=== PATIENT | female | born 1985 | race Caucasian/White ===

== ENCOUNTER 2016-05-14 14:38 | Inpatient (IN) | payer MEDICARE, MEDICAID ==
[2016-05-14] MEDS ORDERED: NORMAL SALINE 1000 ML 1,000 ML IV ONE ×2 (14:44→16:13)
--- NOTE | 2016-05-14 15:15 | ER Document Report ---
ED Blood Sugar Problem - General Stated Complaint: NAUSEA Mode of Arrival: Medic Information source: Patient, Emergency Med Personnel TRAVEL OUTSIDE OF THE [place] IN LAST 30 DAYS: No - HPI Onset: Yesterday Onset/Duration: Gradual Quality of pain: No pain Insulin taken: Yes - ON PUMP Associated symptoms: Nausea, Vomiting Similar symptoms previously: Yes Recently seen / treated by doctor: No - HAS ENDOCRINOLOGY APPT. 05/18 - Related Data Allergies/Adverse Reactions: mushroom Allergy (Severe, Verified 03/10/16 07:28) Anaphylaxis alcohol [Alcohol] Allergy (Unknown, Verified 03/09/16 07:52) Hives gabapentin Allergy (Unknown, Verified 03/09/16 23:32) Hives morphine [Morphine] Allergy (Unknown, Verified 03/09/16 07:52) Penicillins Allergy (Unknown, Verified 03/09/16 07:52) Sulfa (Sulfonamide Antibiotics) Allergy (Unknown, Verified 03/09/16 07:52) adhesive [Adhesive] Allergy (Verified 03/09/16 07:52) hydrocodone Adverse Reaction (Severe, Verified 03/09/16 23:32) Swelling of Throat tomato [Tomato] Adverse Reaction (Severe, Verified 03/09/16 07:52) Anaphylaxis Past Medical History - General Information source: Patient - Social History Smoking Status: Current Every Day Smoker Cigarette use (# per day): Yes Chew tobacco use (# tins/day): No Smoking Education Provided: No Frequency of alcohol use: Occasional Drug Abuse: Marijuana Family History: None Patient has suicidal ideation: No Patient has homicidal ideation: No - Past Medical History Cardiac Medical History: Reports: Hx Hypercholesterolemia Denies: Hx Heart Attack Pulmonary Medical History: Reports: Hx Asthma Denies: Hx Tuberculosis Neurological Medical History: 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 Denies: Hx Cerebrovascular Accident Endocrine Medical History: Reports: Hx Diabetes Mellitus Type 1, Hx Diabetes Mellitus Type 2, Hx Hypothyroidism GI Medical History: Reports: Hx Gastroesophageal Reflux Disease. Denies: Hx Hepatitis, Hx Hiatal Hernia, Hx Ulcer Psychiatric Medical History: Reports: Hx Anxiety, Hx Bipolar Disorder, Hx Depression, Hx Post Traumatic Stress Disorder Infectious Medical History: Denies: Hx Hepatitis Past Surgical History: Reports: Hx Oral Surgery, Hx Orthopedic Surgery - Ankle surgery. Denies: Hx Mastectomy, Hx Open Heart Surgery, Hx Pacemaker - Immunizations Hx Diphtheria, Pertussis, Tetanus Vaccination: Yes Hx Pneumococcal Vaccination: 03/10/13 Review of Systems - Review of Systems Constitutional: Weakness EENT: No symptoms reported Cardiovascular: No symptoms reported Respiratory: No symptoms reported Gastrointestinal: See HPI Genitourinary: No symptoms reported Female Genitourinary: No symptoms reported Musculoskeletal: No symptoms reported Skin: No symptoms reported Neurological/Psychological: No symptoms reported Physical Exam - Vital signs Vitals: Temp Pulse Resp BP Pulse Ox 98.2 F 102 H 16 116/57 L 97 05/14/16 14:50 05/14/16 14:50 05/14/16 14:50 05/14/16 14:50 05/14/16 14:50 Interpretation: Hypotensive, Tachycardic. No: Tachypneic - BRADYPNEIC, Febrile - General General appearance: Appears well, Alert In distress: None - HEENT Head: Normocephalic Eyes: Normal Conjunctiva: Normal Ears: Normal Nasal: Normal Mouth/Lips: Normal Mucous membranes: Dry Pharynx: Normal Neck: Normal - Respiratory Respiratory status: No respiratory distress Breath sounds: Normal - Cardiovascular Rhythm: Regular, Tachycardia Heart sounds: Normal auscultation Murmur: No - Abdominal Inspection: Normal Distension: No distension Bowel sounds: Hypoactive - Back Back: Normal - Extremities General upper extremity: Normal inspection General lower extremity: Normal inspection - Neurological Neuro grossly intact: Yes Cognition: Normal Orientation: AAOx4 - Psychological Associated symptoms: Normal affect, Normal mood - Skin Skin Temperature: Warm Skin Moisture: Dry Skin Color: Normal Skin Turgor: Elastic Course - Vital Signs Vital signs: Temp Pulse Resp BP Pulse Ox 98.2 F 102 H 16 116/57 L 97 05/14/16 14:50 05/14/16 14:50 05/14/16 14:50 05/14/16 14:50 05/14/16 14:50 - Laboratory Result Diagrams: 05/14/16 15:19 05/14/16 15:19 Laboratory results interpreted by me: 05/14/16 05/14/16 05/14/16 15:19 15:19 15:24 WBC 14.9 H RBC 3.70 L Hgb 11.4 L MCV 100 H MCHC 30.7 L RDW 15.4 H Seg Neutrophils % 88.0 H Lymphocytes % 7.9 L Absolute Neutrophils 13.1 H Sodium 130.5 L Potassium 5.6 H Chloride 90 L Carbon Dioxide 7 L* Anion Gap 34 H BUN 37 H Creatinine 1.41 H Est GFR ( Amer) 53 L Est GFR (Non-Af Amer) 44 L Glucose 1159 H* Alkaline Phosphatase 155 H Urine Protein 30 H Urine Glucose (UA) >=500 H Urine Ketones 80 H Urine Blood SMALL H - EKG Interpretation by Sc EKG shows normal: Sinus rhythm, [place], QRS Complexes, ST-T Waves. abnormal: Intervals - BORDERLIINE LONG QT. Rate: Normal Rhythm: NSR Discharge - Discharge Clinical Impression: Diabetic ketoacidosis, Dehydration Condition: Good Disposition: ADMITTED INPATIENT Admitting Provider: Hospitalist Unit Admitted: [facility]
[2016-05-14 15:35] LABS: ABSOLUTE BASOPHILS # (AUTO) 0.1 10^3/uL (0.0-0.2); ABSOLUTE LYMPHOCYTES (AUTO) 1.2 10^3/uL (0.5-4.7); ABSOLUTE MONOCYTES (AUTO) 0.5 10^3/uL (0.1-1.4); ABSOLUTE NEUT (AUTO) 13.1 10^3/uL (1.7-8.2); BASOPHILS % (AUTO) 0.4 % (0-2); EOSINOPHILS % (AUTO) 0.1 % (0-6); HEMATOCRIT 37.1 % (36.0-47.0); HEMOGLOBIN 11.4 g/dL (12.0-15.5); HGB HCT DIFFERENCE -2.9; LYMPHOCYTES % (AUTO) 7.9 % (13-45); MEAN CORPUSCULAR HEMOGLOBIN 30.9 pg (27.0-33.4); MEAN CORPUSCULAR HGB CONC 30.7 g/dL (32.0-36.0); MEAN CORPUSCULAR VOLUME 100 fl (80-97); MONOCYTES % (AUTO) 3.6 % (3-13); RED CELL DISTRIBUTION WIDTH 15.4 % (11.5-14.0); WHITE BLOOD COUNT 14.9 10^3/uL (4.0-10.5)
[2016-05-14 15:44] LABS: APPEARANCE,URINE CLEAR; BILIRUBIN,URINE NEGATIVE (NEGATIVE); GLUCOSE, URINE >=500 mg/dL (NEGATIVE); KETONES,URINE 80 mg/dL (NEGATIVE); LEUKOCYTE ESTERASE,URINE NEGATIVE (NEGATIVE); NITRITE,URINE NEGATIVE (NEGATIVE); PROTEIN,URINE 30 mg/dL (NEGATIVE); URINE SPECIFIC GRAVITY 1.017; UROBILINOGEN,URINE NEGATIVE mg/dL (<2.0)
[2016-05-14 15:52] LABS: ALANINE AMINOTRANSFERASE 51 U/L (9-52); ALBUMIN 4.3 g/dL (3.5-5.0); ALKALINE PHOSPHATASE 155 U/L (38-126); ASPARTATE AMINO TRANSFERASE 24 U/L (14-36); BILIRUBIN,TOTAL 1.3 mg/dL (0.2-1.3); BLOOD UREA NITROGEN 37 mg/dL (7-20); CALCIUM 10.2 mg/dL (8.4-10.2); CHLORIDE 90 mmol/L (98-107); CREATININE RESULT 1.41 mg/dL (0.52-1.25); POTASSIUM 5.6 mmol/L (3.6-5.0); SODIUM 130.5 mmol/L (137-145); TOTAL PROTEIN 7.2 g/dL (6.3-8.2)
[2016-05-14] MEDS ORDERED: ONDANSETRON HCL INJ/PF 4 MG/2 ML SDV IV ONE (15:59)
[2016-05-14] MEDS ORDERED: NORMAL SALINE 100 ML with INSULIN REGULAR, HUMAN 100 UNIT IV PRN ×4 (16:00→16:39)
[2016-05-14 16:06] LABS: ANION GAP 34 (5-19)
[2016-05-14 16:07] LABS: CARBON DIOXIDE 7 mmol/L (22-30)
[2016-05-14] MEDS ORDERED: INSULIN REG, HUMAN 100 UNIT/ML 3 ML VIAL (PYX) IV ONE (16:07)
[2016-05-14 16:08] LABS: GLUCOSE 1159 mg/dL (75-110)
[2016-05-14] MEDS ORDERED: INSULIN REG, HUMAN 100 UNIT/ML 3 ML VIAL (PYX) ONE (16:21)
[2016-05-14] MEDS ORDERED: ONDANSETRON HCL INJ/PF 4 MG/2 ML SDV IV PRN (16:35)
[2016-05-14] MEDS ORDERED: ACETAMINOPHEN 650 MG SUPP.RECT PR PRN (16:35)
[2016-05-14] MEDS ORDERED: DEXTROSE 50%-WATER 25 GM/50 ML DISP.SYRIN IV PRN ×2 (16:39)
[2016-05-14] MEDS ORDERED: GLUCAGON,HUMAN RECOMB 1 MG INJ IM PRN (16:39)
[2016-05-14] MEDS ORDERED: DEXTROSE 40% GEL 15 GM TUBE PO PRN ×2 (16:39)
[2016-05-14 17:29] LABS: CREATINE KINASE MB 1.05 ng/mL (<4.55); TROPONIN I < 0.012 ng/mL
[2016-05-14] MEDS ORDERED: NORMAL SALINE 1000 ML 3,000 ML IV ONE (17:44)
--- NOTE | 2016-05-14 17:55 | PDOC H&P ---
History of Present Illness Admission Date/PCP: 05/14/16 16:35 History of Present Illness: JEANINE OSORIO is a 31 year old female with a past medical history significant for diabetes mellitus type I, bipolar disorder, hypertension, and hypothyroidism who presents to the emergency department with reports that her insulin pump is working. She reports that she's been having an upper respiratory infection for the last several days and that she's post been ear drops which is yet to have filled. She reports that she did vomit her medications. She states starting last night she felt she was having problems with her insulin pump site subsequent moved it to her inner thigh. Today patient is found to be in DKA with a blood sugar of over thousand. She is referred to hospital service for admission. 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 1 Endocrine Medical History: Reports: Diabetes Mellitus Type 1, Hypothyroidism GI Medical History: Reports: Gastroesophageal Reflux Disease Denies: Hepatitis, Hiatal Hernia Psychiatric Medical History: Reports: Bipolar Disorder, Depression, Post Traumatic Stress Disorder Past Surgical History Past Surgical History: Reports: Orthopedic Surgery - Ankle surgery Denies: Amputation, Mastectomy, Pacemaker Social History Smoking Status: Current Every Day Smoker Cigarettes Packs Per Day: 0.5 Frequency of Alcohol Use: Rare Hx Recreational Drug Use: Yes Drugs: Marijuana Hx Prescription Drug Abuse: No - Advance Directive Resuscitation Status: Full Code Surrogate healthcare decision maker:: Mother Florinda Family History Family History: DM Parental Family History Reviewed: Yes Children Family History Reviewed: NA Sibling(s) Family History Reviewed.: Yes Medication/Allergy Home Medications: Hydroxyzine Pamoate [Vistaril 25 mg Capsule] 25 mg PO QID 01/23/14 Lisinopril 10 mg PO DAILY 01/23/14 Omeprazole 40 mg PO DAILY 01/23/14 Prazosin HCl 1 mg PO QHS 01/23/14 Propranolol HCl 20 mg PO BID 01/23/14 Simvastatin [Zocor 40 mg Tablet] 40 mg PO DAILY 01/23/14 Cholecalciferol (Vitamin D3) [Vitamin D3 5000 unit Capsule] 5,000 unit PO DAILY 05/31/14 [place] Carbonate 300 mg PO BID 05/31/14 Zolpidem Tartrate [Ambien] 10 mg PO QHS 05/31/14 Metoclopramide HCl [Reglan] 5 mg PO ACHS 08/21/14 Clindamycin HCl 600 mg PO Q8 09/12/14 Insulin Aspart [Novolog Insulin (Aspart) 100 unit/mL] 0 unit SUBCUT .SLD SCALE 03/09/16 Levothyroxine Sodium [Synthroid] 200 mcg PO DAILY 03/09/16 Paliperidone [Invega 6 mg Tab.er] 6 mg PO DAILY 03/09/16 Allergies/Adverse Reactions: mushroom Allergy (Severe, Verified 03/10/16 07:28) Anaphylaxis alcohol [Alcohol] Allergy (Unknown, Verified 03/09/16 07:52) Hives gabapentin Allergy (Unknown, Verified 03/09/16 23:32) Hives morphine [Morphine] Allergy (Unknown, Verified 03/09/16 07:52) Penicillins Allergy (Unknown, Verified 03/09/16 07:52) Sulfa (Sulfonamide Antibiotics) Allergy (Unknown, Verified 03/09/16 07:52) adhesive [Adhesive] Allergy (Verified 03/09/16 07:52) hydrocodone Adverse Reaction (Severe, Verified 03/09/16 23:32) Swelling of Throat tomato [Tomato] Adverse Reaction (Severe, Verified 03/09/16 07:52) Anaphylaxis Review of Systems Constitutional: PRESENT: fatigue, weakness. ABSENT: chills, fever(s), headache( s), night sweats, weight gain, weight loss Eyes: ABSENT: visual disturbances Ears: ABSENT: hearing changes Cardiovascular: ABSENT: chest pain, dyspnea on exertion, edema, orthropnea, palpitations Respiratory: PRESENT: as per HPI. ABSENT: cough, hemoptysis Gastrointestinal: ABSENT: abdominal pain, constipation, diarrhea, hematemesis, hematochezia, nausea, vomiting Genitourinary: ABSENT: dysuria, hematuria Musculoskeletal: ABSENT: joint swelling Integumentary: ABSENT: rash, wounds Neurological: ABSENT: abnormal gait, abnormal speech, confusion, dizziness, focal weakness, syncope Psychiatric: ABSENT: anxiety, depression, homidical ideation, suicidal ideation Endocrine: ABSENT: cold intolerance, heat intolerance, polydipsia, polyuria Hematologic/Lymphatic: ABSENT: easy bleeding, easy bruising Physical Exam Vital Signs: Temp Pulse Resp BP Pulse Ox 98.2 F 102 H 16 116/57 L 97 05/14/16 14:50 05/14/16 14:50 05/14/16 14:50 05/14/16 14:50 05/14/16 14:50 General appearance: PRESENT: well-developed, well-nourished, other - Acutely ill -appearing Head exam: PRESENT: atraumatic, normocephalic Eye exam: PRESENT: conjunctiva pink, EOMI, PERRLA. ABSENT: conjunctival injection, scleral icterus Ear exam: PRESENT: normal external ear exam Mouth exam: PRESENT: dry mucosa, tongue midline Neck exam: PRESENT: thyromegaly. ABSENT: full ROM, JVD, lymphadenopathy, tracheal deviation Respiratory exam: PRESENT: clear to auscultation dave, symmetrical, tachypnea, unlabored. ABSENT: accessory muscle use, crackles, prolonged expiratory phas, rales, rhonchi, stridor, wheezes Cardiovascular exam: PRESENT: RRR, +S1, +S2, tachycardia. ABSENT: diastolic murmur, gallop, rubs, systolic murmur Pulses: PRESENT: normal dorsalis pedis pul Vascular exam: PRESENT: normal capillary refill GI/Abdominal exam: PRESENT: normal bowel sounds, soft. ABSENT: distended, firm , guarding, hernia, mass, Saldaña's sign, organolmegaly, rebound, rigid, tenderness Rectal exam: PRESENT: deferred Extremities exam: PRESENT: full ROM. ABSENT: calf tenderness, clubbing, pedal edema Neurological exam: PRESENT: alert, awake, oriented to person, oriented to place , oriented to time, oriented to situation, CN II-XII grossly intact. ABSENT: motor sensory deficit Psychiatric exam: PRESENT: appropriate affect, normal mood. ABSENT: homicidal ideation, suicidal ideation Skin exam: PRESENT: dry, intact, warm. ABSENT: cyanosis, rash Results Laboratory Results: 05/14/16 05/14/16 05/14/16 15:19 15:19 15:19 WBC 14.9 H Hgb 11.4 L Hct 37.1 MCV 100 H Plt Count 376 Sodium 130.5 L Potassium 5.6 H Chloride 90 L Carbon Dioxide 7 L* Anion Gap 34 H BUN 37 H Creatinine 1.41 H Glucose 1159 H* Calcium 10.2 Magnesium 2.3 Total Bilirubin 1.3 Creatine Kinase Troponin I 05/14/16 05/14/16 15:19 15:19 WBC Hgb Hct MCV Plt Count Sodium Potassium Chloride Carbon Dioxide Anion Gap BUN Creatinine Glucose Calcium Magnesium Total Bilirubin Creatine Kinase 79 Troponin I < 0.012 Assessment & Plan - Diagnosis (1) DKA (diabetic ketoacidoses) Qualifiers: Diabetes mellitus type: type 1 Diabetes mellitus complication detail: without coma Qualified Code(s): E10.10 - Type 1 diabetes mellitus with ketoacidosis without coma Is this a current diagnosis for this admission?: YesPlan: Likely secondary to URI. Patient also coincidentally has a follow-up appointment with her cycle repairer within the next several days. Patient reports that she was having problems with her pump site. She can address pump difficulties with her cycle repairer at this time. We'll give patient a total of 5 L normal saline bolus. Will initiate insulin drip at 7 units per hour. Will obtain BMPs every 4 hours. Patient will be nothing by mouth. (2) Upper respiratory infection Qualifiers: URI type: unspecified viral URI Qualified Code(s): J06.9 - Acute upper respiratory infection, unspecified; B97.89 - Other viral agents as the cause of diseases classified elsewhere Is this a current diagnosis for this admission?: YesPlan: Will check an influenza. Supportive care. (3) Dehydration Is this a current diagnosis for this admission?: Yes (4) Acute renal failure Qualifiers: Acute renal failure type: unspecified Qualified Code(s): N17.9 - Acute kidney failure, unspecified Is this a current diagnosis for this admission?: YesPlan: Secondary to DKA. Continue with IV fluids. (5) Bipolar 1 disorder Is this a current diagnosis for this admission?: YesPlan: Continue patient home medication. Did check a lithium level which is subtherapeutic. Patient may use her home medication. (6) Hyperlipidemia Qualifiers: Hyperlipidemia type: pure hypercholesterolemia Qualified Code(s): E78.00 - Pure hypercholesterolemia, unspecified; E78.0 - Pure hypercholesterolemia Is this a current diagnosis for this admission?: Yes (7) Hypothyroidism Qualifiers: Hypothyroidism type: unspecified Qualified Code(s): E03.9 - Hypothyroidism, unspecified Is this a current diagnosis for this admission?: YesPlan: We'll continue Synthroid. - Time Time Spent: 50 to 70 Minutes Medications reviewed and adjusted accordingly: Yes Anticipated discharge: Home Within: within 72 hours - Inpatient Certification Based on my medical assessment, after consideration of the patient's comorbidities, presenting symptoms, or acuity I expect that the services needed warrant INPATIENT care.: Yes I certify that my determination is in accordance with my understanding of Medicare's requirements for reasonable and necessary INPATIENT services [42 CFR 412.3e].: Yes Medical Necessity: Need For IV Fluids, Need For Continuous Telemetry Monitoring , Risk of Complication if Not Cared For in Hospital Post Hospital Care: D/C Hospital Manager Documentation
[2016-05-14 18:25] LABS: URINE BARBITURATES SCREEN NEGATIVE; URINE METHADONE SCREEN NEGATIVE; URINE OPIATES LOW NEGATIVE; URINE PHENCYCLIDINE SCREEN NEGATIVE
[2016-05-14] MEDS ORDERED: PANTOPRAZOLE SODIUM 40 MG VIAL IV ONE (18:45)
[2016-05-14] MEDS: NORMAL SALINE 1000 ML 1,000 ML IV PRN ×2 (19:00→22:54)
[2016-05-14] MEDS: METOCLOPRAMIDE HCL INJ/PF 10 MG/2 ML SDV IV SCH (21:14)
[2016-05-14 21:17] LABS: CREATINE KINASE MB 0.88 ng/mL (<4.55)
[2016-05-14 21:18] LABS: TROPONIN I < 0.012 ng/mL
--- NOTE | 2016-05-14 22:11 | EKG REPORT ---
SEVERITY:- BORDERLINE ECG - SINUS TACHYCARDIA BORDERLINE PROLONGED QT INTERVAL : Confirmed by: Jorge Pruett 14-May-2016 22:11:23
[2016-05-14 23:01] LABS: VENOUS BLOOD BASE EXCESS -7.9 mmol/L; VENOUS BLOOD HCO3 18.3 mmol/L (20-32); VENOUS BLOOD PCO2 39.6 mmHg (35-63); VENOUS BLOOD PH 7.28 (7.30-7.42)
[2016-05-14 23:32] LABS: BLOOD UREA NITROGEN 31 mg/dL (7-20); CALCIUM 8.6 mg/dL (8.4-10.2); CHLORIDE 112 mmol/L (98-107); CREATINE KINASE 57 U/L (30-135); CREATININE RESULT 1.09 mg/dL (0.52-1.25); GLUCOSE 308 mg/dL (75-110); SODIUM 142.2 mmol/L (137-145)
[2016-05-14 23:49] LABS: ANION GAP 13 (5-19)
[2016-05-14 23:52] LABS: CARBON DIOXIDE 17 mmol/L (22-30); POTASSIUM 4.2 mmol/L (3.6-5.0)
[2016-05-15] MEDS: POTASSI CL 20 MEQ/D5-1/2NS 1L 1,000 ML IV PRN ×2 (01:32→06:35)
[2016-05-15 03:43] LABS: CREATINE KINASE MB 0.56 ng/mL (<4.55)
[2016-05-15 03:46] LABS: TROPONIN I < 0.012 ng/mL
[2016-05-15 04:07] LABS: ANION GAP 10 (5-19); BLOOD UREA NITROGEN 28 mg/dL (7-20); CALCIUM 7.7 mg/dL (8.4-10.2); CARBON DIOXIDE 21 mmol/L (22-30); CHLORIDE 113 mmol/L (98-107); CREATINE KINASE 45 U/L (30-135); CREATININE RESULT 0.96 mg/dL (0.52-1.25); GLUCOSE 171 mg/dL (75-110); MAGNESIUM 1.8 mg/dL (1.6-2.3); POTASSIUM 3.7 mmol/L (3.6-5.0); SODIUM 143.8 mmol/L (137-145)
[2016-05-15] MEDS ORDERED: PANTOPRAZOLE SODIUM 40 MG VIAL IV SCH (06:00)
[2016-05-15 07:13] LABS: ABSOLUTE BASOPHILS # (AUTO) 0.1 10^3/uL (0.0-0.2); ABSOLUTE EOSINOPHILS # (AUTO) 0.1 10^3/uL (0.0-0.6); ABSOLUTE LYMPHOCYTES (AUTO) 3.8 10^3/uL (0.5-4.7); ABSOLUTE MONOCYTES (AUTO) 0.9 10^3/uL (0.1-1.4); ABSOLUTE NEUT (AUTO) 8.2 10^3/uL (1.7-8.2); BASOPHILS % (AUTO) 0.4 % (0-2); HEMOGLOBIN 9.5 g/dL (12.0-15.5); HGB HCT DIFFERENCE 0.5; LYMPHOCYTES % (AUTO) 28.9 % (13-45); MEAN CORPUSCULAR HEMOGLOBIN 30.8 pg (27.0-33.4); MEAN CORPUSCULAR HGB CONC 33.7 g/dL (32.0-36.0); MONOCYTES % (AUTO) 7.1 % (3-13); RED BLOOD COUNT 3.07 10^6/uL (3.72-5.28); RED CELL DISTRIBUTION WIDTH 14.7 % (11.5-14.0); SEGMENTED NEUTROPHILS % (AUTO) 62.6 % (42-78); WHITE BLOOD COUNT 13.1 10^3/uL (4.0-10.5)
[2016-05-15 07:31] LABS: ANION GAP 8 (5-19); BLOOD UREA NITROGEN 25 mg/dL (7-20); CALCIUM 8.2 mg/dL (8.4-10.2); CARBON DIOXIDE 21 mmol/L (22-30); CHLORIDE 114 mmol/L (98-107); CREATININE RESULT 0.91 mg/dL (0.52-1.25); GLUCOSE 167 mg/dL (75-110); POTASSIUM 4.1 mmol/L (3.6-5.0); SODIUM 142.8 mmol/L (137-145)
[2016-05-15 07:34] LABS: MEAN CORPUSCULAR VOLUME 91 fl (80-97)
[2016-05-15] MEDS ORDERED: ENOXAPARIN SODIUM INJ 40 MG/0.4 ML DISP.SYRIN SUBCUT SCH (08:00)
[2016-05-15] MEDS ORDERED: NORMAL SALINE 1000 ML 1,000 ML IV PRN (09:54)
[2016-05-15] MEDS ORDERED: INSULIN LISPRO 100 UNIT/ML 3 ML VIAL SUBCUT PRN (09:55)
[2016-05-15] MEDS ORDERED: (PENDING PHARMACY ID) (Lithium Carbonate [Lithium Carbonate] 600 MG) PO SCH (10:00)
[2016-05-15] MEDS ORDERED: PROPRANOLOL HCL 10 MG TABLET PO SCH (10:00)
[2016-05-15] MEDS: METOCLOPRAMIDE HCL INJ/PF 10 MG/2 ML SDV IV SCH (10:09)
[2016-05-15] MEDS ORDERED: LEVOTHYROXINE SODIUM 0.1 MG TABLET PO ONE (11:00)
[2016-05-15] MEDS ORDERED: PROPRANOLOL HCL 20 MG TABLET PO ONE (11:00)
[2016-05-15] MEDS ORDERED: LITHIUM CARBONATE 300 MG CAPSULE PO ONE (11:00)
[2016-05-15] MEDS: HYDROXYZINE PAMOATE 25 MG CAPSULE PO SCH ×2 (11:03→14:42)
[2016-05-15 11:30] LABS: ANION GAP 8 (5-19); BLOOD UREA NITROGEN 23 mg/dL (7-20); CALCIUM 7.9 mg/dL (8.4-10.2); CARBON DIOXIDE 21 mmol/L (22-30); CHLORIDE 112 mmol/L (98-107); GLUCOSE 142 mg/dL (75-110); POTASSIUM 4.1 mmol/L (3.6-5.0); SODIUM 140.9 mmol/L (137-145)
--- NOTE | 2016-05-15 15:00 | PDOC DISCHARGE SUMMARY ---
General - Admit/Disc Date/PCP Admission Date/Primary Care Provider: 05/14/16 16:35 Discharge Date: 05/15/16 - Discharge Diagnosis (1) DKA (diabetic ketoacidoses) Is this a current diagnosis for this admission?: Yes (2) Upper respiratory infection Is this a current diagnosis for this admission?: Yes (3) Dehydration Is this a current diagnosis for this admission?: Yes (4) Acute renal failure Is this a current diagnosis for this admission?: Yes (5) Bipolar 1 disorder Is this a current diagnosis for this admission?: Yes (6) Hyperlipidemia Is this a current diagnosis for this admission?: Yes (7) Hypothyroidism Is this a current diagnosis for this admission?: Yes - Additional Information Resuscitation Status: Full Code Discharge Diet: Diabetic Discharge Activity: Activity As Tolerated Home Medications: Hydroxyzine Pamoate [Vistaril 25 mg Capsule] 25 mg PO QID 01/23/14 Lisinopril 10 mg PO DAILY 01/23/14 Omeprazole 40 mg PO DAILY 01/23/14 Prazosin HCl 1 mg PO QHS 01/23/14 Propranolol HCl 20 mg PO BID 01/23/14 [place] Carbonate 600 mg PO BID 05/31/14 Zolpidem Tartrate [Ambien] 10 mg PO QHS 05/31/14 Metoclopramide HCl [Reglan] 10 mg PO BID 08/21/14 Clindamycin HCl 600 mg PO Q8 09/12/14 Insulin Aspart [Novolog Insulin (Aspart) 100 unit/mL] 0 unit SUBCUT .SLD SCALE 03/09/16 Levothyroxine Sodium [Synthroid] 200 mcg PO DAILY 03/09/16 Paliperidone [Invega 6 mg Tab.er] 6 mg PO QHS 03/09/16 History of Present Illness History of Present Illness: JEANINE OSORIO is a 31 year old female with a past medical history significant for diabetes mellitus type I, bipolar disorder, hypertension, and hypothyroidism who presents to the emergency department with reports that her insulin pump is working. She reports that she's been having an upper respiratory infection for the last several days and that she's post been ear drops which is yet to have filled. She reports that she did vomit her medications. She states starting last night she felt she was having problems with her insulin pump site subsequent moved it to her inner thigh. Today patient is found to be in DKA with a blood sugar of over thousand. She is referred to hospital service for admission. Hospital Course Hospital Course: Patient was placed on insulin drip and IV fluids and her gap as well as acidosis rapidly resolved. Patient was transitioned according to standard DKA therapy and continued to do well. Patient reports that she felt her insulin pump site was not working and new site was placed in pump was reinitiated prior to discharge. Patient has a follow-up appointment she reports this week with her geographic information system surveyor. She is strongly advised to follow up with her. Physical Exam Vital Signs: Temp Pulse Resp BP Pulse Ox 97.5 F 86 20 125/74 98 05/15/16 11:06 05/15/16 11:06 05/15/16 11:06 05/15/16 11:06 05/15/16 11:06 Intake & Output 05/14/16 05/15/16 05/16/16 06:59 06:59 06:59 Intake Total 6 582 Balance 2035 582 Weight 67.2 kg Exam: General: Awake alert and oriented x3, no acute respiratory distress HEENT: AT/NC, PERRL, EOMI, oropharynx is moist, pink, no scleral icterus, no conjunctival injection Neck: No JVD, trachea midline Chest: Clear to auscultation bilaterally, no wheezes rhonchi or rales CV: Regular rate and rhythm, normal S1 and S2, no murmur, rub, or gallop Abdomen: Soft, nontender to palpation, nondistended, active bowel sounds; no rebound, rigidity, or guarding Extremities: No cyanosis, clubbing; trace edema Neuro: Cranial nerves II through XII are grossly intact without focal deficits; awake alert and oriented x3 Psych: Normal mood and affect Results Laboratory Results: 05/15/16 06:40 05/15/16 10:57 05/14/16 05/14/16 05/14/16 20:45 20:45 22:47 WBC RBC Hgb Hct MCV MCH MCHC RDW Plt Count Seg Neutrophils % Lymphocytes % Monocytes % Eosinophils % Basophils % Absolute Neutrophils Absolute Lymphocytes Absolute Monocytes Absolute Eosinophils Absolute Basophils VBG pH Cancelled 7.28 L VBG pCO2 Cancelled 39.6 VBG HCO3 Cancelled 18.3 L VBG Base Excess Cancelled -7.9 Sodium Cancelled Potassium Cancelled Chloride Cancelled Carbon Dioxide Cancelled Anion Gap Cancelled BUN Cancelled Creatinine Cancelled Est GFR ( Amer) Cancelled Est GFR (Non-Af Amer) Cancelled Glucose Cancelled Calcium Cancelled Magnesium 05/14/16 05/15/16 05/15/16 22:47 03:07 06:40 WBC RBC Hgb Hct MCV MCH MCHC RDW Plt Count Seg Neutrophils % Lymphocytes % Monocytes % Eosinophils % Basophils % Absolute Neutrophils Absolute Lymphocytes Absolute Monocytes Absolute Eosinophils Absolute Basophils VBG pH VBG pCO2 VBG HCO3 VBG Base Excess Sodium 142.2 143.8 142.8 Potassium 4.2 D 3.7 4.1 Chloride 112 H 113 H 114 H Carbon Dioxide 17 L D 21 L 21 L Anion Gap 13 10 8 BUN 31 H 28 H 25 H Creatinine 1.09 0.96 0.91 Est GFR ( Amer) > 60 > 60 > 60 Est GFR (Non-Af Amer) 59 L > 60 > 60 Glucose 308 H 171 H 167 H Calcium 8.6 7.7 L 8.2 L Magnesium 1.8 05/15/16 05/15/16 06:40 10:57 WBC 13.1 H RBC 3.07 L Hgb 9.5 L Hct 28.0 L MCV 91 D MCH 30.8 MCHC 33.7 RDW 14.7 H Plt Count 339 Seg Neutrophils % 62.6 Lymphocytes % 28.9 Monocytes % 7.1 Eosinophils % 1.0 Basophils % 0.4 Absolute Neutrophils 8.2 Absolute Lymphocytes 3.8 Absolute Monocytes 0.9 Absolute Eosinophils 0.1 Absolute Basophils 0.1 VBG pH VBG pCO2 VBG HCO3 VBG Base Excess Sodium 140.9 Potassium 4.1 Chloride 112 H Carbon Dioxide 21 L Anion Gap 8 BUN 23 H Creatinine 0.90 Est GFR ( Amer) > 60 Est GFR (Non-Af Amer) > 60 Glucose 142 H Calcium 7.9 L Magnesium 05/14/16 05/14/16 05/14/16 20:45 20:45 22:47 Creatine Kinase Cancelled 57 CK-MB (CK-2) 0.88 Troponin I < 0.012 05/15/16 05/15/16 03:07 03:07 Creatine Kinase 45 CK-MB (CK-2) 0.56 Troponin I < 0.012 Qualifiers P[place]INT BEING DISCHARGED WITH ANY OF THE FOLLOWING DIAGNOSIS?: No Plan Time Spent: Less than 30 Minutes
[2016-05-15 15:41] LABS: ANION GAP 7 (5-19); BLOOD UREA NITROGEN 20 mg/dL (7-20); CALCIUM 7.8 mg/dL (8.4-10.2); CARBON DIOXIDE 18 mmol/L (22-30); CHLORIDE 114 mmol/L (98-107); CREATININE RESULT 0.89 mg/dL (0.52-1.25); GLUCOSE 162 mg/dL (75-110); POTASSIUM 4.2 mmol/L (3.6-5.0)
[2016-05-15 15:42] VITALS: BP 115/65
[2016-05-15] MEDS ORDERED: LITHIUM CARBONATE 300 MG CAPSULE PO SCH (22:00)
[2016-05-15] MEDS ORDERED: (PENDING PHARMACY ID) (Prazosin Hcl [Prazosin Hcl] 1 MG) PO SCH (22:00)
[2016-05-15] MEDS ORDERED: PROPRANOLOL HCL 20 MG TABLET PO SCH (22:00)
[2016-05-15] MEDS ORDERED: PALIPERIDONE 6 MG TAB.ER.24 PO SCH (22:00)
[2016-05-15] MEDS ORDERED: PRAZOSIN 1 MG CAPSULE PO SCH (22:00)
[2016-05-16] MEDS ORDERED: LEVOTHYROXINE SODIUM 0.1 MG TABLET PO SCH (10:00)
== END 2016-05-15 16:33 | disposition home or self-care (01) | DRG 638 ==
LOC: ER 14:38 → EH 16:35 → UNDOADMIN 17:20 → 3N 20:22
PROVIDERS: ADMIT Family Medicine; ATTEND Family Medicine
DX: E10.10 Type 1 diabetes mellitus with ketoacidosis without coma (principal); N17.9 Acute kidney failure, unspecified; F31.9 Bipolar disorder, unspecified; F43.10 Post-traumatic stress disorder, unspecified; K21.9 Gastro-esophageal reflux disease without esophagitis; F17.210 Nicotine dependence, cigarettes, uncomplicated; E86.0 Dehydration; E78.5 Hyperlipidemia, unspecified; E03.9 Hypothyroidism, unspecified; F32.9 Major depressive disorder, single episode, unspecified; J06.9 Acute upper respiratory infection, unspecified; Z88.0 Allergy status to penicillin; Z88.2 Allergy status to sulfonamides; Z88.8 Allergy status to other drugs, medicaments and biological substances; Z90.10 Acquired absence of unspecified breast and nipple; Z79.4 Long term (current) use of insulin; Z91.018 Allergy to other foods; Z79.899 Other long term (current) drug therapy
CPT/HCPCS: 36415; 80048; 80053; 80178; 80307; 81001; 81025; 82550; 82553; 82803; 82962; 83735; 84484; 85025; 87804; 93005; 93010; 96361; 96374; 99285; J1815; J2405; J2765; J3480; J3490; J7030; S0164

== ENCOUNTER 2016-06-29 14:40 | Inpatient (IN) | payer MEDICARE, MEDICAID ==
--- NOTE | 2016-06-29 14:48 | ER Document Report ---
ED Medical Screen (RME) - General Stated Complaint: HIGH BLOOD SUGAR Notes: 31 yo IDDM on insulin pump, c/o high blood sugar since 0700 today. + n/v, + abdominal pain. blood sugars >600 admitted in May for DKA TRAVEL OUTSIDE OF THE [place] IN LAST 30 DAYS: No - Related Data Allergies/Adverse Reactions: mushroom Allergy (Severe, Verified 03/10/16 07:28) Anaphylaxis alcohol [Alcohol] Allergy (Unknown, Verified 03/09/16 07:52) Hives gabapentin Allergy (Unknown, Verified 03/09/16 23:32) Hives morphine [Morphine] Allergy (Unknown, Verified 03/09/16 07:52) Penicillins Allergy (Unknown, Verified 03/09/16 07:52) Sulfa (Sulfonamide Antibiotics) Allergy (Unknown, Verified 03/09/16 07:52) adhesive [Adhesive] Allergy (Verified 03/09/16 07:52) hydrocodone Adverse Reaction (Severe, Verified 03/09/16 23:32) Swelling of Throat tomato [Tomato] Adverse Reaction (Severe, Verified 03/09/16 07:52) Anaphylaxis Past Medical History - Past Medical History Cardiac Medical History: Reports: Hx Hypercholesterolemia Denies: Hx Heart Attack Pulmonary Medical History: Reports: Hx Asthma Denies: Hx Tuberculosis Neurological Medical History: 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 Denies: Hx Cerebrovascular Accident Endocrine Medical History: Reports: Hx Diabetes Mellitus Type 1, Hx Diabetes Mellitus Type 2, Hx Hypothyroidism GI Medical History: Reports: Hx Gastroesophageal Reflux Disease. Denies: Hx Hepatitis, Hx Hiatal Hernia, Hx Ulcer Psychiatric Medical History: Reports: Hx Anxiety, Hx Bipolar Disorder, Hx Depression, Hx Post Traumatic Stress Disorder Infectious Medical History: Denies: Hx Hepatitis Past Surgical History: Reports: Hx Oral Surgery, Hx Orthopedic Surgery - Ankle surgery. Denies: Hx Mastectomy, Hx Open Heart Surgery, Hx Pacemaker - Immunizations Hx Diphtheria, Pertussis, Tetanus Vaccination: Yes
--- NOTE | 2016-06-29 15:17 | ER Document Report ---
ED Blood Sugar Problem - General Mode of Arrival: Ambulatory Information source: Patient TRAVEL OUTSIDE OF THE [place] IN LAST 30 DAYS: No - HPI Patient complains to provider of: high blood sugar Onset: This morning Associated symptoms: Other - See above <FELIPE KNIGHT - Last Filed: 06/29/16 15:12> <RONITROBBIEGREGOR - Last Filed: 06/29/16 17:29> - General Chief Complaint: High Blood Sugar Stated Complaint: HIGH BLOOD SUGAR Notes: Patient is a 31 year old female, with a past medical history including IDDM, who presents to the emergency department complaining of high blood sugar levels onset this morning. Patient reports she felt fine last night but this morning when she woke up she had abdominal pain, nausea, and vomited at 0700. Patient reports her blood sugar has been running high all day and believes there is a problem with her insulin pump site which she last changed yesterday. Patient denies fever and cough. PCP: Dr. Mchugh, [facility] (FELIPE KNIGHT) - Related Data Allergies/Adverse Reactions: mushroom Allergy (Severe, Verified 06/29/16 14:47) Anaphylaxis alcohol [Alcohol] Allergy (Unknown, Verified 06/29/16 14:47) Hives gabapentin Allergy (Unknown, Verified 06/29/16 14:47) Hives morphine [Morphine] Allergy (Unknown, Verified 06/29/16 14:47) Penicillins Allergy (Unknown, Verified 06/29/16 14:47) Sulfa (Sulfonamide Antibiotics) Allergy (Unknown, Verified 06/29/16 14:47) adhesive [Adhesive] Allergy (Verified 06/29/16 14:47) hydrocodone Adverse Reaction (Severe, Verified 06/29/16 14:47) Swelling of Throat tomato [Tomato] Adverse Reaction (Severe, Verified 06/29/16 14:47) Anaphylaxis Past Medical History - General Information source: Patient - Social History Smoking Status: Current Every Day Smoker Chew tobacco use (# tins/day): No Frequency of alcohol use: None Drug Abuse: None Family History: Reviewed & Not Pertinent, DM Patient has suicidal ideation: No Patient has homicidal ideation: No - Past Medical History Cardiac Medical History: Reports: Hx Hypercholesterolemia Pulmonary Medical History: Reports: Hx Asthma Neurological Medical History: Reports: 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 Endocrine Medical History: Reports: Hx Diabetes Mellitus Type 1, Hx Diabetes Mellitus Type 2, Hx Hypothyroidism GI Medical History: Reports: Hx Gastroesophageal Reflux Disease Psychiatric Medical History: Reports: Hx Anxiety, Hx Bipolar Disorder, Hx Depression, Hx Post Traumatic Stress Disorder Past Surgical History: Reports: Hx Oral Surgery, Hx Orthopedic Surgery - Ankle surgery - Immunizations Hx Diphtheria, Pertussis, Tetanus Vaccination: Yes Hx Pneumococcal Vaccination: 03/10/13 <FELIPE KNIGHT - Last Filed: 06/29/16 15:12> Review of Systems - Review of Systems Constitutional: See HPI, Other - high blood sugar. denies: Fever EENT: No symptoms reported Cardiovascular: No symptoms reported Respiratory: denies: Cough Gastrointestinal: See HPI, Abdominal pain, Nausea, Vomiting Genitourinary: No symptoms reported Female Genitourinary: No symptoms reported Musculoskeletal: No symptoms reported Skin: No symptoms reported Hematologic/Lymphatic: No symptoms reported Neurological/Psychological: No symptoms reported -: Yes All other systems reviewed and negative <FELIPE KNIGHT - Last Filed: 06/29/16 15:12> Physical Exam - Vital signs Interpretation: Normal - General General appearance: Appears well, Alert - HEENT Head: Normocephalic, Atraumatic Mouth/Lips: Other - Strong ketone odor on breath Mucous membranes: Dry - Respiratory Respiratory status: No respiratory distress Chest status: Nontender Breath sounds: Normal Chest palpation: Normal - Cardiovascular Rhythm: Regular Heart sounds: Normal auscultation Murmur: No - Abdominal Inspection: Other - Insulin pump attached at right lateral mid abdomen Distension: No distension Bowel sounds: Normal Tenderness: Tender - Winces when abdomen is palpated Organomegaly: No organomegaly - Extremities General upper extremity: Normal inspection General lower extremity: Normal inspection - Neurological Neuro grossly intact: Yes Cognition: Normal Orientation: AAOx4 [place] Coma Scale Eye Opening: Spontaneous [place] Coma Scale Verbal: Oriented [place] Coma Scale Motor: Obeys Commands [place] Coma Scale Total: 15 Speech: Normal - Psychological Associated symptoms: Normal affect, Normal mood - Skin Skin Temperature: Warm Skin Moisture: Dry Skin Color: Normal <FELIPE KNIGHT - Last Filed: 06/29/16 15:12> Course - Laboratory Result Diagrams: 06/29/16 15:48 06/29/16 15:48 - Consults Dr. Zhang Time consulted: 17:25 Consulted provider: will come to ER <GREGOR COTTRELL - Last Filed: 06/29/16 17:29> - Laboratory Laboratory results interpreted by me: 06/29/16 06/29/16 06/29/16 15:48 15:48 15:48 MCV 98 H Sodium 133.7 L Potassium 5.1 H Chloride 93 L Carbon Dioxide 13 L Anion Gap 28 H BUN 28 H Est GFR (Non-Af Amer) 52 L Glucose 714 H* Direct Bilirubin 0.5 H AST 88 H ALT 97 H Urine Protein 100 H Urine Glucose (UA) >=500 H Urine Ketones 80 H Urine Blood SMALL H [employer] < 0.2 L Critical Care Note - Critical Care Note Total time excluding time spent on procedures (mins): 30 <GREGOR COTTRELL - Last Filed: 06/29/16 17:29> Discharge <FELIPE KNIGHT - Last Filed: 06/29/16 15:12> - Discharge Admitting Provider: Hospitalist Unit Admitted: IMCU <GREGOR COTTRELL - Last Filed: 06/29/16 17:29> - Discharge Clinical Impression: Bipolar 1 disorder, Dehydration, Type 1 diabetes mellitus with hyperglycemia Diabetic ketoacidosis Qualifiers: Diabetes mellitus type: type 1 Diabetes mellitus complication detail: without coma Qualified Code(s): E10.10 - Type 1 diabetes mellitus with ketoacidosis without coma Condition: Stable Disposition: ADMITTED INPATIENT Referrals: LAWSON MCHUGH DO [Primary Care Provider] - Follow up as needed Scribe Attestation: 06/29/16 17:28 I personally performed the services described in the documentation, reviewed and edited the documentation which was dictated to the scribe in my presence, and it accurately records my words and actions. (GREGOR COTTRELL) Scribe Documentation - Scribe Written by Adeibe:: hira Collins, 06/29/16, 1519 acting as scribe for :: Ronit <FELIPE KNIGHT - Last Filed: 06/29/16 15:12>
[2016-06-29 16:00] LABS: ABSOLUTE BASOPHILS # (AUTO) 0.1 10^3/uL (0.0-0.2); ABSOLUTE EOSINOPHILS # (AUTO) 0.1 10^3/uL (0.0-0.6); ABSOLUTE LYMPHOCYTES (AUTO) 1.6 10^3/uL (0.5-4.7); ABSOLUTE MONOCYTES (AUTO) 0.3 10^3/uL (0.1-1.4); ABSOLUTE NEUT (AUTO) 6.8 10^3/uL (1.7-8.2); EOSINOPHILS % (AUTO) 0.8 % (0-6); HEMATOCRIT 40.8 % (36.0-47.0); HEMOGLOBIN 13.1 g/dL (12.0-15.5); HGB HCT DIFFERENCE -1.5; LYMPHOCYTES % (AUTO) 18.3 % (13-45); MEAN CORPUSCULAR HEMOGLOBIN 31.3 pg (27.0-33.4); MEAN CORPUSCULAR VOLUME 98 fl (80-97); MONOCYTES % (AUTO) 3.4 % (3-13); RED BLOOD COUNT 4.18 10^6/uL (3.72-5.28); SEGMENTED NEUTROPHILS % (AUTO) 76.5 % (42-78); WHITE BLOOD COUNT 8.8 10^3/uL (4.0-10.5)
[2016-06-29] MEDS: NORMAL SALINE 1000 ML 1,000 ML IV PRN ×3 (16:01→23:04)
[2016-06-29 16:23] LABS: ALANINE AMINOTRANSFERASE 97 U/L (9-52); ALBUMIN 4.4 g/dL (3.5-5.0); ALKALINE PHOSPHATASE 97 U/L (38-126); ASPARTATE AMINO TRANSFERASE 88 U/L (14-36); BILIRUBIN,DIRECT 0.5 mg/dL (0.0-0.4); BILIRUBIN,TOTAL 1.2 mg/dL (0.2-1.3); BLOOD UREA NITROGEN 28 mg/dL (7-20); CALCIUM 9.8 mg/dL (8.4-10.2); CARBON DIOXIDE 13 mmol/L (22-30); CHLORIDE 93 mmol/L (98-107); CREATININE RESULT 1.21 mg/dL (0.52-1.25); TOTAL PROTEIN 7.2 g/dL (6.3-8.2)
[2016-06-29 16:24] LABS: LITHIUM < 0.2 mEq/L (0.6-1.2)
[2016-06-29 16:29] LABS: APPEARANCE,URINE SLIGHTLY-CLOUDY; BILIRUBIN,URINE NEGATIVE (NEGATIVE); GLUCOSE, URINE >=500 mg/dL (NEGATIVE); KETONES,URINE 80 mg/dL (NEGATIVE); LEUKOCYTE ESTERASE,URINE NEGATIVE (NEGATIVE); NITRITE,URINE NEGATIVE (NEGATIVE); PROTEIN,URINE 100 mg/dL (NEGATIVE); UROBILINOGEN,URINE NEGATIVE mg/dL (<2.0)
[2016-06-29 16:34] LABS: POTASSIUM 5.1 mmol/L (3.6-5.0); SODIUM 133.7 mmol/L (137-145)
[2016-06-29] MEDS ORDERED: ONDANSETRON HCL INJ/PF 4 MG/2 ML SDV IV ONE (16:34)
[2016-06-29 16:46] LABS: ANION GAP 28 (5-19)
[2016-06-29 16:50] LABS: GLUCOSE 714 mg/dL (75-110)
[2016-06-29] MEDS ORDERED: INSULIN REG, HUMAN 100 UNIT/ML 3 ML VIAL (PYX) IV ONE (16:52)
[2016-06-29] MEDS ORDERED: DEXTROSE 40% GEL 15 GM TUBE PO PRN ×2 (17:31)
[2016-06-29] MEDS ORDERED: GLUCAGON,HUMAN RECOMB 1 MG INJ IM PRN (17:31)
[2016-06-29] MEDS ORDERED: DEXTROSE 50%-WATER 25 GM/50 ML DISP.SYRIN IV PRN ×2 (17:31)
[2016-06-29] MEDS ORDERED: NORMAL SALINE 100 ML with INSULIN REGULAR, HUMAN 100 UNIT IV PRN ×2 (17:31)
[2016-06-29] MEDS ORDERED: NORMAL SALINE 1000 ML 1,000 ML IV PRN ×2 (17:31→22:54)
[2016-06-29] MEDS ORDERED: ONDANSETRON HCL INJ/PF 4 MG/2 ML SDV IV PRN (17:32)
[2016-06-29] MEDS ORDERED: ACETAMINOPHEN 325 MG TABLET PO PRN (17:32)
[2016-06-29] MEDS ORDERED: (PENDING PHARMACY ID) (Lithium Carbonate [Lithium Carbonate] 600 MG) PO SCH (18:00)
--- NOTE | 2016-06-29 18:51 | PDOC H&P ---
History of Present Illness Admission Date/PCP: 06/29/16 18:06 LAWSON HUDSON DO Patient complains of: DKA History of Present Illness: JEANINE OSORIO is a 31 year old female with type I diabetes on insulin pump that presents with DKA symptoms. She states that she believes her insulin pump catheter was not in appropriate position and she didn't realize this until she became symptomatic. In the emergency department her blood glucose was in the 700s. 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 1 Endocrine Medical History: Reports: Diabetes Mellitus Type 1, Hypothyroidism GI Medical History: Reports: Gastroesophageal Reflux Disease Denies: Hepatitis, Hiatal Hernia Psychiatric Medical History: Reports: Bipolar Disorder, Depression, Post Traumatic Stress Disorder Past Surgical History Past Surgical History: Reports: Orthopedic Surgery - Ankle surgery Denies: Amputation, Mastectomy, Pacemaker Social History Information Source: Patient Smoking Status: Current Every Day Smoker Frequency of Alcohol Use: None Hx Recreational Drug Use: No Drugs: None Hx Prescription Drug Abuse: No - Advance Directive Resuscitation Status: Full Code Family History Family History: DM Parental Family History Reviewed: Yes Children Family History Reviewed: Yes Sibling(s) Family History Reviewed.: Yes Medication/Allergy Home Medications: Zolpidem Tartrate [Ambien] 10 mg PO QHS 05/31/14 Clindamycin HCl 600 mg PO Q8 09/12/14 Allergies/Adverse Reactions: mushroom Allergy (Severe, Verified 06/29/16 14:47) Anaphylaxis alcohol [Alcohol] Allergy (Unknown, Verified 06/29/16 14:47) Hives gabapentin Allergy (Unknown, Verified 06/29/16 14:47) Hives morphine [Morphine] Allergy (Unknown, Verified 06/29/16 14:47) Penicillins Allergy (Unknown, Verified 06/29/16 14:47) Sulfa (Sulfonamide Antibiotics) Allergy (Unknown, Verified 06/29/16 14:47) adhesive [Adhesive] Allergy (Verified 06/29/16 14:47) hydrocodone Adverse Reaction (Severe, Verified 06/29/16 14:47) Swelling of Throat tomato [Tomato] Adverse Reaction (Severe, Verified 06/29/16 14:47) Anaphylaxis Review of Systems Constitutional: ABSENT: chills, fever(s), headache(s), weight gain, weight loss Eyes: ABSENT: visual disturbances Ears: ABSENT: hearing changes Cardiovascular: ABSENT: chest pain, dyspnea on exertion, edema, orthropnea, palpitations Respiratory: ABSENT: cough, hemoptysis Gastrointestinal: PRESENT: nausea. ABSENT: abdominal pain, constipation, diarrhea, hematemesis, hematochezia, vomiting Genitourinary: ABSENT: dysuria, hematuria Musculoskeletal: PRESENT: other - Right flank pain. ABSENT: joint swelling Integumentary: ABSENT: rash, wounds Neurological: ABSENT: abnormal gait, abnormal speech, confusion, dizziness, focal weakness, syncope Psychiatric: ABSENT: anxiety, depression, homidical ideation, suicidal ideation Endocrine: ABSENT: cold intolerance, heat intolerance, polydipsia, polyuria Hematologic/Lymphatic: ABSENT: easy bleeding, easy bruising Physical Exam Vital Signs: Temp Pulse Resp BP Pulse Ox 19 116/59 L 100 06/29/16 17:27 06/29/16 17:27 06/29/16 17:27 PHYSICAL EXAM: GENERAL: Appears well, no acute distress HEENT: Normocephalic, no scleral icterus, conjunctiva clear, EOEM intact, PERRLA , moist mucous membranes NECK: trachea midline, no thyromegally RESPIRATORY: Clear to auscultation, no wheezes/rhonchi CARDIAC: Regular rate and rhythm, no murmur/sergey/rub ABDOMEN: Soft, no distension, no tenderness, no guarding, normal bowel sounds, negative Saldaña sign RECTAL: deferred : deferred EXTREMITIES: No edema, cyanosis, clubbing MUSCULOSKELETAL: Unusually tender in the right flank to extremely minimal outpatient outpatient VASCULAR: normal peripheral pulses NEUROLOGIC: Alert, oriented to person/place/time, normal speech, cranial nerves grossly intact, 5/5 strength in all extremities, tactile sensation intact in all extremities SKIN: No rash, no wounds, no worrisome skin lesions PSYCHIATRIC: Normal mood, normal affect Results Laboratory Results: Labs- All tests 24 hr 06/29/16 06/29/16 06/29/16 15:48 15:48 15:48 WBC 8.8 RBC 4.18 Hgb 13.1 Hct 40.8 MCV 98 H MCH 31.3 MCHC 32.0 RDW 14.0 Plt Count 313 Seg Neutrophils % 76.5 Lymphocytes % 18.3 Monocytes % 3.4 Eosinophils % 0.8 Basophils % 1.0 Absolute Neutrophils 6.8 Absolute Lymphocytes 1.6 Absolute Monocytes 0.3 Absolute Eosinophils 0.1 Absolute Basophils 0.1 Sodium 133.7 L Potassium 5.1 H Chloride 93 L Carbon Dioxide 13 L Anion Gap 28 H BUN 28 H Creatinine 1.21 Est GFR ( Amer) > 60 Est GFR (Non-Af Amer) 52 L Glucose 714 H* Calcium 9.8 Total Bilirubin 1.2 Direct Bilirubin 0.5 H Indirect Bilirubin Not Reportable Neonat Total Bilirubin Not Reportable AST 88 H ALT 97 H Alkaline Phosphatase 97 Total Protein 7.2 Albumin 4.4 Urine Color YELLOW Urine Appearance SLIGHTLY-CLOUDY Urine pH 5.0 Ur Specific [place] 1.020 Urine Protein 100 H Urine Glucose (UA) >=500 H Urine Ketones 80 H Urine Blood SMALL H Urine Nitrite NEGATIVE Urine Bilirubin NEGATIVE Urine Urobilinogen NEGATIVE Ur Leukocyte Esterase NEGATIVE Urine WBC (Auto) 4 Urine RBC (Auto) 2 Urine Bacteria (Auto) 1+ Squamous Epi Cells Auto 8 Urine Mucus (Auto) RARE Urine Ascorbic Acid NEGATIVE [place] < 0.2 L Assessment & Plan - Diagnosis (1) DKA (diabetic ketoacidoses) Qualifiers: Diabetes mellitus type: type 1 Diabetes mellitus complication detail: without coma Qualified Code(s): E10.10 - Type 1 diabetes mellitus with ketoacidosis without coma Is this a current diagnosis for this admission?: YesPlan: Admit patient to hospital. Insulin drip protocol. (2) Bipolar 1 disorder Is this a current diagnosis for this admission?: YesPlan: Verify home medications. (3) Hypothyroidism Qualifiers: Hypothyroidism type: unspecified Qualified Code(s): E03.9 - Hypothyroidism, unspecified Is this a current diagnosis for this admission?: Yes (4) Tobacco abuse Is this a current diagnosis for this admission?: Yes - Time Time Spent: Greater than 70 Minutes - Inpatient Certification Based on my medical assessment, after consideration of the patient's comorbidities, presenting symptoms, or acuity I expect that the services needed warrant INPATIENT care.: Yes I certify that my determination is in accordance with my understanding of Medicare's requirements for reasonable and necessary INPATIENT services [42 CFR 412.3e].: Yes Medical Necessity: Need Close Monitoring Due to Risk of Patient Decompensation, Need For IV Fluids, Need For Continuous Telemetry Monitoring
[2016-06-29] MEDS ORDERED: HYDROMORPHONE HCL INJ/PF 2 MG/ML AMPULE IV PRN (18:55)
[2016-06-29 21:50] LABS: BLOOD UREA NITROGEN 26 mg/dL (7-20); CALCIUM 8.9 mg/dL (8.4-10.2); MAGNESIUM 1.8 mg/dL (1.6-2.3)
[2016-06-29] MEDS ORDERED: (PENDING PHARMACY ID) (Prazosin Hcl [Prazosin Hcl] 1 MG) PO SCH (22:00)
[2016-06-29] MEDS ORDERED: PALIPERIDONE 6 MG TAB.ER.24 PO SCH (22:00)
[2016-06-29] MEDS ORDERED: DOXAZOSIN MESYLATE 2 MG TABLET PO SCH (22:00)
[2016-06-29 22:03] LABS: CHLORIDE 109 mmol/L (98-107); POTASSIUM 4.7 mmol/L (3.6-5.0); SODIUM 143.4 mmol/L (137-145)
[2016-06-29 22:07] LABS: ANION GAP 27 (5-19)
[2016-06-29 22:09] LABS: CARBON DIOXIDE 7 mmol/L (22-30); GLUCOSE 515 mg/dL (75-110)
[2016-06-29] MEDS ORDERED: RINGERS SOLUTION,LACTATED 2,000 ML IV ONE (22:54)
[2016-06-29] MEDS ORDERED: PALIPERIDONE 6 MG TAB.ER.24 PO ONE (22:55)
[2016-06-29] MEDS: LITHIUM CARBONATE 300 MG CAPSULE PO SCH (22:55)
[2016-06-29] MEDS: PROPRANOLOL HCL 10 MG TABLET PO SCH (22:55)
[2016-06-29 23:18] LABS: ARTERIAL BLOOD BASE EXCESS -14.2 mmol/L; ARTERIAL BLOOD O2 SATURATION 97.1 % (94-98)
[2016-06-29 23:29] LABS: CREATINE KINASE MB 0.37 ng/mL (<4.55)
[2016-06-29 23:34] LABS: TROPONIN I < 0.012 ng/mL
[2016-06-30] MEDS ORDERED: DEXTROSE 5%-1/2 NORMAL SALINE 1,000 ML IV PRN (01:28)
[2016-06-30 02:22] LABS: BLOOD UREA NITROGEN 24 mg/dL (7-20); CALCIUM 8.5 mg/dL (8.4-10.2); CHLORIDE 111 mmol/L (98-107); CREATININE RESULT 1.03 mg/dL (0.52-1.25); GLUCOSE 273 mg/dL (75-110); POTASSIUM 3.9 mmol/L (3.6-5.0)
[2016-06-30 02:34] LABS: ANION GAP 17 (5-19)
[2016-06-30 02:37] LABS: CARBON DIOXIDE 16 mmol/L (22-30)
[2016-06-30] MEDS ORDERED: POTASSI CL 20 MEQ/50 ML RIDER 50 ML IV ONE (03:33)
[2016-06-30 06:07] LABS: ABSOLUTE BASOPHILS # (AUTO) 0.1 10^3/uL (0.0-0.2); ABSOLUTE EOSINOPHILS # (AUTO) 0.1 10^3/uL (0.0-0.6); ABSOLUTE MONOCYTES (AUTO) 0.3 10^3/uL (0.1-1.4); ABSOLUTE NEUT (AUTO) 5.6 10^3/uL (1.7-8.2); BASOPHILS % (AUTO) 1.3 % (0-2); HEMATOCRIT 33.6 % (36.0-47.0); HEMOGLOBIN 11.5 g/dL (12.0-15.5); HGB HCT DIFFERENCE 0.9; LYMPHOCYTES % (AUTO) 44.3 % (13-45); MEAN CORPUSCULAR HEMOGLOBIN 31.3 pg (27.0-33.4); MEAN CORPUSCULAR HGB CONC 34.1 g/dL (32.0-36.0); RED BLOOD COUNT 3.65 10^6/uL (3.72-5.28); RED CELL DISTRIBUTION WIDTH 13.8 % (11.5-14.0); SEGMENTED NEUTROPHILS % (AUTO) 50.4 % (42-78); WHITE BLOOD COUNT 11.2 10^3/uL (4.0-10.5)
[2016-06-30 06:16] LABS: ANION GAP 11 (5-19); BLOOD UREA NITROGEN 20 mg/dL (7-20); CALCIUM 8.3 mg/dL (8.4-10.2); CARBON DIOXIDE 19 mmol/L (22-30); CHLORIDE 115 mmol/L (98-107); CREATININE RESULT 0.83 mg/dL (0.52-1.25); GLUCOSE 111 mg/dL (75-110); POTASSIUM 3.6 mmol/L (3.6-5.0); SODIUM 144.5 mmol/L (137-145)
[2016-06-30 06:25] LABS: MEAN CORPUSCULAR VOLUME 92 fl (80-97)
[2016-06-30] MEDS ORDERED: PHARMACY COMMUNICATION ORDER MC NR (07:30)
[2016-06-30] MEDS ORDERED: ENOXAPARIN SODIUM INJ 40 MG/0.4 ML DISP.SYRIN SUBCUT SCH (08:00)
--- NOTE | 2016-06-30 08:10 | EKG REPORT ---
SEVERITY:- BORDERLINE ECG - SINUS RHYTHM BORDERLINE T ABNORMALITIES, ANTERIOR LEADS : Confirmed by: Sma Bird MD 30-Jun-2016 08:08:28
[2016-06-30] MEDS ORDERED: LANSOPRAZOLE 30 MG TAB.RAP.DR PO SCH (10:00)
[2016-06-30] MEDS ORDERED: LEVOTHYROXINE SODIUM 0.1 MG TABLET PO SCH (10:00)
[2016-06-30] MEDS ORDERED: LISINOPRIL 10 MG TABLET PO SCH (10:00)
[2016-06-30] MEDS: LITHIUM CARBONATE 300 MG CAPSULE PO SCH (10:09)
[2016-06-30] MEDS: PROPRANOLOL HCL 10 MG TABLET PO SCH (10:09)
[2016-06-30 10:14] LABS: ANION GAP 8 (5-19); BLOOD UREA NITROGEN 19 mg/dL (7-20); CALCIUM 8.7 mg/dL (8.4-10.2); CARBON DIOXIDE 18 mmol/L (22-30); CHLORIDE 115 mmol/L (98-107); CREATININE RESULT 0.82 mg/dL (0.52-1.25); GLUCOSE 73 mg/dL (75-110); POTASSIUM 4.3 mmol/L (3.6-5.0)
[2016-06-30 14:37] VITALS: BP 129/66
--- NOTE | 2016-06-30 16:28 | PDOC DISCHARGE SUMMARY ---
General - Admit/Disc Date/PCP Admission Date/Primary Care Provider: 06/29/16 17:32 LAWSON HUDSON, Discharge Date: 06/30/16 - Discharge Diagnosis (1) DKA (diabetic ketoacidoses) Is this a current diagnosis for this admission?: Yes (2) Bipolar 1 disorder Is this a current diagnosis for this admission?: Yes (3) Hypothyroidism Is this a current diagnosis for this admission?: Yes (4) Tobacco abuse Is this a current diagnosis for this admission?: Yes - Additional Information Resuscitation Status: Full Code Discharge Diet: Diabetic Discharge Activity: Activity As Tolerated Home Medications: Zolpidem Tartrate [Ambien] 10 mg PO QHS 05/31/14 Clindamycin HCl 600 mg PO Q8 09/12/14 Cholecalciferol (Vitamin D3) [Vitamin D3 5000 unit Capsule] 5,000 unit PO DAILY 06/29/16 Hydroxyzine Pamoate [Vistaril 25 mg Capsule] 25 mg PO QID 06/29/16 Insulin Aspart [Novolog Insulin (Aspart) 100 unit/mL] 0 unit SUBCUT .SLD SCALE 06/29/16 Levothyroxine Sodium [Synthroid 0.1 mg Tablet] 0.2 mg PO DAILY 06/29/16 Lisinopril [Prinivil 10 mg Tablet] 10 mg PO DAILY 06/29/16 Ripley Carbonate [Ripley Carbonate ER] 300 mg PO Q12 06/29/16 Metoclopramide HCl [Reglan] 10 mg PO QID 06/29/16 Omeprazole 40 mg PO DAILY 06/29/16 Paliperidone [Invega 6 mg Tab.er] 6 mg PO DAILY 06/29/16 Prazosin HCl [Minipress] 1 mg PO QPM 06/29/16 Propranolol HCl [Inderal 20 mg Tablet] 20 mg PO Q12 06/29/16 Simvastatin [Zocor 40 mg Tablet] 40 mg PO QHS 06/29/16 Levothyroxine Sodium [Synthroid 0.1 mg Tablet] 0.2 mg PO DAILY tablet 06/30/16 Lisinopril [Prinivil 10 mg Tablet] 10 mg PO DAILY tablet 06/30/16 Paliperidone [Invega 6 mg Tab.er] 6 mg PO QHS tab.er.24 06/30/16 Propranolol HCl [Inderal 10 mg Tablet] 20 mg PO Q12 tablet 06/30/16 History of Present Illness Patient complains of: Hyperglycemic History of Present Illness: JEANINE OSORIO is a 31 year old female with type I diabetes on insulin pump that presents with DKA symptoms. She states that she believes her insulin pump catheter was not in appropriate position and she didn't realize this until she became symptomatic. In the emergency department her blood glucose was in the 700s. Hospital Course Hospital Course: Patient was admitted for DKA. Insulin drip protocol. DKA resolved. Patient was transitioned back to her home insulin pump and discharged home in stable condition. Physical Exam Vital Signs: Temp Pulse Resp BP Pulse Ox 97.9 F 72 16 129/66 H 100 06/30/16 14:33 06/30/16 14:33 06/30/16 14:33 06/30/16 14:33 06/30/16 14:33 Intake & Output 06/29/16 06/30/16 07/01/16 06:59 06:59 06:59 Intake Total 1349 222 Output Total 700 0 Balance 649 222 Weight 65.4 kg GENERAL: No acute distress HEENT: Conjunctiva clear, nonicteric, moist mucous membranes, no JVD, midline trachea RESPIRATORY: Clear to auscultation bilaterally, no wheezes, no rhonchi CARDIAC: Regular rate and rhythm, no murmurs/gallops/rubs ABDOMEN: Soft, nondistended, nontender, positive bowel sounds, no rebound, no guarding EXTREMETIES: No edema, cyanosis, clubbing NEUROLOGIC: Alert, oriented to person/place/time, CN's grossly intact, no focal deficits SKIN: No rash, wounds PSYCH: Normal mood, normal affect Results Laboratory Results: 06/30/16 05:45 06/30/16 09:20 06/29/16 06/29/16 06/29/16 21:20 21:20 21:20 WBC RBC Hgb Hct MCV MCH MCHC RDW Plt Count Seg Neutrophils % Lymphocytes % Monocytes % Eosinophils % Basophils % Absolute Neutrophils Absolute Lymphocytes Absolute Monocytes Absolute Eosinophils Absolute Basophils Carbonic Acid HCO3/H2CO3 Ratio ABG pH ABG pCO2 ABG pO2 ABG HCO3 ABG O2 Saturation ABG Base Excess FiO2 Sodium Cancelled 143.4 Potassium Cancelled 4.7 Chloride Cancelled 109 H Carbon Dioxide Cancelled 7 L* Anion Gap Cancelled 27 H BUN Cancelled 26 H Creatinine Cancelled 1.10 Est GFR ( Amer) Cancelled > 60 Est GFR (Non-Af Amer) Cancelled 58 L Glucose Cancelled 515 H* Calcium Cancelled 8.9 Magnesium 1.8 TSH 68.80 H 06/29/16 06/30/16 06/30/16 23:05 02:01 05:45 WBC RBC Hgb Hct MCV MCH MCHC RDW Plt Count Seg Neutrophils % Lymphocytes % Monocytes % Eosinophils % Basophils % Absolute Neutrophils Absolute Lymphocytes Absolute Monocytes Absolute Eosinophils Absolute Basophils Carbonic Acid 0.77 L HCO3/H2CO3 Ratio 14:1 ABG pH 7.26 L ABG pCO2 25.7 L ABG pO2 103.9 H ABG HCO3 11.2 L ABG O2 Saturation 97.1 ABG Base Excess -14.2 FiO2 ROOM AIR Sodium 144.0 144.5 Potassium 3.9 3.6 Chloride 111 H 115 H Carbon Dioxide 16 L 19 L Anion Gap 17 11 BUN 24 H 20 Creatinine 1.03 0.83 Est GFR ( Amer) > 60 > 60 Est GFR (Non-Af Amer) > 60 > 60 Glucose 273 H 111 H Calcium 8.5 8.3 L Magnesium TSH 06/30/16 06/30/16 05:45 09:20 WBC 11.2 H RBC 3.65 L Hgb 11.5 L Hct 33.6 L MCV 92 D MCH 31.3 MCHC 34.1 RDW 13.8 Plt Count 262 Seg Neutrophils % 50.4 Lymphocytes % 44.3 Monocytes % 3.0 Eosinophils % 1.0 Basophils % 1.3 Absolute Neutrophils 5.6 Absolute Lymphocytes 5.0 H Absolute Monocytes 0.3 Absolute Eosinophils 0.1 Absolute Basophils 0.1 Carbonic Acid HCO3/H2CO3 Ratio ABG pH ABG pCO2 ABG pO2 ABG HCO3 ABG O2 Saturation ABG Base Excess FiO2 Sodium 141.0 Potassium 4.3 Chloride 115 H Carbon Dioxide 18 L Anion Gap 8 BUN 19 Creatinine 0.82 Est GFR ( Amer) > 60 Est GFR (Non-Af Amer) > 60 Glucose 73 L Calcium 8.7 Magnesium TSH Impressions: Chest X-Ray 06/29/16 00:00 IMPRESSION: NO ACUTE RADIOGRAPHIC FINDING IN THE CHEST. Qualifiers PATEINT BEING DISCHARGED WITH ANY OF THE FOLLOWING DIAGNOSIS?: No Plan Time Spent: Less than 30 Minutes
== END 2016-06-30 14:58 | disposition home or self-care (01) | DRG 639 ==
LOC: ER 14:40 → EH 17:32 → UNDOADMIN 18:06 → 3N 21:05
DX: E10.10 Type 1 diabetes mellitus with ketoacidosis without coma (principal); F31.9 Bipolar disorder, unspecified; E03.9 Hypothyroidism, unspecified; E78.5 Hyperlipidemia, unspecified; J45.909 Unspecified asthma, uncomplicated; K21.9 Gastro-esophageal reflux disease without esophagitis; F43.10 Post-traumatic stress disorder, unspecified; F17.210 Nicotine dependence, cigarettes, uncomplicated; E86.0 Dehydration; F41.9 Anxiety disorder, unspecified; Z79.899 Other long term (current) drug therapy; Z79.4 Long term (current) use of insulin; Z96.41 Presence of insulin pump (external) (internal); Z88.2 Allergy status to sulfonamides; Z88.0 Allergy status to penicillin; Z88.6 Allergy status to analgesic agent; Z91.018 Allergy to other foods; Z83.3 Family history of diabetes mellitus
CPT/HCPCS: 36415; 36600; 71010; 80048; 80053; 80178; 81001; 82550; 82553; 82803; 82962; 83690; 83735; 84443; 84484; 84703; 85025; 93005; 93010; 96361; 96374; 99291; J1170; J1815; J2405; J3480; J3490; J7030; J7120

== ENCOUNTER → 2016-07-27 | Outpatient (CLI) | payer MEDICARE, MEDICAID | LOC: OD 09:38 | PROVIDERS: ATTEND Student in an Organized Health Care Education/Training Program | DX: M54.5 Low back pain (principal) | CPT/HCPCS: 72070; 72110 ==

== ENCOUNTER 2016-11-19 18:37 | Emergency (ER) | payer MEDICARE, MEDICAID ==
[2016-11-19] MEDS ORDERED: NORMAL SALINE 1000 ML 1,000 ML IV PRN (18:42)
[2016-11-19 19:04] LABS: ABSOLUTE EOSINOPHILS # (AUTO) 0.1 10^3/uL (0.0-0.6); ABSOLUTE LYMPHOCYTES (AUTO) 2.9 10^3/uL (0.5-4.7); ABSOLUTE MONOCYTES (AUTO) 0.3 10^3/uL (0.1-1.4); ABSOLUTE NEUT (AUTO) 2.3 10^3/uL (1.7-8.2); BASOPHILS % (AUTO) 0.6 % (0-2); EOSINOPHILS % (AUTO) 2.3 % (0-6); HEMATOCRIT 33.3 % (36.0-47.0); HEMOGLOBIN 11.5 g/dL (12.0-15.5); HGB HCT DIFFERENCE 1.2; LYMPHOCYTES % (AUTO) 51.1 % (13-45); MEAN CORPUSCULAR HEMOGLOBIN 31.6 pg (27.0-33.4); MEAN CORPUSCULAR HGB CONC 34.5 g/dL (32.0-36.0); MEAN CORPUSCULAR VOLUME 92 fl (80-97); MONOCYTES % (AUTO) 5.2 % (3-13); RED BLOOD COUNT 3.64 10^6/uL (3.72-5.28); RED CELL DISTRIBUTION WIDTH 14.1 % (11.5-14.0); SEGMENTED NEUTROPHILS % (AUTO) 40.8 % (42-78); WHITE BLOOD COUNT 5.6 10^3/uL (4.0-10.5)
[2016-11-19 19:17] LABS: APPEARANCE,URINE CLEAR; BILIRUBIN,URINE NEGATIVE (NEGATIVE); GLUCOSE, URINE >=500 mg/dL (NEGATIVE); KETONES,URINE NEGATIVE (NEGATIVE); LEUKOCYTE ESTERASE,URINE NEGATIVE (NEGATIVE); NITRITE,URINE NEGATIVE (NEGATIVE); PROTEIN,URINE 30 mg/dL (NEGATIVE); URINE SPECIFIC GRAVITY 1.005; UROBILINOGEN,URINE NEGATIVE mg/dL (<2.0)
[2016-11-19 19:19] LABS: ALANINE AMINOTRANSFERASE 47 U/L (9-52); ALBUMIN 3.5 g/dL (3.5-5.0); ALCOHOL 154 mg/dL (NONE DETECTED); ALKALINE PHOSPHATASE 54 U/L (38-126); ANION GAP 9 (5-19); ASPARTATE AMINO TRANSFERASE 33 U/L (14-36); BILIRUBIN,DIRECT 0.4 mg/dL (0.0-0.4); BILIRUBIN,TOTAL 0.5 mg/dL (0.2-1.3); BLOOD UREA NITROGEN 10 mg/dL (7-20); CALCIUM 9.3 mg/dL (8.4-10.2); CARBON DIOXIDE 26 mmol/L (22-30); CHLORIDE 102 mmol/L (98-107); CREATINE KINASE 85 U/L (30-135); CREATININE RESULT 1.03 mg/dL (0.52-1.25); GLUCOSE 266 mg/dL (75-110); LIPASE 42.9 U/L (23-300); POTASSIUM 4.1 mmol/L (3.6-5.0); SODIUM 136.7 mmol/L (137-145); TOTAL PROTEIN 6.5 g/dL (6.3-8.2)
--- NOTE | 2016-11-19 19:49 | ER Document Report ---
ED Substance Abuse / Acc. OD - General Chief Complaint: ETOH Abuse Stated Complaint: POSSIBLE ETOH Time Seen by Provider: 11/19/16 19:14 Notes: The patient is a 31-year-old female, past medical history type 1 diabetes, presents after she was driving home from [place] after drinking all day when she vomited. Her family pulled over and called 911. She received 500 mL lactated Ringer's and 4 mg IV Zofran by EMS. On arrival to the ER, she is not nauseous. She denies abdominal pain, hematemesis, diarrhea, constipation, fevers, dysuria, flank pain, chest pain or shortness of breath. TRAVEL OUTSIDE OF THE [place] IN LAST 30 DAYS: No - Related Data Allergies/Adverse Reactions: mushroom Allergy (Severe, Verified 06/29/16 14:47) Anaphylaxis alcohol [Alcohol] Allergy (Unknown, Verified 06/29/16 14:47) Hives gabapentin Allergy (Unknown, Verified 06/29/16 14:47) Hives morphine [Morphine] Allergy (Unknown, Verified 06/29/16 14:47) Penicillins Allergy (Unknown, Verified 06/29/16 14:47) Sulfa (Sulfonamide Antibiotics) Allergy (Unknown, Verified 06/29/16 14:47) adhesive [Adhesive] Allergy (Verified 06/29/16 14:47) hydrocodone Adverse Reaction (Severe, Verified 06/29/16 14:47) Swelling of Throat tomato [Tomato] Adverse Reaction (Severe, Verified 06/30/16 00:19) Anaphylaxis Past Medical History - General Information source: Patient - Social History Smoking Status: Current Some Day Smoker Chew tobacco use (# tins/day): No Frequency of alcohol use: Social Drug Abuse: Marijuana Family History: DM - Past Medical History Cardiac Medical History: Reports: Hx Hypercholesterolemia Denies: Hx Heart Attack Pulmonary Medical History: Reports: Hx Asthma Denies: Hx Tuberculosis Neurological Medical History: 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 Denies: Hx Cerebrovascular Accident Endocrine Medical History: Reports: Hx Diabetes Mellitus Type 1, Hx Diabetes Mellitus Type 2, Hx Hypothyroidism Renal/ Medical History: Denies: Hx Peritoneal Dialysis GI Medical History: Reports: Hx Gastroesophageal Reflux Disease. Denies: Hx Hepatitis, Hx Hiatal Hernia, Hx Ulcer Psychiatric Medical History: Reports: Hx Anxiety, Hx Bipolar Disorder, Hx Depression, Hx Post Traumatic Stress Disorder Infectious Medical History: Denies: Hx Hepatitis Past Surgical History: Reports: Hx Oral Surgery - wisdom teeth, Hx Orthopedic Surgery - Ankle surgery. Denies: Hx Mastectomy, Hx Open Heart Surgery, Hx Pacemaker - Immunizations Hx Diphtheria, Pertussis, Tetanus Vaccination: Yes Hx Pneumococcal Vaccination: 03/10/13 Review of Systems - Review of Systems Notes: REVIEW OF SYSTEMS: CONSTITUTIONAL: -fevers, -chills EENT: -eye pain, -difficulty swallowing, -nasal congestion CARDIOVASCULAR:-chest pain, -syncope. RESPIRATORY: -cough, -SOB GASTROINTESTINAL: -abdominal pain, - nausea, +vomiting, -diarrhea GENITOURINARY: -dysuria, -hematuria MUSCULOSKELETAL: -back pain, -neck pain SKIN: -rash or skin lesions. HEMATOLOGIC: -easy bruising or bleeding. LYMPHATIC: -swollen, enlarged glands. NEUROLOGICAL: -altered mental status or loss of consciousness, -headache, - neurologic symptoms PSYCHIATRIC: -anxiety, -depression. ALL OTHER SYSTEMS REVIEWED AND NEGATIVE. Physical Exam - Vital signs Vitals: Pulse Ox 96 11/19/16 18:54 - Notes Notes: PHYSICAL EXAMINATION: GENERAL: Well-appearing, well-nourished and in no acute distress. HEAD: Atraumatic, normocephalic. EYES: Pupils equal round and reactive to light, extraocular movements intact, sclera anicteric, conjunctiva are normal. ENT: nares patent, oropharynx clear without exudates. Moist mucous membranes. NECK: Normal range of motion, supple without lymphadenopathy LUNGS: Breath sounds clear to auscultation bilaterally and equal. No wheezes rales or rhonchi. HEART: Regular rate and rhythm without murmurs ABDOMEN: Soft, nontender, normoactive bowel sounds. No guarding, no rebound. No masses appreciated. EXTREMITIES: Normal range of motion, no pitting or edema. No cyanosis. NEUROLOGICAL: Cranial nerves grossly intact. Normal speech, normal gait. Normal sensory and motor exams. PSYCH: Normal mood, normal affect. SKIN: Warm, Dry, normal turgor, no rashes or lesions noted. Course - Re-evaluation Re-evalutation: Patient with mild alcohol intoxication. She has absolutely no abdominal tenderness and is tolerating fluids in the emergency room. She is no longer nauseous after the Zofran and she is not in DKA. Instructed patient about not abusing alcohol and to continue to take her insulin. Patient discharged in the care of her family, who are sober. - Vital Signs Vital signs: Temp Pulse Resp BP Pulse Ox 98.8 F 27 H 121/78 92 11/19/16 18:57 11/19/16 18:57 11/19/16 18:57 11/19/16 18:57 - Laboratory Result Diagrams: 11/19/16 18:46 11/19/16 18:46 Laboratory results interpreted by me: 11/19/16 11/19/16 11/19/16 18:46 18:46 18:56 RBC 3.64 L Hgb 11.5 L Hct 33.3 L RDW 14.1 H Seg Neutrophils % 40.8 L Lymphocytes % 51.1 H Sodium 136.7 L Glucose 266 H Urine Protein 30 H Urine Glucose (UA) >=500 H Discharge - Discharge Clinical Impression: Alcohol intoxication Qualifiers: Complication of substance-induced condition: uncomplicated Qualified Code(s): F10.920 - Alcohol use, unspecified with intoxication, uncomplicated Condition: Stable Disposition: HOME, SELF-CARE Additional Instructions: ACUTE ALCOHOL INTOXICATION and ALCOHOL ABUSE: Your evaluation revealed very high levels of alcohol. You can from drinking a large amount of alcohol rapidly! Further, there's the risk of falls , traffic accidents, and fights. A high portion (about 50 percent) of the serious injuries seen in hospital emergency rooms are caused by alcohol. Alcohol overdosage is usually due to an underlying emotional or psychiatric problem. You may benefit from counselling. If "binge" drinking is an ongoing problem for you, or if you drink ANY AMOUNT of alcohol EVERY day, you most likely have a tendency to alcoholism. You should avoid alcohol totally. We can refer you for treatment. Persons with alcohol problems are often also prone to other addictions -- you should discuss any use of medications or drugs with the doctor. You should be watched at home for the next several hours by someone who has not been drinking. Get extra fluids for the next 24 hours. Call the doctor if there is repeated vomiting, increasing headache, decreasing level of alertness, or any other worsening. INSTRUCTIONS FOR HOME CARE FOLLOWING DRUG OVERDOSAGE: The doctor feels it's safe for you to go home. You will need to be observed. If charcoal and a laxative was given to you, expect some loose black stools soon. Take no medications unless approved by a physician, including alcohol. If drowsy, lie on your stomach or side for sleeping to avoid aspiration if vomiting occurs. Take only liquids by mouth until there is no more nausea. FOR THE OBSERVER: Observe the patient for the next 24 hours and call or go to the hospital if any of the following are noted: prolonged or repeated vomiting, difficulty in arousing, convulsions (seizures or fits), fever, persistent cough, breathing that is too slow or too rapid, or confused or bizarre behavior. If a counselling visit has been arranged, make sure the patient attends. Call the physician or poison control if you have questions. FOLLOW-UP CARE: If you have been referred to a physician for follow-up care, call the physician s office for an appointment as you were instructed or within the next two days. If you experience worsening or a significant change in your symptoms, notify the physician immediately or return to the Emergency Department at any time for re-evaluation. VOMITING: Vomiting (or nausea without vomiting) can be caused by many other different problems. It can mean that something's wrong with the stomach, such as ulcers or inflammation or the intestinal tract, such as appendicitis. But it can also be a symptom of a problem that has nothing to do with the stomach or intestines. Vomiting is common with severe headaches, earaches, tonsillitis, and kidney infections, etc. We see it with pneumonia or heart attacks. Drugs can cause nausea and vomiting. Many abdominal problems cause vomiting; for example, gallstones, kidney stones, pancreatitis, and intestinal obstruction ( blocked bowels). In most cases, curing the vomiting depends on fixing the problem that caused it. For temporary relief, we may use an anti-nausea medicine. For home use, we can prescribe suppositories, chewable pills, pills that dissolve in the mouth, or liquid anti-nausea drugs. If the vomiting seems to be caused by a problem in the stomach, acid-suppressing drugs may be prescribed as well. It's important to avoid dehydration. Sip small amounts of clear liquids ( soft drinks, tea, broth, etc) . Try to take fluids frequently even if you are vomiting to prevent dehydration. Take increasing amounts of fluid and when liquids are being consumed successfully, advance to small amounts of bland food (toast, soups, mashed potatoes, etc.) until you are able to resume a regular diet. Avoid aspirin, tobacco, and alcohol. If the vomiting worsens, if the problem that's making you vomit worsens, or if there's evidence of bleeding in the stomach (such as black, tarry stool, or bloody or black vomit), you should return immediately. Also, return if abdominal pain worsens or becomes localized to one area or you develop high fever. Call your doctor if you aren't improved in 24 hours. INTRAVENOUS (I V) FLUIDS: As part of your care today, you received intravenous (IV) fluids. IV fluids are administered to patients who are dehydrated or to those who have certain chemical (electrolyte) abnormalities that need correcting. ANTINAUSEA MEDICATION: You have been given a medication to suppress nausea and vomiting. This type of medication can be given as a shot, pill, or suppository. It will usually last for many hours. Pills and shots usually last six to eight hours. For the typical illness, only one or two doses of the medication may be necessary. Mild lightheadedness may occur. This type of medicine can cause drowsiness. Do not drive or operate dangerous machinery while under its influence. Do not mix with alcohol. See your doctor at once if you have muscle spasms or tightness, or uncontrollable motions (particularly of the neck, mouth, or jaw). Persistent vomiting or severe lightheadedness should also be evaluated by the physician. FOLLOW-UP CARE: If you have been referred to a physician for follow-up care, call the physician s office for an appointment as you were instructed or within the next two days. If you experience worsening or a significant change in your symptoms, notify the physician immediately or return to the Emergency Department at any time for re-evaluation. Referrals: [facility] [Outside] - Follow up as needed
[2016-11-19 20:16] VITALS: BP 120/65
== END 2016-11-19 20:29 | disposition home or self-care (01) ==
LOC: ER 18:37
DX: F10.920 Alcohol use, unspecified with intoxication, uncomplicated (principal); R11.10 Vomiting, unspecified; F17.200 Nicotine dependence, unspecified, uncomplicated; E78.00 Pure hypercholesterolemia, unspecified; E03.9 Hypothyroidism, unspecified; E10.9 Type 1 diabetes mellitus without complications; Z79.4 Long term (current) use of insulin; Z88.6 Allergy status to analgesic agent; Z88.0 Allergy status to penicillin; Z91.018 Allergy to other foods
CPT/HCPCS: 36415; 80053; 80307; 81001; 81025; 82550; 82962; 83690; 84484; 85025; 99284

== ENCOUNTER 2016-12-12 11:32 | Emergency (ER) | payer MEDICARE, MEDICAID ==
[2016-12-12] MEDS ORDERED: NAPROXEN 250 MG TABLET PO ONE (12:36)
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
[2016-12-12 12:53] VITALS: BP 121/74
== END 2016-12-12 12:50 | disposition home or self-care (01) ==
LOC: ER 11:32
DX: L55.9 Sunburn, unspecified (principal); R21 Rash and other nonspecific skin eruption; J45.909 Unspecified asthma, uncomplicated; E11.9 Type 2 diabetes mellitus without complications; F17.210 Nicotine dependence, cigarettes, uncomplicated; Z71.6 Tobacco abuse counseling; Z87.892 Personal history of anaphylaxis; Z88.6 Allergy status to analgesic agent; Z88.5 Allergy status to narcotic agent; Z88.0 Allergy status to penicillin; Z88.2 Allergy status to sulfonamides; Z91.048 Other nonmedicinal substance allergy status; Z88.8 Allergy status to other drugs, medicaments and biological substances; Z91.018 Allergy to other foods
CPT/HCPCS: 99282; A9270

== ENCOUNTER 2016-12-30 18:42 | Emergency (ER) | payer MEDICARE, MEDICAID ==
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
[2016-12-30] MEDS ORDERED: OXYCODONE-ACETAMINOPHEN 5-325 MG TABLET PO ONE (19:17)
--- NOTE | 2016-12-30 19:24 | ER Document Report ---
ED Hand/Wrist Injury - General Chief Complaint: Hand Injury Stated Complaint: HAND INJURY Time Seen by Provider: 12/30/16 18:58 Notes: Patient is a 31-year-old female presents emergency department complaining of right hand pain. She states she punched a trash can about 4 days ago and has pain over her left index finger with difficulty moving her left index finger. She denies any numbness or tingling in the finger. Denies any f/c, redness, swelling, drainage, bleeding. Primary care is Dr. Lawson Hudson TRAVEL OUTSIDE OF THE [place] IN LAST 30 DAYS: No - Related Data Allergies/Adverse Reactions: mushroom Allergy (Severe, Verified 12/30/16 18:49) Anaphylaxis alcohol [Alcohol] Allergy (Unknown, Verified 12/30/16 18:49) Hives gabapentin Allergy (Unknown, Verified 12/30/16 18:49) Hives morphine [Morphine] Allergy (Unknown, Verified 12/30/16 18:49) Penicillins Allergy (Unknown, Verified 12/30/16 18:49) Sulfa (Sulfonamide Antibiotics) Allergy (Unknown, Verified 12/30/16 18:49) adhesive [Adhesive] Allergy (Verified 12/30/16 18:49) chlorpromazine [From Thorazine] Allergy (Verified 12/30/16 18:49) hydrocodone Adverse Reaction (Severe, Verified 12/30/16 18:49) Swelling of Throat tomato [Tomato] Adverse Reaction (Severe, Verified 12/30/16 18:49) Anaphylaxis Past Medical History - Social History Smoking Status: Current Every Day Smoker Chew tobacco use (# tins/day): No Frequency of alcohol use: None Drug Abuse: Marijuana Family History: Arthritis, DM, Malignancy, Thyroid Disfunction - Past Medical History Cardiac Medical History: Reports: Hx Hypercholesterolemia Denies: Hx Heart Attack Pulmonary Medical History: Reports: Hx Asthma Denies: Hx Tuberculosis Neurological Medical History: 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 Denies: Hx Cerebrovascular Accident Endocrine Medical History: Reports: Hx Diabetes Mellitus Type 1, Hx Diabetes Mellitus Type 2, Hx Hypothyroidism Renal/ Medical History: Denies: Hx Peritoneal Dialysis GI Medical History: Reports: Hx Gastroesophageal Reflux Disease. Denies: Hx Hepatitis, Hx Hiatal Hernia, Hx Ulcer Musculoskeltal Medical History: Reports Hx Musculoskeletal Deformity, Reports Hx Musculoskeletal Trauma Psychiatric Medical History: Reports: Hx Anxiety, Hx Bipolar Disorder, Hx Depression, Hx Post Traumatic Stress Disorder Traumatic Medical History: Reports: Hx Fractures - Wrist hand and toe Infectious Medical History: Denies: Hx Hepatitis Past Surgical History: Reports: Hx Oral Surgery - wisdom teeth, Hx Orthopedic Surgery - Ankle surgery. Denies: Hx Mastectomy, Hx Open Heart Surgery, Hx Pacemaker - Immunizations Hx Diphtheria, Pertussis, Tetanus Vaccination: Yes Hx Pneumococcal Vaccination: 03/10/13 Review of Systems - Review of Systems Constitutional: No symptoms reported Musculoskeletal: See HPI Skin: See HPI -: Yes All other systems reviewed and negative Physical Exam - Vital signs Vitals: Temp Pulse Resp BP Pulse Ox 98.4 F 85 16 127/82 H 98 12/30/16 18:47 12/30/16 18:47 12/30/16 18:47 12/30/16 18:47 12/30/16 18:47 - General General appearance: Appears well, Alert In distress: None - Cardiovascular Pulses: Normal: Radial Normal capillary refill: Yes - Extremities Elbow: Normal, Nontender Forearm: Normal, Nontender Wrist: Normal, Nontender Hand: Tender - over 2nd metacarpal phalanx, Abrasion, Tendon deficit - pain with 2nd metacarpal phalanx flexion otherwise normal ROM. No: Deformity, Dislocation, Ecchymosis, Instability, Laceration, Nail injury, No evidence of human bite, No evidence of FB, Swelling - Skin Skin irregularity: other - Abrasions noted over the knuckles on the right hand without any evidence of surroundings induration, drainage, redness or bleeding. Course - Re-evaluation Re-evalutation: 12/31/16 01:33 Patient is a 31-year-old female is hemodynamic stable, no acute distress afebrile. No evidence of a septic joint, gout flare, dislocation, or fracture on exam and imaging. Vitals wnl. At this time, I do not see an indication for labs or further imaging. Will discharge with conservative measures, return precautions, and follow-up recommendations. - Vital Signs Vital signs: Temp Pulse Resp BP Pulse Ox 98.4 F 88 17 123/77 99 12/30/16 19:44 12/30/16 19:44 12/30/16 19:44 12/30/16 19:44 12/30/16 19:44 - Diagnostic Test Radiology reviewed: Image reviewed, Reports reviewed Discharge - Discharge Clinical Impression: Hand injury Qualifiers: Encounter type: initial encounter Laterality: right Qualified Code(s): S69.91XA - Unspecified injury of right wrist, hand and finger(s), initial encounter Condition: Good Disposition: HOME, SELF-CARE Instructions: Acetaminophen, Use of Cgsg-Gbs-Lsucfto Ibuprofen ([facility]), Splint Precautions ([facility]), Tendon Strain ([facility]) Referrals: LAWSON HUDSON DO [NO LOCAL MD] - Follow up as needed REMI BENITES DO [ACTIVE STAFF] - Follow up as needed
[2016-12-30 19:45] VITALS: BP 123/77
== END 2016-12-30 19:44 | disposition home or self-care (01) ==
LOC: ER 18:42
DX: S60.511A Abrasion of right hand, initial encounter (principal); W22.09XA Striking against other stationary object, initial encounter; M79.645 Pain in left finger(s); F17.200 Nicotine dependence, unspecified, uncomplicated; J45.909 Unspecified asthma, uncomplicated; E11.9 Type 2 diabetes mellitus without complications; Z88.0 Allergy status to penicillin; Z88.5 Allergy status to narcotic agent; Z88.2 Allergy status to sulfonamides; Z91.048 Other nonmedicinal substance allergy status; Z88.8 Allergy status to other drugs, medicaments and biological substances; Z88.6 Allergy status to analgesic agent; Z87.892 Personal history of anaphylaxis; Z91.018 Allergy to other foods; Z87.81 Personal history of (healed) traumatic fracture
CPT/HCPCS: 99283; 73130; A9270

== ENCOUNTER 2017-01-18 12:46 | Emergency (ER) | payer MEDICARE, MEDICAID ==
[2017-01-18 12:52] VITALS: BP 121/75
[2017-01-18] MEDS ORDERED: LIDOCAINE 1% INJ-PF (10 MG/ML) 30 ML SDV INJ ONE (14:34)
--- NOTE | 2017-01-18 14:38 | ER Document Report ---
ED Wound - General Chief Complaint: Finger Injury Stated Complaint: LACERATION/LEFT MIDDLE FINGER Time Seen by Provider: 01/18/17 14:14 Notes: Patient states that she was reaching into a utility drawer and there was a knife and it sliced her middle finger on the left hand. Tetanus shot up-to- date. No other injuries. Isolated to the distal tip of the middle finger on the left hand. TRAVEL OUTSIDE OF THE [place] IN LAST 30 DAYS: No - Related Data Allergies/Adverse Reactions: mushroom Allergy (Severe, Verified 01/18/17 12:53) Anaphylaxis alcohol [Alcohol] Allergy (Unknown, Verified 01/18/17 12:53) Hives gabapentin Allergy (Unknown, Verified 01/18/17 12:53) Hives morphine [Morphine] Allergy (Unknown, Verified 01/18/17 12:53) Penicillins Allergy (Unknown, Verified 01/18/17 12:53) Sulfa (Sulfonamide Antibiotics) Allergy (Unknown, Verified 01/18/17 12:53) adhesive [Adhesive] Allergy (Verified 01/18/17 12:53) chlorpromazine [From Thorazine] Allergy (Verified 01/18/17 12:53) hydrocodone Adverse Reaction (Severe, Verified 01/18/17 12:53) Swelling of Throat tomato [Tomato] Adverse Reaction (Severe, Verified 01/18/17 12:53) Anaphylaxis Past Medical History - Social History Smoking Status: Current Every Day Smoker Family History: Arthritis, DM, Malignancy, Thyroid Disfunction - Past Medical History Cardiac Medical History: Reports: Hx Hypercholesterolemia Denies: Hx Heart Attack Pulmonary Medical History: Reports: Hx Asthma Denies: Hx Tuberculosis Neurological Medical History: 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 Denies: Hx Cerebrovascular Accident Endocrine Medical History: Reports: Hx Diabetes Mellitus Type 1, Hx Diabetes Mellitus Type 2, Hx Hypothyroidism Renal/ Medical History: Denies: Hx Peritoneal Dialysis GI Medical History: Reports: Hx Gastroesophageal Reflux Disease. Denies: Hx Hepatitis, Hx Hiatal Hernia, Hx Ulcer Musculoskeltal Medical History: Reports Hx Musculoskeletal Deformity, Reports Hx Musculoskeletal Trauma Psychiatric Medical History: Reports: Hx Anxiety, Hx Bipolar Disorder, Hx Depression, Hx Post Traumatic Stress Disorder Traumatic Medical History: Reports: Hx Fractures - Wrist hand and toe Infectious Medical History: Denies: Hx Hepatitis Past Surgical History: Reports: Hx Oral Surgery - wisdom teeth, Hx Orthopedic Surgery - Ankle surgery. Denies: Hx Mastectomy, Hx Open Heart Surgery, Hx Pacemaker - Immunizations Hx Diphtheria, Pertussis, Tetanus Vaccination: Yes Hx Pneumococcal Vaccination: 03/10/13 Review of Systems - Review of Systems Constitutional: No symptoms reported Cardiovascular: No symptoms reported. denies: Syncope, Edema Respiratory: No symptoms reported Musculoskeletal: No symptoms reported Skin: Other - Laceration as described above Neurological/Psychological: denies: Paralysis, Tingling Physical Exam - Vital signs Vitals: Temp Pulse Resp BP Pulse Ox 98.7 F 82 18 121/75 100 01/18/17 12:50 01/18/17 12:50 01/18/17 12:50 01/18/17 12:50 01/18/17 12:50 - General General appearance: Alert In distress: None - Extremities General upper extremity: Normal ROM, Normal strength Hand: Tender, Laceration, Other - Is 1/2 cm superficial linear laceration to the distal tip of the third digit on the left hand. Two-point discrimination is intact. Sensation intact. Tendon function intact. No foreign bodies - Neurological Cognition: Normal Speech: Normal - Skin Skin Color: Normal - Laceration as described above Course - Vital Signs Vital signs: Temp Pulse Resp BP Pulse Ox 98.7 F 82 18 121/75 100 01/18/17 12:50 01/18/17 12:50 01/18/17 12:50 01/18/17 12:50 01/18/17 12:50 Procedures - Laceration/Wound Repair Left Upper Hand 3rd digit Wound length (cm): 0.5 Wound's Depth, Shape: Superficial, Linear Anesthetic type: 1% Lidocaine Volume Anesthetic (mLs): 2 Wound explored: Clean, No foreign body removed Irrigated w/ Saline (mLs): 1 - Irrigated with tap water for 5 minutes Wound Repaired With: Dermabond Layer Closure?: No Post-procedure NV exam normal: Yes Complications: No Discharge - Discharge Clinical Impression: Finger laceration Condition: Good Disposition: HOME, SELF-CARE Instructions: Laceration Care ([facility]) Additional Instructions: Laceration Care Your laceration has been sutured to keep the skin edges aligned during healing. The time of suture removal depends on the nature and location of your cut. Please follow the care instructions the doctor has outlined for you and return for further care, according to the schedule you've been given. Keep the wound and dressing clean. Unless you were told otherwise, you may shower daily, blotting the wound dry with a clean, unused towel. At other times, If the dressing gets wet or blood soaked, remove it and blot the wound dry, then reapply a new dressing. Unless you were instructed otherwise, dressings should be changed at least daily. If any signs of infection occur (swelling, redness, increasing tenderness, red streaks, tender lumps in the armpit or groin above the laceration, or fever) , see the doctor immediately. Dermabond (Skin Adhesive Closure) Skin adhesive (such as Dermabond) is a quick-drying glue that remains slightly flexible while it holds wound edges together. It can substitute for stitches on some cuts. The film will usually fall off the skin after 5 to 10 days. Keep the wound area clean and dry. Do not soak or scrub the wound. Don't swim. You can shower briefly after 24 hours. Gently blot the area dry with a soft towel. Don't apply ointments. If there is a dressing, change it immediately if it gets wet. Do not place tape directly over the adhesive film, because the tape may pull the film off your skin as you remove it. Don't bump the wound area. If there's risk of injury, keep the area well- padded. Avoid stretching of the skin. Do not scratch or pick at the adhesive film. Avoid prolonged exposure to sunlight or tanning lamps. Return if there is increasing pain, swelling, redness, or drainage, or if the wound edges seem to open or separate. Prescriptions: Ibuprofen 800 mg PO Q8H PRN #20 tablet PRN Reason: Pain Scale Of 3
[2017-01-18] MEDS ORDERED: IBUPROFEN 600 MG TABLET PO ONE (15:01)
== END 2017-01-18 15:15 | disposition home or self-care (01) ==
LOC: ER 12:46
PROC: 0HQGXZZ Repair Left Hand Skin, External Approach (ICD-10-PCS; principal; 2017-01-18)
DX: S61.213A Laceration without foreign body of left middle finger without damage to nail, initial encounter (principal); W45.8XXA Other foreign body or object entering through skin, initial encounter; F17.200 Nicotine dependence, unspecified, uncomplicated
CPT/HCPCS: 99282; 12001; A9270; J3490

== ENCOUNTER 2017-03-23 11:51 | Emergency (ER) | payer MEDICARE, MEDICAID ==
[2017-03-23 12:21] VITALS: BP 115/66
--- NOTE | 2017-03-23 13:03 | EKG REPORT ---
SEVERITY:- NORMAL ECG - SINUS RHYTHM : Confirmed by: Jorge Pruett 23-Mar-2017 13:03:04
[2017-03-23 13:06] LABS: ABSOLUTE EOSINOPHILS # (AUTO) 0.2 10^3/uL (0.0-0.6); ABSOLUTE LYMPHOCYTES (AUTO) 2.1 10^3/uL (0.5-4.7); ABSOLUTE MONOCYTES (AUTO) 0.5 10^3/uL (0.1-1.4); ABSOLUTE NEUT (AUTO) 4.7 10^3/uL (1.7-8.2); BASOPHILS % (AUTO) 0.4 % (0-2); EOSINOPHILS % (AUTO) 2.5 % (0-6); HEMOGLOBIN 12.4 g/dL (12.0-15.5); HGB HCT DIFFERENCE 1.2; LYMPHOCYTES % (AUTO) 28.3 % (13-45); MEAN CORPUSCULAR HEMOGLOBIN 31.6 pg (27.0-33.4); MEAN CORPUSCULAR HGB CONC 34.4 g/dL (32.0-36.0); MEAN CORPUSCULAR VOLUME 92 fl (80-97); MONOCYTES % (AUTO) 6.9 % (3-13); RED BLOOD COUNT 3.91 10^6/uL (3.72-5.28); SEGMENTED NEUTROPHILS % (AUTO) 61.9 % (42-78); WHITE BLOOD COUNT 7.5 10^3/uL (4.0-10.5)
--- NOTE | 2017-03-23 13:10 | ER Document Report ---
ED Psych Disorder / Suicide <KAYE ANN - Last Filed: 03/23/17 15:35> - General TRAVEL OUTSIDE OF THE [place] IN LAST 30 DAYS: No <DARIELA MARROQUIN - Last Filed: 03/23/17 16:03> - General Chief Complaint: Psych Problem Stated Complaint: ALTERED MENTAL STATUS Time Seen by Provider: 03/23/17 13:06 Notes: Patient says that she is thinking about killing herself for the past week. Says that she has been feeling depressed. Had an appointment to see her therapist this morning, but her alarm did not go off and she overslept. She has not had any appetite and not wanted to eat. She is given thought to starving herself, slitting her wrist, or running out in traffic. She has had depression in the past and is diagnosed with bipolar disorder. She has never felt this depressed in the past. No nausea or vomiting. No chest pains. LMP February. PMH: Depression, bipolar disorder, PTSD, and anxiety. IDDM. Hypothyroid. ( DARIELA MARROQUIN) - Related Data Allergies/Adverse Reactions: mushroom Allergy (Severe, Verified 03/23/17 13:13) Anaphylaxis alcohol [Alcohol] Allergy (Unknown, Verified 03/23/17 13:13) Hives gabapentin Allergy (Unknown, Verified 03/23/17 13:13) Hives morphine [Morphine] Allergy (Unknown, Verified 03/23/17 13:13) Penicillins Allergy (Unknown, Verified 03/23/17 13:13) Sulfa (Sulfonamide Antibiotics) Allergy (Unknown, Verified 03/23/17 13:13) adhesive [Adhesive] Allergy (Verified 03/23/17 13:13) chlorpromazine [From Thorazine] Allergy (Verified 03/23/17 13:13) hydrocodone Adverse Reaction (Severe, Verified 03/23/17 13:13) Swelling of Throat tomato [Tomato] Adverse Reaction (Severe, Verified 03/23/17 13:13) Anaphylaxis Home Medications: Current Home Medications Brexpiprazole [Rexulti] 0.5 mg PO QPM 03/23/17 [History] Ergocalciferol (Vitamin D2) [Vitamin D2] 50,000 unit PO Q7D 03/23/17 [History] Levothyroxine Sodium [Synthroid 0.1 mg Tablet] 0.3 mg PO DAILY 03/23/17 [History ] Lisinopril [Prinivil 10 mg Tablet] 10 mg PO QPM 03/23/17 [History] Meloxicam 15 mg PO DAILY 03/23/17 [History] Prazosin HCl 2 mg PO QPM 03/23/17 [History] Simvastatin 20 mg PO QPM 03/23/17 [History] Past Medical History - Social History Smoking Status: Unknown if Ever Smoked <KAYE ANN - Last Filed: 03/23/17 15:35> - Social History Family History: Arthritis, DM, Malignancy, Thyroid Disfunction - Past Medical History Cardiac Medical History: Reports: Hx Hypercholesterolemia Pulmonary Medical History: Reports: Hx Asthma Neurological Medical History: Reports: 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 Endocrine Medical History: Reports: Hx Diabetes Mellitus Type 1, Hx Diabetes Mellitus Type 2, Hx Hypothyroidism GI Medical History: Reports: Hx Gastroesophageal Reflux Disease Musculoskeltal Medical History: Reports Hx Musculoskeletal Deformity, Reports Hx Musculoskeletal Trauma Psychiatric Medical History: Reports: Hx Anxiety, Hx Bipolar Disorder, Hx Depression, Hx Post Traumatic Stress Disorder Traumatic Medical History: Reports: Hx Fractures - Wrist hand and toe Past Surgical History: Reports: Hx Oral Surgery - wisdom teeth, Hx Orthopedic Surgery - Ankle surgery - Immunizations Hx Diphtheria, Pertussis, Tetanus Vaccination: Yes Hx Pneumococcal Vaccination: 03/10/13 <DARIELA MARROQUIN - Last Filed: 03/23/17 16:03> Review of Systems <KAYE ANN - Last Filed: 03/23/17 15:35> <DARIELA MARROQUIN - Last Filed: 03/23/17 16:03> - Review of Systems Notes: REVIEW OF SYSTEMS: CONSTITUTIONAL : Denies fever. EENT: Denies eye, ear, nose or mouth or throat pain or other symptoms. CARDIOVASCULAR: Denies chest pain. RESPIRATORY: Denies cough, chest congestion, or shortness of breath. GASTROINTESTINAL: Denies abdominal pain or nausea, vomiting, or diarrhea. GENITOURINARY: Denies difficulty or painful urinating, urinary frequency, blood in urine. MUSCULOSKELETAL: Denies back or neck pain. Denies joint pain or swelling. SKIN: Denies rash or skin lesions. NEUROLOGICAL: Denies LOC or altered mental status. Denies headache. Denies sensory loss or motor deficits. ALL OTHER SYSTEMS REVIEWED AND NEGATIVE. (DARIELA MARROQUIN) Physical Exam <KAYE ANN - Last Filed: 03/23/17 15:35> - Vital signs Interpretation: Normal <DARIELA MARROQUIN - Last Filed: 03/23/17 16:03> - Vital signs Vitals: Temp Pulse Resp BP Pulse Ox 97.6 F 88 16 115/66 99 03/23/17 12:19 03/23/17 12:19 03/23/17 12:19 03/23/17 12:19 03/23/17 12:19 - Notes Notes: PHYSICAL EXAMINATION: GENERAL: Well-appearing, in no acute distress. Vital signs are all normal. HEAD: Atraumatic, normocephalic. EYES: Pupils equal round and reactive to light, extraocular movements intact. ENT: oropharynx clear without exudates. Moist mucous membranes. NECK: Normal range of motion, supple. LUNGS: Breath sounds clear and equal bilaterally. HEART: Regular rate and rhythm without murmurs. ABDOMEN: Soft, nontender. No guarding or rebound. BACK: No tenderness throughout entire back. EXTREMITIES: Normal range of motion without pain. NEUROLOGICAL: Normal speech, normal gait. Normal sensory, motor, and reflex exams. Awake, alert, and oriented x3. Cranial nerves normal. PSYCH: Normal mood, normal affect. SKIN: Warm, dry, no rashes. (DARIELA MARROQUIN) Course - Laboratory Result Diagrams: 03/23/17 12:40 03/23/17 12:40 <KAYE ANN - Last Filed: 03/23/17 15:35> - Laboratory Result Diagrams: 03/23/17 12:40 03/23/17 12:40 <DARIELA MARROQUIN - Last Filed: 03/23/17 16:03> - Vital Signs Vital signs: Temp Pulse Resp BP Pulse Ox 97.6 F 88 16 115/66 99 03/23/17 12:19 03/23/17 12:19 03/23/17 12:19 03/23/17 12:19 03/23/17 12:19 - Laboratory Laboratory results interpreted by me: 03/23/17 03/23/17 12:40 12:40 Glucose 130 H Urine Protein >=500 H Urine Ketones TRACE H Urine Blood SMALL H Urine Urobilinogen 2.0 H Salicylates < 1.0 L Acetaminophen < 10 L Discharge <KAYE ANN - Last Filed: 03/23/17 15:35> <DARIELA MARROQUIN - Last Filed: 03/23/17 16:03> - Discharge Clinical Impression: Bipolar 1 disorder Condition: Stable Disposition: HOME, SELF-CARE Additional Instructions: DEPRESSION: Your evaluation reveals that you have mental depression. While symptoms may be vague, they often include disturbance of sleep, fatigue, loss of appetite , and general loss of interest in life. While depression may be a side effect of drugs, or a reaction to a major change in your life, many cases have no known cause. If depression is acute, and related to a major loss in your life, you can expect it to clear completely with time. If you have been depressed a long time , are prone to repeated bouts of depression or low mood, or have been thinking of suicide, get help. Depression can be treated with anti-depressant medication and counselling. Long-term depression will often take a few weeks to clear, even with appropriate medication. Follow-up care is important. SUICIDAL IDEATION: Suicidal ideation is a common medical term for thoughts about suicide, which may be as detailed as a formulated plan, without the suicidal act itself. Although most people who undergo suicidal ideation do not commit suicide, some go on to make suicide attempts. The range of suicidal ideation varies greatly from fleeting to detailed planning, role playing, and unsuccessful attempts. While thoughts about suicide are common, most people do not carry out serious actions to commit suicide. Based upon your evaluation and discussion with you, we do not believe you are currently at risk to act upon your thoughts of suicide. You have agreed to return to the Emergency Department, at any time , if you feel inclined to act upon your suicidal thoughts. FOLLOW-UP CARE: Please follow up with your outpatient mental health provider, [facility], in 3-5 days for your continued mental health treatment. Please take your medications as prescribed. If you experience worsening or a significant change in your symptoms, notify the physician immediately or return to the Emergency Department at any time for re-evaluation. Referrals: LAWSON HUDSON, DO [Primary Care Provider] - Follow up as needed Norma Bass [Outside] - Follow up in 3-5 days
[2017-03-23 13:18] LABS: ALANINE AMINOTRANSFERASE 32 U/L (9-52); ALBUMIN 3.7 g/dL (3.5-5.0); ALKALINE PHOSPHATASE 78 U/L (38-126); ANION GAP 15 (5-19); APPEARANCE,URINE CLOUDY; ASPARTATE AMINO TRANSFERASE 16 U/L (14-36); BILIRUBIN,DIRECT 0.3 mg/dL (0.0-0.4); BILIRUBIN,TOTAL 0.5 mg/dL (0.2-1.3); BILIRUBIN,URINE NEGATIVE (NEGATIVE); BLOOD UREA NITROGEN 17 mg/dL (7-20); CALCIUM 9.6 mg/dL (8.4-10.2); CARBON DIOXIDE 24 mmol/L (22-30); CHLORIDE 104 mmol/L (98-107); GLUCOSE 130 mg/dL (75-110); GLUCOSE, URINE NEGATIVE (NEGATIVE); KETONES,URINE TRACE mg/dL (NEGATIVE); LEUKOCYTE ESTERASE,URINE NEGATIVE (NEGATIVE); NITRITE,URINE NEGATIVE (NEGATIVE); PROTEIN,URINE >=500 mg/dL (NEGATIVE); SODIUM 142.6 mmol/L (137-145); TOTAL PROTEIN 6.8 g/dL (6.3-8.2); URINE SPECIFIC GRAVITY 1.019
[2017-03-23 13:21] LABS: ALCOHOL < 10 mg/dL (NONE DETECTED); POTASSIUM 3.8 mmol/L (3.6-5.0)
[2017-03-23 13:27] LABS: URINE BARBITURATES SCREEN NEGATIVE; URINE METHADONE SCREEN NEGATIVE; URINE OPIATES LOW NEGATIVE; URINE PHENCYCLIDINE SCREEN NEGATIVE
--- NOTE | 2017-03-23 16:35 | PSYCHOLOGICAL NOTE ---
Psych Note - Psych Note Psych Note: pt states has broken up w/girlfriend for months but thought they would reconcile. pt admits to not eating for 4 days, but is drinking. states has thought about running out in traffic. Patient reports she arrived to [facility] ED via EMS because her mother called for her. She disclosed that she was at [facility] with her mom, ex girl friend, and her ex-girl friend's new boyfriend. She stated she was there for food and got "P-ed off at my ex-girlfriend" so left and started walking down [address]. She stated that "I was going to dart into traffic or something..." and reports she has been feeling like this for one week. When asked if the patient was walking that she ever attempt to go into traffic she stated "oh yeah but people just swerved." She disclosed that she has not been taking her medications for one month and denies reporting this to [facility]; "I told her they don't work." She continued to disclosed that her ex-girlfriend "told me she doesn't want to be in my life anymore." Patient and ex-girlfriend broke up in November and patient stated "she said she would not be with anyone in a really long time but 3 weeks later she started seeing this wil." Patient was unable to fully explain why 3 months later she is feelings of suicidal ideation for just the last week. Patient continued to disclose that she needs to go inpatient to get stabilized and her medication. Patient reports she is unable to do this at home. When asked why going inpatient helps patient disclosed that she was released from [facility] on February 07 and took her medication. Patient was reminded she stated that she had been off medication for 1 month which means she only took medication for 2 weeks after discharge. Patient states she only stopped because her medication did not work. Patient then stated that if she goes home she will kill herself by either "slitting my wrists or driving my mom's car into a ditch at a high rate of speed." Patient states that she missed her therapeutic appointment this morning but she slept through her alarm. Patient is asked what her diagnosis is she disclosed that she has been diagnosed with bipolar, PTSD and personality disorder; when asked which personality disorder she has been diagnosed with she stated "his name is Rip." Patient is alert and orientated to person, place, time and circumstance. Mood is irritable with congruent affect. Patient endorses passive suicidal ideation disclosing multiple plans. Patient denies homicidal ideation. Delusions are absent and behaviors congruent with intact reality based presentation i.e. or denies, linear, rational thinking. Eye contact was well-maintained. Intellectual abilities appear to be within the average range. Conversational speech was short and irritable at times. Attention and concentration were good. Insight, judgment, impulse control are good. 296.80 (F31.9) unspecified bipolar and related disorder per history provided by patient Patient is demonstrating cluster B personality traits Impression\\plan: Patient is considered psychiatrically clear. She does not meet IVC criteria per [place] GS 122C. Patient endorses passive suicidal ideation disclosing multiple plans. Patient states she needs to go inpatient to get therapeutic on her medications. She then stated that she been off her medications for 1 month; however, then disclosed that she was inpatient at [facility] and discharged on February 07, 2017. This calculates to patient being on medication approximately 2 weeks after discharge. Patient provided multiple conflicting reports to include stating she was thinking about jumping into traffic and then stated that she did. Patient has a long history of being noncompliant on her medication. Patient is recommended to continue with her outpatient mental health treatment to include both medication management and therapeutic services through [facility]. Patient is recommended to take medications as prescribed. Dr. Ordoñez was consulted and the care and management of this patient; attending physician is in agreement with recommendations and disposition.
== END 2017-03-23 15:41 | disposition home or self-care (01) ==
LOC: ER 11:51
DX: F31.9 Bipolar disorder, unspecified (principal); R45.851 Suicidal ideations; R63.0 Anorexia; E11.9 Type 2 diabetes mellitus without complications; J45.909 Unspecified asthma, uncomplicated; Z88.8 Allergy status to other drugs, medicaments and biological substances; Z88.6 Allergy status to analgesic agent; Z88.5 Allergy status to narcotic agent; Z88.0 Allergy status to penicillin; Z88.2 Allergy status to sulfonamides; Z91.048 Other nonmedicinal substance allergy status; Z87.892 Personal history of anaphylaxis; Z91.018 Allergy to other foods
CPT/HCPCS: 36415; 80053; 80307; 81001; 85025; 93005; 93010; 99285

== ENCOUNTER → 2017-04-06 | Outpatient (CLI) | payer MEDICARE, MEDICAID ==
--- NOTE | 2017-04-06 11:30 | RADIOLOGY REPORT (SQ) ---
EXAM DESCRIPTION: HIPS BILATERAL COMPLETED DATE/TIME: 04/06/2017 11:17 am REASON FOR STUDY: PAIN IN RIGHT HIP,PAIN IN LEFT HIP M25.561 PAIN IN RIGHT KNEE M25.562 PAIN IN LE FT KNEE M25.551 PAIN IN RIGHT HIP COMPARISON: 10/06/2014. NUMBER OF VIEWS: Two views TECHNIQUE: AP pelvis and additional frog-leg view of both hips. LIMITATIONS: None. FINDINGS: MINERALIZATION: Normal. HIPS: No acute fracture or dislocation. No worrisome bone lesions. PELVIS AND SACRUM: No acute fracture or dislocation. No worrisome bone lesions. PUBIS AND ISCHIUM: No acute fracture. LOWER LUMBAR SPINE: No significant findings as visualized. SOFT TISSUES: No findings. OTHER: No other significant finding. IMPRESSION: NEGATIVE STUDY OF THE PELVIS AND HIPS. TECHNICAL DOCUMENTATION: JOB ID: [id number] [employer]- All Rights Reserved
--- NOTE | 2017-04-06 11:31 | RADIOLOGY REPORT (SQ) ---
EXAM DESCRIPTION: KNEE RIGHT 4 VIEWS COMPLETED DATE/TIME: 04/06/2017 11:17 am REASON FOR STUDY: PAIN IN RIGHT KNEE M25.561 PAIN IN RIGHT KNEE M25.562 PAIN IN LEFT KNEE M25.551 PAIN IN RIGHT HIP COMPARISON: 07/07/2008. NUMBER OF VIEWS: Four views. TECHNIQUE: AP, lateral, and both oblique radiographic images acquired of the right knee. LIMITATIONS: None. FINDINGS: MINERALIZATION: Normal. BONES: No acute fracture or dislocation. No worrisome bone lesions. No significant osteophytes. JOINT: No effusion. No chondrocalcinosis. OTHER: No other significant finding. IMPRESSION: NEGATIVE STUDY OF THE RIGHT KNEE. NO EXPLANATION FOR PAIN. TECHNICAL DOCUMENTATION: JOB ID: [id number] [employer]- All Rights Reserved
--- NOTE | 2017-04-06 11:32 | RADIOLOGY REPORT (SQ) ---
EXAM DESCRIPTION: KNEE LEFT 4 VIEWS COMPLETED DATE/TIME: 04/06/2017 11:17 am REASON FOR STUDY: PAIN IN LEFT KNEE M25.561 PAIN IN RIGHT KNEE M25.562 PAIN IN LEFT KNEE M25.551 PAIN IN RIGHT HIP COMPARISON: 12/13/2008. NUMBER OF VIEWS: Four views. TECHNIQUE: AP, lateral, and both oblique radiographic images acquired of the left knee. LIMITATIONS: None. FINDINGS: MINERALIZATION: Normal. BONES: No acute fracture or dislocation. No worrisome bone lesions. No significant osteophytes. JOINT: No effusion. No chondrocalcinosis. OTHER: No other significant finding. IMPRESSION: NEGATIVE STUDY OF THE LEFT KNEE. NO EXPLANATION FOR PAIN. TECHNICAL DOCUMENTATION: JOB ID: [id number] [employer]- All Rights Reserved
== END ==
LOC: OD 10:45
PROVIDERS: ATTEND Student in an Organized Health Care Education/Training Program
DX: M25.551 Pain in right hip (principal); M25.552 Pain in left hip; M25.561 Pain in right knee; M25.562 Pain in left knee
CPT/HCPCS: 73522

== ENCOUNTER 2017-08-20 07:05 | Emergency (ER) | payer MEDICARE, MEDICAID ==
[2017-08-20] MEDS ORDERED: PREDNISONE 20 MG TABLET PO ONE (07:08)
[2017-08-20] MEDS ORDERED: FAMOTIDINE 20 MG TABLET PO ONE (07:08)
--- NOTE | 2017-08-20 07:11 | ER Document Report ---
ED General - General Chief Complaint: Allergic Reaction Stated Complaint: POSSIBLE ALLERGIC REACTION Time Seen by Provider: 08/20/17 07:08 Mode of Arrival: Ambulatory Information source: Patient Notes: 32 yr old female presents with complaints of generalized rash and hives itching. Patient is 1 hour ago she put on the lotion. Patient states that she has allergies to rubbing alcohol. She initially stated that there was some difficulty swallowing however denies any such complaints at this time. Patient denies any shortness of breath difficulty swallowing TRAVEL OUTSIDE OF THE [place] IN LAST 30 DAYS: No - HPI Onset: Just prior to arrival Onset/Duration: Sudden Quality of pain: No pain Severity: Mild Pain Level: Denies Associated symptoms: Other Exacerbated by: Other - Lotion Relieved by: Denies Similar symptoms previously: No Recently seen / treated by doctor: No - Related Data Allergies/Adverse Reactions: mushroom Allergy (Severe, Verified 03/23/17 13:13) Anaphylaxis alcohol [Alcohol] Allergy (Unknown, Verified 03/23/17 13:13) Hives gabapentin Allergy (Unknown, Verified 03/23/17 13:13) Hives morphine [Morphine] Allergy (Unknown, Verified 03/23/17 13:13) Penicillins Allergy (Unknown, Verified 03/23/17 13:13) Sulfa (Sulfonamide Antibiotics) Allergy (Unknown, Verified 03/23/17 13:13) adhesive [Adhesive] Allergy (Verified 03/23/17 13:13) chlorpromazine [From Thorazine] Allergy (Verified 03/23/17 13:13) hydrocodone Adverse Reaction (Severe, Verified 03/23/17 13:13) Swelling of Throat tomato [Tomato] Adverse Reaction (Severe, Verified 03/23/17 13:13) Anaphylaxis Past Medical History - Social History Smoking Status: Current Every Day Smoker Cigarette use (# per day): Yes Chew tobacco use (# tins/day): No Smoking Education Provided: No Drug Abuse: Marijuana Family History: Arthritis, DM, Malignancy, Thyroid Disfunction - Past Medical History Cardiac Medical History: Reports: Hx Hypercholesterolemia Denies: Hx Heart Attack Pulmonary Medical History: Reports: Hx Asthma Denies: Hx Tuberculosis Neurological Medical History: 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 Denies: Hx Hiatal Hernia, Hx Ulcer Musculoskeltal Medical History: Reports Hx Musculoskeletal Deformity, Reports Hx Musculoskeletal Trauma Psychiatric Medical History: Reports: Hx Anxiety, Hx Bipolar Disorder, Hx Depression, Hx Post Traumatic Stress Disorder Traumatic Medical History: Reports: Hx Fractures - Wrist hand and toe Past Surgical History: Reports: Hx Oral Surgery - wisdom teeth, Hx Orthopedic Surgery - Ankle surgery. Denies: Hx Mastectomy, Hx Open Heart Surgery - Immunizations Hx Diphtheria, Pertussis, Tetanus Vaccination: Yes Hx Pneumococcal Vaccination: 03/10/13 Review of Systems - Review of Systems Notes: REVIEW OF SYSTEMS: CONSTITUTIONAL : Denies fever, chills, or sweats. Denies recent illness. EENT: Denies eye, ear, throat, or mouth pain or symptoms. Denies nasal or sinus congestion or discharge. Denies throat, tongue, or mouth swelling or difficulty swallowing. CARDIOVASCULAR: Denies chest pain. Denies palpitations or racing or irregular heart beat. Denies ankle edema. RESPIRATORY: Denies cough, cold, or chest congestion. Denies shortness of breath, difficulty breathing, or wheezing. GASTROINTESTINAL: Denies abdominal pain or distention. Denies nausea, vomiting , or diarrhea. Denies blood in vomitus, stools, or per rectum. Denies black, tarry stools. Denies constipation. GENITOURINARY: Denies difficulty urinating, painful urination, burning, frequency, blood in urine, or discharge. FEMALE GENITOURINARY: Denies vaginal bleeding, heavy or abnormal periods, irregular periods. Denies vaginal discharge or odor. MUSCULOSKELETAL: Denies back or neck pain or stiffness. Denies joint pain or swelling. SKIN: Allergic reaction itching HEMATOLOGIC : Denies easy bruising or bleeding. LYMPHATIC: Denies swollen, enlarged glands. NEUROLOGICAL: Denies confusion or altered mental status. Denies passing out or loss of consciousness. Denies dizziness or lightheadedness. Denies headache. Denies weakness or paralysis or loss of use of either side. Denies problems with gait or speech. Denies sensory loss, numbness, or tingling. Denies seizures. PSYCHIATRIC: Denies anxiety or stress. Denies depression, suicidal ideation, or homicidal ideation. ALL OTHER SYSTEMS REVIEWED AND NEGATIVE. PHYSICAL EXAMINATION: GENERAL: Well-appearing, well-nourished and in no acute distress. HEAD: Atraumatic, normocephalic. EYES: Pupils equal round and reactive to light, extraocular movements intact, conjunctiva are normal. ENT: Nares patent, oropharynx clear without exudates. Moist mucous membranes. NECK: Normal range of motion, supple without lymphadenopathy LUNGS: Breath sounds clear to auscultation bilaterally and equal. No wheezes rales or rhonchi. HEART: Regular rate and rhythm without murmurs ABDOMEN: Soft, nontender, nondistended abdomen. No guarding, no rebound. No masses appreciated. Female : deferred Musculoskeletal: Normal range of motion, no pitting or edema. No cyanosis. NEUROLOGICAL: Cranial nerves grossly intact. Normal speech, normal gait. Normal sensory, motor exams PSYCH: Normal mood, normal affect. SKIN: Generalized urticarial rash. Dictation was performed using [employer] recognition software Physical Exam - Vital signs Vitals: Temp Pulse Resp BP Pulse Ox 98.2 F 72 16 158/71 H 98 08/20/17 07:08 08/20/17 07:08 08/20/17 07:08 08/20/17 07:08 08/20/17 07:08 Course - Re-evaluation Re-evalutation: 08/20/17 07:34 Patient's airway is patent she is in no respiratory distress she has no stridor no difficulty breathing, patient was given dose of Benadryl by EMS and notes improvement of symptoms, she was given Pepcid and prednisone here and discharged home with the same. After performing a Medical Screening Examination, I estimate there is LOW risk for AIRWAY COMPROMISE, ANAPHYLAXIS, CELLULITIS, EPIGLOTTIS, or NECROTIZING FASCIITIS, thus I consider the discharge disposition reasonable. Also, there is no evidence or peritonitis, sepsis, or toxicity. I have reevaluated this patient multiple times and no significant life threatening changes are noted. The patient and I have discussed the diagnosis and risks, and we agree with discharging home with close follow-up with the understanding that symptoms and presentations can change. We also discussed returning to the Emergency Department immediately if new or worsening symptoms occur. We have discussed the symptoms which are most concerning (e.g., difficulty breathing or swallowing , fever, changing or worsening pain) that necessitate immediate return. - Vital Signs Vital signs: Temp Pulse Resp BP Pulse Ox 98.2 F 72 16 158/71 H 98 08/20/17 07:08 08/20/17 07:08 08/20/17 07:08 08/20/17 07:08 08/20/17 07:08 Discharge - Discharge Clinical Impression: Allergic reaction Qualifiers: Encounter type: initial encounter Qualified Code(s): T78.40XA - Allergy, unspecified, initial encounter Condition: Stable Disposition: HOME, SELF-CARE Instructions: Acute Allergic Reaction ([facility]) Additional Instructions: Follow up with your physician tomorrow for further care or return to the ED IMMEDIATELY if symptoms worsen or new concerns occur. If you cannot afford to follow up with your primary care physician a list of low cost clinics have been provided at the end of your discharge papers as well. Prescriptions: Diphenhydramine HCl [Benadryl 50 mg Capsule] 1 cap PO Q6 PRN #20 capsule PRN Reason: Famotidine [Pepcid 20 mg Tablet] 20 mg PO DAILY #5 tablet Prednisone 60 mg PO DAILY #5 tablet
[2017-08-20 07:16] VITALS: BP 158/71
== END 2017-08-20 07:33 | disposition home or self-care (01) ==
LOC: ER 07:05
DX: T78.40XA Allergy, unspecified, initial encounter (principal); X58.XXXA Exposure to other specified factors, initial encounter; F17.210 Nicotine dependence, cigarettes, uncomplicated; E78.00 Pure hypercholesterolemia, unspecified; E11.9 Type 2 diabetes mellitus without complications; E03.9 Hypothyroidism, unspecified; Z88.6 Allergy status to analgesic agent; Z88.0 Allergy status to penicillin; Z88.2 Allergy status to sulfonamides
CPT/HCPCS: 99283; A9270 ×2; J7512

== ENCOUNTER 2017-08-28 11:48 | Inpatient (IN) | payer MEDICARE, MEDICAID ==
[2017-08-28] MEDS ORDERED: NORMAL SALINE 1000 ML 1,000 ML IV ONE ×2 (12:20→13:43)
--- NOTE | 2017-08-28 12:35 | ER Document Report ---
ED General - General Stated Complaint: NAUSEA,VOMITING Time Seen by Provider: 08/28/17 12:05 TRAVEL OUTSIDE OF THE [place] IN LAST 30 DAYS: No - HPI Notes: 32-year-old female diabetic with an insulin pump who presents not feeling well. Patient indicates that sometime over the last day, her pump infusion site had become disconnected. Overnight she began to feel nauseated, vomit, has loose stools and in general not feel well. Denies any abdominal pain, no headache, no fever, difficulty breathing. She reconnected her pump this morning. States her sugars read "high". No other modifying factors, no other associated symptoms, no other provocative or palliative factors. - Related Data Allergies/Adverse Reactions: mushroom Allergy (Severe, Verified 03/23/17 13:13) Anaphylaxis alcohol [Alcohol] Allergy (Unknown, Verified 03/23/17 13:13) Hives gabapentin Allergy (Unknown, Verified 03/23/17 13:13) Hives morphine [Morphine] Allergy (Unknown, Verified 03/23/17 13:13) Penicillins Allergy (Unknown, Verified 03/23/17 13:13) Sulfa (Sulfonamide Antibiotics) Allergy (Unknown, Verified 03/23/17 13:13) adhesive [Adhesive] Allergy (Verified 03/23/17 13:13) chlorpromazine [From Thorazine] Allergy (Verified 03/23/17 13:13) hydrocodone Adverse Reaction (Severe, Verified 03/23/17 13:13) Swelling of Throat tomato [Tomato] Adverse Reaction (Severe, Verified 03/23/17 13:13) Anaphylaxis Past Medical History - Social History Smoking Status: Unknown if Ever Smoked Family History: Arthritis, DM, Malignancy, Thyroid Disfunction - Past Medical History Cardiac Medical History: Reports: Hx Hypercholesterolemia Denies: Hx Heart Attack Pulmonary Medical History: Reports: Hx Asthma Denies: Hx Tuberculosis Neurological Medical History: 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 Denies: Hx Hiatal Hernia, Hx Ulcer Musculoskeltal Medical History: Reports Hx Musculoskeletal Deformity, Reports Hx Musculoskeletal Trauma Psychiatric Medical History: Reports: Hx Anxiety, Hx Bipolar Disorder, Hx Depression, Hx Post Traumatic Stress Disorder Traumatic Medical History: Reports: Hx Fractures - Wrist hand and toe Past Surgical History: Reports: Hx Oral Surgery - wisdom teeth, Hx Orthopedic Surgery - Ankle surgery. Denies: Hx Mastectomy, Hx Open Heart Surgery - Immunizations Hx Diphtheria, Pertussis, Tetanus Vaccination: Yes Hx Pneumococcal Vaccination: 03/10/13 Review of Systems - Review of Systems Notes: Review of systems as in the history of present illness, otherwise negative. Physical Exam - Vital signs Vitals: Resp BP Pulse Ox 23 H 107/59 L 100 08/28/17 13:00 08/28/17 13:00 08/28/17 13:00 - Notes Notes: General: Well developed . Alert distress. HEENT: Normocephalic, atraumatic. Pupils equal round reactive to light. No JVD. Mucosa Chest: No trauma. Respiratory: Good air exchange, normal excursion. Cardiac: Regular rhythm. No murmurs or gallops. Abdomen: Soft, benign. Nondistended. Nontender. Back: No asymmetry or gross abnormality. Motor: Grossly normal power and tone. Neurologic: Alert, nonfocal. Cranial nerves II-12 are intact. Sensation intact. Vascular: Well perfused. Normal peripheral pulses. Skin: No petechiae or purpura. Course - Re-evaluation Re-evalutation: 08/28/17 12:35 Ill-appearing 32-year-old female with diabetes, clinical evidence of dehydration and high suspicion for underlying DKA. Plan to proceed with aggressive volume resuscitation, labs, will wait on potassium and bicarb to determine whether to initiate insulin drip versus subcutaneous control. Reevaluate. 08/28/17 14:53 Labs reviewed, CBC unremarkable. Chemistries showed marked elevated blood sugar 847, bicarb depressed at 12. Patient has an anion gap as well as ketonuria. Presentation is consistent with diabetic ketoacidosis. Patient received volume resuscitation, insulin drip is initiated. Potassium is 5.1. Pump is discontinued at this time. Plain films are unremarkable. She is admitted to the hospitalist service. 12 Lead ECG Analysis A 12 lead ECG is obtained and shows a sinus rhythm, normal QRS, normal QTC. There are nonspecific ST-T changes, no evidence of acute ischemic changes. Critical Care Note Greater than 35 minutes of critical care time was spent with this patient. This includes serial evaluation of the patient as well as labs, radiographs and EKGs; discussion of the case with consultants and admitting physician. This does not include time spent performing procedures. 08/28/17 14:53 - Vital Signs Vital signs: Temp Pulse Resp BP Pulse Ox 23 H 107/59 L 100 08/28/17 13:00 08/28/17 13:00 08/28/17 13:00 - Laboratory Result Diagrams: 08/28/17 12:48 08/28/17 12:48 Laboratory results interpreted by me: 08/28/17 08/28/17 08/28/17 12:30 12:48 12:48 WBC 11.1 H MCV 98 H Seg Neutrophils % 81.3 H Lymphocytes % 12.9 L Absolute Neutrophils 9.0 H Sodium 132.9 L Potassium 5.1 H Chloride 95 L Carbon Dioxide 12 L Anion Gap 26 H BUN 30 H Creatinine 1.64 H Est GFR ( Amer) 44 L Est GFR (Non-Af Amer) 37 L Glucose 847 H* Direct Bilirubin 0.7 H ALT 103 H Urine Protein 30 H Urine Glucose (UA) >=500 H Urine Ketones 80 H Urine Blood SMALL H Discharge - Discharge Clinical Impression: DKA (diabetic ketoacidoses) Qualifiers: Diabetes mellitus type: type 1 Diabetes mellitus complication detail: without coma Qualified Code(s): E10.10 - Type 1 diabetes mellitus with ketoacidosis without coma Condition: Serious Disposition: ADMITTED INPATIENT Admitting Provider: Hospitalist Unit Admitted: [facility]
--- NOTE | 2017-08-28 12:54 | EKG REPORT ---
SEVERITY:- ABNORMAL ECG - SINUS RHYTHM NONSPECIFIC T ABNORMALITIES, INFERIOR LEADS : Confirmed by: Sam Bird MD 28-Aug-2017 12:53:04
[2017-08-28 12:58] LABS: APPEARANCE,URINE CLEAR; BILIRUBIN,URINE NEGATIVE (NEGATIVE); COLOR,URINE STRAW; GLUCOSE, URINE >=500 mg/dL (NEGATIVE); KETONES,URINE 80 mg/dL (NEGATIVE); LEUKOCYTE ESTERASE,URINE NEGATIVE (NEGATIVE); NITRITE,URINE NEGATIVE (NEGATIVE); PROTEIN,URINE 30 mg/dL (NEGATIVE); UROBILINOGEN,URINE NEGATIVE mg/dL (<2.0)
[2017-08-28 13:07] LABS: ABSOLUTE LYMPHOCYTES (AUTO) 1.4 10^3/uL (0.5-4.7); ABSOLUTE MONOCYTES (AUTO) 0.6 10^3/uL (0.1-1.4); BASOPHILS % (AUTO) 0.2 % (0-2); EOSINOPHILS % (AUTO) 0.1 % (0-6); HEMATOCRIT 38.8 % (36.0-47.0); HEMOGLOBIN 12.4 g/dL (12.0-15.5); LYMPHOCYTES % (AUTO) 12.9 % (13-45); MEAN CORPUSCULAR HEMOGLOBIN 31.4 pg (27.0-33.4); MEAN CORPUSCULAR VOLUME 98 fl (80-97); MONOCYTES % (AUTO) 5.5 % (3-13); PLATELET COUNT 264 10^3/uL (150-450); RED BLOOD COUNT 3.96 10^6/uL (3.72-5.28); RED CELL DISTRIBUTION WIDTH 13.7 % (11.5-14.0); SEGMENTED NEUTROPHILS % (AUTO) 81.3 % (42-78); TOTAL CELLS COUNTED % (AUTO) 100 %; WHITE BLOOD COUNT 11.1 10^3/uL (4.0-10.5)
[2017-08-28 13:25] LABS: ALANINE AMINOTRANSFERASE 103 U/L (9-52); ALBUMIN 3.6 g/dL (3.5-5.0); ALKALINE PHOSPHATASE 88 U/L (38-126); ASPARTATE AMINO TRANSFERASE 32 U/L (14-36); BILIRUBIN,DIRECT 0.7 mg/dL (0.0-0.4); BILIRUBIN,TOTAL 0.8 mg/dL (0.2-1.3); BLOOD UREA NITROGEN 30 mg/dL (7-20); CALCIUM 9.1 mg/dL (8.4-10.2); POTASSIUM 5.1 mmol/L (3.6-5.0); TOTAL PROTEIN 6.6 g/dL (6.3-8.2)
[2017-08-28 13:31] LABS: CARBON DIOXIDE 12 mmol/L (22-30); CHLORIDE 95 mmol/L (98-107); SODIUM 132.9 mmol/L (137-145)
[2017-08-28 13:35] LABS: ANION GAP 26 (5-19)
[2017-08-28 13:37] LABS: GLUCOSE 847 mg/dL (75-110)
[2017-08-28] MEDS ORDERED: INSULIN REG, HUMAN 100 UNIT/ML 3 ML VIAL (PYX) IV ONE (13:45)
[2017-08-28] MEDS ORDERED: ZOLPIDEM TARTRATE 5 MG TABLET PO PRN (14:15)
[2017-08-28] MEDS ORDERED: ONDANSETRON HCL INJ/PF 4 MG/2 ML SDV IV PRN (14:15)
[2017-08-28] MEDS ORDERED: ALBUTEROL SULFATE 0.083% NEB 2.5 MG/3 ML AMPUL NEB PRN (14:15)
[2017-08-28] MEDS ORDERED: ACETAMINOPHEN 325 MG TABLET PO PRN (14:15)
[2017-08-28] MEDS ORDERED: NORMAL SALINE 1000 ML 1,000 ML IV PRN (14:24)
[2017-08-28] MEDS ORDERED: DEXTROSE 50%-WATER 25 GM/50 ML DISP.SYRIN IV PRN ×2 (14:24)
[2017-08-28] MEDS ORDERED: GLUCAGON,HUMAN RECOMB 1 MG INJ IM PRN (14:24)
[2017-08-28] MEDS ORDERED: NORMAL SALINE 100 ML with INSULIN REGULAR, HUMAN 100 UNIT IV PRN ×2 (14:24)
[2017-08-28] MEDS ORDERED: DEXTROSE 40% GEL 15 GM TUBE PO PRN ×2 (14:24)
[2017-08-28] MEDS ORDERED: PROPRANOLOL HCL 20 MG TABLET PO SCH (18:00)
--- NOTE | 2017-08-28 19:12 | PDOC H&P ---
History of Present Illness Admission Date/PCP: 08/28/17 14:27 LAWSON BECCADO Patient complains of: Nausea, vomiting and generalized malaise x1day History of Present Illness: This patient presents emergency room with complaints of generalized malaise. She states that sometime during the night she found her insulin pump infusion sites to be disconnected to try to connected back. She complains of feeling nauseated as well as vomiting and diarrhea. She checked the blood sugar and found to be very high and with persistence of her symptoms she came to the emergency room to be evaluated with was found to have a blood sugar of 847. She denies any fever chest pain dysuria frequency. Is complaining of back pain 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 1 Endocrine Medical History: Reports: Diabetes Mellitus Type 1, Diabetes Mellitus Type 2, Hypothyroidism GI Medical History: Reports: Gastroesophageal Reflux Disease Denies: Hiatal Hernia Psychiatric Medical History: Reports: Bipolar Disorder, Depression, Post Traumatic Stress Disorder Past Surgical History Past Surgical History: Reports: Orthopedic Surgery - Ankle surgery Denies: Amputation, Mastectomy Social History Smoking Status: Unknown if Ever Smoked Frequency of Alcohol Use: Rare Hx Recreational Drug Use: Yes Drugs: Marijuana Hx Prescription Drug Abuse: No - Advance Directive Resuscitation Status: Full Code Family History Family History: Arthritis, DM, Malignancy, Thyroid Disfunction Parental Family History Reviewed: Yes Children Family History Reviewed: NA Sibling(s) Family History Reviewed.: Yes Medication/Allergy Home Medications: Alprazolam [Xanax 0.5 mg Tablet] 0.5 mg PO BID 08/28/17 Brexpiprazole [Rexulti] 1 mg PO DAILY 08/28/17 Hydroxyzine Pamoate [Vistaril 50 mg Capsule] 50 mg PO Q12 08/28/17 Insulin Aspart [Novolog Insulin (Aspart) 100 unit/mL] 0 units PUMP DAILY Levothyroxine Sodium [Synthroid] 300 mcg PO Q6AM 08/28/17 Lisinopril [Zestril] 10 mg PO DAILY 08/28/17 Meloxicam [Mobic] 15 mg PO DAILY 08/28/17 Metoclopramide HCl [Reglan 10 mg Tablet] 10 mg PO BID 08/28/17 Omeprazole 40 mg PO DAILY 08/28/17 Prazosin HCl [Minipress] 2 mg PO QHS 08/28/17 Propranolol HCl [Inderal 20 mg Tablet] 20 mg PO BID 08/28/17 Simvastatin [Zocor 20 mg Tablet] 20 mg PO QHS 08/28/17 Allergies/Adverse Reactions: mushroom Allergy (Severe, Verified 03/23/17 13:13) Anaphylaxis alcohol [Alcohol] Allergy (Unknown, Verified 03/23/17 13:13) Hives gabapentin Allergy (Unknown, Verified 03/23/17 13:13) Hives morphine [Morphine] Allergy (Unknown, Verified 03/23/17 13:13) Penicillins Allergy (Unknown, Verified 03/23/17 13:13) Sulfa (Sulfonamide Antibiotics) Allergy (Unknown, Verified 03/23/17 13:13) adhesive [Adhesive] Allergy (Verified 03/23/17 13:13) chlorpromazine [From Thorazine] Allergy (Verified 03/23/17 13:13) hydrocodone Adverse Reaction (Severe, Verified 03/23/17 13:13) Swelling of Throat tomato [Tomato] Adverse Reaction (Severe, Verified 03/23/17 13:13) Anaphylaxis Review of Systems All systems: reviewed and no additional remarkable complaints except as stated - back pain Physical Exam Vital Signs: Temp Pulse Resp BP Pulse Ox 80 17 123/70 96 08/28/17 15:59 08/28/17 19:00 08/28/17 19:00 08/28/17 19:00 General appearance: PRESENT: no acute distress, well-nourished Head exam: PRESENT: atraumatic, normocephalic Eye exam: PRESENT: conjunctiva pink, PERRLA. ABSENT: scleral icterus Ear exam: PRESENT: normal external ear exam Mouth exam: PRESENT: tongue midline Neck exam: ABSENT: carotid bruit, JVD, lymphadenopathy, thyromegaly Respiratory exam: PRESENT: clear to auscultation dave. ABSENT: rales, rhonchi, wheezes Cardiovascular exam: PRESENT: RRR. ABSENT: diastolic murmur, rubs, systolic murmur Pulses: PRESENT: normal dorsalis pedis pul Vascular exam: PRESENT: normal capillary refill GI/Abdominal exam: PRESENT: normal bowel sounds, soft. ABSENT: distended, guarding, mass, organolmegaly, rebound, tenderness Rectal exam: PRESENT: deferred Extremities exam: PRESENT: full ROM. ABSENT: calf tenderness, clubbing, pedal edema Neurological exam: PRESENT: alert, awake, oriented to person, oriented to place , oriented to time, oriented to situation, CN II-XII grossly intact. ABSENT: motor sensory deficit Psychiatric exam: PRESENT: appropriate affect, normal mood. ABSENT: homicidal ideation, suicidal ideation Skin exam: PRESENT: dry, intact, warm. ABSENT: cyanosis, rash Results Laboratory Results: 08/28/17 16:50 08/28/17 16:50 Glucose 646 H* Assessment & Plan - Diagnosis (1) DKA (diabetic ketoacidoses) Qualifiers: Diabetes mellitus type: type 1 Diabetes mellitus complication detail: without coma Qualified Code(s): E10.10 - Type 1 diabetes mellitus with ketoacidosis without coma Is this a current diagnosis for this admission?: Yes Plan: Patient will be placed on insulin drip and treated with aggressive IV fluid hydration. I expect her acidosis to resolve hopefully with these measures in the next 24 hours also. We will check her BMP every 6 hours or more frequently if needed. (2) Dehydration Is this a current diagnosis for this admission?: Yes Plan: This is related to acidosis and hypoglycemia and should resolve (3) Tobacco abuse Is this a current diagnosis for this admission?: Yes Plan: Encourage tobacco cessation - Time Time Spent: 30 to 50 Minutes Anticipated discharge: Home Within: within 48 hours - Inpatient Certification Based on my medical assessment, after consideration of the patient's comorbidities, presenting symptoms, or acuity I expect that the services needed warrant INPATIENT care.: Yes Medical Necessity: Need Close Monitoring Due to Risk of Patient Decompensation, Need For IV Fluids, Other - IV insulin
[2017-08-28] MEDS: HYDROXYZINE PAMOATE 50 MG CAPSULE PO SCH (21:03)
[2017-08-28] MEDS: SIMVASTATIN 10 MG TABLET PO SCH (21:04)
[2017-08-28] MEDS: METOCLOPRAMIDE HCL 10 MG TABLET PO SCH (21:04)
[2017-08-28] MEDS: FAMOTIDINE 20 MG TABLET PO SCH (21:05)
[2017-08-28] MEDS: PROPRANOLOL HCL 20 MG TABLET PO SCH (21:05)
[2017-08-28] MEDS: ALPRAZOLAM 0.5 MG TABLET PO SCH (21:06)
[2017-08-28 21:12] LABS: ANION GAP 14 (5-19); BLOOD UREA NITROGEN 27 mg/dL (7-20); CALCIUM 8.2 mg/dL (8.4-10.2); CARBON DIOXIDE 18 mmol/L (22-30); CHLORIDE 106 mmol/L (98-107); SODIUM 137.6 mmol/L (137-145)
[2017-08-28 21:20] LABS: POTASSIUM 3.7 mmol/L (3.6-5.0)
[2017-08-28 21:23] LABS: GLUCOSE 594 mg/dL (75-110)
[2017-08-28] MEDS: HYDROMORPHONE HCL INJ/PF 2 MG/ML AMPULE IV PRN (21:53)
[2017-08-28] MEDS ORDERED: (PENDING PHARMACY ID) (Prazosin Hcl [Minipress] 2 MG) PO SCH (22:00)
[2017-08-28] MEDS ORDERED: POTASSI CL 20 MEQ/NS 1L 1000 ML IV PRN (22:06)
[2017-08-29] MEDS ORDERED: INSULIN REG, HUMAN 100 UNIT/ML 3 ML VIAL (PYX) ONE (00:08)
[2017-08-29] MEDS ORDERED: POTASSI CL 20 MEQ/D5-1/2NS 1L 1000 ML IV PRN (01:05)
[2017-08-29 01:15] LABS: ANION GAP 12 (5-19); BLOOD UREA NITROGEN 27 mg/dL (7-20); CALCIUM 8.6 mg/dL (8.4-10.2); CARBON DIOXIDE 22 mmol/L (22-30); CHLORIDE 112 mmol/L (98-107); GLUCOSE 259 mg/dL (75-110); POTASSIUM 3.7 mmol/L (3.6-5.0); SODIUM 145.7 mmol/L (137-145)
[2017-08-29] MEDS ORDERED: DEXTROSE 40% GEL 15 GM TUBE X 2 PO PRN (05:10)
[2017-08-29] MEDS ORDERED: DEXTROSE 50%-WATER SYRINGE 12.5 GM/25 ML DOSE IV PRN (05:10)
[2017-08-29] MEDS ORDERED: DEXTROSE 50%-WATER SYRINGE 25 GM/50 ML DOSE IV PRN (05:10)
[2017-08-29] MEDS ORDERED: DEXTROSE 40% GEL 15 GM TUBE PO PRN (05:10)
[2017-08-29] MEDS ORDERED: GLUCAGON,HUMAN RECOMB 1 MG INJ IM PRN (05:10)
[2017-08-29] MEDS: LEVOTHYROXINE SODIUM 0.15 MG TABLET PO SCH (05:20)
[2017-08-29] MEDS ORDERED: (PENDING PHARMACY ID) (Levothyroxine Sodium [Synthroid] 300 MCG) PO SCH (06:00)
[2017-08-29 07:06] LABS: HEMATOCRIT 32.3 % (36.0-47.0); HEMOGLOBIN 11.4 g/dL (12.0-15.5); MEAN CORPUSCULAR HEMOGLOBIN 32.3 pg (27.0-33.4); MEAN CORPUSCULAR HGB CONC 35.1 g/dL (32.0-36.0); PLATELET COUNT 232 10^3/uL (150-450); RED BLOOD COUNT 3.52 10^6/uL (3.72-5.28); RED CELL DISTRIBUTION WIDTH 13.6 % (11.5-14.0); WHITE BLOOD COUNT 10.7 10^3/uL (4.0-10.5)
[2017-08-29 07:13] LABS: MEAN CORPUSCULAR VOLUME 92 fl (80-97)
[2017-08-29 07:22] LABS: ANION GAP 9 (5-19); BLOOD UREA NITROGEN 25 mg/dL (7-20); CALCIUM 8.4 mg/dL (8.4-10.2); CARBON DIOXIDE 21 mmol/L (22-30); CHLORIDE 108 mmol/L (98-107); GLUCOSE 204 mg/dL (75-110); SODIUM 138.4 mmol/L (137-145)
[2017-08-29 07:39] LABS: POTASSIUM 4.8 mmol/L (3.6-5.0)
[2017-08-29] MEDS: INSULIN LISPRO 100 UNIT/ML 3 ML VIAL SUBCUT PRN ×2 (07:59→13:35)
[2017-08-29] MEDS ORDERED: LISINOPRIL 10 MG TABLET PO SCH (10:00)
[2017-08-29] MEDS ORDERED: INSULIN GLARGINE,HUM.REC.ANLOG 1,000 UNIT/10 ML UNIT SUBCUT ONE (10:00)
[2017-08-29] MEDS ORDERED: INSULIN REG, HUMAN 100 UNIT/ML 3 ML VIAL (PYX) SUBCUT ONE ×2 (10:00→11:00)
[2017-08-29] MEDS ORDERED: (PENDING PHARMACY ID) (Brexpiprazole [Rexulti] 1 MG) PO SCH (10:00)
[2017-08-29] MEDS: HYDROMORPHONE HCL INJ/PF 2 MG/ML AMPULE IV PRN (10:29)
[2017-08-29] MEDS: FAMOTIDINE 20 MG TABLET PO SCH ×2 (10:30→22:40)
[2017-08-29] MEDS: MELOXICAM 15 MG TABLET PO SCH (10:30)
[2017-08-29] MEDS: ALPRAZOLAM 0.5 MG TABLET PO SCH ×2 (10:30→17:58)
[2017-08-29] MEDS: METOCLOPRAMIDE HCL 10 MG TABLET PO SCH ×2 (10:30→17:58)
[2017-08-29] MEDS: HYDROXYZINE PAMOATE 50 MG CAPSULE PO SCH ×2 (10:31→22:40)
[2017-08-29] MEDS: PROPRANOLOL HCL 20 MG TABLET PO SCH ×2 (10:32→17:58)
--- NOTE | 2017-08-29 14:01 | PDOC PROGRESS REPORT ---
Subjective Reason For Visit: DKA Physical Exam Vital Signs: Temp Pulse Resp BP Pulse Ox 97.5 F 71 16 93/54 L 99 08/29/17 07:51 08/29/17 11:22 08/29/17 11:22 08/29/17 07:51 08/29/17 07:51 Intake & Output 08/28/17 08/29/17 08/30/17 06:59 06:59 06:59 Intake Total 1225 Balance 1225 Weight 65.6 kg Results Laboratory Results: 08/29/17 06:30 08/28/17 08/28/17 08/29/17 16:50 20:53 00:39 WBC RBC Hgb Hct MCV MCH MCHC RDW Plt Count Sodium 137.6 145.7 H Potassium 3.7 D 3.7 Chloride 106 112 H Carbon Dioxide 18 L 22 Anion Gap 14 12 BUN 27 H 27 H Creatinine 1.36 H 1.25 Est GFR ( Amer) 55 L > 60 Est GFR (Non-Af Amer) 45 L 50 L Glucose 646 H* 594 H* 259 H Calcium 8.2 L 8.6 08/29/17 08/29/17 06:30 06:30 WBC 10.7 H RBC 3.52 L Hgb 11.4 L Hct 32.3 L MCV 92 D MCH 32.3 MCHC 35.1 RDW 13.6 Plt Count 232 Sodium 138.4 Potassium 4.8 D Chloride 108 H Carbon Dioxide 21 L Anion Gap 9 BUN 25 H Creatinine 1.08 Est GFR ( Amer) > 60 Est GFR (Non-Af Amer) 59 L Glucose 204 H Calcium 8.4 Assessment & Plan - Diagnosis (1) DKA (diabetic ketoacidoses) Qualifiers: Diabetes mellitus type: type 1 Diabetes mellitus complication detail: without coma Qualified Code(s): E10.10 - Type 1 diabetes mellitus with ketoacidosis without coma Is this a current diagnosis for this admission?: Yes Plan: Anion gap has closed (2) Dehydration Is this a current diagnosis for this admission?: Yes Plan: Secondary to hyperglycemia, improved (3) Tobacco abuse Is this a current diagnosis for this admission?: Yes - Time Time Spent with patient: 15-24 minutes Medications reviewed and adjusted accordingly: Yes Anticipated discharge: Home Within: within 24 hours - Inpatient Certification Based on my medical assessment, after consideration of the patient's comorbidities, presenting symptoms, or acuity I expect that the services needed warrant INPATIENT care.: Yes Medical Necessity: Need For IV Fluids, Risk of Diagnosis Which Will Require Inpatient Eval/Care/Monitoring
[2017-08-29 14:43] LABS: ANION GAP 11 (5-19); BLOOD UREA NITROGEN 25 mg/dL (7-20); CALCIUM 8.8 mg/dL (8.4-10.2); CARBON DIOXIDE 23 mmol/L (22-30); CHLORIDE 105 mmol/L (98-107); GLUCOSE 202 mg/dL (75-110); POTASSIUM 4.3 mmol/L (3.6-5.0); SODIUM 138.7 mmol/L (137-145)
[2017-08-29] MEDS: INSULIN LISPRO 100 UNIT/ML 3 ML VIAL SUBCUT SCH (16:30)
[2017-08-29] MEDS ORDERED: ENOXAPARIN SODIUM INJ 40 MG/0.4 ML DISP.SYRIN SUBCUT ONE (17:00)
[2017-08-29] MEDS: SIMVASTATIN 10 MG TABLET PO SCH (22:40)
[2017-08-29] MEDS: INSULIN GLARGINE,HUM.REC.ANLOG 300 UNIT/3 ML INSULN.PEN SUBCUT SCH (22:40)
[2017-08-30 05:22] LABS: ANION GAP 6 (5-19); BLOOD UREA NITROGEN 23 mg/dL (7-20); CALCIUM 8.5 mg/dL (8.4-10.2); CARBON DIOXIDE 24 mmol/L (22-30); CHLORIDE 110 mmol/L (98-107); GLUCOSE 181 mg/dL (75-110); POTASSIUM 3.9 mmol/L (3.6-5.0); SODIUM 139.9 mmol/L (137-145)
[2017-08-30] MEDS: LEVOTHYROXINE SODIUM 0.15 MG TABLET PO SCH (06:21)
[2017-08-30] MEDS: HYDROMORPHONE HCL INJ/PF 2 MG/ML AMPULE IV PRN ×2 (07:29→15:47)
[2017-08-30] MEDS: INSULIN LISPRO 100 UNIT/ML 3 ML VIAL SUBCUT PRN ×2 (07:46→16:23)
[2017-08-30] MEDS: INSULIN LISPRO 100 UNIT/ML 3 ML VIAL SUBCUT SCH ×3 (07:46→16:22)
[2017-08-30] MEDS: ALPRAZOLAM 0.5 MG TABLET PO SCH ×2 (09:30→17:03)
[2017-08-30] MEDS: FAMOTIDINE 20 MG TABLET PO SCH (09:30)
[2017-08-30] MEDS: PROPRANOLOL HCL 20 MG TABLET PO SCH ×2 (09:31→17:03)
[2017-08-30] MEDS: HYDROXYZINE PAMOATE 50 MG CAPSULE PO SCH (09:31)
[2017-08-30] MEDS: INSULIN GLARGINE,HUM.REC.ANLOG 300 UNIT/3 ML INSULN.PEN SUBCUT SCH (09:31)
[2017-08-30] MEDS: METOCLOPRAMIDE HCL 10 MG TABLET PO SCH ×2 (09:31→17:03)
[2017-08-30] MEDS: MELOXICAM 15 MG TABLET PO SCH (09:32)
[2017-08-30] MEDS ORDERED: ENOXAPARIN SODIUM INJ 40 MG/0.4 ML DISP.SYRIN SUBCUT SCH (10:00)
--- NOTE | 2017-08-30 12:23 | PDOC DISCHARGE SUMMARY ---
General - Admit/Disc Date/PCP Admission Date/Primary Care Provider: 08/28/17 14:27 LAWSON HUDSON, Discharge Date: 08/30/17 - Discharge Diagnosis (1) DKA (diabetic ketoacidoses) Is this a current diagnosis for this admission?: Yes (2) Dehydration Is this a current diagnosis for this admission?: Yes (3) Tobacco abuse Is this a current diagnosis for this admission?: Yes - Additional Information Resuscitation Status: Full Code Discharge Diet: Cardiac, Other (Comments) - with adequate fluid intake Discharge Activity: Activity As Tolerated Home Medications: Alprazolam [Xanax 0.5 mg Tablet] 0.5 mg PO BID 08/28/17 Brexpiprazole [Rexulti] 1 mg PO DAILY 08/28/17 Hydroxyzine Pamoate [Vistaril 50 mg Capsule] 50 mg PO Q12 08/28/17 Insulin Aspart [Novolog Insulin (Aspart) 100 unit/mL] 0 units PUMP DAILY Levothyroxine Sodium [Synthroid] 300 mcg PO Q6AM 08/28/17 Lisinopril [Zestril] 10 mg PO DAILY 08/28/17 Meloxicam [Mobic] 15 mg PO DAILY 08/28/17 Metoclopramide HCl [Reglan 10 mg Tablet] 10 mg PO BID 08/28/17 Omeprazole 40 mg PO DAILY 08/28/17 Prazosin HCl [Minipress] 2 mg PO QHS 08/28/17 Propranolol HCl [Inderal 20 mg Tablet] 20 mg PO BID 08/28/17 Simvastatin [Zocor 20 mg Tablet] 20 mg PO QHS 08/28/17 History of Present Illness Patient complains of: Nausea and vomiting as well as generalized malaise. Her blood sugar was found to be elevated History of Present Illness: This patient presents emergency room with complaints of generalized malaise. She states that sometime during the night she found her insulin pump infusion sites to be disconnected to try to connected back. She complains of feeling nauseated as well as vomiting and diarrhea. She checked the blood sugar and found to be very high and with persistence of her symptoms she came to the emergency room to be evaluated with was found to have a blood sugar of 847. She denies any fever chest pain dysuria frequency. Is complaining of back pain Hospital Course Hospital Course: Patient was treated with aggressive intravenous fluids as well as intravenous insulin. Her anion gap acidosis slowly resolved along with hypoglycemia. Patient continues to improve clinically. She was moved out of the intensive care unit and she was started on subcutaneous insulin temporarily as she uses insulin pump at home. Her blood sugars have not been relatively stable and patient has been advised to restart her pump once discharged. Correction of acidosis and no further interventions been planned she is been discharged home for outpatient follow-up. She is on a bunch of beta-blockers as well as alpha- suzy and lisinopril some of which were held in hospital because her blood pressure was borderline low likely from the dehydration. I have advised her to monitor her blood pressure before restarting these medications at full dose. Physical Exam Vital Signs: Temp Pulse Resp BP Pulse Ox 97.5 F 66 16 121/90 H 97 08/30/17 11:58 08/30/17 11:58 08/30/17 11:58 08/30/17 11:58 08/30/17 11:58 Intake & Output 08/29/17 08/30/17 08/31/17 06:59 06:59 06:59 Intake Total 1225 474 Output Total 400 Balance 1225 74 Weight 65.6 kg 64.1 kg General appearance: PRESENT: no acute distress, well-developed, well-nourished Head exam: PRESENT: atraumatic, normocephalic Eye exam: PRESENT: conjunctiva pink, EOMI, PERRLA. ABSENT: scleral icterus Ear exam: PRESENT: normal external ear exam Mouth exam: PRESENT: tongue midline Neck exam: ABSENT: carotid bruit, JVD, lymphadenopathy, thyromegaly Respiratory exam: PRESENT: clear to auscultation dave. ABSENT: rales, rhonchi, wheezes Cardiovascular exam: PRESENT: RRR. ABSENT: diastolic murmur, rubs, systolic murmur Pulses: PRESENT: normal dorsalis pedis pul Vascular exam: PRESENT: normal capillary refill GI/Abdominal exam: PRESENT: normal bowel sounds, soft. ABSENT: distended, guarding, mass, organolmegaly, rebound, tenderness Rectal exam: PRESENT: deferred Extremities exam: PRESENT: full ROM. ABSENT: calf tenderness, clubbing, pedal edema Neurological exam: PRESENT: alert, awake, oriented to person, oriented to place , oriented to time, oriented to situation, CN II-XII grossly intact. ABSENT: motor sensory deficit Psychiatric exam: PRESENT: appropriate affect. ABSENT: homicidal ideation, suicidal ideation Skin exam: PRESENT: dry, intact, warm. ABSENT: cyanosis, rash Results Laboratory Results: 08/29/17 06:30 08/30/17 04:31 08/29/17 08/30/17 12:14 04:31 Sodium 138.7 139.9 Potassium 4.3 3.9 Chloride 105 110 H Carbon Dioxide 23 24 Anion Gap 11 6 BUN 25 H 23 H Creatinine 1.12 1.38 H Est GFR ( Amer) > 60 54 L Est GFR (Non-Af Amer) 57 L 45 L Glucose 202 H 181 H Calcium 8.8 8.5 Qualifiers - * PATIENT BEING DISCHARGED WITH ANY OF THE FOLLOWING DIAGNOSIS: No Plan Time Spent: Greater than 30 Minutes
[2017-08-30 16:27] VITALS: BP 120/76
== END 2017-08-30 17:46 | disposition home or self-care (01) | DRG 639 ==
LOC: ER 11:48 → EH 14:27 → 3N 20:29
PROVIDERS: ADMIT Internal Medicine; ATTEND Internal Medicine
PROC: 3E0F73Z Introduction of Anti-inflammatory into Respiratory Tract, Via Natural or Artificial Opening (ICD-10-PCS; principal; 2017-08-28)
DX: E10.10 Type 1 diabetes mellitus with ketoacidosis without coma (principal); E86.0 Dehydration; F17.210 Nicotine dependence, cigarettes, uncomplicated; E78.00 Pure hypercholesterolemia, unspecified; K21.9 Gastro-esophageal reflux disease without esophagitis; J45.909 Unspecified asthma, uncomplicated; F31.9 Bipolar disorder, unspecified; F43.10 Post-traumatic stress disorder, unspecified; F41.9 Anxiety disorder, unspecified; Z79.4 Long term (current) use of insulin; Z79.899 Other long term (current) drug therapy; Z88.6 Allergy status to analgesic agent; Z88.0 Allergy status to penicillin; Z88.2 Allergy status to sulfonamides; Z91.018 Allergy to other foods; Z91.09 Other allergy status, other than to drugs and biological substances; Z82.61 Family history of arthritis; Z83.3 Family history of diabetes mellitus; Z80.9 Family history of malignant neoplasm, unspecified; Z83.49 Family history of other endocrine, nutritional and metabolic diseases
CPT/HCPCS: 36415; 80048; 80053; 81001; 81025; 82947; 82962; 85025; 85027; 93005; 93010; 96360; 99291; J1170; J1815; J2405; J3480; J3490; J7030

== ENCOUNTER → 2017-09-27 | Outpatient (CLI) | payer MEDICARE, MEDICAID ==
--- NOTE | 2017-09-27 15:56 | RADIOLOGY REPORT (SQ) ---
EXAM DESCRIPTION: A-C JOINTS COMPLETED DATE/TIME: 09/27/2017 3:43 pm REASON FOR STUDY: SHOULDER INJURY COMPARISON: None. TECHNIQUE: An AP image was obtained without weight-bearing of both acromioclavicular joints. LIMITATIONS: None. FINDINGS: An AP image shows normal acromioclavicular joints. IMPRESSION: Normal study without weights. TECHNICAL DOCUMENTATION: JOB ID: [id number] [email or web address]- All Rights Reserved Reading location - IP/workstation name: [email or web address]
--- NOTE | 2017-09-27 15:57 | RADIOLOGY REPORT (SQ) ---
EXAM DESCRIPTION: SHOULDER RIGHT 2 OR MORE VIEWS COMPLETED DATE/TIME: 09/27/2017 3:43 pm REASON FOR STUDY: SHOULDER INJURY M25.511 PAIN IN RIGHT SHOULDER COMPARISON: None. NUMBER OF VIEWS: Three views. TECHNIQUE: Internal rotation, external rotation, and Y view images acquired of the right shoulder. LIMITATIONS: None. FINDINGS: MINERALIZATION: Normal. BONES: No acute fracture or dislocation. No worrisome bone lesions. JOINTS: No dislocation. VISUALIZED LUNGS AND RIBS: No pneumothorax. No rib fracture. SOFT TISSUES: No radiopaque foreign body. OTHER: No other significant finding. IMPRESSION: NEGATIVE STUDY OF THE RIGHT SHOULDER. NO RADIOGRAPHIC EVIDENCE OF ACUTE INJURY. TECHNICAL DOCUMENTATION: JOB ID: [id number] [email or web address]- All Rights Reserved Reading location - IP/workstation name: [email or web address]
--- NOTE | 2017-09-27 16:12 | RADIOLOGY REPORT (SQ) ---
EXAM DESCRIPTION: CLAVICLE RIGHT COMPLETED DATE/TIME: 09/27/2017 3:43 pm REASON FOR STUDY: SHOULDER INJURY M25.511 PAIN IN RIGHT SHOULDER COMPARISON: None. NUMBER OF VIEWS: Two views. TECHNIQUE: Frontal and angled images were acquired of the right clavicle. LIMITATIONS: None. FINDINGS: MINERALIZATION: Normal. BONES: No acute fracture or dislocation. No worrisome bone lesions. SOFT TISSUES: No obvious swelling or foreign body. OTHER: No other significant finding. IMPRESSION: NEGATIVE STUDY OF THE RIGHT CLAVICLE. NO RADIOGRAPHIC EVIDENCE OF ACUTE INJURY. TECHNICAL DOCUMENTATION: JOB ID: [id number] [employer]- All Rights Reserved Reading location - IP/workstation name: [email or web address]
== END ==
LOC: RAD 15:04
PROVIDERS: ATTEND Student in an Organized Health Care Education/Training Program
DX: S49.91XA Unspecified injury of right shoulder and upper arm, initial encounter (principal); X58.XXXA Exposure to other specified factors, initial encounter; Y93.9 Activity, unspecified; Y92.9 Unspecified place or not applicable
CPT/HCPCS: 73050

== ENCOUNTER 2017-10-01 21:57 | Emergency (ER) | payer MEDICARE, MEDICAID ==
[2017-10-01] MEDS ORDERED: KETOROLAC TROMETHAMINE 60 MG/2 ML SDV IM ONE (22:34)
[2017-10-01] MEDS ORDERED: ACETAMINOPHEN 325 MG TABLET PO ONE (22:34)
[2017-10-01] MEDS ORDERED: LIDOCAINE 5% (700 MG) TRANSDERMAL ADH..PATCH TP ONE (22:34)
--- NOTE | 2017-10-01 23:50 | RADIOLOGY REPORT (SQ) ---
EXAM DESCRIPTION: XR SHOULDER 2 OR MORE VIEWS COMPLETED DATE/TME: 10/01/2017 22:34 CLINICAL HISTORY: 32 years Female, fall, pain COMPARISON: 1..17 Findings: Bones, joints, and soft tissues of the XR RIGHT SHOULDER 3 VIEWS appear intact. IMPRESSION: No acute findings.
[2017-10-02] MEDS ORDERED: TRAMADOL HCL 50 MG TABLET PO ONE (01:09)
--- NOTE | 2017-10-02 01:13 | ER Document Report ---
ED General - General Chief Complaint: Shoulder Pain Stated Complaint: SHOULDER PAIN Time Seen by Provider: 10/01/17 22:34 Notes: The patient is a 32 year old female with a past medical history of insulin- dependent type 1 diabetes who presents with 3 weeks of right shoulder pain. She describes the pain as being a throbbing, severe, constant pain that radiates into her right forearm and hand. She has tried [id number] pain medications with minimal to no relief. Moving the shoulder worsens the pain. No history of similar injuries in the past. Although she notes paresthesias to her right hand she denies any loss of sensation or weakness. She saw her general doctor regarding this concern, had an x-ray was not informed of the results. TRAVEL OUTSIDE OF THE [place] IN LAST 30 DAYS: No - Related Data Allergies/Adverse Reactions: mushroom Allergy (Severe, Verified 10/01/17 22:01) Anaphylaxis alcohol [Alcohol] Allergy (Unknown, Verified 10/01/17 22:01) Hives gabapentin Allergy (Unknown, Verified 10/01/17 22:01) Hives morphine [Morphine] Allergy (Unknown, Verified 10/01/17 22:01) Penicillins Allergy (Unknown, Verified 10/01/17 22:01) Sulfa (Sulfonamide Antibiotics) Allergy (Unknown, Verified 10/01/17 22:01) adhesive [Adhesive] Allergy (Verified 10/01/17 22:01) chlorpromazine [From Thorazine] Allergy (Verified 10/01/17 22:01) tomato [Tomato] Adverse Reaction (Severe, Verified 10/01/17 22:01) Anaphylaxis Past Medical History - General Information source: Patient - Social History Smoking Status: Never Smoker Frequency of alcohol use: None Drug Abuse: None Family History: Arthritis, DM, Malignancy, Thyroid Disfunction Patient has suicidal ideation: No Patient has homicidal ideation: No - Past Medical History Cardiac Medical History: Reports: Hx Hypercholesterolemia Denies: Hx Heart Attack Pulmonary Medical History: Reports: Hx Asthma Denies: Hx Tuberculosis Neurological Medical History: 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 Denies: Hx Hiatal Hernia, Hx Ulcer Musculoskeltal Medical History: Reports Hx Musculoskeletal Deformity, Reports Hx Musculoskeletal Trauma Psychiatric Medical History: Reports: Hx Anxiety, Hx Bipolar Disorder, Hx Depression, Hx Post Traumatic Stress Disorder Traumatic Medical History: Reports: Hx Fractures - Wrist hand and toe Past Surgical History: Reports: Hx Oral Surgery - wisdom teeth, Hx Orthopedic Surgery - Ankle surgery. Denies: Hx Mastectomy, Hx Open Heart Surgery - Immunizations Hx Diphtheria, Pertussis, Tetanus Vaccination: Yes Hx Pneumococcal Vaccination: 03/10/13 Review of Systems - Review of Systems Notes: Constitutional: Negative for fever. HENT: Negative for sore throat. Eyes: Negative for visual changes. Cardiovascular: Negative for chest pain. Respiratory: Negative for shortness of breath. Gastrointestinal: Negative for abdominal pain, vomiting or diarrhea. Genitourinary: Negative for dysuria. Musculoskeletal: Positive for right shoulder pain Skin: Negative for rash. Neurological: Negative for headaches, weakness or numbness. 10 point ROS negative except as marked above and in HPI. Physical Exam - Vital signs Vitals: Temp Pulse Resp BP Pulse Ox 97.8 F 72 16 111/71 97 10/01/17 22:12 10/01/17 22:12 10/01/17 22:12 10/01/17 22:12 10/01/17 22:12 Interpretation: Normal Notes: PHYSICAL EXAMINATION: GENERAL: Appears uncomfortable but in no acute distress HEAD: Atraumatic, normocephalic. EYES: sclera anicteric, conjunctiva are normal. ENT: Moist mucous membranes. NECK: Normal range of motion LUNGS: Normal work of breathing HEART: 2+ radial pulses bilaterally EXTREMITIES: Unable to range the right shoulder past 90 secondary to pain. No obvious deformity to the right shoulder or clavicle region. NEUROLOGICAL: RMU motor distribution is intact bilaterally against resistance. RMU sensory distribution is intact bilaterally. PSYCH: Normal mood, normal affect. SKIN: Warm, Dry, normal turgor, no rashes or lesions noted. Course - Re-evaluation Re-evalutation: 10/02/17 01:08 No evidence of a septic joint, gout flare, dislocation, or fracture on exam and imaging. Vitals wnl. Symptoms appear to be most consistent with a musculoskeletal injury with associated neurapraxia. Patient is otherwise very well in appearance, RMU motor and sensory distribution is intact bilaterally against resistance. At this time, I do not see an indication for labs or further imaging. At this time will discharge with return precautions and follow -up recommendations. Verbal discharge instructions given a the bedside and opportunity for questions given. Medication warnings reviewed. Patient is in agreement with this plan and has verbalized understanding of return precautions and the need for primary care follow-up in the next 24-72 hours. - Vital Signs Vital signs: Temp Pulse Resp BP Pulse Ox 98.1 F 75 18 113/67 98 10/02/17 01:25 10/02/17 01:25 10/02/17 01:25 10/02/17 01:25 10/02/17 01:25 - Diagnostic Test Radiology reviewed: Image reviewed, Reports reviewed Radiology results interpreted by me: 10/02/17 01:09 Right shoulder x-ray: No acute fracture or dislocation Discharge - Discharge Clinical Impression: Neuropathic pain right upper extremity Right shoulder pain Qualifiers: Chronicity: acute Qualified Code(s): M25.511 - Pain in right shoulder Condition: Good Disposition: HOME, SELF-CARE Additional Instructions: Your x-ray does not show any acute fracture today. You likely have a ligamentous strain with associated inflammation of your shoulder joint and irritation of the nerves associated with her shoulder joint. For your pain: Take ibuprofen 600 mg and acetaminophen 1000 mg every 6 hours together as needed for pain. Take the tramadol that has been prescribed for pain not controlled by the above regimen. Continue to stretch the area actively. Use a sling as needed for comfort. Continue to apply ice to the area is much your able. Please follow-up with your primary care physician if you do not have improving your symptoms in the next 1-2 weeks. Please return immediately if you develop weakness, numbness, spreading redness from the area, or any other symptoms that are concerning to you. Prescriptions: Tramadol HCl 50 mg PO Q6H PRN #10 tablet PRN Reason: Severe Pain Forms: Return to Work Referrals: LAWSON HUDSON, [Primary Care Provider] - Follow up as needed
[2017-10-02 01:31] VITALS: BP 113/67
== END 2017-10-02 01:25 | disposition home or self-care (01) ==
LOC: ER 21:57
DX: E10.40 Type 1 diabetes mellitus with diabetic neuropathy, unspecified (principal); M25.511 Pain in right shoulder; M79.631 Pain in right forearm; M79.641 Pain in right hand; R20.0 Anesthesia of skin; Z79.4 Long term (current) use of insulin; J45.909 Unspecified asthma, uncomplicated
CPT/HCPCS: 99283; 96372; 73030; A9270 ×2; J1885

== ENCOUNTER 2017-10-17 21:47 | Emergency (ER) | payer MEDICARE, MEDICAID ==
[2017-10-17] MEDS ORDERED: NORMAL SALINE 1000 ML 1,000 ML IV ONE ×2 (22:06→23:49)
[2017-10-17 23:04] LABS: ABSOLUTE BASOPHILS # (AUTO) 0.1 10^3/uL (0.0-0.2); ABSOLUTE EOSINOPHILS # (AUTO) 0.1 10^3/uL (0.0-0.6); ABSOLUTE LYMPHOCYTES (AUTO) 2.6 10^3/uL (0.5-4.7); ABSOLUTE MONOCYTES (AUTO) 0.3 10^3/uL (0.1-1.4); ABSOLUTE NEUT (AUTO) 3.8 10^3/uL (1.7-8.2); BASOPHILS % (AUTO) 1.3 % (0-2); EOSINOPHILS % (AUTO) 1.2 % (0-6); HEMOGLOBIN 12.9 g/dL (12.0-15.5); LYMPHOCYTES % (AUTO) 38.3 % (13-45); MEAN CORPUSCULAR HEMOGLOBIN 32.6 pg (27.0-33.4); MEAN CORPUSCULAR HGB CONC 33.2 g/dL (32.0-36.0); MEAN CORPUSCULAR VOLUME 98 fl (80-97); MONOCYTES % (AUTO) 4.4 % (3-13); PLATELET COUNT 338 10^3/uL (150-450); RED BLOOD COUNT 3.96 10^6/uL (3.72-5.28); RED CELL DISTRIBUTION WIDTH 14.6 % (11.5-14.0); SEGMENTED NEUTROPHILS % (AUTO) 54.8 % (42-78); TOTAL CELLS COUNTED % (AUTO) 100 %; WHITE BLOOD COUNT 6.9 10^3/uL (4.0-10.5)
[2017-10-17] MEDS ORDERED: DEXTROSE 40% GEL 15 GM TUBE PO PRN ×2 (23:19)
[2017-10-17] MEDS ORDERED: GLUCAGON,HUMAN RECOMB 1 MG INJ IM PRN (23:19)
[2017-10-17] MEDS ORDERED: DEXTROSE 50%-WATER 25 GM/50 ML DISP.SYRIN IV PRN ×2 (23:19)
[2017-10-17] MEDS ORDERED: ONDANSETRON 4 MG TAB.RAPDIS PO ONE (23:22)
--- NOTE | 2017-10-17 23:22 | ER Document Report ---
ED Medical Screen (RME) - General Chief Complaint: High Blood Sugar Stated Complaint: VOMITING,HEADACHE Time Seen by Provider: 10/17/17 23:17 Notes: 32 years old female with a history of type 1 diabetes presents today with hypoglycemia nausea and vomiting of one day duration. TRAVEL OUTSIDE OF THE [place] IN LAST 30 DAYS: No - Related Data Allergies/Adverse Reactions: mushroom Allergy (Severe, Verified 10/01/17 22:01) Anaphylaxis alcohol [Alcohol] Allergy (Unknown, Verified 10/01/17 22:01) Hives gabapentin Allergy (Unknown, Verified 10/01/17 22:01) Hives morphine [Morphine] Allergy (Unknown, Verified 10/01/17 22:01) Penicillins Allergy (Unknown, Verified 10/01/17 22:01) Sulfa (Sulfonamide Antibiotics) Allergy (Unknown, Verified 10/01/17 22:01) adhesive [Adhesive] Allergy (Verified 10/01/17 22:01) chlorpromazine [From Thorazine] Allergy (Verified 10/01/17 22:01) tomato [Tomato] Adverse Reaction (Severe, Verified 10/01/17 22:01) Anaphylaxis Past Medical History - Social History Chew tobacco use (# tins/day): No Frequency of alcohol use: None Drug Abuse: Marijuana - Past Medical History Cardiac Medical History: Reports: Hx Hypercholesterolemia Denies: Hx Heart Attack Pulmonary Medical History: Reports: Hx Asthma Denies: Hx Tuberculosis Neurological Medical History: 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 Denies: Hx Hiatal Hernia, Hx Ulcer Musculoskeltal Medical History: Reports Hx Musculoskeletal Deformity, Reports Hx Musculoskeletal Trauma Psychiatric Medical History: Reports: Hx Anxiety, Hx Bipolar Disorder, Hx Depression, Hx Post Traumatic Stress Disorder Traumatic Medical History: Reports: Hx Fractures - Wrist hand and toe Past Surgical History: Reports: Hx Oral Surgery - wisdom teeth, Hx Orthopedic Surgery - Ankle surgery. Denies: Hx Mastectomy, Hx Open Heart Surgery - Immunizations Hx Diphtheria, Pertussis, Tetanus Vaccination: Yes History of Influenza Vaccine for 01/2017 - 06/2017 Season: Yes Influenza Administration Date for 01/2017 - 06/2017 Season: 12/01/17 Physical Exam - Vital signs Vitals: Temp Pulse Resp BP Pulse Ox 98.0 F 88 16 120/72 100 10/17/17 21:54 10/17/17 21:54 10/17/17 21:54 10/17/17 21:54 10/17/17 21:54 Course - Vital Signs Vital signs: Temp Pulse Resp BP Pulse Ox 98.0 F 88 16 120/72 100 10/17/17 21:54 10/17/17 21:54 10/17/17 21:54 10/17/17 21:54 10/17/17 21:54 - Laboratory Result Diagrams: 10/17/17 22:58 10/17/17 22:58 Laboratory results interpreted by me: 10/17/17 22:58 MCV 98 H RDW 14.6 H Doctor's Discharge - Discharge Referrals: LAWSON HUDSON DO [Primary Care Provider] - Follow up as needed
[2017-10-18 00:52] LABS: VENOUS BLOOD BASE EXCESS -0.9 mmol/L; VENOUS BLOOD HCO3 25.7 mmol/L (20-32); VENOUS BLOOD PCO2 50.8 mmHg (35-63); VENOUS BLOOD PH 7.32 (7.30-7.42)
[2017-10-18 00:54] LABS: APPEARANCE,URINE CLOUDY; BILIRUBIN,URINE NEGATIVE (NEGATIVE); COLOR,URINE YELLOW; GLUCOSE, URINE >=500 mg/dL (NEGATIVE); KETONES,URINE TRACE mg/dL (NEGATIVE); LEUKOCYTE ESTERASE,URINE SMALL (NEGATIVE); NITRITE,URINE NEGATIVE (NEGATIVE); PROTEIN,URINE 100 mg/dL (NEGATIVE); URINE SPECIFIC GRAVITY 1.024; UROBILINOGEN,URINE NEGATIVE mg/dL (<2.0)
[2017-10-18] MEDS ORDERED: CIPROFLOXACIN 400 MG/D5W RTU 400 MG/200 ML RTUPB IV ONE (00:58)
--- NOTE | 2017-10-18 00:59 | ER Document Report ---
ED General - General Chief Complaint: High Blood Sugar Stated Complaint: VOMITING,HEADACHE Time Seen by Provider: 10/17/17 23:17 Mode of Arrival: Ambulatory Information source: Patient Notes: 32-year-old female with type 1 diabetes, hypothyroidism, hyperlipidemia, PTSD, bipolar disorder presents with complaint of nausea, vomiting and elevated glucose readings. Patient states that her nausea and vomiting started 3 days prior to arrival. She has had intermittent episodes of nonbilious nonbloody vomiting. She states that 3 days ago she noticed that her insulin pump was not working. She was able to go home and replace it and that has been working since that time. She denies any recent illness, fever, chills, cough, dysuria. She does complain of left lower back pain that also started 3 days ago. TRAVEL OUTSIDE OF THE [place] IN LAST 30 DAYS: No - HPI Onset: Other Onset/Duration: Gradual Quality of pain: Achy Severity: Mild Associated symptoms: Body/muscle aches, Nausea, Vomiting Exacerbated by: Denies Relieved by: Denies Similar symptoms previously: Yes Recently seen / treated by doctor: No - Related Data Allergies/Adverse Reactions: mushroom Allergy (Severe, Verified 10/01/17 22:01) Anaphylaxis alcohol [Alcohol] Allergy (Unknown, Verified 10/01/17 22:01) Hives gabapentin Allergy (Unknown, Verified 10/01/17 22:01) Hives morphine [Morphine] Allergy (Unknown, Verified 10/01/17 22:01) Penicillins Allergy (Unknown, Verified 10/01/17 22:01) Sulfa (Sulfonamide Antibiotics) Allergy (Unknown, Verified 10/01/17 22:01) adhesive [Adhesive] Allergy (Verified 10/01/17 22:01) chlorpromazine [From Thorazine] Allergy (Verified 10/01/17 22:01) tomato [Tomato] Adverse Reaction (Severe, Verified 10/01/17 22:01) Anaphylaxis Past Medical History - General Information source: Patient - Social History Smoking Status: Current Every Day Smoker Chew tobacco use (# tins/day): No Frequency of alcohol use: None Drug Abuse: Marijuana Family History: Arthritis, DM, Malignancy, Thyroid Disfunction Patient has suicidal ideation: No Patient has homicidal ideation: No - Past Medical History Cardiac Medical History: Reports: Hx Hypercholesterolemia Denies: Hx Heart Attack Pulmonary Medical History: Reports: Hx Asthma Denies: Hx Tuberculosis Neurological Medical History: 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 Denies: Hx Hiatal Hernia, Hx Ulcer Musculoskeltal Medical History: Reports Hx Musculoskeletal Deformity, Reports Hx Musculoskeletal Trauma Psychiatric Medical History: Reports: Hx Anxiety, Hx Bipolar Disorder, Hx Depression, Hx Post Traumatic Stress Disorder Traumatic Medical History: Reports: Hx Fractures - Wrist hand and toe Past Surgical History: Reports: Hx Oral Surgery - wisdom teeth, Hx Orthopedic Surgery - Ankle surgery. Denies: Hx Mastectomy, Hx Open Heart Surgery - Immunizations Hx Diphtheria, Pertussis, Tetanus Vaccination: Yes Hx Pneumococcal Vaccination: 03/10/13 Review of Systems - Review of Systems Notes: REVIEW OF SYSTEMS: CONSTITUTIONAL : Denies fever, chills, or sweats. Denies recent illness. Denies weight loss, recent hospitalizations. EENT: Denies visual changes, eye pain. Denies nasal or sinus congestion or discharge. Denies sore throat, oral lesions, difficulty swallowing. CARDIOVASCULAR: Denies chest pain. Denies palpitations. Denies lower extremity edema. RESPIRATORY: Denies cough, cold, or chest congestion. Denies shortness of breath, wheezing. GASTROINTESTINAL: Denies abdominal pain or distention. Denies diarrhea. Denies blood in vomitus, stools, or per rectum. Denies black, tarry stools. Denies constipation. GENITOURINARY: Denies difficulty urinating, painful urination, frequency, blood in urine, or vaginal discharge. MUSCULOSKELETAL: Denies neck pain or stiffness. Denies joint pain or swelling. SKIN: Denies rash, lesions or sores. HEMATOLOGIC : Denies easy bruising or bleeding. LYMPHATIC: Denies swollen glands. NEUROLOGICAL: Denies confusion or altered mental status. Denies passing out or loss of consciousness. Denies dizziness or lightheadedness. Denies headache. Denies weakness or paralysis. Denies problems difficulty with ambulation, slurred speech. Denies sensory loss, numbness, or tingling. Denies seizures. PSYCHIATRIC: Denies anxiety or stress. Denies depression, suicidal ideation, or homicidal ideation. Denies visual or auditory hallucinations. Physical Exam - Vital signs Vitals: Temp Pulse Resp BP Pulse Ox 98.0 F 88 16 120/72 100 10/17/17 21:54 10/17/17 21:54 10/17/17 21:54 10/17/17 21:54 10/17/17 21:54 - Notes Notes: PHYSICAL EXAMINATION: GENERAL: Well-appearing, well-nourished and in no acute distress. HEAD: Atraumatic, normocephalic. EYES: Pupils equal round and reactive to light, extraocular movements intact, conjunctiva are normal. ENT: Nares patent, oropharynx clear without exudates. Moist mucous membranes. NECK: Normal range of motion, supple without lymphadenopathy LUNGS: Breath sounds clear to auscultation bilaterally and equal. No wheezes rales or rhonchi. HEART: Regular rate and rhythm without murmurs ABDOMEN: Soft, nontender, nondistended abdomen. No guarding, no rebound. No masses appreciated. Female : deferred Musculoskeletal: Normal range of motion, no pitting or edema. No cyanosis. Left CVA tenderness NEUROLOGICAL: Cranial nerves grossly intact. Normal speech, normal gait. Normal sensory, motor exams PSYCH: Normal mood, normal affect. SKIN: Warm, Dry, normal turgor, no rashes or lesions noted. Course - Re-evaluation Re-evalutation: 10/18/17 04:15 Laboratory 10/17/17 10/17/17 10/18/17 22:58 22:58 00:22 WBC 6.9 RBC 3.96 Hgb 12.9 Hct 39.0 MCV 98 H MCH 32.6 MCHC 33.2 RDW 14.6 H Plt Count 338 Seg Neutrophils % 54.8 Lymphocytes % 38.3 Monocytes % 4.4 Eosinophils % 1.2 Basophils % 1.3 Absolute Neutrophils 3.8 Absolute Lymphocytes 2.6 Absolute Monocytes 0.3 Absolute Eosinophils 0.1 Absolute Basophils 0.1 VBG pH VBG pCO2 VBG HCO3 VBG Base Excess Sodium Cancelled Potassium Cancelled Chloride Cancelled Carbon Dioxide Cancelled Anion Gap Cancelled BUN Cancelled Creatinine Cancelled Est GFR ( Amer) Cancelled Est GFR (Non-Af Amer) Cancelled Glucose Cancelled POC Glucose Calcium Cancelled Total Bilirubin Cancelled Direct Bilirubin Cancelled Neonat Total Bilirubin Cancelled Neonat Direct Bilirubin Cancelled Neonat Indirect Bili Cancelled AST Cancelled ALT Cancelled Alkaline Phosphatase Cancelled Total Protein Cancelled Albumin Cancelled Urine Color YELLOW Urine Appearance CLOUDY Urine pH 6.0 Ur Specific [place] 1.024 Urine Protein 100 H Urine Glucose (UA) >=500 H Urine Ketones TRACE H Urine Blood NEGATIVE Urine Nitrite NEGATIVE Urine Bilirubin NEGATIVE Urine Urobilinogen NEGATIVE Ur Leukocyte Esterase SMALL H Urine WBC (Auto) 28 Urine RBC (Auto) 7 U Hyaline Cast (Auto) 5 Urine Bacteria (Auto) TRACE Squamous Epi Cells Auto 57 Urine Mucus (Auto) RARE Urine Ascorbic Acid NEGATIVE 10/18/17 10/18/17 10/18/17 00:35 00:35 01:52 WBC RBC Hgb Hct MCV MCH MCHC RDW Plt Count Seg Neutrophils % Lymphocytes % Monocytes % Eosinophils % Basophils % Absolute Neutrophils Absolute Lymphocytes Absolute Monocytes Absolute Eosinophils Absolute Basophils VBG pH 7.32 VBG pCO2 50.8 VBG HCO3 25.7 VBG Base Excess -0.9 Sodium 134.4 L Potassium 4.7 Chloride 95 L Carbon Dioxide 28 Anion Gap 11 BUN 21 H Creatinine 1.16 Est GFR ( Amer) > 60 Est GFR (Non-Af Amer) 54 L Glucose 693 H* POC Glucose > 550 H* Calcium 9.4 Total Bilirubin 0.7 Direct Bilirubin 0.4 Neonat Total Bilirubin Not Reportable Neonat Direct Bilirubin Not Reportable Neonat Indirect Bili Not Reportable AST 46 H ALT 57 H Alkaline Phosphatase 67 Total Protein 7.1 Albumin 4.0 Urine Color Urine Appearance Urine pH Ur Specific [place] Urine Protein Urine Glucose (UA) Urine Ketones Urine Blood Urine Nitrite Urine Bilirubin Urine Urobilinogen Ur Leukocyte Esterase Urine WBC (Auto) Urine RBC (Auto) U Hyaline Cast (Auto) Urine Bacteria (Auto) Squamous Epi Cells Auto Urine Mucus (Auto) Urine Ascorbic Acid 10/18/17 04:16 32-year-old female with type 1 diabetes, hypothyroidism, hyperlipidemia, PTSD, bipolar disorder presents with complaint of nausea, vomiting and elevated glucose readings. Patient states that her nausea and vomiting started 3 days prior to arrival. She has had intermittent episodes of nonbilious nonbloody vomiting. She states that 3 days ago she noticed that her insulin pump was not working. She was able to go home and replace it and that has been working since that time. She denies any recent illness, fever, chills, cough, dysuria. She does complain of left lower back pain that also started 3 days ago. Patient was seen by myself upon arrival. Vital signs were reviewed. Patient is afebrile, normotensive and not hypoxic. Patient does not appear toxic or dehydrated. They are in no acute distress. Previous medical records and nursing notes reviewed. Significant findings include a glucose of 693 without evidence of DKA. She did initially receive received 12 units of insulin subcu. When repeat glucose was found to be 490 IV insulin was administered. On reevaluation patient is resting comfortably. 10/18/17 04:16 10/18/17 04:26 Patient will be signed out to Dr. Barajas with repeat glucose pending. 10/18/17 04:27 - Vital Signs Vital signs: Temp Pulse Resp BP Pulse Ox 97.4 F 88 12 119/84 96 10/18/17 05:00 10/17/17 21:54 10/18/17 05:00 10/18/17 05:00 10/18/17 05:01 - Laboratory Result Diagrams: 10/17/17 22:58 10/18/17 00:35 Laboratory results interpreted by me: 10/17/17 10/18/17 10/18/17 22:58 00:22 00:35 MCV 98 H RDW 14.6 H Sodium 134.4 L Chloride 95 L BUN 21 H Est GFR (Non-Af Amer) 54 L Glucose 693 H* POC Glucose AST 46 H ALT 57 H Urine Protein 100 H Urine Glucose (UA) >=500 H Urine Ketones TRACE H Ur Leukocyte Esterase SMALL H 10/18/17 10/18/17 01:52 05:04 MCV RDW Sodium Chloride BUN Est GFR (Non-Af Amer) Glucose POC Glucose > 550 H* 280 H AST ALT Urine Protein Urine Glucose (UA) Urine Ketones Ur Leukocyte Esterase Discharge - Discharge Clinical Impression: Hyperglycemia due to type 1 diabetes mellitus, Flank pain, acute Urinary tract infection Qualifiers: Urinary tract infection type: site unspecified Hematuria presence: without hematuria Qualified Code(s): N39.0 - Urinary tract infection, site not specified Condition: Good Disposition: HOME, SELF-CARE Instructions: Diabetes ([facility]), Control of Diabetes During Illness ([facility]), Hyperglycemia ([facility]), Nausea or Vomiting, Nonspecific ([facility]), Urinary Tract Infection ([facility]) Additional Instructions: Please follow-up with your associate sales as soon as possible. Your labs today did show a markedly elevated glucose without evidence of DKA. Urinalysis is suspicious for urinary tract infection but will be sent for culture. Prescriptions: Ciprofloxacin HCl [Cipro 500 mg Tablet] 500 mg PO BID #6 tablet Ondansetron [Zofran Odt 4 mg Tablet] 1 - 2 tab PO Q4H PRN #15 tab.rapdis PRN Reason: For Nausea/Vomiting Forms: Return to Work Referrals: LAWSON HUDSON DO [Primary Care Provider] - Follow up tomorrow
[2017-10-18 01:09] LABS: ALANINE AMINOTRANSFERASE 57 U/L (9-52); ALKALINE PHOSPHATASE 67 U/L (38-126); ANION GAP 11 (5-19); ASPARTATE AMINO TRANSFERASE 46 U/L (14-36); BILIRUBIN,DIRECT 0.4 mg/dL (0.0-0.4); BILIRUBIN,TOTAL 0.7 mg/dL (0.2-1.3); BLOOD UREA NITROGEN 21 mg/dL (7-20); CALCIUM 9.4 mg/dL (8.4-10.2); CARBON DIOXIDE 28 mmol/L (22-30); CHLORIDE 95 mmol/L (98-107); POTASSIUM 4.7 mmol/L (3.6-5.0); SODIUM 134.4 mmol/L (137-145); TOTAL PROTEIN 7.1 g/dL (6.3-8.2)
[2017-10-18] MEDS: NORMAL SALINE 1000 ML 1,000 ML IV PRN ×2 (01:16→02:03)
[2017-10-18 01:22] LABS: GLUCOSE 693 mg/dL (75-110)
[2017-10-18] MEDS ORDERED: HUM INSULIN NPH/REG INSULIN HM 100 UNIT/1 ML 3 ML SUBCUT ONE (01:25)
[2017-10-18] MEDS ORDERED: INSULIN REG, HUMAN 100 UNIT/ML 3 ML VIAL (PYX) IV ONE (03:56)
[2017-10-18] MEDS ORDERED: INSULIN REG, HUMAN 100 UNIT/ML 3 ML VIAL (PYX) ONE (04:26)
[2017-10-18] MEDS ORDERED: NORMAL SALINE 1000 ML 1,000 ML IV ONE (04:29)
--- NOTE | 2017-10-18 05:09 | ER Document Report ---
ED General - General Chief Complaint: High Blood Sugar Stated Complaint: VOMITING,HEADACHE Time Seen by Provider: 10/17/17 23:17 Mode of Arrival: Ambulatory TRAVEL OUTSIDE OF THE [place] IN LAST 30 DAYS: No - Related Data Allergies/Adverse Reactions: mushroom Allergy (Severe, Verified 10/01/17 22:01) Anaphylaxis alcohol [Alcohol] Allergy (Unknown, Verified 10/01/17 22:01) Hives gabapentin Allergy (Unknown, Verified 10/01/17 22:01) Hives morphine [Morphine] Allergy (Unknown, Verified 10/01/17 22:01) Penicillins Allergy (Unknown, Verified 10/01/17 22:01) Sulfa (Sulfonamide Antibiotics) Allergy (Unknown, Verified 10/01/17 22:01) adhesive [Adhesive] Allergy (Verified 10/01/17 22:01) chlorpromazine [From Thorazine] Allergy (Verified 10/01/17 22:01) tomato [Tomato] Adverse Reaction (Severe, Verified 10/01/17 22:01) Anaphylaxis Past Medical History - General Information source: Patient - Social History Smoking Status: Current Every Day Smoker Chew tobacco use (# tins/day): No Frequency of alcohol use: None Drug Abuse: Marijuana Family History: Arthritis, DM, Malignancy, Thyroid Disfunction Patient has suicidal ideation: No Patient has homicidal ideation: No - Past Medical History Cardiac Medical History: Reports: Hx Hypercholesterolemia Denies: Hx Heart Attack Pulmonary Medical History: Reports: Hx Asthma Denies: Hx Tuberculosis Neurological Medical History: 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 Denies: Hx Hiatal Hernia, Hx Ulcer Musculoskeltal Medical History: Reports Hx Musculoskeletal Deformity, Reports Hx Musculoskeletal Trauma Psychiatric Medical History: Reports: Hx Anxiety, Hx Bipolar Disorder, Hx Depression, Hx Post Traumatic Stress Disorder Traumatic Medical History: Reports: Hx Fractures - Wrist hand and toe Past Surgical History: Reports: Hx Oral Surgery - wisdom teeth, Hx Orthopedic Surgery - Ankle surgery. Denies: Hx Mastectomy, Hx Open Heart Surgery - Immunizations Hx Diphtheria, Pertussis, Tetanus Vaccination: Yes Hx Pneumococcal Vaccination: 03/10/13 Physical Exam - Vital signs Vitals: Temp Pulse Resp BP Pulse Ox 98.0 F 88 16 120/72 100 10/17/17 21:54 10/17/17 21:54 10/17/17 21:54 10/17/17 21:54 10/17/17 21:54 Course - Re-evaluation Re-evalutation: 10/18/17 05:08 Patient turned over to me by Dr. Gutiérrez. Patient here for hyperglycemia. Receiving fluids and insulin. On re-evaluation, patient's blood glucose is now 280. Will hold next bag of fluids. Patient's vitals are stable. Will discharge home. Patient instructed to follow-up with her primary care physician this week , to continue taking medication prescribed as directed, and to return to emergency department for worsening symptoms. Patient is agreeable to plan of care. - Vital Signs Vital signs: Temp Pulse Resp BP Pulse Ox 98.0 F 88 16 120/72 100 10/17/17 21:54 10/17/17 21:54 10/17/17 21:54 10/17/17 21:54 10/17/17 21:54 - Laboratory Result Diagrams: 10/17/17 22:58 10/18/17 00:35 Laboratory results interpreted by me: 10/17/17 10/18/17 10/18/17 22:58 00:22 00:35 MCV 98 H RDW 14.6 H Sodium 134.4 L Chloride 95 L BUN 21 H Est GFR (Non-Af Amer) 54 L Glucose 693 H* POC Glucose AST 46 H ALT 57 H Urine Protein 100 H Urine Glucose (UA) >=500 H Urine Ketones TRACE H Ur Leukocyte Esterase SMALL H 10/18/17 01:52 MCV RDW Sodium Chloride BUN Est GFR (Non-Af Amer) Glucose POC Glucose > 550 H* AST ALT Urine Protein Urine Glucose (UA) Urine Ketones Ur Leukocyte Esterase Discharge - Discharge Clinical Impression: Hyperglycemia due to type 1 diabetes mellitus, Flank pain, acute Urinary tract infection Qualifiers: Urinary tract infection type: site unspecified Hematuria presence: without hematuria Qualified Code(s): N39.0 - Urinary tract infection, site not specified Condition: Good Disposition: HOME, SELF-CARE Instructions: Diabetes ([facility]), Control of Diabetes During Illness ([facility]), Hyperglycemia ([facility]), Nausea or Vomiting, Nonspecific ([facility]), Urinary Tract Infection ([facility]) Additional Instructions: Please follow-up with your inspector publications as soon as possible. Your labs today did show a markedly elevated glucose without evidence of DKA. Urinalysis is suspicious for urinary tract infection but will be sent for culture. Prescriptions: Ciprofloxacin HCl [Cipro 500 mg Tablet] 500 mg PO BID #6 tablet Ondansetron [Zofran Odt 4 mg Tablet] 1 - 2 tab PO Q4H PRN #15 tab.rapdis PRN Reason: For Nausea/Vomiting Referrals: LAWSON HUDSON DO [Primary Care Provider] - Follow up tomorrow
[2017-10-18 05:25] VITALS: BP 119/84
== END 2017-10-18 05:25 | disposition home or self-care (01) ==
LOC: ER 21:47
DX: E10.65 Type 1 diabetes mellitus with hyperglycemia (principal); N39.0 Urinary tract infection, site not specified; F17.200 Nicotine dependence, unspecified, uncomplicated; F12.10 Cannabis abuse, uncomplicated; J45.909 Unspecified asthma, uncomplicated; R10.9 Unspecified abdominal pain; Z88.8 Allergy status to other drugs, medicaments and biological substances; Z88.5 Allergy status to narcotic agent; Z88.6 Allergy status to analgesic agent; Z88.2 Allergy status to sulfonamides; Z91.048 Other nonmedicinal substance allergy status; Z87.892 Personal history of anaphylaxis; Z91.018 Allergy to other foods
CPT/HCPCS: 99285; 96361; 96365; 36415; 87086; 82962; 85025; 80053; 81001; 82803; A9270 ×3; J7030; J0744; J1815; S0119

== ENCOUNTER 2017-11-16 23:08 | Emergency (ER) | payer MEDICARE, MEDICAID ==
[2017-11-16] MEDS ORDERED: ONDANSETRON 4 MG TAB.RAPDIS PO ONE (23:30)
[2017-11-17] MEDS ORDERED: RINGERS SOLUTION,LACTATED 1,000 ML IV ONE (02:20)
[2017-11-17 02:51] LABS: ABSOLUTE EOSINOPHILS # (AUTO) 0.1 10^3/uL (0.0-0.6); ABSOLUTE MONOCYTES (AUTO) 0.5 10^3/uL (0.1-1.4); ABSOLUTE NEUT (AUTO) 4.5 10^3/uL (1.7-8.2); BASOPHILS % (AUTO) 0.6 % (0-2); EOSINOPHILS % (AUTO) 1.4 % (0-6); HEMATOCRIT 41.5 % (36.0-47.0); HEMOGLOBIN 13.9 g/dL (12.0-15.5); LYMPHOCYTES % (AUTO) 36.2 % (13-45); MEAN CORPUSCULAR HGB CONC 33.6 g/dL (32.0-36.0); MEAN CORPUSCULAR VOLUME 95 fl (80-97); PLATELET COUNT 318 10^3/uL (150-450); RED BLOOD COUNT 4.36 10^6/uL (3.72-5.28); RED CELL DISTRIBUTION WIDTH 14.4 % (11.5-14.0); SEGMENTED NEUTROPHILS % (AUTO) 55.8 % (42-78); TOTAL CELLS COUNTED % (AUTO) 100 %; WHITE BLOOD COUNT 8.1 10^3/uL (4.0-10.5)
[2017-11-17 03:02] LABS: VENOUS BLOOD BASE EXCESS 2.2 mmol/L; VENOUS BLOOD PCO2 59.9 mmHg (35-63); VENOUS BLOOD PH 7.32 (7.30-7.42)
[2017-11-17 03:09] LABS: ALANINE AMINOTRANSFERASE 119 U/L (9-52); ALBUMIN 3.9 g/dL (3.5-5.0); ALKALINE PHOSPHATASE 61 U/L (38-126); ANION GAP 7 (5-19); ASPARTATE AMINO TRANSFERASE 140 U/L (14-36); BILIRUBIN,DIRECT 0.3 mg/dL (0.0-0.4); BILIRUBIN,TOTAL 0.5 mg/dL (0.2-1.3); BLOOD UREA NITROGEN 20 mg/dL (7-20); CALCIUM 9.2 mg/dL (8.4-10.2); CARBON DIOXIDE 34 mmol/L (22-30); CHLORIDE 102 mmol/L (98-107); GLUCOSE 149 mg/dL (75-110); LIPASE 46.7 U/L (23-300); POTASSIUM 4.1 mmol/L (3.6-5.0); SODIUM 142.8 mmol/L (137-145); TOTAL PROTEIN 7.7 g/dL (6.3-8.2)
[2017-11-17 03:09] LABS: APPEARANCE,URINE CLOUDY; BILIRUBIN,URINE NEGATIVE (NEGATIVE); COLOR,URINE AMBER; GLUCOSE, URINE NEGATIVE (NEGATIVE); KETONES,URINE NEGATIVE (NEGATIVE); LEUKOCYTE ESTERASE,URINE TRACE (NEGATIVE); NITRITE,URINE NEGATIVE (NEGATIVE); PROTEIN,URINE >=500 mg/dL (NEGATIVE); URINE SPECIFIC GRAVITY 1.022
--- NOTE | 2017-11-17 04:47 | ER Document Report ---
ED General - General Chief Complaint: Nausea/Vomiting/Diarrhea Stated Complaint: VOMITING/DIARRHEA/BLOOD SUGAR ISSUE Time Seen by Provider: 11/16/17 23:30 TRAVEL OUTSIDE OF THE [place] IN LAST 30 DAYS: No - HPI Patient complains to provider of: Nausea vomiting diarrhea hypoglycemia Notes: Patient coming in for evaluation of nausea vomiting diarrhea patient was found to be hyperglycemic. Patient is diabetic. Patient was given juice here and able to tolerate it after nausea medication. Accu-Chek showed increase in her blood sugar. Patient upon my evaluation resting comfortably stating improvement of the nausea requesting something to eat. Patient denies any recent travel or antibiotics. - Related Data Allergies/Adverse Reactions: mushroom Allergy (Severe, Verified 10/01/17 22:01) Anaphylaxis alcohol [Alcohol] Allergy (Unknown, Verified 10/01/17 22:01) Hives gabapentin Allergy (Unknown, Verified 10/01/17 22:01) Hives morphine [Morphine] Allergy (Unknown, Verified 10/01/17 22:01) Penicillins Allergy (Unknown, Verified 10/01/17 22:01) Sulfa (Sulfonamide Antibiotics) Allergy (Unknown, Verified 10/01/17 22:01) adhesive [Adhesive] Allergy (Verified 10/01/17 22:01) chlorpromazine [From Thorazine] Allergy (Verified 10/01/17 22:01) tomato [Tomato] Adverse Reaction (Severe, Verified 10/01/17 22:01) Anaphylaxis Past Medical History - Social History Smoking Status: Never Smoker Chew tobacco use (# tins/day): No Frequency of alcohol use: None Drug Abuse: None Family History: Arthritis, DM, Malignancy, Thyroid Disfunction Patient has suicidal ideation: No Patient has homicidal ideation: No - Past Medical History Cardiac Medical History: Reports: Hx Hypercholesterolemia Denies: Hx Heart Attack Pulmonary Medical History: Reports: Hx Asthma Denies: Hx Tuberculosis Neurological Medical History: 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 Denies: Hx Hiatal Hernia, Hx Ulcer Musculoskeletal Medical History: Reports Hx Musculoskeletal Deformity, Reports Hx Musculoskeletal Trauma Psychiatric Medical History: Reports: Hx Anxiety, Hx Bipolar Disorder, Hx Depression, Hx Post Traumatic Stress Disorder Traumatic Medical History: Reports: Hx Fractures - Wrist hand and toe Past Surgical History: Reports: Hx Oral Surgery - wisdom teeth, Hx Orthopedic Surgery - Ankle surgery. Denies: Hx Mastectomy, Hx Open Heart Surgery - Immunizations Hx Diphtheria, Pertussis, Tetanus Vaccination: Yes Hx Pneumococcal Vaccination: 03/10/13 Review of Systems - Review of Systems Constitutional: No symptoms reported EENT: No symptoms reported Cardiovascular: No symptoms reported Respiratory: No symptoms reported Gastrointestinal: Nausea, Vomiting Genitourinary: No symptoms reported Female Genitourinary: No symptoms reported Musculoskeletal: No symptoms reported Skin: No symptoms reported Hematologic/Lymphatic: No symptoms reported Neurological/Psychological: No symptoms reported -: Yes All other systems reviewed and negative Physical Exam - Vital signs Vitals: Pulse Resp BP Pulse Ox 79 17 115/88 H 99 11/16/17 23:36 11/16/17 23:36 11/16/17 23:36 11/16/17 23:36 Interpretation: Normal - General General appearance: Appears well, Alert - HEENT Head: Normocephalic, Atraumatic Eyes: Normal Pupils: PERRL - Respiratory Respiratory status: No respiratory distress Chest status: Nontender Breath sounds: Normal Chest palpation: Normal - Cardiovascular Rhythm: Regular Heart sounds: Normal auscultation Murmur: No - Abdominal Inspection: Normal Distension: No distension Bowel sounds: Normal Tenderness: Nontender Organomegaly: No organomegaly - Back Back: Normal, Nontender - Extremities General upper extremity: Normal inspection, Nontender, Normal color, Normal ROM , Normal temperature General lower extremity: Normal inspection, Nontender, Normal color, Normal ROM , Normal temperature, Normal weight bearing. No: Lior's sign - Neurological Neuro grossly intact: Yes Cognition: Normal Orientation: AAOx4 [place] Coma Scale Eye Opening: Spontaneous [place] Coma Scale Verbal: Oriented Bessie Coma Scale Motor: Obeys Commands [place] Coma Scale Total: 15 Speech: Normal Motor strength normal: LUE, RUE, LLE, RLE Sensory: Normal - Psychological Associated symptoms: Normal affect, Normal mood - Skin Skin Temperature: Warm Skin Moisture: Dry Skin Color: Normal Course - Re-evaluation Re-evalutation: 11/17/17 05:20 The patient presents with abdominal pain without signs of peritonitis or other life-threatening or serious etiology. The patient appears stable for discharge and has been instructed to return immediately if the symptoms worsen in any way , or in 8-12hr if not improved for re-evaluation. The patient has been instructed to return if the symptoms worsen or change in any way. Patient with more acute gastroenteritis will be discharged home with antiemetics encouraged to use clear liquids for the next 24 hours. - Vital Signs Vital signs: Temp Pulse Resp BP Pulse Ox 98 F 80 15 128/68 H 99 11/17/17 03:59 11/17/17 03:59 11/17/17 03:59 11/17/17 03:59 11/17/17 03:59 - Laboratory Result Diagrams: 11/17/17 02:10 11/17/17 02:10 Laboratory results interpreted by me: 11/17/17 11/17/17 11/17/17 00:06 02:10 02:10 RDW 14.4 H Carbon Dioxide 34 H Est GFR (Non-Af Amer) 56 L Glucose 149 H POC Glucose 40 L AST 140 H ALT 119 H Urine Protein Urine Urobilinogen Ur Leukocyte Esterase 11/17/17 11/17/17 02:14 02:32 RDW Carbon Dioxide Est GFR (Non-Af Amer) Glucose POC Glucose 169 H AST ALT Urine Protein >=500 H Urine Urobilinogen 2.0 H Ur Leukocyte Esterase TRACE H Discharge - Discharge Clinical Impression: Nausea vomiting and diarrhea, Hypoglycemia, Elevated LFTs Condition: Good Disposition: HOME, SELF-CARE Instructions: Gastroenteritis (adult) ([facility]), Liver Function Abnormality ([facility]), Hypoglycemia ([facility]), Clear Liquid Diet ([facility]) Additional Instructions: Follow-up with your primary care physician. At this time no laboratory studies did not show any critical pathology. He did have a slight elevation in her liver function test was also been present in the past. Would recommend following up with your primary care physician in 1-2 weeks for repeat testing. I will prescribe the Zofran and reglan to take for nausea. You do not have to fill both but both are available for you to use. Return to the ER symptoms worsen. We recommend a clear liquid diet for the next 1224 hrs. and advance as tolerated. Prescriptions: Metoclopramide HCl [Reglan] 5 mg PO Q6 #30 tablet Ondansetron [Zofran Odt] 4 mg PO Q6 PRN #30 tab.rapdis PRN Reason: For Nausea/Vomiting Forms: Return to Work Referrals: LAWSON HUDSON, [Primary Care Provider] - Follow up as needed
[2017-11-17 05:08] VITALS: BP 133/81
== END 2017-11-17 05:08 | disposition home or self-care (01) ==
LOC: ER 23:08
DX: R11.2 Nausea with vomiting, unspecified (principal); R19.7 Diarrhea, unspecified; R79.89 Other specified abnormal findings of blood chemistry; E16.2 Hypoglycemia, unspecified; E78.00 Pure hypercholesterolemia, unspecified; E11.9 Type 2 diabetes mellitus without complications; Z88.0 Allergy status to penicillin; Z88.2 Allergy status to sulfonamides
CPT/HCPCS: 99284; 96365; 36415; 82962; 80307; 83690; 85025; 80053; 81001; 82803; A9270; J7120; S0119

== ENCOUNTER 2017-12-14 17:42 | Emergency (ER) | payer MEDICARE, MEDICAID ==
[2017-12-14 17:58] VITALS: BP 101/68
== END 2017-12-14 18:45 | disposition left against medical advice (07) ==
LOC: ER 17:42
DX: Z53.21 Procedure and treatment not carried out due to patient leaving prior to being seen by health care provider (principal)

== ENCOUNTER 2018-01-14 13:20 | Emergency (ER) | payer MEDICARE, MEDICAID ==
[2018-01-14 14:01] LABS: ABSOLUTE LYMPHOCYTES (AUTO) 2.3 10^3/uL (0.5-4.7); ABSOLUTE MONOCYTES (AUTO) 0.2 10^3/uL (0.1-1.4); ABSOLUTE NEUT (AUTO) 3.5 10^3/uL (1.7-8.2); BASOPHILS % (AUTO) 0.4 % (0-2); EOSINOPHILS % (AUTO) 0.7 % (0-6); HEMATOCRIT 38.2 % (36.0-47.0); HEMOGLOBIN 13.5 g/dL (12.0-15.5); LYMPHOCYTES % (AUTO) 38.2 % (13-45); MEAN CORPUSCULAR HEMOGLOBIN 33.6 pg (27.0-33.4); MEAN CORPUSCULAR HGB CONC 35.5 g/dL (32.0-36.0); MEAN CORPUSCULAR VOLUME 95 fl (80-97); MONOCYTES % (AUTO) 3.8 % (3-13); PLATELET COUNT 297 10^3/uL (150-450); RED BLOOD COUNT 4.03 10^6/uL (3.72-5.28); RED CELL DISTRIBUTION WIDTH 14.4 % (11.5-14.0); SEGMENTED NEUTROPHILS % (AUTO) 56.9 % (42-78); TOTAL CELLS COUNTED % (AUTO) 100 %; WHITE BLOOD COUNT 6.1 10^3/uL (4.0-10.5)
[2018-01-14 14:26] LABS: BLOOD UREA NITROGEN 22 mg/dL (7-20); CALCIUM 9.1 mg/dL (8.4-10.2); CHLORIDE 103 mmol/L (98-107); GLUCOSE 115 mg/dL (75-110); POTASSIUM 4.1 mmol/L (3.6-5.0)
[2018-01-14 14:31] LABS: CARBON DIOXIDE 33 mmol/L (22-30); SODIUM 138.5 mmol/L (137-145)
[2018-01-14 14:35] LABS: ANION GAP 3 (5-19)
[2018-01-14 15:11] LABS: APPEARANCE,URINE CLOUDY; BILIRUBIN,URINE NEGATIVE (NEGATIVE); CALCIUM OXALATE CRYSTALS,URINE FEW /HPF; COLOR,URINE YELLOW; GLUCOSE, URINE 150 mg/dL (NEGATIVE); KETONES,URINE NEGATIVE (NEGATIVE); LEUKOCYTE ESTERASE,URINE SMALL (NEGATIVE); NITRITE,URINE NEGATIVE (NEGATIVE); PROTEIN,URINE 100 mg/dL (NEGATIVE)
--- NOTE | 2018-01-14 15:22 | ER Document Report ---
ED General - General Chief Complaint: Low Blood Sugar Stated Complaint: BLOOD SUGAR ISSUE Time Seen by Provider: 01/14/18 13:40 TRAVEL OUTSIDE OF THE [place] IN LAST 30 DAYS: No - HPI Patient complains to provider of: Low blood sugar Notes: Patient coming in for low blood sugar. Patient states that she did not have anything ER yesterday because she was sleeping. Patient was given 15 g of oral sugar transported to the ER for further evaluation after EMS found the patient' s BGL at 29. Patient denies any recent fevers chills nausea vomiting diarrhea changes in medications. Patient otherwise is resting comfortably upon my evaluation eating crackers and peanut butter - Related Data Allergies/Adverse Reactions: mushroom Allergy (Severe, Verified 12/14/17 17:54) Anaphylaxis alcohol [Alcohol] Allergy (Unknown, Verified 12/14/17 17:54) Hives gabapentin Allergy (Unknown, Verified 12/14/17 17:54) Hives morphine [Morphine] Allergy (Unknown, Verified 12/14/17 17:54) Penicillins Allergy (Unknown, Verified 12/14/17 17:54) Sulfa (Sulfonamide Antibiotics) Allergy (Unknown, Verified 12/14/17 17:54) adhesive [Adhesive] Allergy (Verified 12/14/17 17:54) chlorpromazine [From Thorazine] Allergy (Verified 12/14/17 17:54) tomato [Tomato] Adverse Reaction (Severe, Verified 12/14/17 17:54) Anaphylaxis Past Medical History - Social History Smoking Status: Current Every Day Smoker Chew tobacco use (# tins/day): No Frequency of alcohol use: None Drug Abuse: Marijuana Family History: Arthritis, DM, Malignancy, Thyroid Disfunction Patient has suicidal ideation: No Patient has homicidal ideation: No - Past Medical History Cardiac Medical History: Reports: Hx Hypercholesterolemia Denies: Hx Heart Attack Pulmonary Medical History: Reports: Hx Asthma Denies: Hx Tuberculosis Neurological Medical History: 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 Denies: Hx Hiatal Hernia, Hx Ulcer Musculoskeletal Medical History: Reports Hx Musculoskeletal Deformity, Reports Hx Musculoskeletal Trauma Psychiatric Medical History: Reports: Hx Anxiety, Hx Bipolar Disorder, Hx Depression, Hx Post Traumatic Stress Disorder Traumatic Medical History: Reports: Hx Fractures - Wrist hand and toe Past Surgical History: Reports: Hx Oral Surgery - wisdom teeth, Hx Orthopedic Surgery - Ankle surgery. Denies: Hx Mastectomy, Hx Open Heart Surgery - Immunizations Hx Diphtheria, Pertussis, Tetanus Vaccination: Yes Hx Pneumococcal Vaccination: 03/10/13 Review of Systems - Review of Systems Constitutional: Other - Hypoglycemia EENT: No symptoms reported Cardiovascular: No symptoms reported Respiratory: No symptoms reported Gastrointestinal: No symptoms reported Genitourinary: No symptoms reported Female Genitourinary: No symptoms reported Musculoskeletal: No symptoms reported Skin: No symptoms reported Hematologic/Lymphatic: No symptoms reported Neurological/Psychological: No symptoms reported -: Yes All other systems reviewed and negative Physical Exam - Vital signs Vitals: Temp Pulse Resp BP Pulse Ox 97.4 F 60 10 L 132/87 H 100 01/14/18 13:25 01/14/18 13:25 01/14/18 13:25 01/14/18 13:25 01/14/18 13:25 Interpretation: Normal - General General appearance: Appears well, Alert - HEENT Head: Normocephalic, Atraumatic Eyes: Normal Pupils: PERRL - Respiratory Respiratory status: No respiratory distress Chest status: Nontender Breath sounds: Normal Chest palpation: Normal - Cardiovascular Rhythm: Regular Heart sounds: Normal auscultation Murmur: No - Abdominal Inspection: Normal Distension: No distension Bowel sounds: Normal Tenderness: Nontender Organomegaly: No organomegaly - Back Back: Normal, Nontender - Extremities General upper extremity: Normal inspection, Nontender, Normal color, Normal ROM , Normal temperature General lower extremity: Normal inspection, Nontender, Normal color, Normal ROM , Normal temperature, Normal weight bearing. No: Lior's sign - Neurological Neuro grossly intact: Yes Cognition: Normal Orientation: AAOx4 [place] Coma Scale Eye Opening: Spontaneous [place] Coma Scale Verbal: Oriented [place] Coma Scale Motor: Obeys Commands [place] Coma Scale Total: 15 Speech: Normal Motor strength normal: LUE, RUE, LLE, RLE Sensory: Normal - Psychological Associated symptoms: Normal affect, Normal mood - Skin Skin Temperature: Warm Skin Moisture: Dry Skin Color: Normal Course - Re-evaluation Re-evalutation: 01/14/18 15:21 No recurrent episodes of hypoglycemia here in ER patient was able tolerate p.o. Patient will be discharged on follow-up PCP - Vital Signs Vital signs: Temp Pulse Resp BP Pulse Ox 97.4 F 60 15 132/87 H 97 01/14/18 13:25 01/14/18 13:25 01/14/18 13:48 01/14/18 13:25 01/14/18 13:48 - Laboratory Result Diagrams: 01/14/18 13:50 01/14/18 13:50 Laboratory results interpreted by me: 01/14/18 01/14/18 01/14/18 13:30 13:40 13:50 MCH 33.6 H RDW 14.4 H Carbon Dioxide Anion Gap BUN Glucose POC Glucose 113 H Urine Protein 100 H Urine Glucose (UA) 150 H Urine Urobilinogen 2.0 H Ur Leukocyte Esterase SMALL H 01/14/18 13:50 MCH RDW Carbon Dioxide 33 H Anion Gap 3 L BUN 22 H Glucose 115 H POC Glucose Urine Protein Urine Glucose (UA) Urine Urobilinogen Ur Leukocyte Esterase Discharge - Discharge Clinical Impression: Hypoglycemia Condition: Good Disposition: HOME, SELF-CARE Instructions: Hypoglycemia Diet ([facility]), Hypoglycemia ([facility]) Additional Instructions: Follow-up with your primary care physician for further evaluation. Referrals: LAWSON HUDSON, [Primary Care Provider] - Follow up as needed
[2018-01-14 15:24] VITALS: BP 138/81
== END 2018-01-14 15:28 | disposition home or self-care (01) ==
LOC: ER 13:20
DX: E11.649 Type 2 diabetes mellitus with hypoglycemia without coma (principal); E78.00 Pure hypercholesterolemia, unspecified; F17.200 Nicotine dependence, unspecified, uncomplicated; Z88.0 Allergy status to penicillin; Z88.6 Allergy status to analgesic agent; Z88.2 Allergy status to sulfonamides
CPT/HCPCS: 36415; 80048; 81001; 82962; 84703; 85025; 99285

== ENCOUNTER 2018-01-26 16:55 | Emergency (ER) | payer MEDICARE, MEDICAID ==
--- NOTE | 2018-01-26 17:11 | ER Document Report ---
ED General - General Stated Complaint: BLOOD SUGAR ISSUE Time Seen by Provider: 01/26/18 17:10 Mode of Arrival: Medic Information source: Patient, Emergency Med Personnel Notes: This is a 33-year-old female with type 1 diabetes who presents to the emergency room with an altered mental status in the setting of low blood sugar (25). Patient was given oral glucose followed by IV dextrose by EMS. Her Accu-Chek was 25 at the time. Her pump was put on suspend mode. Patient denies any fever , chills, nausea or vomiting. Patient does states she normally gets episodes like this every once in a while. She is followed by Dr. Wood. TRAVEL OUTSIDE OF THE [place] IN LAST 30 DAYS: No - HPI Onset: Just prior to arrival Onset/Duration: Sudden Quality of pain: No pain Severity: None Pain Level: Denies Associated symptoms: denies: Chest pain, Fever, Shortness of breath Exacerbated by: Denies Relieved by: Denies Similar symptoms previously: Yes Recently seen / treated by doctor: Yes - Related Data Allergies/Adverse Reactions: mushroom Allergy (Severe, Verified 12/14/17 17:54) Anaphylaxis alcohol [Alcohol] Allergy (Unknown, Verified 12/14/17 17:54) Hives gabapentin Allergy (Unknown, Verified 12/14/17 17:54) Hives morphine [Morphine] Allergy (Unknown, Verified 12/14/17 17:54) Penicillins Allergy (Unknown, Verified 12/14/17 17:54) Sulfa (Sulfonamide Antibiotics) Allergy (Unknown, Verified 12/14/17 17:54) adhesive [Adhesive] Allergy (Verified 12/14/17 17:54) chlorpromazine [From Thorazine] Allergy (Verified 12/14/17 17:54) tomato [Tomato] Adverse Reaction (Severe, Verified 12/14/17 17:54) Anaphylaxis Past Medical History - General Information source: Patient - Social History Smoking Status: Never Smoker Cigarette use (# per day): No Chew tobacco use (# tins/day): No Frequency of alcohol use: None Drug Abuse: None Lives with: Spouse/Significant other Family History: Arthritis, DM, Malignancy, Thyroid Disfunction Patient has suicidal ideation: No Patient has homicidal ideation: No - Past Medical History Cardiac Medical History: Reports: Hx Hypercholesterolemia Denies: Hx Heart Attack Pulmonary Medical History: Reports: Hx Asthma Denies: Hx Tuberculosis Neurological Medical History: 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 Denies: Hx Hiatal Hernia, Hx Ulcer Musculoskeletal Medical History: Reports Hx Musculoskeletal Deformity, Reports Hx Musculoskeletal Trauma Psychiatric Medical History: Reports: Hx Anxiety, Hx Bipolar Disorder, Hx Depression, Hx Post Traumatic Stress Disorder Traumatic Medical History: Reports: Hx Fractures - Wrist hand and toe Past Surgical History: Reports: Hx Oral Surgery - wisdom teeth, Hx Orthopedic Surgery - Ankle surgery. Denies: Hx Mastectomy, Hx Open Heart Surgery - Immunizations Hx Diphtheria, Pertussis, Tetanus Vaccination: Yes Hx Pneumococcal Vaccination: 03/10/13 Review of Systems - Review of Systems Constitutional: denies: Chills, Fever EENT: No symptoms reported Cardiovascular: No symptoms reported Respiratory: No symptoms reported Gastrointestinal: No symptoms reported Genitourinary: No symptoms reported Female Genitourinary: No symptoms reported Musculoskeletal: No symptoms reported Skin: No symptoms reported Hematologic/Lymphatic: No symptoms reported Neurological/Psychological: See HPI Physical Exam - Vital signs Vitals: Resp Pulse Ox 22 H 90 L 01/26/18 17:23 01/26/18 17:23 Notes: Physical exam: GENERAL: Patient is alert and oriented x3, no acute distress HEAD: Atraumatic, normocephalic. EYES: Pupils equal round and reactive to light, extraocular movements intact, sclera anicteric, conjunctiva are normal. ENT: TMs normal, nares patent, oropharynx clear without exudates. Moist mucous membranes. NECK: Normal range of motion, supple without obvious mass or JVD. LUNGS: Breath sounds clear to auscultation bilaterally and equal. No wheezes rales or rhonchi. HEART: Regular rate and rhythm without murmurs, rubs or gallops. ABDOMEN: Soft, normoactive bowel sounds. No tenderness to palpation. No guarding, no rebound. No masses appreciated. EXTREMITIES: Normal range of motion, no pitting or edema. No clubbing or cyanosis. NEUROLOGICAL: Cranial nerves II through XII grossly intact. Normal speech, moving all extremities. PSYCH: Normal mood, normal affect. SKIN: Warm, Dry, normal turgor, no rashes or lesions noted. Course - Re-evaluation Re-evalutation: 01/26/18 20:00 Patient is doing much better. She ate food. Will discharge with follow-up with Dr. Wood. The urine test does show an early urine infection and will give her some Keflex. She is allergic to penicillin but does not know what her reaction is. She is not sure she is ever had a cephalosporin. She is allergic to sulfa as well. - Vital Signs Vital signs: Temp Pulse Resp BP Pulse Ox 97.3 F 82 18 142/68 H 98 01/26/18 20:40 01/26/18 20:40 01/26/18 20:40 01/26/18 20:40 01/26/18 20:40 - Laboratory Result Diagrams: 01/26/18 17:30 01/26/18 17:30 Laboratory results interpreted by me: 01/26/18 01/26/18 01/26/18 17:20 17:30 17:30 RDW 14.8 H Carbon Dioxide 34 H Est GFR (Non-Af Amer) 57 L Glucose 213 H POC Glucose Urine Protein 100 H Ur Leukocyte Esterase MODERATE H 01/26/18 17:33 RDW Carbon Dioxide Est GFR (Non-Af Amer) Glucose POC Glucose 308 H Urine Protein Ur Leukocyte Esterase Discharge - Discharge Clinical Impression: Hypoglycemia, UTI Condition: Stable Disposition: HOME, SELF-CARE Instructions: Urinary Tract Infection ([facility]) Additional Instructions: I want you to continue with your insulin pump as prescribed by Dr. Wood. I would like you to give the office a call on Monday. When you see Dr. Wood: Get bring a copy of today's lab tests with you. Return to the emergency room for any concerns of worsening sugar control, pain, mental status changes or any concerns or getting worse. Prescriptions: Cephalexin Monohydrate [Keflex 500 mg Capsule] 500 mg PO Q6H 5 Days capsule Referrals: LAWSON HUDSON DO [Primary Care Provider] - Follow up in 3-5 days
[2018-01-26 18:00] LABS: ABSOLUTE BASOPHILS # (AUTO) 0.1 10^3/uL (0.0-0.2); ABSOLUTE EOSINOPHILS # (AUTO) 0.1 10^3/uL (0.0-0.6); ABSOLUTE LYMPHOCYTES (AUTO) 2.9 10^3/uL (0.5-4.7); ABSOLUTE MONOCYTES (AUTO) 0.4 10^3/uL (0.1-1.4); ABSOLUTE NEUT (AUTO) 3.1 10^3/uL (1.7-8.2); BASOPHILS % (AUTO) 0.9 % (0-2); EOSINOPHILS % (AUTO) 1.4 % (0-6); HEMATOCRIT 40.9 % (36.0-47.0); HEMOGLOBIN 14.1 g/dL (12.0-15.5); LYMPHOCYTES % (AUTO) 44.7 % (13-45); MEAN CORPUSCULAR HEMOGLOBIN 32.9 pg (27.0-33.4); MEAN CORPUSCULAR HGB CONC 34.5 g/dL (32.0-36.0); MEAN CORPUSCULAR VOLUME 95 fl (80-97); MONOCYTES % (AUTO) 5.5 % (3-13); PLATELET COUNT 261 10^3/uL (150-450); RED BLOOD COUNT 4.29 10^6/uL (3.72-5.28); RED CELL DISTRIBUTION WIDTH 14.8 % (11.5-14.0); SEGMENTED NEUTROPHILS % (AUTO) 47.5 % (42-78); TOTAL CELLS COUNTED % (AUTO) 100 %; WHITE BLOOD COUNT 6.5 10^3/uL (4.0-10.5)
[2018-01-26 18:12] LABS: APPEARANCE,URINE CLOUDY; BILIRUBIN,URINE NEGATIVE (NEGATIVE); COLOR,URINE YELLOW; GLUCOSE, URINE NEGATIVE (NEGATIVE); KETONES,URINE NEGATIVE (NEGATIVE); LEUKOCYTE ESTERASE,URINE MODERATE (NEGATIVE); NITRITE,URINE NEGATIVE (NEGATIVE); PROTEIN,URINE 100 mg/dL (NEGATIVE); URINE SPECIFIC GRAVITY 1.016; UROBILINOGEN,URINE NEGATIVE mg/dL (<2.0)
[2018-01-26 18:20] LABS: ANION GAP 7 (5-19); BLOOD UREA NITROGEN 17 mg/dL (7-20); CALCIUM 9.4 mg/dL (8.4-10.2); CARBON DIOXIDE 34 mmol/L (22-30); CHLORIDE 98 mmol/L (98-107); GLUCOSE 213 mg/dL (75-110); POTASSIUM 4.4 mmol/L (3.6-5.0); SODIUM 138.8 mmol/L (137-145)
[2018-01-26 20:41] VITALS: BP 142/68
== END 2018-01-26 20:39 | disposition home or self-care (01) ==
LOC: ER 16:55
DX: E10.649 Type 1 diabetes mellitus with hypoglycemia without coma (principal); Z96.41 Presence of insulin pump (external) (internal); N39.0 Urinary tract infection, site not specified; J45.909 Unspecified asthma, uncomplicated; Z88.5 Allergy status to narcotic agent; Z88.0 Allergy status to penicillin; Z88.6 Allergy status to analgesic agent; Z88.2 Allergy status to sulfonamides; Z91.048 Other nonmedicinal substance allergy status; Z87.892 Personal history of anaphylaxis; Z91.018 Allergy to other foods
CPT/HCPCS: 36415; 80048; 81001; 81025; 82962; 85025; 87086; 99285

== ENCOUNTER 2018-02-09 11:23 | Emergency (ER) | payer MEDICARE, MEDICAID ==
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
--- NOTE | 2018-02-09 12:30 | RADIOLOGY REPORT (SQ) ---
EXAM DESCRIPTION: CT HEAD WITHOUT COMPLETED DATE/TIME: 02/09/2018 12:15 pm REASON FOR STUDY: trauma COMPARISON: May 2015 TECHNIQUE: Axial images acquired through the brain without intravenous contrast. Images reviewed wi th bone, brain and subdural windows. Additional sagittal and coronal reconstructions were generated. Images stored on PACS. All CT scanners at this facility use dose modulation, iterative reconstruction, and/or weight based d osing when appropriate to reduce radiation dose to as low as reasonably achievable (ALARA). [facility]: Dose Right [facility]: CareDose [facility]: Dose Right [facility]: Teradose 4D [facility]: [employer] RADIATION DOSE: CT Rad equipment meets quality standard of care and radiation dose reduction techniq ues were employed. CTDIvol: 53.2 mGy. DLP: 964 mGy-cm. mGy. LIMITATIONS: None. FINDINGS: VENTRICLES: Normal size and contour. CEREBRUM: No masses. No hemorrhage. No midline shift. No evidence for acute infarction. Normal gra y/white matter differentiation. No areas of low density in the white matter. CEREBELLUM: No masses. No hemorrhage. No alteration of density. No evidence for acute infarction. Prominent cisterna magna is again identified. EXTRAAXIAL SPACES: No fluid collections. No masses. ORBITS AND GLOBE: No intra- or extraconal masses. Normal contour of globe without masses. CALVARIUM: No fracture. PARANASAL SINUSES: No fluid or mucosal thickening. SOFT TISSUES: No mass or hematoma. OTHER: No other significant finding. IMPRESSION: NORMAL BRAIN CT WITHOUT CONTRAST. EVIDENCE OF ACUTE STROKE: NO. COMMENT: Quality ID # [id number]: Final reports with documentation of one or more dose reduction techniques (e.g., Automated exposure control, adjustment of the mA and/or kV according to patient size, use of iterative reconstruction technique) TECHNICAL DOCUMENTATION: JOB ID: [id number] [employer]- All Rights Reserved Reading location - IP/workstation name: ELISA
[2018-02-09 13:01] VITALS: BP 130/75
== END 2018-02-09 12:54 | disposition home or self-care (01) ==
LOC: ER 11:23
DX: S06.0X9A Concussion with loss of consciousness of unspecified duration, initial encounter (principal); R51 Headache; H53.8 Other visual disturbances; R11.0 Nausea; Y04.0XXA Assault by unarmed brawl or fight, initial encounter
CPT/HCPCS: 70450; 99284

== ENCOUNTER → 2018-03-07 | Outpatient (CLI) | payer MEDICARE, MEDICAID ==
[2018-03-07 14:50] LABS: ALANINE AMINOTRANSFERASE 172 U/L (9-52); ASPARTATE AMINO TRANSFERASE 170 U/L (14-36)
== END ==
LOC: OD 13:14
PROVIDERS: ATTEND Podiatrist Foot Surgery
DX: B35.1 Tinea unguium (principal)
CPT/HCPCS: 36415; 84450; 84460

== ENCOUNTER 2018-03-09 07:37 | Inpatient (IN) | payer MEDICARE, MEDICAID ==
--- NOTE | 2018-03-09 07:59 | ER Document Report ---
ED General - General Chief Complaint: Vomiting Stated Complaint: VOMITING, BLOOD SUGAR ISSUE Time Seen by Provider: 03/09/18 07:59 Notes: Patient is a 33-year-old type I diabetic that presents to the emergency department for chief complaint of nausea, lightheadedness. Patient states that she has been out of her insulin for about 2-3 days, she states she just moved here, and cannot find her insulin supplies. She is usually on an insulin pump, and she also does not have her meters at home. She has had increased urination , and vomiting at home, and has not been able to find her insulin supplies, so she decided come to the emergency department, as she is worried that her glucose has gotten way too high. She has some abdominal cramping, but denies having any specific pain at this time, denies having any chest pain, shortness of breath, difficulty breathing, fevers, chills or night sweats. Past Medical History: Type 1 diabetes mellitus, depression, PTSD, bipolar disorder, hypothyroidism Past Surgical History: [place] tooth extraction Social History: Admits to smoking cigarettes daily, denies alcohol or drug use. Family History: Reviewed and noncontributory for presenting illness Allergies: Reviewed, see documented allergy list. REVIEW OF SYSTEMS: Other than noted above, the 12 point review of systems was reviewed with the patient and were negative, all pertinent findings are included in the HPI. PHYSICAL EXAMINATION: Vital signs reviewed, nursing noted reviewed. GENERAL: Well-appearing, well-nourished and in no acute distress. HEAD: Atraumatic, normocephalic. EYES: Eyes normal, extraocular movements intact, sclera anicteric, conjunctiva are normal. PERRLA ENT: nares patent, oropharynx clear without exudates. Moist mucous membranes. NECK: Normal range of motion, supple without lymphadenopathy LUNGS: No acute respiratory distress, no wheezing, rhonchi or rales, patient is taking slow deep breaths, consistent with kusmaul's respirations. HEART: Heart rate tachycardic, regular rhythm ABDOMEN: Soft, nontender, normoactive bowel sounds. No rebound, guarding, or rigidity. No masses appreciated. EXTREMITIES: Nontender, good range of motion, no pitting or edema. NEUROLOGICAL: No focal neurological deficits. Moves all extremities spontaneously Motor and sensory grossly intact on exam. PSYCH: Normal mood, normal affect. SKIN: Warm, Dry, normal turgor, no rashes or lesions noted on exposed skin TRAVEL OUTSIDE OF THE [place] IN LAST 30 DAYS: No - Related Data Allergies/Adverse Reactions: mushroom Allergy (Severe, Verified 03/09/18 07:38) Anaphylaxis alcohol [Alcohol] Allergy (Unknown, Verified 03/09/18 07:38) Hives gabapentin Allergy (Unknown, Verified 03/09/18 07:38) Hives morphine [Morphine] Allergy (Unknown, Verified 03/09/18 07:38) Penicillins Allergy (Unknown, Verified 03/09/18 07:38) Sulfa (Sulfonamide Antibiotics) Allergy (Unknown, Verified 03/09/18 07:38) adhesive [Adhesive] Allergy (Verified 03/09/18 07:38) chlorpromazine [From Thorazine] Allergy (Verified 03/09/18 07:38) tomato [Tomato] Adverse Reaction (Severe, Verified 03/09/18 07:38) Anaphylaxis Past Medical History - Social History Smoking Status: Current Every Day Smoker Family History: Arthritis, DM, Malignancy, Thyroid Disfunction - Past Medical History Cardiac Medical History: Reports: Hx Hypercholesterolemia Denies: Hx Heart Attack Pulmonary Medical History: Reports: Hx Asthma Denies: Hx Tuberculosis Neurological Medical History: 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 Denies: Hx Hiatal Hernia, Hx Ulcer Musculoskeletal Medical History: Reports Hx Musculoskeletal Deformity, Reports Hx Musculoskeletal Trauma Psychiatric Medical History: Reports: Hx Anxiety, Hx Bipolar Disorder, Hx Depression, Hx Post Traumatic Stress Disorder Traumatic Medical History: Reports: Hx Fractures - Wrist hand and toe Past Surgical History: Reports: Hx Oral Surgery - wisdom teeth, Hx Orthopedic Surgery - Ankle surgery. Denies: Hx Mastectomy, Hx Open Heart Surgery - Immunizations Hx Diphtheria, Pertussis, Tetanus Vaccination: Yes Hx Pneumococcal Vaccination: 03/10/13 Physical Exam - Vital signs Vitals: Temp Pulse Resp BP Pulse Ox 97.7 F 78 18 121/64 100 03/09/18 07:43 03/09/18 07:43 03/09/18 07:43 03/09/18 07:43 03/09/18 07:43 Course - Re-evaluation Re-evalutation: Patient seen and examined vital signs reviewed. Laboratory data and imaging were ordered as appropriate for the patient's presenting symptoms and complaint, with consideration of any critical or life threatening conditions that may be associated with their obtained history and exam as noted above. Patient was treated with 3 L of IV normal saline total, started on an insulin bolus of 6 units, and insulin infusion at 0.1 units/kilogram/hour Results were reviewed when available and demonstrated blood work consistent with diabetic ketoacidosis, anion gap was 30, blood glucose was greater than 1000, pseudohyponatremia present, VBG consistent with metabolic acidosis, from the patient's DKA. UA negative for infection, positive for glucose and ketones , patient's blood work also reviewed and acute kidney injury, based on review of prior labs. The patient was re-evaluated and was improving, after fluids, Zofran, she was complaining of some pain, therefore some IV Dilaudid was ordered Evaluation was most consistent with diabetic ketoacidosis, secondary to lack of insulin and a type I diabetic, patient will need admitted to the ICU, case discussed with the hospitalist. Results were discussed with the patient at this point after careful consideration I feel that that patient should be admitted to the hospital. This was discussed with the patient that it is in the best interest for their care to be admitted for further evaluation and management. Patient agreed with this plan of care. A call was placed to the admitted physician, Dr. Martínez who graciously accepted the patient onto their service. *Note is created using voice recognition software and may contain spelling, syntax or grammatical errors. Laboratory 03/09/18 03/09/18 03/09/18 08:15 08:20 08:20 WBC 8.6 RBC 3.77 Hgb 12.8 Hct 39.8 MCV 106 H MCH 34.0 H MCHC 32.2 RDW 14.8 H Plt Count 318 Seg Neutrophils % 77.1 Lymphocytes % 17.8 Monocytes % 4.3 Eosinophils % 0.3 Basophils % 0.5 Absolute Neutrophils 6.6 Absolute Lymphocytes 1.5 Absolute Monocytes 0.4 Absolute Eosinophils 0.0 Absolute Basophils 0.0 Carbonic Acid HCO3/H2CO3 Ratio ABG pH ABG pCO2 ABG pO2 ABG HCO3 ABG Total CO2 ABG O2 Saturation ABG Base Excess VBG pH VBG pCO2 VBG HCO3 VBG Base Excess FiO2 Sodium 135.5 L Potassium 5.0 Chloride 95 L Carbon Dioxide 11 L Anion Gap 30 H BUN 32 H Creatinine 1.73 H Est GFR ( Amer) 41 L Est GFR (Non-Af Amer) 34 L Glucose 1006 H* POC Glucose > 550 H* Calcium 9.9 Total Bilirubin 1.3 Direct Bilirubin 0.7 H Neonat Total Bilirubin Not Reportable Neonat Direct Bilirubin Not Reportable Neonat Indirect Bili Not Reportable AST 66 H ALT 126 H Alkaline Phosphatase 121 Total Protein 7.6 Albumin 4.3 Amylase Lipase 86.8 Urine Color Urine Appearance Urine pH Ur Specific [place] Urine Protein Urine Glucose (UA) Urine Ketones Urine Blood Urine Nitrite Urine Bilirubin Urine Urobilinogen Ur Leukocyte Esterase Urine WBC (Auto) Urine RBC (Auto) U Hyaline Cast (Auto) Squamous Epi Cells Auto Urine Mucus (Auto) Urine Ascorbic Acid 03/09/18 03/09/18 03/09/18 08:20 08:55 10:39 WBC RBC Hgb Hct MCV MCH MCHC RDW Plt Count Seg Neutrophils % Lymphocytes % Monocytes % Eosinophils % Basophils % Absolute Neutrophils Absolute Lymphocytes Absolute Monocytes Absolute Eosinophils Absolute Basophils Carbonic Acid HCO3/H2CO3 Ratio ABG pH ABG pCO2 ABG pO2 ABG HCO3 ABG Total CO2 ABG O2 Saturation ABG Base Excess VBG pH 7.20 L VBG pCO2 28.9 L VBG HCO3 11.1 L VBG Base Excess -15.5 FiO2 Sodium Potassium Chloride Carbon Dioxide Anion Gap BUN Creatinine Est GFR ( Amer) Est GFR (Non-Af Amer) Glucose POC Glucose > 550 H* Calcium Total Bilirubin Direct Bilirubin Neonat Total Bilirubin Neonat Direct Bilirubin Neonat Indirect Bili AST ALT Alkaline Phosphatase Total Protein Albumin Amylase Lipase Urine Color STRAW Urine Appearance SLIGHTLY-CLOUDY Urine pH 6.0 Ur Specific [place] 1.020 Urine Protein 30 H Urine Glucose (UA) >=500 H Urine Ketones 20 H Urine Blood SMALL H Urine Nitrite NEGATIVE Urine Bilirubin NEGATIVE Urine Urobilinogen NEGATIVE Ur Leukocyte Esterase NEGATIVE Urine WBC (Auto) 2 Urine RBC (Auto) 1 U Hyaline Cast (Auto) 1 Squamous Epi Cells Auto 5 Urine Mucus (Auto) RARE Urine Ascorbic Acid NEGATIVE 03/09/18 03/09/18 03/09/18 11:44 11:50 12:19 WBC RBC Hgb Hct MCV MCH MCHC RDW Plt Count Seg Neutrophils % Lymphocytes % Monocytes % Eosinophils % Basophils % Absolute Neutrophils Absolute Lymphocytes Absolute Monocytes Absolute Eosinophils Absolute Basophils Carbonic Acid 0.57 L HCO3/H2CO3 Ratio 14:1 ABG pH 7.26 L ABG pCO2 19.1 L* ABG pO2 139.7 H ABG HCO3 8.4 L ABG Total CO2 9.0 L ABG O2 Saturation 98.5 H ABG Base Excess -16.4 VBG pH VBG pCO2 VBG HCO3 VBG Base Excess FiO2 ROOM AIR Sodium 140.3 Potassium 4.0 D Chloride 104 Carbon Dioxide 11 L Anion Gap 25 H BUN 30 H Creatinine 1.62 H Est GFR ( Amer) 45 L Est GFR (Non-Af Amer) 37 L Glucose 665 H* POC Glucose > 550 H* Calcium 8.6 Total Bilirubin Direct Bilirubin Neonat Total Bilirubin Neonat Direct Bilirubin Neonat Indirect Bili AST ALT Alkaline Phosphatase Total Protein Albumin Amylase Lipase Urine Color Urine Appearance Urine pH Ur Specific [place] Urine Protein Urine Glucose (UA) Urine Ketones Urine Blood Urine Nitrite Urine Bilirubin Urine Urobilinogen Ur Leukocyte Esterase Urine WBC (Auto) Urine RBC (Auto) U Hyaline Cast (Auto) Squamous Epi Cells Auto Urine Mucus (Auto) Urine Ascorbic Acid 03/09/18 03/09/18 12:19 14:40 WBC RBC Hgb Hct MCV MCH MCHC RDW Plt Count Seg Neutrophils % Lymphocytes % Monocytes % Eosinophils % Basophils % Absolute Neutrophils Absolute Lymphocytes Absolute Monocytes Absolute Eosinophils Absolute Basophils Carbonic Acid HCO3/H2CO3 Ratio ABG pH ABG pCO2 ABG pO2 ABG HCO3 ABG Total CO2 ABG O2 Saturation ABG Base Excess VBG pH VBG pCO2 VBG HCO3 VBG Base Excess FiO2 Sodium 138.8 Potassium 3.6 Chloride 104 Carbon Dioxide 17 L Anion Gap 18 BUN 30 H Creatinine 1.42 H Est GFR ( Amer) 52 L Est GFR (Non-Af Amer) 43 L Glucose 598 H* POC Glucose Calcium 7.9 L Total Bilirubin Direct Bilirubin Neonat Total Bilirubin Neonat Direct Bilirubin Neonat Indirect Bili AST ALT Alkaline Phosphatase Total Protein Albumin Amylase 53 Lipase 65.8 Urine Color Urine Appearance Urine pH Ur Specific [place] Urine Protein Urine Glucose (UA) Urine Ketones Urine Blood Urine Nitrite Urine Bilirubin Urine Urobilinogen Ur Leukocyte Esterase Urine WBC (Auto) Urine RBC (Auto) U Hyaline Cast (Auto) Squamous Epi Cells Auto Urine Mucus (Auto) Urine Ascorbic Acid - Vital Signs Vital signs: Temp Pulse Resp BP Pulse Ox 97.8 F 77 13 125/70 100 03/09/18 11:57 03/09/18 14:00 03/09/18 14:07 03/09/18 14:07 03/09/18 14:07 - Laboratory Result Diagrams: 03/09/18 08:20 03/09/18 14:40 Laboratory results interpreted by me: 03/09/18 03/09/18 03/09/18 08:15 08:20 08:20 MCV 106 H MCH 34.0 H RDW 14.8 H VBG pH VBG pCO2 VBG HCO3 Sodium 135.5 L Chloride 95 L Carbon Dioxide 11 L Anion Gap 30 H BUN 32 H Creatinine 1.73 H Est GFR ( Amer) 41 L Est GFR (Non-Af Amer) 34 L Glucose 1006 H* POC Glucose > 550 H* Direct Bilirubin 0.7 H AST 66 H ALT 126 H Urine Protein Urine Glucose (UA) Urine Ketones Urine Blood 03/09/18 03/09/18 08:20 08:55 MCV MCH RDW VBG pH 7.20 L VBG pCO2 28.9 L VBG HCO3 11.1 L Sodium Chloride Carbon Dioxide Anion Gap BUN Creatinine Est GFR ( Amer) Est GFR (Non-Af Amer) Glucose POC Glucose Direct Bilirubin AST ALT Urine Protein 30 H Urine Glucose (UA) >=500 H Urine Ketones 20 H Urine Blood SMALL H - EKG Interpretation by Me Additional EKG results interpreted by me: 03/09/18 15:56 EKG demonstrates sinus rhythm with a ventricular rate of 80 bpm, normal axis, normal intervals, no evidence of acute ischemia on this EKG. Critical Care Note - Critical Care Note Total time excluding time spent on procedures (mins): 55 Comments: Critical care time 55 minutes exclusive from separate billable procedures for a patient requiring complex medical decision making, and high potential for clinical deterioration. In a patient with severe diabetic ketoacidosis, glucose greater than 1000, requiring fluid resuscitation, and frequent monitoring. Time spent obtaining history from patient or surrogate, discussions with consultants, development of treatment plan with patient or surrogate, evaluation of patient's response to treatment, examination of patient, ordering and performing treatments and interventions, ordering and review of laboratory studies, re-evaluation of patient's condition, ordering and review of radiographic studies and review of old charts Discharge - Discharge Clinical Impression: AMANDA (acute kidney injury), Hyponatremia Diabetic ketoacidosis Qualifiers: Diabetes mellitus type: type 1 Diabetes mellitus complication detail: without coma Qualified Code(s): E10.10 - Type 1 diabetes mellitus with ketoacidosis without coma Condition: Stable Disposition: ADMITTED INPATIENT Admitting Provider: Hospitalist - Dr. Martínez Unit Admitted: ICU
[2018-03-09] MEDS ORDERED: NORMAL SALINE 1000 ML 1,000 ML IV ONE ×3 (08:34→09:27)
[2018-03-09] MEDS ORDERED: ONDANSETRON HCL INJ/PF 4 MG/2 ML SDV IV ONE (08:35)
[2018-03-09 08:47] LABS: ABSOLUTE LYMPHOCYTES (AUTO) 1.5 10^3/uL (0.5-4.7); ABSOLUTE MONOCYTES (AUTO) 0.4 10^3/uL (0.1-1.4); ABSOLUTE NEUT (AUTO) 6.6 10^3/uL (1.7-8.2); BASOPHILS % (AUTO) 0.5 % (0-2); EOSINOPHILS % (AUTO) 0.3 % (0-6); HEMATOCRIT 39.8 % (36.0-47.0); HEMOGLOBIN 12.8 g/dL (12.0-15.5); LYMPHOCYTES % (AUTO) 17.8 % (13-45); MEAN CORPUSCULAR HGB CONC 32.2 g/dL (32.0-36.0); MEAN CORPUSCULAR VOLUME 106 fl (80-97); MONOCYTES % (AUTO) 4.3 % (3-13); PLATELET COUNT 318 10^3/uL (150-450); RED BLOOD COUNT 3.77 10^6/uL (3.72-5.28); RED CELL DISTRIBUTION WIDTH 14.8 % (11.5-14.0); SEGMENTED NEUTROPHILS % (AUTO) 77.1 % (42-78); TOTAL CELLS COUNTED % (AUTO) 100 %; WHITE BLOOD COUNT 8.6 10^3/uL (4.0-10.5)
[2018-03-09 09:01] LABS: APPEARANCE,URINE SLIGHTLY-CLOUDY; BILIRUBIN,URINE NEGATIVE (NEGATIVE); COLOR,URINE STRAW; GLUCOSE, URINE >=500 mg/dL (NEGATIVE); KETONES,URINE 20 mg/dL (NEGATIVE); LEUKOCYTE ESTERASE,URINE NEGATIVE (NEGATIVE); NITRITE,URINE NEGATIVE (NEGATIVE); PROTEIN,URINE 30 mg/dL (NEGATIVE); UROBILINOGEN,URINE NEGATIVE mg/dL (<2.0)
[2018-03-09 09:08] LABS: ALANINE AMINOTRANSFERASE 126 U/L (9-52); ALBUMIN 4.3 g/dL (3.5-5.0); ALKALINE PHOSPHATASE 121 U/L (38-126); ASPARTATE AMINO TRANSFERASE 66 U/L (14-36); BILIRUBIN,DIRECT 0.7 mg/dL (0.0-0.4); BILIRUBIN,TOTAL 1.3 mg/dL (0.2-1.3); BLOOD UREA NITROGEN 32 mg/dL (7-20); CALCIUM 9.9 mg/dL (8.4-10.2); LIPASE 86.8 U/L (23-300); TOTAL PROTEIN 7.6 g/dL (6.3-8.2)
[2018-03-09 09:13] LABS: CARBON DIOXIDE 11 mmol/L (22-30); CHLORIDE 95 mmol/L (98-107); SODIUM 135.5 mmol/L (137-145)
[2018-03-09 09:20] LABS: ANION GAP 30 (5-19)
[2018-03-09 09:22] LABS: GLUCOSE 1006 mg/dL (75-110)
[2018-03-09] MEDS ORDERED: DEXTROSE 40% GEL 15 GM TUBE PO PRN ×2 (09:25)
[2018-03-09] MEDS ORDERED: GLUCAGON,HUMAN RECOMB 1 MG INJ IM PRN (09:25)
[2018-03-09] MEDS ORDERED: NORMAL SALINE 100 ML with INSULIN REGULAR, HUMAN 100 UNIT IV PRN ×4 (09:25→10:12)
[2018-03-09] MEDS ORDERED: DEXTROSE 50%-WATER 25 GM/50 ML DISP.SYRIN IV PRN ×2 (09:25)
[2018-03-09] MEDS ORDERED: INSULIN REG, HUMAN 100 UNIT/ML 3 ML VIAL (PYX) IV ONE (09:27)
[2018-03-09 09:32] LABS: VENOUS BLOOD BASE EXCESS -15.5 mmol/L; VENOUS BLOOD HCO3 11.1 mmol/L (20-32); VENOUS BLOOD PCO2 28.9 mmHg (35-63); VENOUS BLOOD PH 7.2 (7.30-7.42)
[2018-03-09] MEDS ORDERED: ONDANSETRON HCL INJ/PF 4 MG/2 ML SDV IV PRN (09:55)
[2018-03-09] MEDS ORDERED: DEXTROSE 5%-WATER 1000 ML 1,000 ML with SODIUM BICARBONATE 150 MEQ IV PRN ×2 (10:09)
[2018-03-09] MEDS: POTASSI CL 20 MEQ/1/2NS 1L 20 MEQ/1,000 ML RTUINJ IV PRN ×2 (11:37→20:08)
[2018-03-09 12:27] LABS: ARTERIAL BLOOD BASE EXCESS -16.4 mmol/L; ARTERIAL BLOOD H2CO3 0.57 mmol/L (1.05-1.35); ARTERIAL BLOOD HCO3 8.4 mmol/L (20-24); ARTERIAL BLOOD O2 SATURATION 98.5 % (94-98); ARTERIAL BLOOD PH 7.26 (7.35-7.45); ARTERIAL BLOOD PO2 139.7 mmHg (80-100)
[2018-03-09 12:29] LABS: ARTERIAL BLOOD FIO2 ROOM AIR
[2018-03-09 12:31] LABS: ARTERIAL BLOOD PCO2 19.1 mmHg (35-45)
[2018-03-09 13:05] LABS: BLOOD UREA NITROGEN 30 mg/dL (7-20); CALCIUM 8.6 mg/dL (8.4-10.2)
[2018-03-09 13:11] LABS: CARBON DIOXIDE 11 mmol/L (22-30); CHLORIDE 104 mmol/L (98-107); SODIUM 140.3 mmol/L (137-145)
--- NOTE | 2018-03-09 13:21 | EKG REPORT ---
SEVERITY:- BORDERLINE ECG - SINUS RHYTHM BORDERLINE T ABNORMALITIES, DIFFUSE LEADS : Confirmed by: Sam Bird MD 09-Mar-2018 13:20:08
[2018-03-09 13:30] LABS: GLUCOSE 665 mg/dL (75-110)
[2018-03-09] MEDS: HEPARIN SOD (PORCINE) 5,000 UNIT/ML 1 ML SYRINGE SUBCUT SCH ×2 (13:59→21:01)
[2018-03-09] MEDS: SUCRALFATE SUSP 1 GM/10 ML UDCUP PO SCH ×3 (14:06→21:04)
[2018-03-09] MEDS: METOCLOPRAMIDE HCL INJ/PF 10 MG/2 ML SDV IV SCH ×3 (14:07→21:04)
[2018-03-09] MEDS: PANTOPRAZOLE SODIUM 40 MG VIAL IV SCH ×2 (14:14→21:04)
[2018-03-09 14:28] LABS: LIPASE 65.8 U/L (23-300)
[2018-03-09 14:47] LABS: ANION GAP 25 (5-19)
[2018-03-09] MEDS ORDERED: KETOROLAC TROMETHAMINE INJ/PF 30 MG/1 ML SDV IV ONE (15:00)
[2018-03-09 15:14] LABS: ANION GAP 18 (5-19); BLOOD UREA NITROGEN 30 mg/dL (7-20); CALCIUM 7.9 mg/dL (8.4-10.2); CARBON DIOXIDE 17 mmol/L (22-30); CHLORIDE 104 mmol/L (98-107); POTASSIUM 3.6 mmol/L (3.6-5.0); SODIUM 138.8 mmol/L (137-145)
[2018-03-09 15:22] LABS: GLUCOSE 598 mg/dL (75-110)
--- NOTE | 2018-03-09 15:38 | PDOC H&P ---
History of Present Illness Admission Date/PCP: 03/09/18 09:56 LAWSON HUDSON DO Patient complains of: Nausea and vomiting History of Present Illness: JEANINE YAP is a 33 year old female who presented to the emergency room with an 8-12-hour history of nausea, vomiting and near syncope. She admits that she is not insulin-dependent type 1 diabetic and has been out of her insulin for her insulin pump for about 3 days. She is moving and blames her ex-roommate for "packing all my shit up in a bunch of boxes, and just dumping boxes everywhere, so I cannot find a God damn thing!". She has been able to locate her insulin pump but she cannot locate her glucometer or strips and she is unable to locate her supply of insulin. She has additional insulin available at her usual pharmacy but she has not gone there to pick it up. She began to feel very nauseous last evening and then developed vomiting and after numerous episodes of vomiting she became very lightheaded and felt as though she might pass out. She called her mother and was trying to explain that she was out of her insulin and felt like she was very sick and knew her sugar was too high. While she was talking to her mother she passed out and her mother immediately arranged for her to be transported to the emergency room. Jeanine acknowledges that she had some mild to moderate abdominal cramping with the vomiting and she also had polyuria and polydipsia with mild polyphagia for the last day or 2. In the emergency room she was found to have a blood sugar greater than 1000, a venous pH of 7.2 and positive ketones in her urine. Her serum bicarbonate was 8.4. He was subsequently admitted to the intensive care unit for intravenous insulin infusion, intravenous bicarbonate infusion, electrolyte and fluid support as well as other supportive cares. 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 Denies: Hemorrhagic CVA, Ischemic CVA, Multiple Sclerosis Endocrine Medical History: Reports: Diabetes Mellitus Type 1, Hypothyroidism Renal/ Medical History: Denies: Chronic Kidney Disease, Nephrolithiasis Malignancy Medical History: Reports: None GI Medical History: Reports: Gastroesophageal Reflux Disease, Other - Chronic pancreatitis Denies: Crohn's Disease, Hiatal Hernia, Ulcerative Colitis Musculoskeltal Medical History: Denies: Arthritis, Gout Skin Medical History: Denies: Eczema, Psoriasis Psychiatric Medical History: Reports: Bipolar Disorder, Depression, Post Traumatic Stress Disorder, Substance Abuse, Tobacco Dependency Denies: Alcohol Dependency Hematology: Denies: Anemia, Bleeding Tendencies Infectious Medical History: Reports: None Past Surgical History Past Surgical History: Reports: Orthopedic Surgery - Ankle surgery, Other - [place] teeth excisions bilaterally, bilateral ingrown toenail removals Denies: Amputation, Mastectomy Social History Information Source: Patient Lives with: Friend Smoking Status: Current Every Day Smoker Frequency of Alcohol Use: Rare Hx Recreational Drug Use: No Drugs: Marijuana Hx Prescription Drug Abuse: No - Advance Directive Resuscitation Status: Full Code Surrogate healthcare decision maker:: Jesica Yap the patient's mother Family History Family History: Arthritis, DM, Malignancy, Thyroid Disfunction Parental Family History Reviewed: Yes Children Family History Reviewed: NA Sibling(s) Family History Reviewed.: Yes Medication/Allergy Home Medications: Insulin Aspart [Novolog Insulin (Aspart) 100 unit/mL] 50 units PUMP DAILY RX: Alprazolam [Xanax 0.5 mg Tablet] 0.5 mg PO Q12HP PRN 03/09/18 Allergies/Adverse Reactions: mushroom Allergy (Severe, Verified 03/09/18 07:38) Anaphylaxis alcohol [Alcohol] Allergy (Unknown, Verified 03/09/18 07:38) Hives gabapentin Allergy (Unknown, Verified 03/09/18 07:38) Hives morphine [Morphine] Allergy (Unknown, Verified 03/09/18 07:38) Penicillins Allergy (Unknown, Verified 03/09/18 07:38) Sulfa (Sulfonamide Antibiotics) Allergy (Unknown, Verified 03/09/18 07:38) adhesive [Adhesive] Allergy (Verified 03/09/18 07:38) chlorpromazine [From Thorazine] Allergy (Verified 03/09/18 07:38) tomato [Tomato] Adverse Reaction (Severe, Verified 03/09/18 07:38) Anaphylaxis Review of Systems Constitutional: ABSENT: chills, fever(s) Eyes: ABSENT: visual disturbances, other - Ocular pain Ears: ABSENT: hearing changes, other - Ear pain Nose, Mouth, and Throat: ABSENT: mouth pain, sore throat Cardiovascular: ABSENT: chest pain, dyspnea on exertion, orthropnea, palpitations Respiratory: ABSENT: cough, dyspnea Gastrointestinal: PRESENT: abdominal pain, nausea, vomiting. ABSENT: constipation, diarrhea, hematemesis, hematochezia, melena Genitourinary: ABSENT: dysuria, hematuria Musculoskeletal: PRESENT: other - Pain in left side, lateral lower rib area indicated (acute). ABSENT: deformity Integumentary: ABSENT: pruritus, rash Neurological: ABSENT: confusion, convulsions, memory loss, tremor(s), vertigo Psychiatric: PRESENT: depression. ABSENT: anxiety, hallucinations Endocrine: PRESENT: as per HPI, polydipsia, polyphagia, polyuria. ABSENT: cold intolerance, heat intolerance Hematologic/Lymphatic: ABSENT: easy bleeding, easy bruising Allergic/Immunologic: PRESENT: seasonal rhinorrhea, other - Multiple food and drug allergies Physical Exam Vital Signs: Temp Pulse Resp BP Pulse Ox 97.8 F 86 19 127/72 H 100 03/09/18 11:57 03/09/18 11:57 03/09/18 11:57 03/09/18 11:57 03/09/18 11:57 Intake & Output 03/07/18 03/08/18 03/09/18 23:59 23:59 23:59 Intake Total 1000 Output Total 850 Balance 150 Weight 65.6 kg Results Laboratory Results: 03/09/18 12:19 03/09/18 03/09/18 11:50 12:19 Carbonic Acid 0.57 L HCO3/H2CO3 Ratio 14:1 ABG pH 7.26 L ABG pCO2 19.1 L* ABG pO2 139.7 H ABG HCO3 8.4 L ABG O2 Saturation 98.5 H ABG Base Excess -16.4 FiO2 ROOM AIR Sodium 140.3 Potassium 4.0 D Chloride 104 Carbon Dioxide 11 L BUN 30 H Creatinine 1.62 H Est GFR ( Amer) 45 L Est GFR (Non-Af Amer) 37 L Glucose 665 H* Calcium 8.6 Assessment & Plan - Diagnosis (1) Diabetic ketoacidosis Qualifiers: Diabetes mellitus type: type 1 Diabetes mellitus complication detail: without coma Qualified Code(s): E10.10 - Type 1 diabetes mellitus with ketoacidosis without coma Is this a current diagnosis for this admission?: Yes Plan: Patient will be treated in the ICU with an insulin drip, a bicarbonate drip, IV fluids with potassium and close glucose and electrolyte monitoring. (2) AMANDA (acute kidney injury) Is this a current diagnosis for this admission?: Yes Plan: Because of the patient's acute kidney injury would appear to be dehydration/ vascular volume contraction, so the mainstay of therapy will be fluid replacement to normalize vascular volume and renal blood flow. Renal functions will be closely monitored throughout the hospital course. (3) Acute left-sided thoracic back pain Is this a current diagnosis for this admission?: Yes Plan: This is an acute pain that the patient has noticed for the last day or so with certain movements. She attributes it to muscular pain due to activities involved in her moving. Patient will be given Toradol 30 mg x1 now and in light of her decreased renal function 50 mg IV every 6 hours for a total of no more than 12 doses. I will also provide patient with IV morphine 2-4 mg per sliding scale for breakthrough pain control. (4) DM I (diabetes mellitus, type I) Qualifiers: Diabetes mellitus complication status: with other specified complication Qualified Code(s): E10.69 - Type 1 diabetes mellitus with other specified complication Is this a current diagnosis for this admission?: Yes Plan: Upon resolution of the patient's diabetic ketoacidosis every effort will be made to resume her usual diabetic care. A hemoglobin A1c will be obtained to evaluate the patient's recent diabetic control. (5) Hypothyroidism Qualifiers: Hypothyroidism type: unspecified Qualified Code(s): E03.9 - Hypothyroidism , unspecified Is this a current diagnosis for this admission?: Yes Plan: Patient will be continued on her usual thyroid replacement medication during her hospital course. A thyroid profile will be obtained to evaluate the efficacy of her current therapy. (6) Hyperlipidemia Qualifiers: Hyperlipidemia type: pure hypercholesterolemia Qualified Code(s): E78.00 - Pure hypercholesterolemia, unspecified Is this a current diagnosis for this admission?: Yes (7) Tobacco abuse Is this a current diagnosis for this admission?: Yes Plan: Patient is advised to discontinue use of tobacco products. Smoking cessation counseling is provided (brief 3-5 minutes). (8) Bipolar 1 disorder Is this a current diagnosis for this admission?: Yes Plan: Patient will be continued on her usual medications for control of her bipolar 1 disorder as soon as she can tolerate taking oral medication and her home medications can be verified. This protocol will be continued throughout the remainder of her hospital course and after discharge. - Time Time Spent: 30 to 50 Minutes Smoking Cessation Education: 3 to 10 minutes Medications reviewed and adjusted accordingly: Yes Anticipated discharge: Home Within: within 72 hours
[2018-03-09] MEDS ORDERED: NALBUPHINE HCL INJ 10 MG/1 ML AMPULE IV PRN (15:40)
[2018-03-09] MEDS: WATER FOR INJECTION,STERILE 1,000 ML with SODIUM BICARBONATE 150 MEQ IV PRN ×4 (16:07→18:40)
[2018-03-09] MEDS: KETOROLAC TROMETHAMINE INJ/PF 30 MG/1 ML SDV IV SCH (18:15)
[2018-03-09 18:19] LABS: BLOOD UREA NITROGEN 28 mg/dL (7-20); CALCIUM 7.9 mg/dL (8.4-10.2); CHLORIDE 101 mmol/L (98-107); GLUCOSE 380 mg/dL (75-110); POTASSIUM 3.1 mmol/L (3.6-5.0); SODIUM 139.4 mmol/L (137-145)
[2018-03-09 18:31] LABS: ANION GAP 12 (5-19); CARBON DIOXIDE 26 mmol/L (22-30)
[2018-03-09 21:22] LABS: ANION GAP 9 (5-19); BLOOD UREA NITROGEN 27 mg/dL (7-20); CALCIUM 7.3 mg/dL (8.4-10.2); CARBON DIOXIDE 33 mmol/L (22-30); CHLORIDE 97 mmol/L (98-107); GLUCOSE 173 mg/dL (75-110); SODIUM 138.8 mmol/L (137-145)
[2018-03-09] MEDS ORDERED: INSULIN LISPRO 100 UNIT/ML 3 ML VIAL SUBCUT PRN (21:59)
[2018-03-09] MEDS ORDERED: INSULIN GLARGINE,HUM.REC.ANLOG 1,000 UNIT/10 ML UNIT SUBCUT ONE (22:00)
[2018-03-09] MEDS ORDERED: POTASSIUM CHLORIDE 10 MEQ CAPSULE.ER PO ONE (22:00)
[2018-03-10] MEDS: KETOROLAC TROMETHAMINE INJ/PF 30 MG/1 ML SDV IV SCH ×4 (00:46→18:15)
[2018-03-10 01:33] LABS: ANION GAP 8 (5-19); BLOOD UREA NITROGEN 26 mg/dL (7-20); CALCIUM 7.3 mg/dL (8.4-10.2); CARBON DIOXIDE 31 mmol/L (22-30); CHLORIDE 97 mmol/L (98-107); GLUCOSE 116 mg/dL (75-110); POTASSIUM 3.9 mmol/L (3.6-5.0); SODIUM 136.1 mmol/L (137-145)
[2018-03-10 05:21] LABS: ABSOLUTE BASOPHILS # (AUTO) 0.1 10^3/uL (0.0-0.2); ABSOLUTE EOSINOPHILS # (AUTO) 0.1 10^3/uL (0.0-0.6); ABSOLUTE LYMPHOCYTES (AUTO) 4.3 10^3/uL (0.5-4.7); ABSOLUTE MONOCYTES (AUTO) 0.7 10^3/uL (0.1-1.4); ABSOLUTE NEUT (AUTO) 5.3 10^3/uL (1.7-8.2); BASOPHILS % (AUTO) 0.5 % (0-2); EOSINOPHILS % (AUTO) 0.8 % (0-6); HEMATOCRIT 32.9 % (36.0-47.0); HEMOGLOBIN 12.1 g/dL (12.0-15.5); LYMPHOCYTES % (AUTO) 41.1 % (13-45); MEAN CORPUSCULAR HEMOGLOBIN 34.9 pg (27.0-33.4); MEAN CORPUSCULAR HGB CONC 36.7 g/dL (32.0-36.0); PLATELET COUNT 271 10^3/uL (150-450); RED BLOOD COUNT 3.47 10^6/uL (3.72-5.28); RED CELL DISTRIBUTION WIDTH 14.3 % (11.5-14.0); SEGMENTED NEUTROPHILS % (AUTO) 50.6 % (42-78); TOTAL CELLS COUNTED % (AUTO) 100 %; WHITE BLOOD COUNT 10.5 10^3/uL (4.0-10.5)
[2018-03-10] MEDS: HEPARIN SOD (PORCINE) 5,000 UNIT/ML 1 ML SYRINGE SUBCUT SCH ×3 (05:31→22:37)
[2018-03-10 05:32] LABS: MEAN CORPUSCULAR VOLUME 95 fl (80-97)
[2018-03-10 05:37] LABS: ANION GAP 9 (5-19); BLOOD UREA NITROGEN 27 mg/dL (7-20); CALCIUM 7.4 mg/dL (8.4-10.2); CARBON DIOXIDE 30 mmol/L (22-30); CHLORIDE 99 mmol/L (98-107); GLUCOSE 95 mg/dL (75-110); POTASSIUM 4.1 mmol/L (3.6-5.0); SODIUM 138.2 mmol/L (137-145)
[2018-03-10] MEDS: POTASSI CL 20 MEQ/1/2NS 1L 20 MEQ/1,000 ML RTUINJ IV PRN (05:38)
[2018-03-10 06:17] LABS: FREE T3 0.99 pg/mL (2.77-5.27); FREE T4 (FREE THYROXINE) 0.31 ng/dL (0.78-2.19)
[2018-03-10 06:28] LABS: ARTERIAL BLOOD BASE EXCESS 5.6 mmol/L; ARTERIAL BLOOD H2CO3 1.32 mmol/L (1.05-1.35); ARTERIAL BLOOD HCO3 30.2 mmol/L (20-24); ARTERIAL BLOOD O2 SATURATION 96.6 % (94-98); ARTERIAL BLOOD PCO2 43.8 mmHg (35-45); ARTERIAL BLOOD PH 7.46 (7.35-7.45); ARTERIAL BLOOD PO2 82.6 mmHg (80-100); ARTERIAL BLOOD TOTAL CO2 31.5 mmol/L (21-25)
[2018-03-10 06:31] LABS: ARTERIAL BLOOD FIO2 ROOM AIR
[2018-03-10] MEDS: PANTOPRAZOLE SODIUM 40 MG VIAL IV SCH (09:20)
[2018-03-10] MEDS: METOCLOPRAMIDE HCL INJ/PF 10 MG/2 ML SDV IV SCH ×2 (09:21→12:40)
[2018-03-10] MEDS: SUCRALFATE SUSP 1 GM/10 ML UDCUP PO SCH ×4 (09:22→22:38)
[2018-03-10 10:36] LABS: ANION GAP 9 (5-19); BLOOD UREA NITROGEN 27 mg/dL (7-20); CALCIUM 7.3 mg/dL (8.4-10.2); CARBON DIOXIDE 27 mmol/L (22-30); CHLORIDE 101 mmol/L (98-107); GLUCOSE 136 mg/dL (75-110); POTASSIUM 4.8 mmol/L (3.6-5.0); SODIUM 136.7 mmol/L (137-145)
--- NOTE | 2018-03-10 15:05 | PDOC PROGRESS REPORT ---
Subjective Progress Note for:: 03/10/18 Subjective:: JEANINE OSORIO is a 33 year old female who presented to the emergency room with an 8-12-hour history of nausea, vomiting and near syncope. She admits that she is not insulin-dependent type 1 diabetic and has been out of her insulin for her insulin pump for about 3 days. She is moving and blames her ex-roommate for "packing all my shit up in a bunch of boxes, and just dumping boxes everywhere, so I cannot find a God damn thing!". She has been able to locate her insulin pump but she cannot locate her glucometer or strips and she is unable to locate her supply of insulin. She has additional insulin available at her usual pharmacy but she has not gone there to pick it up. She began to feel very nauseous last evening and then developed vomiting and after numerous episodes of vomiting she became very lightheaded and felt as though she might pass out. She called her mother and was trying to explain that she was out of her insulin and felt like she was very sick and knew her sugar was too high. While she was talking to her mother she passed out and her mother immediately arranged for her to be transported to the emergency room. Jeanine acknowledges that she had some mild to moderate abdominal cramping with the vomiting and she also had polyuria and polydipsia with mild polyphagia for the last day or 2. In the emergency room she was found to have a blood sugar greater than 1000, a venous pH of 7.2 and positive ketones in her urine. Her serum bicarbonate was 8.4. He was subsequently admitted to the intensive care unit for intravenous insulin infusion, intravenous bicarbonate infusion, electrolyte and fluid support as well as other supportive cares. 03/10/2018: Jeanine shows dramatic improvement with complete resolution of her ketoacidosis and markedly improved control of her left chest wall pain. She is in much better spirits today and we have discussed downgrading her to medical floor patient with no monitoring in no IV fluids. She has been enjoying a diet and tolerating a 4 carb diet with fluids quite well. She is having no difficulty with elimination. She is essentially pain-free on today's exam and is looking forward to going home tomorrow if possible. Reason For Visit: DKA Physical Exam Vital Signs: Temp Pulse Resp BP Pulse Ox 98.1 F 80 23 H 107/69 95 03/10/18 12:00 03/10/18 12:00 03/10/18 12:00 03/10/18 12:47 03/10/18 12:47 Intake & Output 03/08/18 03/09/18 03/10/18 23:59 23:59 23:59 Intake Total 3079 2240 Output Total 850 1000 Balance 2229 1240 Weight 65.6 kg 72.3 kg General appearance: PRESENT: no acute distress, cooperative Head exam: PRESENT: atraumatic, normocephalic Eye exam: PRESENT: conjunctiva pink, EOMI Ear exam: PRESENT: normal external ear exam. ABSENT: bleeding Mouth exam: PRESENT: neck supple, other - Oral mucosa is moist and intact dentition is in fair repair Neck exam: ABSENT: JVD, tracheal deviation Respiratory exam: PRESENT: clear to auscultation dave, symmetrical, unlabored Cardiovascular exam: PRESENT: RRR. ABSENT: clicks, gallop, rubs Vascular exam: PRESENT: normal capillary refill. ABSENT: pallor GI/Abdominal exam: PRESENT: normal bowel sounds, soft Rectal exam: PRESENT: deferred Extremities exam: ABSENT: joint swelling, pedal edema Musculoskeletal exam: ABSENT: deformity, dislocation Neurological exam: PRESENT: alert, oriented to person, oriented to place, oriented to time, oriented to situation, CN II-XII grossly intact. ABSENT: motor sensory deficit Psychiatric exam: PRESENT: appropriate affect, normal mood Skin exam: PRESENT: dry, intact, warm. ABSENT: jaundice, rash, urticaria Results Laboratory Results: 03/10/18 05:12 03/10/18 09:42 03/09/18 03/09/18 03/09/18 14:40 17:50 20:53 WBC RBC Hgb Hct MCV MCH MCHC RDW Plt Count Seg Neutrophils % Lymphocytes % Monocytes % Eosinophils % Basophils % Absolute Neutrophils Absolute Lymphocytes Absolute Monocytes Absolute Eosinophils Absolute Basophils Carbonic Acid HCO3/H2CO3 Ratio ABG pH ABG pCO2 ABG pO2 ABG HCO3 ABG O2 Saturation ABG Base Excess FiO2 Sodium 138.8 139.4 138.8 Potassium 3.6 3.1 L 3.0 L* Chloride 104 101 97 L Carbon Dioxide 17 L 26 33 H Anion Gap 18 12 9 BUN 30 H 28 H 27 H Creatinine 1.42 H 1.33 H 1.24 Est GFR ( Amer) 52 L 56 L > 60 Est GFR (Non-Af Amer) 43 L 46 L 50 L Glucose 598 H* 380 H 173 H Calcium 7.9 L 7.9 L 7.3 L Magnesium TSH Free T4 Free T3 pg/mL 03/10/18 03/10/18 03/10/18 01:03 05:12 05:12 WBC 10.5 RBC 3.47 L Hgb 12.1 Hct 32.9 L MCV 95 D MCH 34.9 H MCHC 36.7 H RDW 14.3 H Plt Count 271 Seg Neutrophils % 50.6 Lymphocytes % 41.1 Monocytes % 7.0 Eosinophils % 0.8 Basophils % 0.5 Absolute Neutrophils 5.3 Absolute Lymphocytes 4.3 Absolute Monocytes 0.7 Absolute Eosinophils 0.1 Absolute Basophils 0.1 Carbonic Acid HCO3/H2CO3 Ratio ABG pH ABG pCO2 ABG pO2 ABG HCO3 ABG O2 Saturation ABG Base Excess FiO2 Sodium 136.1 L 138.2 Potassium 3.9 4.1 Chloride 97 L 99 Carbon Dioxide 31 H 30 Anion Gap 8 9 BUN 26 H 27 H Creatinine 1.26 H 1.33 H Est GFR ( Amer) > 60 56 L Est GFR (Non-Af Amer) 49 L 46 L Glucose 116 H 95 Calcium 7.3 L 7.4 L Magnesium 1.6 TSH Free T4 Free T3 pg/mL 03/10/18 03/10/18 03/10/18 05:12 06:00 09:42 WBC RBC Hgb Hct MCV MCH MCHC RDW Plt Count Seg Neutrophils % Lymphocytes % Monocytes % Eosinophils % Basophils % Absolute Neutrophils Absolute Lymphocytes Absolute Monocytes Absolute Eosinophils Absolute Basophils Carbonic Acid 1.32 HCO3/H2CO3 Ratio 22:1 ABG pH 7.46 H ABG pCO2 43.8 ABG pO2 82.6 ABG HCO3 30.2 H ABG O2 Saturation 96.6 ABG Base Excess 5.6 FiO2 ROOM AIR Sodium 136.7 L Potassium 4.8 Chloride 101 Carbon Dioxide 27 Anion Gap 9 BUN 27 H Creatinine 1.29 H Est GFR ( Amer) 58 L Est GFR (Non-Af Amer) 48 L Glucose 136 H Calcium 7.3 L Magnesium TSH 461.00 H Free T4 0.31 L Free T3 pg/mL 0.99 L Assessment & Plan - Diagnosis (1) Diabetic ketoacidosis Qualifiers: Diabetes mellitus type: type 1 Diabetes mellitus complication detail: without coma Qualified Code(s): E10.10 - Type 1 diabetes mellitus with ketoacidosis without coma Is this a current diagnosis for this admission?: Yes Plan: Patient will be treated in the ICU with an insulin drip, a bicarbonate drip, IV fluids with potassium and close glucose and electrolyte monitoring. 03/10/2018: Diabetic ketoacidosis has resolved with therapy. Bicarbonate drip, insulin drip and IV fluids will be discontinued. Continued glucose monitoring and routine before meals and at bedtime insulin plus basal insulin will be continued until such time as the patient's insulin pump is operable. (2) AMANDA (acute kidney injury) Is this a current diagnosis for this admission?: Yes Plan: Because of the patient's acute kidney injury would appear to be dehydration/ vascular volume contraction, so the mainstay of therapy will be fluid replacement to normalize vascular volume and renal blood flow. Renal functions will be closely monitored throughout the hospital course. 03/10/2018: Patient's acute kidney injury has resolved with rehydration her renal functions are now back to her baseline status. (3) Acute left-sided thoracic back pain Is this a current diagnosis for this admission?: Yes Plan: This is an acute pain that the patient has noticed for the last day or so with certain movements. She attributes it to muscular pain due to activities involved in her moving. Patient will be given Toradol 30 mg x1 now and in light of her decreased renal function 50 mg IV every 6 hours for a total of no more than 12 doses. I will also provide patient with IV morphine 2-4 mg per sliding scale for breakthrough pain control. 03/10/2018: Patient's left sided thoracic pain has been well controlled with Toradol and little or no sliding scale morphine has been required. Therapy will be continued as currently ordered. (4) DM I (diabetes mellitus, type I) Qualifiers: Diabetes mellitus complication status: with other specified complication Qualified Code(s): E10.69 - Type 1 diabetes mellitus with other specified complication Is this a current diagnosis for this admission?: Yes Plan: Upon resolution of the patient's diabetic ketoacidosis every effort will be made to resume her usual diabetic care. A hemoglobin A1c will be obtained to evaluate the patient's recent diabetic control. 03/10/2018: Patient's hemoglobin A1c was 11.1 reflecting relatively poor control on her current regimen as an outpatient. Continued glucose monitoring and routine before meals and at bedtime insulin plus basal insulin will be continued until such time as the patient's insulin pump is operable. (5) Hypothyroidism Qualifiers: Hypothyroidism type: unspecified Qualified Code(s): E03.9 - Hypothyroidism , unspecified Is this a current diagnosis for this admission?: Yes Plan: Patient will be continued on her usual thyroid replacement medication during her hospital course. A thyroid profile will be obtained to evaluate the efficacy of her current therapy. 03/10/2018: Patient's thyroid profile shows a TSH of 411 with a significantly decreased free T3 and free T4. Patient's thyroid supplementation will be increased accordingly although I would strongly question the patient's compliance with taking her levothyroxine. This is somewhat confirmed by the fact that the patient admits that she is hypothyroid and admits that she is supposed to be taking levothyroxine however she does not have a current prescription for this drug. (6) Hyperlipidemia Qualifiers: Hyperlipidemia type: pure hypercholesterolemia Qualified Code(s): E78.00 - Pure hypercholesterolemia, unspecified Is this a current diagnosis for this admission?: Yes Plan: Patient will be continued on a diet appropriate for controlling hyperlipidemia. Any statin therapy that she may have prescribed will be continued once her med list has been verified. (7) Tobacco abuse Is this a current diagnosis for this admission?: Yes Plan: Patient is advised to discontinue use of tobacco products. Smoking cessation counseling is provided (brief 3-5 minutes). 03/10/2018: A nicotine patch will be available patient if she requires it for reduction in cigarette craving. (8) Bipolar 1 disorder Is this a current diagnosis for this admission?: Yes Plan: Patient will be continued on her usual medications for control of her bipolar 1 disorder as soon as she can tolerate taking oral medication and her home medications can be verified. This protocol will be continued throughout the remainder of her hospital course and after discharge. - Time Time Spent with patient: Less than 15 minutes Medications reviewed and adjusted accordingly: Yes Anticipated discharge: Home Within: within 24 hours
[2018-03-10] MEDS ORDERED: LEVOTHYROXINE SODIUM 0.1 MG TABLET PO ONE ×2 (15:06→17:45)
[2018-03-10] MEDS ORDERED: DEXTROSE 40% GEL 15 GM TUBE X 2 PO PRN (17:41)
[2018-03-10] MEDS ORDERED: DEXTROSE 50%-WATER SYRINGE 25 GM/50 ML DOSE IV PRN (17:41)
[2018-03-10] MEDS ORDERED: DEXTROSE 40% GEL 15 GM TUBE PO PRN (17:41)
[2018-03-10] MEDS ORDERED: DEXTROSE 50%-WATER SYRINGE 12.5 GM/25 ML DOSE IV PRN (17:41)
[2018-03-10] MEDS ORDERED: GLUCAGON,HUMAN RECOMB 1 MG INJ IM PRN (17:41)
[2018-03-10] MEDS: METOCLOPRAMIDE HCL 10 MG TABLET PO SCH ×2 (18:14→22:40)
[2018-03-10] MEDS: FAMOTIDINE 20 MG TABLET PO SCH ×2 (18:15→22:40)
[2018-03-10] MEDS: INSULIN LISPRO 100 UNIT/ML 3 ML VIAL SUBCUT PRN (18:16)
[2018-03-10] MEDS ORDERED: INSULIN GLARGINE,HUM.REC.ANLOG 1,000 UNIT/10 ML UNIT SUBCUT SCH (22:00)
[2018-03-11] MEDS: KETOROLAC TROMETHAMINE INJ/PF 30 MG/1 ML SDV IV SCH ×3 (00:06→11:26)
[2018-03-11 04:27] LABS: ABSOLUTE BASOPHILS # (AUTO) 0.1 10^3/uL (0.0-0.2); ABSOLUTE EOSINOPHILS # (AUTO) 0.1 10^3/uL (0.0-0.6); ABSOLUTE LYMPHOCYTES (AUTO) 3.5 10^3/uL (0.5-4.7); ABSOLUTE MONOCYTES (AUTO) 0.4 10^3/uL (0.1-1.4); BASOPHILS % (AUTO) 0.8 % (0-2); EOSINOPHILS % (AUTO) 1.3 % (0-6); HEMOGLOBIN 11.4 g/dL (12.0-15.5); LYMPHOCYTES % (AUTO) 43.6 % (13-45); MEAN CORPUSCULAR HEMOGLOBIN 34.1 pg (27.0-33.4); MEAN CORPUSCULAR HGB CONC 35.4 g/dL (32.0-36.0); MEAN CORPUSCULAR VOLUME 96 fl (80-97); MONOCYTES % (AUTO) 4.4 % (3-13); PLATELET COUNT 229 10^3/uL (150-450); RED BLOOD COUNT 3.33 10^6/uL (3.72-5.28); RED CELL DISTRIBUTION WIDTH 14.1 % (11.5-14.0); SEGMENTED NEUTROPHILS % (AUTO) 49.9 % (42-78); TOTAL CELLS COUNTED % (AUTO) 100 %
[2018-03-11 04:39] LABS: ANION GAP 6 (5-19); BLOOD UREA NITROGEN 22 mg/dL (7-20); CALCIUM 7.7 mg/dL (8.4-10.2); CARBON DIOXIDE 30 mmol/L (22-30); CHLORIDE 103 mmol/L (98-107); GLUCOSE 141 mg/dL (75-110)
[2018-03-11 04:54] LABS: POTASSIUM 3.6 mmol/L (3.6-5.0)
[2018-03-11] MEDS: HEPARIN SOD (PORCINE) 5,000 UNIT/ML 1 ML SYRINGE SUBCUT SCH ×2 (05:13→14:03)
[2018-03-11] MEDS ORDERED: LEVOTHYROXINE SODIUM 0.1 MG TABLET PO SCH (06:00)
[2018-03-11] MEDS: SUCRALFATE SUSP 1 GM/10 ML UDCUP PO SCH ×2 (07:33→11:25)
[2018-03-11] MEDS: FAMOTIDINE 20 MG TABLET PO SCH ×2 (07:33→11:27)
[2018-03-11] MEDS: METOCLOPRAMIDE HCL 10 MG TABLET PO SCH ×2 (09:37→11:27)
[2018-03-11] MEDS: INSULIN LISPRO 100 UNIT/ML 3 ML VIAL SUBCUT PRN (11:34)
[2018-03-11 13:41] VITALS: BP 125/76
--- NOTE | 2018-03-11 14:56 | PDOC DISCHARGE SUMMARY ---
General - Admit/Disc Date/PCP Admission Date/Primary Care Provider: 03/09/18 09:56 LAWSON HUDSON, Discharge Date: 03/11/18 - Discharge Diagnosis (1) Diabetic ketoacidosis Is this a current diagnosis for this admission?: Yes Summary: Patient will be treated in the ICU with an insulin drip, a bicarbonate drip, IV fluids with potassium and close glucose and electrolyte monitoring. 03/10/2018: Diabetic ketoacidosis has resolved with therapy. Bicarbonate drip, insulin drip and IV fluids will be discontinued. Continued glucose monitoring and routine before meals and at bedtime insulin plus basal insulin will be continued until such time as the patient's insulin pump is operable. (2) AMANDA (acute kidney injury) Is this a current diagnosis for this admission?: Yes Summary: Because of the patient's acute kidney injury would appear to be dehydration/ vascular volume contraction, so the mainstay of therapy will be fluid replacement to normalize vascular volume and renal blood flow. Renal functions will be closely monitored throughout the hospital course. 03/10/2018: Patient's acute kidney injury has resolved with rehydration her renal functions are now back to her baseline status. (3) Acute left-sided thoracic back pain Is this a current diagnosis for this admission?: Yes Summary: This is an acute pain that the patient has noticed for the last day or so with certain movements. She attributes it to muscular pain due to activities involved in her moving. Patient will be given Toradol 30 mg x1 now and in light of her decreased renal function 50 mg IV every 6 hours for a total of no more than 12 doses. I will also provide patient with IV morphine 2-4 mg per sliding scale for breakthrough pain control. 03/10/2018: Patient's left sided thoracic pain has been well controlled with Toradol and little or no sliding scale morphine has been required. Therapy will be continued as currently ordered until her discharge. (4) DM I (diabetes mellitus, type I) Is this a current diagnosis for this admission?: Yes Summary: Upon resolution of the patient's diabetic ketoacidosis every effort will be made to resume her usual diabetic care. A hemoglobin A1c will be obtained to evaluate the patient's recent diabetic control. 03/10/2018: Patient's hemoglobin A1c was 11.1 reflecting relatively poor control on her current regimen as an outpatient. Continued glucose monitoring and routine before meals and at bedtime insulin plus basal insulin will be continued until such time as the patient's insulin pump is operable. (5) Hypothyroidism Is this a current diagnosis for this admission?: Yes Summary: Patient will be continued on her usual thyroid replacement medication during her hospital course. A thyroid profile will be obtained to evaluate the efficacy of her current therapy. 03/10/2018: Patient's thyroid profile shows a TSH of 411 with a significantly decreased free T3 and free T4. Patient's thyroid supplementation will be increased accordingly although I would strongly question the patient's compliance with taking her levothyroxine. This is somewhat confirmed by the fact that the patient admits that she is hypothyroid and admits that she is supposed to be taking levothyroxine however she does not have a current prescription for this drug. 03/11/2018: Patient was started on 100 mcg of levothyroxine yesterday and received another dose this morning. She will be discharged home today with a prescription for levothyroxine 100 mcg p.o. daily and should follow-up with her precision grinder external within a few weeks for reevaluation. (6) Hyperlipidemia Is this a current diagnosis for this admission?: Yes Summary: Patient will be continued on a diet appropriate for controlling hyperlipidemia. Any statin therapy that she may have prescribed will be continued once her med list has been verified. (7) Tobacco abuse Is this a current diagnosis for this admission?: Yes Summary: Patient is advised to discontinue use of tobacco products. Smoking cessation counseling is provided (brief 3-5 minutes). 03/10/2018: A nicotine patch will be available patient if she requires it for reduction in cigarette craving. (8) Bipolar 1 disorder Is this a current diagnosis for this admission?: Yes Summary: Patient will be continued on her usual medications for control of her bipolar 1 disorder as soon as she can tolerate taking oral medication and her home medications can be verified. This protocol will be continued throughout the remainder of her hospital course and after discharge. - Additional Information Resuscitation Status: Full Code Discharge Diet: Diabetic Discharge Activity: Activity As Tolerated, Walk Frequently Prescriptions: Insulin Aspart [Novolog Insulin (Aspart) 100 unit/mL] 50 units PUMP DAILY 20 Days #10 ml Home Medications: Alprazolam [Xanax 0.5 mg Tablet] 0.5 mg PO Q12HP PRN 03/09/18 Insulin Aspart [Novolog Insulin (Aspart) 100 unit/mL] 50 units PUMP DAILY 20 Days #10 ml 03/11/18 Levothyroxine Sodium 100 mcg PO DAILY 30 Days #30 tablet 03/11/18 History of Present Illness Patient complains of: Nausea and vomiting History of Present Illness: JEANINE OSORIO is a 33 year old female who presented to the emergency room with an 8-12-hour history of nausea, vomiting and near syncope. She admits that she is not insulin-dependent type 1 diabetic and has been out of her insulin for her insulin pump for about 3 days. She is moving and blames her ex-roommate for "packing all my shit up in a bunch of boxes, and just dumping boxes everywhere, so I cannot find a God damn thing!". She has been able to locate her insulin pump but she cannot locate her glucometer or strips and she is unable to locate her supply of insulin. She has additional insulin available at her usual pharmacy but she has not gone there to pick it up. She began to feel very nauseous last evening and then developed vomiting and after numerous episodes of vomiting she became very lightheaded and felt as though she might pass out. She called her mother and was trying to explain that she was out of her insulin and felt like she was very sick and knew her sugar was too high. While she was talking to her mother she passed out and her mother immediately arranged for her to be transported to the emergency room. Jeanine acknowledges that she had some mild to moderate abdominal cramping with the vomiting and she also had polyuria and polydipsia with mild polyphagia for the last day or 2. In the emergency room she was found to have a blood sugar greater than 1000, a venous pH of 7.2 and positive ketones in her urine. Her serum bicarbonate was 8.4. He was subsequently admitted to the intensive care unit for intravenous insulin infusion, intravenous bicarbonate infusion, electrolyte and fluid support as well as other supportive cares. Hospital Course Hospital Course: 03/10/2018: Jeanine shows dramatic improvement with complete resolution of her ketoacidosis and markedly improved control of her left chest wall pain. She is in much better spirits today and we have discussed downgrading her to medical floor patient with no monitoring in no IV fluids. She has been enjoying a diet and tolerating a 4 carb diet with fluids quite well. She is having no difficulty with elimination. She is essentially pain-free on today's exam and is looking forward to going home tomorrow if possible. 03/11/2018: Jeanine again shows excellent progress today, tolerating diet well, being up and active and feeling as though she would like to go home. Her blood sugar has stabilized reasonably well and therefore she will be allowed to be discharged home as she has located her insulin pump and cartridges such that she can resume use of her insulin pump at home as directed by her precision grinder external. Because of her excellent recovery she is discharged home in improved and stable condition. Physical Exam Vital Signs: Temp Pulse Resp BP Pulse Ox 97.7 F 61 16 125/76 100 03/11/18 14:33 03/11/18 14:33 03/11/18 14:33 03/11/18 14:33 03/11/18 14:33 Intake & Output 03/09/18 03/10/18 03/11/18 23:59 23:59 23:59 Intake Total 3079 2240 3364 Output Total 850 1000 Balance 2229 1240 3364 Weight 65.6 kg 72.3 kg General appearance: PRESENT: no acute distress, cooperative Head exam: PRESENT: atraumatic, normocephalic Eye exam: PRESENT: conjunctiva pink, EOMI Ear exam: PRESENT: normal external ear exam Mouth exam: PRESENT: neck supple Neck exam: ABSENT: tracheal deviation Respiratory exam: PRESENT: clear to auscultation dave, symmetrical, unlabored Cardiovascular exam: PRESENT: RRR. ABSENT: clicks, gallop, rubs Vascular exam: PRESENT: normal capillary refill. ABSENT: pallor Rectal exam: PRESENT: deferred Musculoskeletal exam: PRESENT: ambulatory, full ROM Neurological exam: PRESENT: alert, oriented to person, oriented to place, oriented to time, oriented to situation, CN II-XII grossly intact. ABSENT: motor sensory deficit Psychiatric exam: PRESENT: appropriate affect, normal mood Skin exam: PRESENT: dry, intact, warm Results Laboratory Results: 03/11/18 04:18 03/11/18 04:18 03/11/18 03/11/18 04:18 04:18 WBC 8.0 RBC 3.33 L Hgb 11.4 L Hct 32.0 L MCV 96 MCH 34.1 H MCHC 35.4 RDW 14.1 H Plt Count 229 Seg Neutrophils % 49.9 Lymphocytes % 43.6 Monocytes % 4.4 Eosinophils % 1.3 Basophils % 0.8 Absolute Neutrophils 4.0 Absolute Lymphocytes 3.5 Absolute Monocytes 0.4 Absolute Eosinophils 0.1 Absolute Basophils 0.1 Sodium 139.0 Potassium 3.6 D Chloride 103 Carbon Dioxide 30 Anion Gap 6 BUN 22 H Creatinine 1.34 H Est GFR ( Amer) 55 L Est GFR (Non-Af Amer) 46 L Glucose 141 H Calcium 7.7 L Magnesium 1.9 Qualifiers - * PATIENT BEING DISCHARGED WITH ANY OF THE FOLLOWING DIAGNOSIS: No Plan Discharge Plan: Discharged home in improved and stable condition Time Spent: Greater than 30 Minutes
== END 2018-03-11 14:47 | disposition home or self-care (01) | DRG 638 ==
LOC: ER 07:37 → EH 09:56 → ICU 11:08 → 2N 03-11 04:50
PROVIDERS: ADMIT Emergency Medicine; ATTEND Emergency Medicine
DX: E10.10 Type 1 diabetes mellitus with ketoacidosis without coma (principal); N17.9 Acute kidney failure, unspecified; E87.1 Hypo-osmolality and hyponatremia; E86.0 Dehydration; E03.9 Hypothyroidism, unspecified; T38.3X6A Underdosing of insulin and oral hypoglycemic [antidiabetic] drugs, initial encounter; Z91.138 Patient's unintentional underdosing of medication regimen for other reason; E78.5 Hyperlipidemia, unspecified; K21.9 Gastro-esophageal reflux disease without esophagitis; F31.9 Bipolar disorder, unspecified; F43.10 Post-traumatic stress disorder, unspecified; M54.6 Pain in thoracic spine; F17.210 Nicotine dependence, cigarettes, uncomplicated; Z79.4 Long term (current) use of insulin; Z82.5 Family history of asthma and other chronic lower respiratory diseases; Z96.41 Presence of insulin pump (external) (internal); Z83.3 Family history of diabetes mellitus; Z80.9 Family history of malignant neoplasm, unspecified; Z88.0 Allergy status to penicillin; Z88.6 Allergy status to analgesic agent; Z88.5 Allergy status to narcotic agent; Z88.2 Allergy status to sulfonamides; Z88.8 Allergy status to other drugs, medicaments and biological substances; Z91.018 Allergy to other foods
CPT/HCPCS: 36415; 80048; 80053; 81001; 82150; 82803; 82962; 83036; 83690; 83735; 84439; 84443; 84450; 84460; 84481; 85025; 93005; 93010; 96361; 96374; 99291; J1815; J1885; J2405; J2765; J3480; J3490; J7030; J7060; S0164

== ENCOUNTER 2018-03-28 09:57 | Emergency (ER) | payer MEDICARE, MEDICAID ==
[2018-03-28] MEDS ORDERED: NORMAL SALINE 1000 ML 1,000 ML IV PRN (10:18)
[2018-03-28] MEDS ORDERED: NORMAL SALINE 1000 ML 1,000 ML IV ONE (10:20)
--- NOTE | 2018-03-28 10:24 | ER Document Report ---
ED Medical Screen (RME) - General Chief Complaint: Leg Swelling Stated Complaint: HIGH SUGAR Time Seen by Provider: 03/28/18 10:18 Mode of Arrival: Ambulatory Information source: Patient Notes: 33-year-old female presented to ED for complaint of bilateral pedal and lower extremity edema for 2 weeks. She states she was in the emergency room and then ICU for DKA about 2 weeks ago and her legs have been swollen since then. She states on her Accu-Chek meter this morning it goes up to 600 and now it states high and will not read in number. She is a type I diabetic. She states she is mostly here because her legs are continuing to swell. Patient has 1+ pitting edema bilaterally. Respirations regular and unlabored, walks with a even steady gait. Patient is alert and oriented. Patient states she does not drink alcohol she does smoke half pack a day and smokes marijuana. I have greeted and performed a rapid initial assessment of this patient. A comprehensive ED assessment and evaluation of the patient, analysis of test results and completion of medical decision making process will be conducted by an additional ED providers. TRAVEL OUTSIDE OF THE [place] IN LAST 30 DAYS: No - Related Data Allergies/Adverse Reactions: mushroom Allergy (Severe, Verified 03/28/18 10:01) Anaphylaxis alcohol [Alcohol] Allergy (Unknown, Verified 03/28/18 10:01) Hives gabapentin Allergy (Unknown, Verified 03/28/18 10:01) Hives morphine [Morphine] Allergy (Unknown, Verified 03/28/18 10:01) Penicillins Allergy (Unknown, Verified 03/28/18 10:01) Sulfa (Sulfonamide Antibiotics) Allergy (Unknown, Verified 03/28/18 10:01) adhesive [Adhesive] Allergy (Verified 03/28/18 10:01) chlorpromazine [From Thorazine] Allergy (Verified 03/28/18 10:01) tomato [Tomato] Adverse Reaction (Severe, Verified 03/28/18 10:01) Anaphylaxis Past Medical History - Social History Chew tobacco use (# tins/day): No Frequency of alcohol use: None Drug Abuse: Marijuana - Past Medical History Cardiac Medical History: Reports: Hx Hypercholesterolemia Denies: Hx Coronary Artery Disease, Hx DVT, Hx Heart Attack, Hx Pulmonary Embolism Pulmonary Medical History: Reports: Hx Asthma Denies: Hx COPD, Hx Tuberculosis Neurological Medical History: 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 Denies: Hx Crohn's Disease, Hx Hiatal Hernia, Hx Ulcer, Hx Ulcerative Colitis Musculoskeltal Medical History: Denies Hx Arthritis, Denies Hx Gout, Reports Hx Musculoskeletal Deformity, Reports Hx Musculoskeletal Trauma Skin Medical History: Denies Hx Eczema, Denies Hx Psoriasis Psychiatric Medical History: Reports: Hx Anxiety, Hx Bipolar Disorder, Hx Depression, Hx Post Traumatic Stress Disorder Traumatic Medical History: Reports: Hx Fractures - Wrist hand and toe Past Surgical History: Reports: Hx Oral Surgery - wisdom teeth, Hx Orthopedic Surgery - Ankle surgery, Other - [place] teeth excisions bilaterally, bilateral ingrown toenail removals. Denies: Hx Mastectomy, Hx Open Heart Surgery - Immunizations Hx Diphtheria, Pertussis, Tetanus Vaccination: Yes History of Influenza Vaccine for 01/2017 - 06/2017 Season: Yes Influenza Administration Date for 01/2017 - 06/2017 Season: 03/10/17 Physical Exam - Vital signs Vitals: Temp Pulse Resp BP Pulse Ox 97.8 F 69 18 122/83 99 03/28/18 10:02 03/28/18 10:02 03/28/18 10:02 03/28/18 10:02 03/28/18 10:02 Course - Vital Signs Vital signs: Temp Pulse Resp BP Pulse Ox 97.8 F 69 18 122/83 99 03/28/18 10:02 03/28/18 10:02 03/28/18 10:02 03/28/18 10:02 03/28/18 10:02 Doctor's Discharge - Discharge Referrals: LAWSON HUDSON, [Primary Care Provider] - Follow up as needed
[2018-03-28 11:46] LABS: ABSOLUTE EOSINOPHILS # (AUTO) 0.1 10^3/uL (0.0-0.6); ABSOLUTE LYMPHOCYTES (AUTO) 1.9 10^3/uL (0.5-4.7); ABSOLUTE MONOCYTES (AUTO) 0.3 10^3/uL (0.1-1.4); ABSOLUTE NEUT (AUTO) 4.5 10^3/uL (1.7-8.2); BASOPHILS % (AUTO) 0.7 % (0-2); EOSINOPHILS % (AUTO) 1.5 % (0-6); HEMATOCRIT 33.8 % (36.0-47.0); HEMOGLOBIN 11.6 g/dL (12.0-15.5); LYMPHOCYTES % (AUTO) 27.5 % (13-45); MEAN CORPUSCULAR HEMOGLOBIN 34.3 pg (27.0-33.4); MEAN CORPUSCULAR HGB CONC 34.4 g/dL (32.0-36.0); MONOCYTES % (AUTO) 4.9 % (3-13); PLATELET COUNT 387 10^3/uL (150-450); RED BLOOD COUNT 3.39 10^6/uL (3.72-5.28); RED CELL DISTRIBUTION WIDTH 13.8 % (11.5-14.0); SEGMENTED NEUTROPHILS % (AUTO) 65.4 % (42-78); TOTAL CELLS COUNTED % (AUTO) 100 %; WHITE BLOOD COUNT 6.9 10^3/uL (4.0-10.5)
[2018-03-28 12:00] LABS: MEAN CORPUSCULAR VOLUME 100 fl (80-97)
[2018-03-28 12:08] LABS: ALANINE AMINOTRANSFERASE 48 U/L (9-52); ALKALINE PHOSPHATASE 109 U/L (38-126); ANION GAP 14 (5-19); ASPARTATE AMINO TRANSFERASE 33 U/L (14-36); BILIRUBIN,DIRECT 0.5 mg/dL (0.0-0.4); BILIRUBIN,TOTAL 0.8 mg/dL (0.2-1.3); BLOOD UREA NITROGEN 22 mg/dL (7-20); CALCIUM 9.3 mg/dL (8.4-10.2); CARBON DIOXIDE 26 mmol/L (22-30); CHLORIDE 96 mmol/L (98-107); POTASSIUM 4.4 mmol/L (3.6-5.0); SODIUM 136.2 mmol/L (137-145)
[2018-03-28] MEDS ORDERED: ONDANSETRON HCL INJ/PF 4 MG/2 ML SDV IV ONE (12:17)
[2018-03-28] MEDS ORDERED: HYDROMORPHONE HCL INJ/PF 2 MG/ML AMPULE IV ONE (12:18)
[2018-03-28 12:38] LABS: GLUCOSE 622 mg/dL (75-110)
[2018-03-28 12:57] LABS: VENOUS BLOOD BASE EXCESS 1.2 mmol/L; VENOUS BLOOD HCO3 27.2 mmol/L (20-32); VENOUS BLOOD PCO2 50.6 mmHg (35-63); VENOUS BLOOD PH 7.35 (7.30-7.42)
[2018-03-28] MEDS ORDERED: INSULIN REG, HUMAN 100 UNIT/ML 3 ML VIAL (PYX) IV ONE ×2 (13:02→13:17)
[2018-03-28] MEDS ORDERED: FUROSEMIDE INJ/PF 20 MG/2 ML SDV IV ONE (13:03)
--- NOTE | 2018-03-28 13:35 | ER Document Report ---
ED General - General Chief Complaint: Leg Swelling Stated Complaint: HIGH SUGAR Time Seen by Provider: 03/28/18 10:18 Mode of Arrival: Ambulatory Notes: Patient is a 33-year-old female with type 1 diabetes mellitus on insulin pump that presents to the emergency department for chief complaint of leg swelling and pain, and high blood sugar. Patient states that her blood sugars have been running "high" on her meter at home, she states she has been sick with upper respiratory tract infection, with coughing and runny nose, and her sugars typically run high with this, which is more concerned about her her right and l eft lower extremity swelling, that has been present since her previous admission 2 weeks ago, where she was treated for DKA, with significant amounts of IV fluid. She currently rates her pain as a 9 out of 10, describes as a constant aching sensation, in the lower extremities, she is noticed some blistering associated as well. Past Medical History: Diabetes mellitus type 1, hypothyroidism, GERD, arthritis, PTSD, depression, anxiety Past Surgical History: Ankle surgery, wisdom tooth extraction Social History: Admits to smoking cigarettes daily, denies alcohol or illicit drug use. Family History: Reviewed and noncontributory for presenting illness Allergies: Reviewed, see documented allergy list. REVIEW OF SYSTEMS: Other than noted above, the 12 point review of systems was reviewed with the patient and were negative, all pertinent findings are included in the HPI. PHYSICAL EXAMINATION: Vital signs reviewed, nursing noted reviewed. GENERAL: Well-appearing, well-nourished and in no acute distress. HEAD: Atraumatic, normocephalic. EYES: Eyes appear normal, extraocular movements intact, sclera anicteric, conjunctiva are normal. ENT: nares patent, oropharynx clear without exudates. Moist mucous membranes. NECK: Normal range of motion, supple without lymphadenopathy LUNGS: Breath sounds clear to auscultation bilaterally and equal. No wheezes rales or rhonchi. HEART: Regular rate and rhythm without murmurs ABDOMEN: Soft, nontender, normoactive bowel sounds. No rebound, guarding, or rigidity. No masses appreciated. EXTREMITIES: Nontender, good range of motion, bilateral 1+ pitting edema to the proximal tibias in the lower extremities, equal, no erythema or calf tenderness, there is a few small blistering areas, with serous drainage, without erythema or evidence of infection. NEUROLOGICAL: No focal neurological deficits. Moves all extremities spontaneously Motor and sensory grossly intact on exam. PSYCH: Mildly agitated, normal affect. SKIN: Warm, Dry, normal turgor, no rashes or lesions noted on exposed skin TRAVEL OUTSIDE OF THE [place] IN LAST 30 DAYS: No - Related Data Allergies/Adverse Reactions: mushroom Allergy (Severe, Verified 03/28/18 10:01) Anaphylaxis alcohol [Alcohol] Allergy (Unknown, Verified 03/28/18 10:01) Hives gabapentin Allergy (Unknown, Verified 03/28/18 10:01) Hives morphine [Morphine] Allergy (Unknown, Verified 03/28/18 10:01) Penicillins Allergy (Unknown, Verified 03/28/18 10:01) Sulfa (Sulfonamide Antibiotics) Allergy (Unknown, Verified 03/28/18 10:01) adhesive [Adhesive] Allergy (Verified 03/28/18 10:01) chlorpromazine [From Thorazine] Allergy (Verified 03/28/18 10:01) tomato [Tomato] Adverse Reaction (Severe, Verified 03/28/18 10:01) Anaphylaxis Past Medical History - General Information source: Patient - Social History Smoking Status: Current Every Day Smoker Chew tobacco use (# tins/day): No Frequency of alcohol use: None Drug Abuse: Marijuana Family History: Arthritis, DM, Malignancy, Thyroid Disfunction Patient has suicidal ideation: No Patient has homicidal ideation: No - Past Medical History Cardiac Medical History: Reports: Hx Hypercholesterolemia Denies: Hx Coronary Artery Disease, Hx DVT, Hx Heart Attack, Hx Pulmonary Embolism Pulmonary Medical History: Reports: Hx Asthma Denies: Hx COPD, Hx Tuberculosis Neurological Medical History: 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 Denies: Hx Crohn's Disease, Hx Hiatal Hernia, Hx Ulcer, Hx Ulcerative Colitis Musculoskeletal Medical History: Denies Hx Arthritis, Denies Hx Gout, Reports Hx Musculoskeletal Deformity, Reports Hx Musculoskeletal Trauma Skin Medical History: Denies Hx Eczema, Denies Hx Psoriasis Psychiatric Medical History: Reports: Hx Anxiety, Hx Bipolar Disorder, Hx Depression, Hx Post Traumatic Stress Disorder Traumatic Medical History: Reports: Hx Fractures - Wrist hand and toe Past Surgical History: Reports: Hx Oral Surgery - wisdom teeth, Hx Orthopedic Gtz rgery - Ankle surgery, Other - [place] teeth excisions bilaterally, bilateral ingrown toenail removals. Denies: Hx Mastectomy, Hx Open Heart Surgery - Immunizations Hx Diphtheria, Pertussis, Tetanus Vaccination: Yes Hx Pneumococcal Vaccination: 03/10/13 Physical Exam - Vital signs Vitals: Temp Pulse Resp BP Pulse Ox 97.8 F 69 18 122/83 99 03/28/18 10:02 03/28/18 10:02 03/28/18 10:02 03/28/18 10:02 03/28/18 10:02 Course - Re-evaluation Re-evalutation: Patient seen and examined vital signs reviewed. Laboratory data and imaging were ordered as appropriate for the patient's presenting symptoms and complaint, with consideration of any critical or life threatening conditions that may be associated with their obtained history and exam as noted above. Patient was treated with IV fluid bolus, was ordered by initial provider, and then she was actually given IV Lasix 10 mg, for her peripheral edema, her blood glucose initially on the serum was over 600, patient did administer herself 9 units of insulin prior to ED arrival, her Accu-Chek was repeated, and was just over 400, we gave 10 units of additional IV regular insulin. Patient was monitored after insulin administration, and remained stable, her blood work did not demonstrate metabolic acidosis, normal anion gap, no evidence of DKA. Evaluation was most consistent with severe hyperglycemia, peripheral edema, patient was advised to consult her director of neighborhood service center regarding her pump settings, given that she has been having high readings at home, she is advised to use compression stockings, to elevate her legs as much as possible to promote removal of the fluid. Results were discussed with the patient at this point, after careful consideration I feel that that patient can be discharged from the emergency department, the patient was educated treatments and reasons to return to the emergency department based on their presumed diagnosis as noted above, they were advised to followup with a primary care physician in 2-3 days. Patient was agreeable to plan of care. *Note is created using voice recognition software and may contain spelling, syntax or grammatical errors. Laboratory 03/28/18 03/28/18 03/28/18 11:26 11:26 12:37 WBC 6.9 RBC 3.39 L Hgb 11.6 L Hct 33.8 L MCV 100 H D MCH 34.3 H MCHC 34.4 RDW 13.8 Plt Count 387 Seg Neutrophils % 65.4 Lymphocytes % 27.5 Monocytes % 4.9 Eosinophils % 1.5 Basophils % 0.7 Absolute Neutrophils 4.5 Absolute Lymphocytes 1.9 Absolute Monocytes 0.3 Absolute Eosinophils 0.1 Absolute Basophils 0.0 VBG pH 7.35 VBG pCO2 50.6 VBG HCO3 27.2 VBG Base Excess 1.2 Sodium 136.2 L Potassium 4.4 Chloride 96 L Carbon Dioxide 26 Anion Gap 14 BUN 22 H Creatinine 1.09 Est GFR ( Amer) > 60 Est GFR (Non-Af Amer) 58 L Glucose 622 H* POC Glucose Calcium 9.3 Total Bilirubin 0.8 Direct Bilirubin 0.5 H Neonat Total Bilirubin Not Reportable Neonat Direct Bilirubin Not Reportable Neonat Indirect Bili Not Reportable AST 33 ALT 48 Alkaline Phosphatase 109 Total Protein 7.0 Albumin 4.0 Urine Color Urine Appearance Urine pH Ur Specific [place] Urine Protein Urine Glucose (UA) Urine Ketones Urine Blood Urine Nitrite Urine Bilirubin Urine Urobilinogen Ur Leukocyte Esterase Urine WBC (Auto) Urine RBC (Auto) Squamous Epi Cells Auto Urine Mucus (Auto) Urine Ascorbic Acid 03/28/18 03/28/18 12:37 13:11 WBC RBC Hgb Hct MCV MCH MCHC RDW Plt Count Seg Neutrophils % Lymphocytes % Monocytes % Eosinophils % Basophils % Absolute Neutrophils Absolute Lymphocytes Absolute Monocytes Absolute Eosinophils Absolute Basophils VBG pH VBG pCO2 VBG HCO3 VBG Base Excess Sodium Potassium Chloride Carbon Dioxide Anion Gap BUN Creatinine Est GFR ( Amer) Est GFR (Non-Af Amer) Glucose POC Glucose 438 H* Calcium Total Bilirubin Direct Bilirubin Neonat Total Bilirubin Neonat Direct Bilirubin Neonat Indirect Bili AST ALT Alkaline Phosphatase Total Protein Albumin Urine Color STRAW Urine Appearance CLEAR Urine pH 6.0 Ur Specific [place] 1.025 Urine Protein 100 H Urine Glucose (UA) >=500 H Urine Ketones 20 H Urine Blood SMALL H Urine Nitrite NEGATIVE Urine Bilirubin NEGATIVE Urine Urobilinogen NEGATIVE Ur Leukocyte Esterase NEGATIVE Urine WBC (Auto) 1 Urine RBC (Auto) 1 Squamous Epi Cells Auto 1 Urine Mucus (Auto) RARE Urine Ascorbic Acid NEGATIVE - Vital Signs Vital signs: Temp Pulse Resp BP Pulse Ox 97.5 F 63 16 131/79 H 98 03/28/18 14:32 03/28/18 14:32 12/19/18 14:32 03/28/18 14:32 03/28/18 14:32 - Laboratory Result Diagrams: 03/28/18 11:26 03/28/18 11:26 Laboratory results interpreted by me: 03/28/18 03/28/18 03/28/18 11:26 11:26 12:37 RBC 3.39 L Hgb 11.6 L Hct 33.8 L MCV 100 H D MCH 34.3 H Sodium 136.2 L Chloride 96 L BUN 22 H Est GFR (Non-Af Amer) 58 L Glucose 622 H* POC Glucose Direct Bilirubin 0.5 H Urine Protein 100 H Urine Glucose (UA) >=500 H Urine Ketones 20 H Urine Blood SMALL H 03/28/18 13:11 RBC Hgb Hct MCV MCH Sodium Chloride BUN Est GFR (Non-Af Amer) Glucose POC Glucose 438 H* Direct Bilirubin Urine Protein Urine Glucose (UA) Urine Ketones Urine Blood Discharge - Discharge Clinical Impression: Hyperglycemia, Peripheral edema, Hyponatremia Condition: Stable Disposition: HOME, SELF-CARE Instructions: Edema, Peripheral ([facility]), Hyperglycemia ([facility]) Additional Instructions: Please call your director of neighborhood service center, today to discuss your basal rate of insulin, as you are very hyperglycemic, and this needs to be adjusted, please monitor for worsening symptoms such as nausea, vomiting or chest pain, keep your legs elevated as much as possible to help with the swelling, you can also use JOSE ho se stockings that can be purchased at any pharmacy. Forms: Return to Work Referrals: LAWSON HUDSON DO [Primary Care Provider] - Follow up in 3-5 days
[2018-03-28 13:52] LABS: APPEARANCE,URINE CLEAR; BILIRUBIN,URINE NEGATIVE (NEGATIVE); COLOR,URINE STRAW; GLUCOSE, URINE >=500 mg/dL (NEGATIVE); KETONES,URINE 20 mg/dL (NEGATIVE); LEUKOCYTE ESTERASE,URINE NEGATIVE (NEGATIVE); NITRITE,URINE NEGATIVE (NEGATIVE); PROTEIN,URINE 100 mg/dL (NEGATIVE); URINE SPECIFIC GRAVITY 1.025; UROBILINOGEN,URINE NEGATIVE mg/dL (<2.0)
[2018-03-28 14:36] VITALS: BP 131/79
== END 2018-03-28 14:40 | disposition home or self-care (01) ==
LOC: ER 09:57
DX: E10.65 Type 1 diabetes mellitus with hyperglycemia (principal); Z96.41 Presence of insulin pump (external) (internal); R60.0 Localized edema; M79.604 Pain in right leg; M79.605 Pain in left leg; E87.1 Hypo-osmolality and hyponatremia; R05 Cough; R09.89 Other specified symptoms and signs involving the circulatory and respiratory systems; F12.10 Cannabis abuse, uncomplicated; J45.909 Unspecified asthma, uncomplicated; F17.210 Nicotine dependence, cigarettes, uncomplicated; Z88.6 Allergy status to analgesic agent; Z88.5 Allergy status to narcotic agent; Z88.0 Allergy status to penicillin; Z88.2 Allergy status to sulfonamides; Z91.048 Other nonmedicinal substance allergy status; Z88.8 Allergy status to other drugs, medicaments and biological substances; Z87.892 Personal history of anaphylaxis; Z91.018 Allergy to other foods
CPT/HCPCS: 99283; 96361; 96374; 96375; 36415; 82962; 85025; 80053; 81001; 82803; J1940; J1170; A9270; J2405; J7030; J1815

== ENCOUNTER 2018-04-11 18:34 | Emergency (ER) | payer MEDICARE, MEDICAID ==
[2018-04-11 19:00] VITALS: BP 130/75
== END 2018-04-11 21:06 | disposition left against medical advice (07) ==
LOC: ER 18:34
DX: Z53.21 Procedure and treatment not carried out due to patient leaving prior to being seen by health care provider (principal); J02.9 Acute pharyngitis, unspecified

== ENCOUNTER 2018-05-13 00:47 | Emergency (ER) | payer MEDICARE, MEDICAID ==
[2018-05-13] MEDS ORDERED: RINGERS SOLUTION,LACTATED 1,000 ML IV ONE ×2 (01:02→02:23)
[2018-05-13 01:39] LABS: HEMATOCRIT 37.4 % (36.0-47.0); HEMOGLOBIN 12.4 g/dL (12.0-15.5); MEAN CORPUSCULAR HGB CONC 33.1 g/dL (32.0-36.0); MEAN CORPUSCULAR VOLUME 100 fl (80-97); PLATELET COUNT 285 10^3/uL (150-450); RED BLOOD COUNT 3.76 10^6/uL (3.72-5.28); RED CELL DISTRIBUTION WIDTH 13.3 % (11.5-14.0); WHITE BLOOD COUNT 10.4 10^3/uL (4.0-10.5)
[2018-05-13 01:46] LABS: APPEARANCE,URINE CLEAR; BILIRUBIN,URINE NEGATIVE (NEGATIVE); COLOR,URINE YELLOW; GLUCOSE, URINE >=500 mg/dL (NEGATIVE); KETONES,URINE 20 mg/dL (NEGATIVE); LEUKOCYTE ESTERASE,URINE NEGATIVE (NEGATIVE); NITRITE,URINE NEGATIVE (NEGATIVE); PROTEIN,URINE 30 mg/dL (NEGATIVE); UROBILINOGEN,URINE NEGATIVE mg/dL (<2.0)
[2018-05-13 01:57] LABS: VENOUS BLOOD BASE EXCESS -7.6 mmol/L; VENOUS BLOOD HCO3 19.9 mmol/L (20-32); VENOUS BLOOD PCO2 48.3 mmHg (35-63); VENOUS BLOOD PH 7.23 (7.30-7.42)
[2018-05-13 02:06] LABS: ALANINE AMINOTRANSFERASE 71 U/L (9-52); ALBUMIN 4.5 g/dL (3.5-5.0); ALKALINE PHOSPHATASE 96 U/L (38-126); ANION GAP 19 (5-19); ASPARTATE AMINO TRANSFERASE 57 U/L (14-36); BILIRUBIN,DIRECT 0.5 mg/dL (0.0-0.4); BILIRUBIN,TOTAL 0.9 mg/dL (0.2-1.3); BLOOD UREA NITROGEN 37 mg/dL (7-20); CALCIUM 10.2 mg/dL (8.4-10.2); CARBON DIOXIDE 19 mmol/L (22-30); CHLORIDE 99 mmol/L (98-107); POTASSIUM 5.6 mmol/L (3.6-5.0); TOTAL PROTEIN 7.2 g/dL (6.3-8.2)
[2018-05-13 02:15] LABS: GLUCOSE 634 mg/dL (75-110)
[2018-05-13] MEDS ORDERED: INSULIN REG, HUMAN 100 UNIT/ML 3 ML VIAL (PYX) IV ONE (02:23)
[2018-05-13] MEDS ORDERED: ASPIRIN 81 MG TABLET, CHEWABLE PO ONE (02:32)
[2018-05-13] MEDS ORDERED: NORMAL SALINE 1000 ML 1,000 ML IV ONE (02:36)
--- NOTE | 2018-05-13 02:38 | ER Document Report ---
ED General - General Chief Complaint: High Blood Sugar Stated Complaint: CHEST PAIN Time Seen by Provider: 05/13/18 01:01 Primary Care Provider: LAWSON HUDSON DO [Primary Care Provider] - Follow up as needed Notes: Patient is a 33-year-old female with a past medical history of insulin-dependent type 1 diabetes with poor control who presents with chest pain and hyperglycemia. Patient reports that she has had 4-5 hours of a pressure-like sensation of her left chest without radiation. Notes associated nausea. Denies history of similar chest pain in the past. No known cardiac history. Nothing improves or worsens that pain. She also reports that her blood sugars have been out of control reading high on her glucometer. She has been taking her medications as directed. She has not seen her primary care doctor regarding today's concerns. Reports a history of similar symptoms in the past of diabetic ketoacidosis. TRAVEL OUTSIDE OF THE [place] IN LAST 30 DAYS: No - Related Data Allergies/Adverse Reactions: mushroom Allergy (Severe, Verified 05/13/18 01:02) Anaphylaxis alcohol [Alcohol] Allergy (Unknown, Verified 05/13/18 01:02) Hives gabapentin Allergy (Unknown, Verified 05/13/18 01:02) Hives morphine [Morphine] Allergy (Unknown, Verified 05/13/18 01:02) Penicillins Allergy (Unknown, Verified 05/13/18 01:02) Sulfa (Sulfonamide Antibiotics) Allergy (Unknown, Verified 05/13/18 01:02) adhesive [Adhesive] Allergy (Verified 05/13/18 01:02) chlorpromazine [From Thorazine] Allergy (Verified 05/13/18 01:02) tomato [Tomato] Adverse Reaction (Severe, Verified 05/13/18 01:02) Anaphylaxis Past Medical History - General Information source: Patient - Social History Smoking Status: Current Every Day Smoker Frequency of alcohol use: None Drug Abuse: Marijuana Lives with: Spouse/Significant other Family History: Arthritis, DM, Malignancy, Thyroid Disfunction Patient has suicidal ideation: No Patient has homicidal ideation: No - Past Medical History Cardiac Medical History: Reports: Hx Hypercholesterolemia Denies: Hx Coronary Artery Disease, Hx DVT, Hx Heart Attack, Hx Pulmonary Embolism Pulmonary Medical History: Reports: Hx Asthma Denies: Hx COPD, Hx Tuberculosis Neurological Medical History: 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 Denies: Hx Cr ohn's Disease, Hx Hiatal Hernia, Hx Ulcer, Hx Ulcerative Colitis Musculoskeletal Medical History: Denies Hx Arthritis, Denies Hx Gout, Reports Hx Musculoskeletal Deformity, Reports Hx Musculoskeletal Trauma Skin Medical History: Denies Hx Eczema, Denies Hx Psoriasis Psychiatric Medical History: Reports: Hx Anxiety, Hx Bipolar Disorder, Hx Depression, Hx Post Traumatic Stress Disorder Traumatic Medical History: Reports: Hx Fractures - Wrist hand and toe Past Surgical History: Reports: Hx Oral Surgery - wisdom teeth, Hx Orthopedic Surgery, Other - [place] teeth excisions bilaterally, bilateral ingrown toenail removals. Denies: Hx Mastectomy, Hx Open Heart Surgery - Immunizations Hx Diphtheria, Pertussis, Tetanus Vaccination: Yes Hx Pneumococcal Vaccination: 03/10/13 Review of Systems - Review of Systems Notes: Constitutional: Negative for fever. Positive for lightheadedness and weakness HENT: Negative for sore throat. Eyes: Negative for visual changes. Cardiovascular: Positive for chest pain. Respiratory: Negative for shortness of breath. Gastrointestinal: Negative for abdominal pain, positive for nausea Genitourinary: Negative for dysuria. Musculoskeletal: Negative for back pain. Skin: Negative for rash. Neurological: Negative for headaches, weakness or numbness. 10 point ROS negative except as marked above and in HPI. Physical Exam - Vital signs Vitals: Pulse 102 H 05/13/18 00:47 Interpretation: Tachycardic Notes: PHYSICAL EXAMINATION: GENERAL: Appears moderately unwell but in no acute distress HEAD: Atraumatic, normocephalic. EYES: Pupils equal round and reactive to light, extraocular movements intact, sclera anicteric, conjunctiva are normal. ENT: nares patent, oropharynx clear without exudates. Moderately dry mucous membranes. NECK: Normal range of motion, supple without lymphadenopathy LUNGS: Breath sounds clear to auscultation bilaterally and equal. No wheezes ra les or rhonchi. HEART: Regular tachycardia without murmurs ABDOMEN: Soft, nontender, normoactive bowel sounds. No guarding, no rebound. No masses appreciated. EXTREMITIES: Normal range of motion, no pitting or edema. No cyanosis. NEUROLOGICAL: No focal neurological deficits. Moves all extremities spontaneously and on command. PSYCH: Normal mood, normal affect. SKIN: Warm, Dry, normal turgor, no rashes or lesions noted. Course - Re-evaluation Re-evalutation: 05/13/18 02:20 Patient presents with complaints of chest pain as well as hyperglycemia. Patient is moderately ill in appearance but no overt distress. Initial EKG without ST changes. Patient's blood work does unfortunately show elevated troponin at 0.236 worrisome for an NSTEMI. Patient has been seen repeatedly in the context of DKA and has never had an elevated in that context in the past. Patient is also unfortunately diabetic ketoacidosis. PH is 7.23, elevated glucose at 634. Ketones noted in the urine. Decreased bicarb and elevated anion gap present. Patient has been started on insulin infusion at 0.14 units/kg/h. Patient is receiving 2 L of lactated Ringer's wide open. Potassium is at 5.6, no immediate potassium repletion indicated. Patient has been started on aspirin and enoxaparin for NSTEMI. Does continue to have some chest pain and a repeat troponin is pending. I contacted [facility] as patient will potentially require cardiac catheterization we do not this capacity at this facility. Patient is in guarded condition, will continue be reassessed at regular intervals. 05/13/18 03:00 Hemodynamic remain unchanged. Patient continues to appear somewhat unwell but in no acute distress. [facility], [place]. Insulin infusion, IV fluids ongoing. Patient has received Lovenox. Chest pain improved. 05/13/18 03:33 Case has been discussed with Dr. Ross. She has accepted the patient for transfer. Will continue to reassess and follow labs. 05/13/18 04:01 Repeat labs are pending. I have updated the patient on care plan and she is in agreement. I have reviewed the case with Dr. Childs who will watch the patient until transport arrives. - Vital Signs Vital signs: Temp Pulse Resp BP Pulse Ox 98.4 F 102 H 21 H 126/93 H 99 05/13/18 03:52 05/13/18 00:47 05/13/18 03:52 05/13/18 03:52 05/13/18 03:52 - Laboratory Result Diagrams: 05/13/18 01:25 05/13/18 01:25 Laboratory results interpreted by me: 05/13/18 05/13/18 05/13/18 01:25 01:25 01:25 MCV 100 H VBG pH 7.23 L VBG HCO3 19.9 L Potassium 5.6 H Carbon Dioxide 19 L BUN 37 H Creatinine 1.27 H Est GFR ( Amer) 59 L Est GFR (Non-Af Amer) 49 L Glucose 634 H* Direct Bilirubin 0.5 H AST 57 H ALT 71 H Urine Protein Urine Glucose (UA) Urine Ketones Urine Blood 05/13/18 01:25 MCV VBG pH VBG HCO3 Potassium Carbon Dioxide BUN Creatinine Est GFR ( Amer) Est GFR (Non-Af Amer) Glucose Direct Bilirubin AST ALT Urine Protein 30 H Urine Glucose (UA) >=500 H Urine Ketones 20 H Urine Blood SMALL H - Diagnostic Test Radiology reviewed: Image reviewed, Reports reviewed Radiology results interpreted by me: 05/13/18 03:26 Chest x-ray: No acute infiltrate or pneumothorax - EKG Interpretation by Me Additional EKG results interpreted by me: 05/13/18 04:01 Sinus rhythm, rate 96. No ST elevations or depressions. QTC 435. Critical Care Note - Critical Care Note Total time excluding time spent on procedures (mins): 40 Comments: Critical care time spent obtaining history from patient or surrogate, discussions with consultants, development of treatment plan with patient or surrogate, evaluation of patient's response to treatment, examination of patient, ordering and performing treatments and interventions, ordering and review of laboratory studies, re-evaluation of patient's condition, ordering and review of radiographic studies and review of old charts Discharge - Discharge Clinical Impression: Hyperglycemia due to type 1 diabetes mellitus, NSTEMI (non-ST elevated myocardial infarction) Diabetic ketoacidosis Qualifiers: Diabetes mellitus type: type 1 Diabetes mellitus complication detail: without coma Qualified Code(s): E10.10 - Type 1 diabetes mellitus with ketoacidosis without coma Condition: Fair Disposition: [facility] Referrals: LAWSON HUDSON DO [Primary Care Provider] - Follow up as needed
--- NOTE | 2018-05-13 02:41 | RADIOLOGY REPORT (SQ) ---
CLINICAL HISTORY: cp COMPARISON: None. 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 Lungs are clear without consolidation, atelectasis, mass or edema. There is no pleural effusion. There is no pneumothorax. There are no acute osseous findings. IMPRESSION: Clear lungs.
[2018-05-13] MEDS ORDERED: ENOXAPARIN SODIUM INJ 60 MG/0.6 ML DISP.SYRIN SUBCUT SCH ×2 (02:45→03:00)
[2018-05-13 03:55] LABS: ANION GAP 16 (5-19); BLOOD UREA NITROGEN 35 mg/dL (7-20); CALCIUM 10.2 mg/dL (8.4-10.2); CARBON DIOXIDE 22 mmol/L (22-30); CHLORIDE 102 mmol/L (98-107); POTASSIUM 4.7 mmol/L (3.6-5.0); SODIUM 140.2 mmol/L (137-145)
[2018-05-13 04:05] LABS: GLUCOSE 541 mg/dL (75-110)
[2018-05-13] MEDS ORDERED: NITROGLYCERIN 2% OINTMENT 1 GM PACKET TP ONE (05:19)
[2018-05-13] MEDS: NITROGLYCERIN 0.4 MG/TAB 25 TAB/BOTTLE SL PRN ×2 (05:22→05:29)
[2018-05-13 06:31] LABS: ANION GAP 8 (5-19); BLOOD UREA NITROGEN 35 mg/dL (7-20); CALCIUM 9.5 mg/dL (8.4-10.2); CARBON DIOXIDE 24 mmol/L (22-30); CHLORIDE 108 mmol/L (98-107); GLUCOSE 235 mg/dL (75-110); POTASSIUM 4.2 mmol/L (3.6-5.0); SODIUM 139.7 mmol/L (137-145)
[2018-05-13] MEDS ORDERED: ACETAMINOPHEN 325 MG TABLET PO ONE (07:02)
[2018-05-13] MEDS ORDERED: DEXTROSE 5%-WATER 1000 ML 1,000 ML IV PRN (07:20)
[2018-05-13] MEDS ORDERED: DEXTROSE 50%-WATER 25 GM/50 ML DISP.SYRIN IV ONE (08:20)
--- NOTE | 2018-05-13 08:52 | EKG REPORT ---
SEVERITY:- ABNORMAL ECG - SINUS RHYTHM LEFT ATRIAL ABNORMALITY : Confirmed by: Sam Bird MD 13-May-2018 08:52:22
--- NOTE | 2018-05-13 08:52 | EKG REPORT ---
SEVERITY:- BORDERLINE ECG - SINUS TACHYCARDIA PROBABLE LEFT ATRIAL ABNORMALITY : Confirmed by: Sam Bird MD 13-May-2018 08:52:10
--- NOTE | 2018-05-13 08:52 | EKG REPORT ---
SEVERITY:- ABNORMAL ECG - SINUS TACHYCARDIA LEFT ATRIAL ABNORMALITY : Confirmed by: Sam Bird MD 13-May-2018 08:52:00
[2018-05-13 10:16] VITALS: BP 108/61
== END 2018-05-13 10:31 | disposition short-term general hospital (02) ==
LOC: ER 00:47
DX: I21.4 Non-ST elevation (NSTEMI) myocardial infarction (principal); E10.65 Type 1 diabetes mellitus with hyperglycemia; E10.10 Type 1 diabetes mellitus with ketoacidosis without coma; R07.9 Chest pain, unspecified; F17.200 Nicotine dependence, unspecified, uncomplicated; E78.00 Pure hypercholesterolemia, unspecified; E03.9 Hypothyroidism, unspecified; Z88.6 Allergy status to analgesic agent; Z88.0 Allergy status to penicillin; Z88.2 Allergy status to sulfonamides
CPT/HCPCS: 93005; 99291; 96372; 96361; 96374; 36415; 82962; 84703; 85027; 80048; 80053; 81001; 84484; 82803; 71045; 93010; A9270 ×4; J3490; J7060; J7030; J7120; J1650; J1815

== ENCOUNTER 2018-05-21 09:04 | Observation (INO) | payer MEDICARE, MEDICAID ==
[2018-05-21] MEDS ORDERED: NITROGLYCERIN 0.4 MG/TAB 25 TAB/BOTTLE SL PRN (09:23)
[2018-05-21] MEDS ORDERED: NORMAL SALINE 1000 ML 1,000 ML IV ONE (09:23)
--- NOTE | 2018-05-21 09:29 | ER Document Report ---
ED General - General Stated Complaint: CHEST PAIN Time Seen by Provider: 05/21/18 09:15 Primary Care Provider: LAWSON HUDSON DO [Primary Care Provider] - Follow up as needed TRAVEL OUTSIDE OF THE [place] IN LAST 30 DAYS: No - HPI Notes: Patient is a 33-year-old female that presents to the emergency department for chief complaint of chest pain. Patient reports a heavy pressure sensation and pain on the left side of her chest that started at 815 this morning. 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 Patient states it is been constant since onset. She reports associated diaphoresis, lightheadedness and shortness of breath. She denies any nausea or vomiting. Patient received aspirin 324 mg by EMS with no change in symptoms. She denies palpitations and syncope. Patient was seen at [facility] for NSTEMI and DKA last week. She states that she had a treadmill stress test done which showed an area of poor perfusion on her heart with exercise that improved with rest. She also had cardiac echo but she is unsure of those results. Patient states she was not recommended to have a cardiac catheterization at that time but was told to follow with cardiology as an outpatient. She has not yet seen outpatient cardiology. Past Medical History: Diabetes, PTSD, hyperlipidemia, bipolar, anxiety Past Surgical History: Gates teeth removal Social History: Daily tobacco. Occasional marijuana. Denies alcohol use Family History: Reviewed and noncontributory for presenting illness Allergies: Reviewed, see documented allergy list. REVIEW OF SYSTEMS: CONSTITUTIONAL : No fever No chills diaphoresis No recent illness EENT: No vision changes No congestion No sore throat CARDIOVASCULAR: chest pain No palpitations RESPIRATORY: shortness of breath No cough No difficulty breathing GASTROINTESTINAL: No abdominal pain No nausea No vomiting No diarrhea GENITOURINARY: No dysuria No hematuria No difficulty urinating MUSCULOSKELETAL: No back pain No leg pain No arm pain SKIN: No rashes No lesions LYMPHATIC: No swollen, enlarged glands. NEUROLOGICAL: No lightheadedness No headache No weakness No paresthesias PSYCHIATRIC: No anxiety No depression PHYSICAL EXAMINATION: Vital signs reviewed, nursing noted reviewed. GENERAL: Well-appearing, well-nourished and in no acute distress. HEAD: Atraumatic, normocephalic. EYES: Eyes appear normal, extraocular movements intact, sclera anicteric, conjunctiva are normal. ENT: nares patent, oropharynx clear without exudates. Moist mucous membranes. NECK: Normal range of motion, supple without lymphadenopathy LUNGS: Breath sounds clear to auscultation bilaterally and equal. No wheezes rales or rhonchi. HEART: Regular rate and rhythm without murmurs ABDOMEN: Soft, nontender, normoactive bowel sounds. No rebound, guarding, or rigidity. No masses appreciated. EXTREMITIES: Nontender, good range of motion, no pitting or edema. NEUROLOGICAL: No focal neurological deficits. Moves all extremities spontaneously Motor and sensory grossly intact on exam. PSYCH: Normal mood, normal affect. SKIN: Warm, Dry, normal turgor, no rashes or lesions noted on exposed skin - Related Data Allergies/Adverse Reactions: mushroom Allergy (Severe, Verified 05/13/18 01:02) Anaphylaxis alcohol [Alcohol] Allergy (Unknown, Verified 05/13/18 01:02) Hives gabapentin Allergy (Unknown, Verified 05/13/18 01:02) Hives morphine [Morphine] Allergy (Unknown, Verified 05/13/18 01:02) Penicillins Allergy (Unknown, Verified 05/13/18 01:02) Sulfa (Sulfonamide Antibiotics) Allergy (Unknown, Verified 05/13/18 01:02) adhesive [Adhesive] Allergy (Verified 05/13/18 01:02) chlorpromazine [From Thorazine] Allergy (Verified 05/13/18 01:02) tomato [Tomato] Adverse Reaction (Severe, Verified 05/13/18 01:02) Anaphylaxis Past Medical History - Social History Smoking Status: Current Every Day Smoker Family History: Arthritis, DM, Malignancy, Thyroid Disfunction - Past Medical History Cardiac Medical History: Reports: Hx Hypercholesterolemia Denies: Hx Coronary Artery Disease, Hx DVT, Hx Heart Attack, Hx Pulmonary Embolism Pulmonary Medical History: Reports: Hx Asthma Denies: Hx COPD, Hx Tuberculosis Neurological Medical History: 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 Denies: Hx Crohn's Disease, Hx Hiatal Hernia, Hx Ulcer, Hx Ulcerative Colitis Musculoskeletal Medical History: Denies Hx Arthritis, Denies Hx Gout, Reports Hx Musculoskeletal Deformity, Reports Hx Musculoskeletal Trauma Skin Medical History: Denies Hx Eczema, Denies Hx Psoriasis Psychiatric Medical History: Reports: Hx Anxiety, Hx Bipolar Disorder, Hx Depression, Hx Post Traumatic Stress Disorder Traumatic Medical History: Reports: Hx Fractures - Wrist hand and toe Past Surgical History: Reports: Hx Oral Surgery - wisdom teeth, Hx Orthopedic Surgery, Other - [place] teeth excisions bilaterally, bilateral ingrown toenail removals. Denies: Hx Mastectomy, Hx Open Heart Surgery - Immunizations Hx Diphtheria, Pertussis, Tetanus Vaccination: Yes Hx Pneumococcal Vaccination: 03/10/13 Physical Exam - Vital signs Vitals: BP Pulse Ox 111/66 98 05/21/18 09:15 05/21/18 09:15 Course - Re-evaluation Re-evalutation: 05/21/18 09:28 Vitals reviewed. Nursing notes reviewed. Patient's EKG shows no ST elevation. She was placed on secured entrance monitor. Given her recent cardiac issues full cardiac workup will be initiated. Patient given nitro for her chest discomfort. 05/21/18 10:38 Patient's care was discussed with Dr. Anderson who reviewed patient's care from her previous admission at [facility]. He states she did have a normal echo and a borderline abnormal stress test. The recommendation was for a 4-week outpatient follow-up with cardiology. The NSTEM I she experienced was attributed to the DKA that she was in during her last admission and cardiac catheterization was not recommended at that time. He is requesting consultation with cardiology to see if given her current presentation cardiac catheterization would now be indicated since she is not in DKA and is still experiencing chest pain. Currently awaiting callback from cardiology at [facility]. 05/21/18 13:39 I discussed patient's care with Dr. Bravo, cardiology at [facility] who has requested a second troponin be drawn. He stated if her troponin becomes positive they would take her for cardiac catheterization. He feels her stress test results were likely artifact from breast movement and did not feel she was requiring emergent catheterization given her initial presentation to the ED. Patient's delta troponin has only slightly increased from 0.16-0.17. She has otherwise remained hemodynamically stable. She will be admitted to this facility for observation and continue telemetry monitoring as well as further troponins. Plan to transfer if troponin becomes positive. Patient's care discussed with Dr. Carlos who accepts admission to this facility. Patient in agreement with plan of care. Laboratory 05/21/18 05/21/18 05/21/18 09:15 09:15 09:15 WBC 7.7 RBC 3.58 L Hgb 11.8 L Hct 34.0 L MCV 95 D MCH 32.9 MCHC 34.7 RDW 12.5 Plt Count 353 Seg Neutrophils % 56.8 Lymphocytes % 31.6 Monocytes % 7.2 Eosinophils % 3.5 Basophils % 0.9 Absolute Neutrophils 4.4 Absolute Lymphocytes 2.4 Absolute Monocytes 0.6 Absolute Eosinophils 0.3 Absolute Basophils 0.1 VBG pH VBG pCO2 VBG HCO3 VBG Base Excess Sodium 139.9 Potassium 4.7 Chloride 104 Carbon Dioxide 29 Anion Gap 7 BUN 25 H Creatinine 1.06 Est GFR ( Amer) > 60 Est GFR (Non-Af Amer) > 60 Glucose 280 H Calcium 9.3 Total Bilirubin 0.9 Direct Bilirubin 0.5 H Neonat Total Bilirubin Not Reportable Neonat Direct Bilirubin Not Reportable Neonat Indirect Bili Not Reportable AST 52 H ALT 43 Alkaline Phosphatase 83 Troponin I 0.016 Total Protein 6.4 Albumin 3.7 05/21/18 05/21/18 11:20 12:15 WBC RBC Hgb Hct MCV MCH MCHC RDW Plt Count Seg Neutrophils % Lymphocytes % Monocytes % Eosinophils % Basophils % Absolute Neutrophils Absolute Lymphocytes Absolute Monocytes Absolute Eosinophils Absolute Basophils VBG pH 7.31 VBG pCO2 54.3 VBG HCO3 26.8 VBG Base Excess -0.7 Sodium Potassium Chloride Carbon Dioxide Anion Gap BUN Creatinine Est GFR ( Amer) Est GFR (Non-Af Amer) Glucose Calcium Total Bilirubin Direct Bilirubin Neonat Total Bilirubin Neonat Direct Bilirubin Neonat Indirect Bili AST ALT Alkaline Phosphatase Troponin I 0.017 Total Protein Albumin Chest X-Ray 05/21/18 09:22 IMPRESSION: No acute abnormality of the lungs in AP projection. - Vital Signs Vital signs: Temp Pulse Resp BP Pulse Ox 20 122/91 H 97 05/21/18 12:30 05/21/18 12:30 05/21/18 12:30 - Laboratory Result Diagrams: 05/21/18 09:15 05/21/18 09:15 Laboratory results interpreted by me: 05/21/18 05/21/18 09:15 09:15 RBC 3.58 L Hgb 11.8 L Hct 34.0 L BUN 25 H Glucose 280 H Direct Bilirubin 0.5 H AST 52 H - EKG Interpretation by Me Additional EKG results interpreted by me: 05/21/18 09:29 Interpreted by myself [id number]: Normal sinus rhythm, rate 71, normal axis, diffuse T wave flattening, no STEMI Discharge - Discharge Clinical Impression: Chest pain Qualifiers: Chest pain type: unspecified Qualified Code(s): R07.9 - Chest pain, unspecified Condition: Stable Disposition: ADMITTED OBSERVATION Admitting Provider: Hospitalist Unit Admitted: Telemetry Referrals: LAWSON HUDSON DO [Primary Care Provider] - Follow up as needed
[2018-05-21 09:33] LABS: ABSOLUTE BASOPHILS # (AUTO) 0.1 10^3/uL (0.0-0.2); ABSOLUTE EOSINOPHILS # (AUTO) 0.3 10^3/uL (0.0-0.6); ABSOLUTE LYMPHOCYTES (AUTO) 2.4 10^3/uL (0.5-4.7); ABSOLUTE MONOCYTES (AUTO) 0.6 10^3/uL (0.1-1.4); ABSOLUTE NEUT (AUTO) 4.4 10^3/uL (1.7-8.2); BASOPHILS % (AUTO) 0.9 % (0-2); EOSINOPHILS % (AUTO) 3.5 % (0-6); HEMOGLOBIN 11.8 g/dL (12.0-15.5); LYMPHOCYTES % (AUTO) 31.6 % (13-45); MEAN CORPUSCULAR HEMOGLOBIN 32.9 pg (27.0-33.4); MEAN CORPUSCULAR HGB CONC 34.7 g/dL (32.0-36.0); MONOCYTES % (AUTO) 7.2 % (3-13); PLATELET COUNT 353 10^3/uL (150-450); RED BLOOD COUNT 3.58 10^6/uL (3.72-5.28); RED CELL DISTRIBUTION WIDTH 12.5 % (11.5-14.0); SEGMENTED NEUTROPHILS % (AUTO) 56.8 % (42-78); TOTAL CELLS COUNTED % (AUTO) 100 %; WHITE BLOOD COUNT 7.7 10^3/uL (4.0-10.5)
[2018-05-21 09:42] LABS: ALANINE AMINOTRANSFERASE 43 U/L (9-52); ALBUMIN 3.7 g/dL (3.5-5.0); ALKALINE PHOSPHATASE 83 U/L (38-126); ANION GAP 7 (5-19); ASPARTATE AMINO TRANSFERASE 52 U/L (14-36); BILIRUBIN,DIRECT 0.5 mg/dL (0.0-0.4); BILIRUBIN,TOTAL 0.9 mg/dL (0.2-1.3); BLOOD UREA NITROGEN 25 mg/dL (7-20); CALCIUM 9.3 mg/dL (8.4-10.2); CARBON DIOXIDE 29 mmol/L (22-30); CHLORIDE 104 mmol/L (98-107); GLUCOSE 280 mg/dL (75-110); POTASSIUM 4.7 mmol/L (3.6-5.0); SODIUM 139.9 mmol/L (137-145); TOTAL PROTEIN 6.4 g/dL (6.3-8.2)
[2018-05-21 09:45] LABS: MEAN CORPUSCULAR VOLUME 95 fl (80-97)
[2018-05-21] MEDS ORDERED: KETOROLAC TROMETHAMINE INJ/PF 30 MG/1 ML SDV IV ONE (10:18)
--- NOTE | 2018-05-21 10:38 | RADIOLOGY REPORT (SQ) ---
EXAM DESCRIPTION: CHEST SINGLE VIEW COMPLETED DATE/TIME: 05/21/2018 10:20 am REASON FOR STUDY: chest pain COMPARISON: 05/13/2018 EXAM PARAMETERS: NUMBER OF VIEWS: One view. TECHNIQUE: Single frontal radiographic view of the chest acquired. RADIATION DOSE: NA LIMITATIONS: None. FINDINGS: LUNGS AND PLEURA: No opacities, masses or pneumothorax. No pleural effusion. MEDIASTINUM AND HILAR STRUCTURES: No masses. Contour normal. HEART AND VASCULAR STRUCTURES: Heart normal in size. Normal vasculature. BONES: No acute findings. HARDWARE: None in the chest. OTHER: No other significant finding. IMPRESSION: No acute abnormality of the lungs in AP projection. TECHNICAL DOCUMENTATION: JOB ID: [id number]- All Rights Reserved Reading location - IP/workstation name: [email or web address]
[2018-05-21 11:55] LABS: VENOUS BLOOD BASE EXCESS -0.7 mmol/L; VENOUS BLOOD HCO3 26.8 mmol/L (20-32); VENOUS BLOOD PCO2 54.3 mmHg (35-63); VENOUS BLOOD PH 7.31 (7.30-7.42)
[2018-05-21] MEDS ORDERED: OXYCODONE-ACETAMINOPHEN 5-325 MG TABLET PO PRN (14:58)
[2018-05-21] MEDS ORDERED: IPRATROPIUM/ALBUTEROL 0.5-2.5 MG/3 ML AMPUL NEB PRN (14:58)
[2018-05-21] MEDS ORDERED: ONDANSETRON HCL INJ/PF 4 MG/2 ML SDV IV PRN (14:58)
[2018-05-21] MEDS ORDERED: ACETAMINOPHEN 325 MG TABLET PO PRN (14:58)
[2018-05-21] MEDS ORDERED: NORMAL SALINE 1000 ML 1,000 ML IV PRN (14:58)
[2018-05-21] MEDS ORDERED: DEXTROSE 40% GEL 15 GM TUBE PO PRN ×2 (15:08)
[2018-05-21] MEDS ORDERED: DEXTROSE 50%-WATER 25 GM/50 ML DISP.SYRIN IV PRN ×2 (15:08)
[2018-05-21] MEDS ORDERED: GLUCAGON,HUMAN RECOMB 1 MG INJ IM PRN (15:08)
--- NOTE | 2018-05-21 15:27 | PDOC H&P ---
History of Present Illness Admission Date/PCP: 05/21/18 14:35 LAWSON HUDSON DO History of Present Illness: JEANINE OSORIO is a 33 year old female past medical history of diabetes type 1, bipolar, PTSD, hypothyroidism, GERD, anxiety, who was admitted here at [facility] on May 12 and was transferred to [facility] for possible NSTEMI. As per patient she had a treadmill stress test done which showed an area of poor perfusion with exercise that improved with rest. 2D echo also done but she is unsure of the result. She was discharged to follow-up with the cardiology as outpatient for possible cardiac catheterization at a later time. Has not seen a cardiology as outpatient yet. Today patient presented to ED stating that at work she started to feel left shoulder pain followed by lightheadedness which followed by heavy sensation in the substernal area radiating to her left shoulder associated with diaphoresis, lightheadedness, shortness of breath. Pain was relieved after she received sublingual nitrates in ED. Denies any fever, nausea, vomiting, diarrhea, constipation or any urinary symptoms. EKG in ED did not show any acute changes and troponins were within negative ranges. As per ED doctor's note she talked to Dr. Anderson at [facility] who reviewed her records and stated that she had a normal echo and a borderline stress test and recommendation was 4 week outpatient follow-up with cardiology and her STEMI was attributed to DKA and cardiac catheterization was not recommended at that time. As per ED doctor's notes she also talked to Dr. Bravo biological lab technician at [facility] who requested a second troponin be drawn and if it becomes positive they would accept her for possible cardiac catheterization. 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 Endocrine Medical History: Reports: Diabetes Mellitus Type 1, Diabetes Mellitus Type 2, Hypothyroidism GI Medical History: Reports: Gastroesophageal Reflux Disease Denies: Crohn's Disease, Hiatal Hernia, Ulcerative Colitis Musculoskeltal Medical History: Denies: Arthritis, Gout Skin Medical History: Denies: Eczema, Psoriasis Psychiatric Medical History: Reports: Bipolar Disorder, Depression, Post T raumatic Stress Disorder Hematology: Denies: Anemia, Bleeding Tendencies Past Surgical History Past Surgical History: Reports: Orthopedic Surgery, Other - [place] teeth excisions bilaterally, bilateral ingrown toenail removals Denies: Amputation, Mastectomy Social History Smoking Status: Current Every Day Smoker Frequency of Alcohol Use: Rare Hx Recreational Drug Use: No Drugs: Marijuana Hx Prescription Drug Abuse: No Family History Family History: Arthritis, CAD, DM, Malignancy, Thyroid Disfunction Parental Family History Reviewed: Yes Children Family History Reviewed: Yes Sibling(s) Family History Reviewed.: Yes Medication/Allergy Home Medications: Aspirin [Adult Low Dose Aspirin EC] 81 mg PO DAILY 05/21/18 Brexpiprazole [Rexulti] 1 mg PO DAILY 05/21/18 Hydroxyzine Pamoate [Vistaril 50 mg Capsule] 50 mg PO BID 05/21/18 Insulin Aspart [Novolog Insulin (Aspart) 100 unit/mL] 0 units PUMP .ASDIR 05/21/18 Levothyroxine Sodium 300 mcg PO Q6AM 05/21/18 Lisinopril [Zestril] 10 mg PO DAILY 05/21/18 Meloxicam [Mobic] 15 mg PO DAILY 05/21/18 Metoclopramide HCl [Reglan 10 mg Tablet] 10 mg PO BID 05/21/18 Omeprazole 40 mg PO DAILY 05/21/18 Prazosin HCl [Minipress] 2 mg PO QHS 05/21/18 Propranolol HCl [Inderal 20 mg Tablet] 10 mg PO QID 05/21/18 Simvastatin [Zocor 20 mg Tablet] 20 mg PO QPM 05/21/18 Trazodone HCl [Desyrel 50 mg Tablet] 50 mg PO QHS 05/21/18 Allergies/Adverse Reactions: mushroom Allergy (Severe, Verified 05/13/18 01:02) Anaphylaxis alcohol [Alcohol] Allergy (Unknown, Verified 05/13/18 01:02) Hives gabapentin Allergy (Unknown, Verified 05/13/18 01:02) Hives morphine [Morphine] Allergy (Unknown, Verified 05/13/18 01:02) Penicillins Allergy (Unknown, Verified 05/13/18 01:02) Sulfa (Sulfonamide Antibiotics) Allergy (Unknown, Verified 05/13/18 01:02) adhesive [Adhesive] Allergy (Verified 05/13/18 01:02) chlorpromazine [From Thorazine] Allergy (Verified 05/13/18 01:02) tomato [Tomato] Adverse Reaction (Severe, Verified 05/13/18 01:02) Anaphylaxis Review of Systems Review of Systems: as per HPI Physical Exam Vital Signs: Temp Pulse Resp BP Pulse Ox 20 122/91 H 97 05/21/18 12:30 05/21/18 12:30 05/21/18 12:30 Intake & Output 05/20/18 05/21/18 05/22/18 06:59 06:59 06:59 Intake Total 1000 Balance 1000 Weight 55.2 kg General appearance: PRESENT: no acute distress, well-developed, well-nourished Head exam: PRESENT: atraumatic, normocephalic Eye exam: PRESENT: conjunctiva pink, EOMI, PERRLA. ABSENT: scleral icterus Ear exam: PRESENT: normal external ear exam Mouth exam: PRESENT: moist, tongue midline Neck exam: ABSENT: carotid bruit, JVD, lymphadenopathy, thyromegaly Respiratory exam: PRESENT: clear to auscultation dave. ABSENT: rales, rhonchi, wheezes Cardiovascular exam: PRESENT: RRR. ABSENT: diastolic murmur, rubs, systolic murmur Pulses: PRESENT: normal dorsalis pedis pul Vascular exam: PRESENT: normal capillary refill GI/Abdominal exam: PRESENT: normal bowel sounds, soft. ABSENT: distended, guarding, mass, organolmegaly, rebound, tenderness Rectal exam: PRESENT: deferred Extremities exam: PRESENT: full ROM. ABSENT: calf tenderness, clubbing, pedal edema Neurological exam: PRESENT: alert, awake, oriented to person, oriented to place, oriented to time, oriented to situation, CN II-XII grossly intact. ABSENT: motor sensory deficit Psychiatric exam: PRESENT: appropriate affect, normal mood. ABSENT: homicidal ideation, suicidal ideation Skin exam: PRESENT: dry, intact, warm. ABSENT: cyanosis, rash Results Laboratory Results: 05/21/18 09:15 05/21/18 09:15 05/21/18 05/21/18 05/21/18 09:15 09:15 11:20 WBC 7.7 RBC 3.58 L Hgb 11.8 L Hct 34.0 L MCV 95 D MCH 32.9 MCHC 34.7 RDW 12.5 Plt Count 353 Seg Neutrophils % 56.8 Lymphocytes % 31.6 Monocytes % 7.2 Eosinophils % 3.5 Basophils % 0.9 Absolute Neutrophils 4.4 Absolute Lymphocytes 2.4 Absolute Monocytes 0.6 Absolute Eosinophils 0.3 Absolute Basophils 0.1 VBG pH 7.31 VBG pCO2 54.3 VBG HCO3 26.8 VBG Base Excess -0.7 Sodium 139.9 Potassium 4.7 Chloride 104 Carbon Dioxide 29 Anion Gap 7 BUN 25 H Creatinine 1.06 Est GFR ( Amer) > 60 Est GFR (Non-Af Amer) > 60 Glucose 280 H Calcium 9.3 Total Bilirubin 0.9 AST 52 H ALT 43 Alkaline Phosphatase 83 Total Protein 6.4 Albumin 3.7 05/21/18 05/21/18 09:15 12:15 Troponin I 0.016 0.017 Impressions: Chest X-Ray 05/21/18 09:22 IMPRESSION: No acute abnormality of the lungs in AP projection. Assessment & Plan - Diagnosis (1) Chest pain Qualifiers: Chest pain type: unspecified Qualified Code(s): R07.9 - Chest pain, unspecified Is this a current diagnosis for this admission?: Yes Plan: HEART Score 1. Admit to telemetry. Antiplatelets, beta-blockers, statins. Trend troponins if becomes positive will transfer to [facility]. Cardiology consult. (2) DM I (diabetes mellitus, type I) Qualifiers: Is this a current diagnosis for this admission?: No Plan: Diabetic diet. Patient has insulin pump in place which she states functions properly. Accu-Chek. (3) Tobacco abuse Is this a current diagnosis for this admission?: No Plan: Counseled on quitting. Will start on NicoDerm patch. (4) Bipolar 1 disorder Is this a current diagnosis for this admission?: No Plan: Start home meds. (5) Hypothyroidism Qualifiers: Is this a current diagnosis for this admission?: No Plan: Start home meds. (6) PTSD (post-traumatic stress disorder) Is this a current diagnosis for this admission?: No Plan: Restart home meds.
[2018-05-21] MEDS ORDERED: ASPIRIN 325 MG TABLET PO ONE (16:00)
[2018-05-21 17:15] LABS: TROPONIN I 0.018 ng/mL
[2018-05-21 17:19] LABS: CREATINE KINASE MB < 0.22 ng/mL (<4.55)
[2018-05-21 19:02] VITALS: BP 132/74
[2018-05-21] MEDS ORDERED: HEPARIN SOD (PORCINE) 5,000 UNIT/ML 1 ML SYRINGE SUBCUT SCH (22:00)
[2018-05-21] MEDS ORDERED: FAMOTIDINE 20 MG TABLET PO SCH (22:00)
--- NOTE | 2018-05-21 23:21 | EKG REPORT ---
SEVERITY:- ABNORMAL ECG - SINUS RHYTHM LEFT ATRIAL ABNORMALITY : Confirmed by: Dalia Giron MD 21-May-2018 23:20:13
== END 2018-05-21 19:03 | disposition left against medical advice (07) ==
LOC: ER 09:04 → EH 14:35 → UNDOADMOB 14:35 → EH 14:44 → UNDOADMOB 14:58 → EH 14:58 → ER 14:58 → UNDODISOB 19:03 → ER 19:03
PROVIDERS: ADMIT Internal Medicine; ATTEND Internal Medicine
DX: R07.2 Precordial pain (principal); E10.9 Type 1 diabetes mellitus without complications; M25.512 Pain in left shoulder; R42 Dizziness and giddiness; R61 Generalized hyperhidrosis; R06.02 Shortness of breath; F17.200 Nicotine dependence, unspecified, uncomplicated; F43.10 Post-traumatic stress disorder, unspecified; F31.9 Bipolar disorder, unspecified; E03.9 Hypothyroidism, unspecified; K21.9 Gastro-esophageal reflux disease without esophagitis; E78.5 Hyperlipidemia, unspecified; Z82.49 Family history of ischemic heart disease and other diseases of the circulatory system; Z79.82 Long term (current) use of aspirin
CPT/HCPCS: 93005; 99285; 96361; 96374; 36415; 82553; 82962; 82550; 85025; 80053; 84484; 82803; 71045; 93010; J1885; J7030; G0378

== ENCOUNTER 2018-05-23 11:10 | Emergency (ER) | payer MEDICARE, MEDICAID ==
[2018-05-23] MEDS ORDERED: NORMAL SALINE 1000 ML 1,000 ML IV ONE (11:16)
[2018-05-23 12:10] LABS: ABSOLUTE EOSINOPHILS # (AUTO) 0.4 10^3/uL (0.0-0.6); ABSOLUTE LYMPHOCYTES (AUTO) 2.4 10^3/uL (0.5-4.7); ABSOLUTE MONOCYTES (AUTO) 0.6 10^3/uL (0.1-1.4); ABSOLUTE NEUT (AUTO) 5.1 10^3/uL (1.7-8.2); BASOPHILS % (AUTO) 0.5 % (0-2); EOSINOPHILS % (AUTO) 4.5 % (0-6); HEMATOCRIT 34.1 % (36.0-47.0); HEMOGLOBIN 11.8 g/dL (12.0-15.5); LYMPHOCYTES % (AUTO) 28.1 % (13-45); MEAN CORPUSCULAR HEMOGLOBIN 32.5 pg (27.0-33.4); MEAN CORPUSCULAR HGB CONC 34.6 g/dL (32.0-36.0); MEAN CORPUSCULAR VOLUME 94 fl (80-97); MONOCYTES % (AUTO) 7.4 % (3-13); PLATELET COUNT 316 10^3/uL (150-450); RED BLOOD COUNT 3.63 10^6/uL (3.72-5.28); RED CELL DISTRIBUTION WIDTH 12.3 % (11.5-14.0); SEGMENTED NEUTROPHILS % (AUTO) 59.5 % (42-78); TOTAL CELLS COUNTED % (AUTO) 100 %; WHITE BLOOD COUNT 8.5 10^3/uL (4.0-10.5)
--- NOTE | 2018-05-23 12:15 | ER Document Report ---
ED General - General Chief Complaint: Low Blood Pressure Stated Complaint: BLOOD SUGAR ISSUES Time Seen by Provider: 05/23/18 11:16 Primary Care Provider: LAWSON HUDSON DO [Primary Care Provider] - Follow up as needed TRAVEL OUTSIDE OF THE [place] IN LAST 30 DAYS: No - HPI Notes: Patient is a 33-year-old female that presents to the emergency department for chief complaint of near syncope. Patient was at her customs brokerage agent's office for follow-up from her recent admissions to the hospital and had a near syncopal episode. She was standing at the time and felt very lightheaded. She did collapse to the floor but did not completely lose consciousness. There is no injury during this episode. Patient's initial blood pressure at the office was a systolic in the 50s. EMS reported initially she had a systolic in the 70s. Currently patient has a blood pressure of 103/64 and is feeling better. She is an insulin-dependent diabetic and has been using her insulin pump. She denies any issues with her insulin pump or episodes of hyperglycemia and hypoglycemia. [id number] glucose by EMS was 106. Patient is still endorsing a left-sided chest pain that radiates up into her left arm and some mild shortness of breath. She states her pain is been constant for the last few days without resolution and is unchanged currently from previous visits. Past Medical History: Insulin-dependent diabetic, asthma, hyperlipidemia, bipolar, PTSD Past Surgical History: Reviewed in chart Social History: Reviewed in chart Family History: Reviewed and noncontributory for presenting illness Allergies: Reviewed, see documented allergy list. REVIEW OF SYSTEMS: CONSTITUTIONAL : No fever No chills No diaphoresis No recent illness EENT: No vision changes No congestion No sore throat CARDIOVASCULAR: chest pain Syncope No palpitations RESPIRATORY: No shortness of breath No cough No difficulty breathing GASTROINTESTINAL: No abdominal pain No nausea No vomiting No diarrhea GENITOURINARY: No dysuria No hematuria No difficulty urinating MUSCULOSKELETAL: No back pain No leg pain No arm pain SKIN: No rashes No lesions LYMPHATIC: No swollen, enlarged glands. NEUROLOGICAL: lightheadedness No headache No weakness No paresthesias PSYCHIATRIC: No anxiety No depression PHYSICAL EXAMINATION: Vital signs reviewed, nursing noted reviewed. GENERAL: Well-appearing, well-nourished and in no acute distress. HEAD: Atraumatic, normocephalic. EYES: Eyes appear normal, extraocular movements intact, sclera anicteric, conjunctiva are normal. ENT: nares patent, oropharynx clear without exudates. Moist mucous membranes. NECK: Normal range of motion, supple without lymphadenopathy LUNGS: Breath sounds clear to auscultation bilaterally and equal. No wheezes rales or rhonchi. HEART: Regular rate and rhythm without murmurs ABDOMEN: Soft, nontender, normoactive bowel sounds. No rebound, guarding, or rigidity. No masses appreciated. EXTREMITIES: Nontender, good range of motion, no pitting or edema. NEUROLOGICAL: No focal neurological deficits. Moves all extremities spontaneously Motor and sensory grossly intact on exam. PSYCH: Normal mood, normal affect. SKIN: Warm, Dry, normal turgor, no rashes or lesions noted on exposed skin - Related Data Allergies/Adverse Reactions: mushroom Allergy (Severe, Verified 05/13/18 01:02) Anaphylaxis alcohol [Alcohol] Allergy (Unknown, Verified 05/13/18 01:02) Hives gabapentin Allergy (Unknown, Verified 05/13/18 01:02) Hives morphine [Morphine] Allergy (Unknown, Verified 05/13/18 01:02) Penicillins Allergy (Unknown, Verified 05/13/18 01:02) Sulfa (Sulfonamide Antibiotics) Allergy (Unknown, Verified 05/13/18 01:02) adhesive [Adhesive] Allergy (Verified 05/13/18 01:02) chlorpromazine [From Thorazine] Allergy (Verified 05/13/18 01:02) tomato [Tomato] Adverse Reaction (Severe, Verified 05/13/18 01:02) Anaphylaxis Past Medical History - Social History Smoking Status: Current Every Day Smoker Family History: Arthritis, CAD, DM, Malignancy, Thyroid Disfunction - Past Medical History Cardiac Medical History: Reports: Hx Hypercholesterolemia Denies: Hx Coronary Artery Disease, Hx DVT, Hx Heart Attack, Hx Pulmonary Embolism Pulmonary Medical History: Reports: Hx Asthma Denies: Hx COPD, Hx Tuberculosis Neurological Medical History: 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 Denies: Hx Crohn's Disease, Hx Hiatal Hernia, Hx Ulcer, Hx Ulcerative Colitis Musculoskeletal Medical History: Denies Hx Arthritis, Denies Hx Gout, Reports Hx Musculoskeletal Deformity, Reports Hx Musculoskeletal Trauma Skin Medical History: Denies Hx Eczema, Denies Hx Psoriasis Psychiatric Medical History: Reports: Hx Anxiety, Hx Bipolar Disorder, Hx Depression, Hx Post Traumatic Stress Disorder Traumatic Medical History: Reports: Hx Fractures - Wrist hand and toe Infectious Medical History: Past Surgical History: Reports: Hx Oral Surgery - wisdom teeth, Hx Orthopedic Surgery, Other - [place] teeth excisions bilaterally, bilateral ingrown toenail removals. Denies: Hx Mastectomy, Hx Open Heart Surgery - Immunizations Hx Diphtheria, Pertussis, Tetanus Vaccination: Yes Hx Pneumococcal Vaccination: 03/10/13 Physical Exam - Vital signs Vitals: Temp Resp Pulse Ox 97.9 F 14 100 05/23/18 11:23 05/23/18 11:23 05/23/18 11:23 Course - Re-evaluation Re-evalutation: 05/23/18 13:35 Vitals reviewed. Nursing notes reviewed. Patient was transiently hypotensive with a near syncopal episode today. Her blood pressure has continued to increase with IV hydration. She is now feeling much better. Her workup today shows a slight elevation in BUN and creatinine consistent with her acute de hydration but is otherwise unremarkable. Her chest pain has been constant and is unchanged from prior evaluations. Her troponin is currently negative. Patient was advised to follow with cardiology as previously recommended. She was hydrated and counseled on increasing p.o. hydration at home. She is stable at time of discharge. Laboratory 05/23/18 05/23/18 05/23/18 11:42 11:57 11:57 WBC 8.5 RBC 3.63 L Hgb 11.8 L Hct 34.1 L MCV 94 MCH 32.5 MCHC 34.6 RDW 12.3 Plt Count 316 Seg Neutrophils % 59.5 Lymphocytes % 28.1 Monocytes % 7.4 Eosinophils % 4.5 Basophils % 0.5 Absolute Neutrophils 5.1 Absolute Lymphocytes 2.4 Absolute Monocytes 0.6 Absolute Eosinophils 0.4 Absolute Basophils 0.0 Sodium 142.9 Potassium 4.5 Chloride 106 Carbon Dioxide 30 Anion Gap 7 BUN 29 H Creatinine 1.32 H Est GFR ( Amer) 56 L Est GFR (Non-Af Amer) 47 L Glucose 98 POC Glucose 100 Calcium 9.6 Total Bilirubin 0.3 Direct Bilirubin 0.3 Neonat Total Bilirubin Not Reportable Neonat Direct Bilirubin Not Reportable Neonat Indirect Bili Not Reportable AST 25 ALT 38 Alkaline Phosphatase 85 Troponin I Total Protein 6.5 Albumin 3.5 05/23/18 11:57 WBC RBC Hgb Hct MCV MCH MCHC RDW Plt Count Seg Neutrophils % Lymphocytes % Monocytes % Eosinophils % Basophils % Absolute Neutrophils Absolute Lymphocytes Absolute Monocytes Absolute Eosinophils Absolute Basophils Sodium Potassium Chloride Carbon Dioxide Anion Gap BUN Creatinine Est GFR ( Amer) Est GFR (Non-Af Amer) Glucose POC Glucose Calcium Total Bilirubin Direct Bilirubin Neonat Total Bilirubin Neonat Direct Bilirubin Neonat Indirect Bili AST ALT Alkaline Phosphatase Troponin I < 0.012 Total Protein Albumin Chest X-Ray 05/23/18 11:51 IMPRESSION: NO ACUTE RADIOGRAPHIC FINDING IN THE CHEST. - Vital Signs Vital signs: Temp Pulse Resp BP Pulse Ox 97.9 F 74 12 115/72 100 05/23/18 11:23 05/23/18 13:27 05/23/18 13:00 05/23/18 13:27 05/23/18 13:00 - Laboratory Result Diagrams: 05/23/18 11:57 05/23/18 11:57 Laboratory results interpreted by me: 05/23/18 05/23/18 11:57 11:57 RBC 3.63 L Hgb 11.8 L Hct 34.1 L BUN 29 H Creatinine 1.32 H Est GFR ( Amer) 56 L Est GFR (Non-Af Amer) 47 L - EKG Interpretation by Me Additional EKG results interpreted by me: 05/23/18 12:14 Interpreted by myself 1120: Normal sinus rhythm, rate 74, normal axis, no ectopy, no STEMI, unchanged from 05/21/18 Discharge - Discharge Clinical Impression: Vasovagal near-syncope, Dehydration Condition: Stable Disposition: HOME, SELF-CARE Instructions: Near Syncopal Episode ([facility]), Vasovagal Symptoms ([facility]) Additional Instructions: Please return to the emergency department if you have any worsening, or concern of your symptoms. Please return to the emergency department if you develop chest pain, difficulty breathing, severe abdominal pain, or ongoing vomiting. Please follow-up with your primary care physician in 2-3 days and any other recommended physicians. If prescribed, take all medications as directed. If you have any questions or concerns do not hesitate to return the emergency department for evaluation. Increase the amount of water you are drinking to improve your hydration. Follow with cardiology as previously recommended. Referrals: LAWSON HUDSON, [Primary Care Provider] - Follow up in 3-5 days
[2018-05-23 12:36] LABS: ALANINE AMINOTRANSFERASE 38 U/L (9-52); ALBUMIN 3.5 g/dL (3.5-5.0); ALKALINE PHOSPHATASE 85 U/L (38-126); ANION GAP 7 (5-19); ASPARTATE AMINO TRANSFERASE 25 U/L (14-36); BILIRUBIN,DIRECT 0.3 mg/dL (0.0-0.4); BILIRUBIN,TOTAL 0.3 mg/dL (0.2-1.3); BLOOD UREA NITROGEN 29 mg/dL (7-20); CALCIUM 9.6 mg/dL (8.4-10.2); CARBON DIOXIDE 30 mmol/L (22-30); CHLORIDE 106 mmol/L (98-107); GLUCOSE 98 mg/dL (75-110); POTASSIUM 4.5 mmol/L (3.6-5.0); SODIUM 142.9 mmol/L (137-145); TOTAL PROTEIN 6.5 g/dL (6.3-8.2)
--- NOTE | 2018-05-23 12:41 | RADIOLOGY REPORT (SQ) ---
EXAM DESCRIPTION: CHEST SINGLE VIEW COMPLETED DATE/TIME: 05/23/2018 12:09 pm REASON FOR STUDY: chest pain COMPARISON: AP chest 05/21/2018, 05/13/2018 EXAM PARAMETERS: NUMBER OF VIEWS: One view. TECHNIQUE: Single frontal radiographic view of the chest acquired. RADIATION DOSE: NA LIMITATIONS: None. FINDINGS: LUNGS AND PLEURA: No opacities, masses or pneumothorax. No pleural effusion. MEDIASTINUM AND HILAR STRUCTURES: No masses. Contour normal. HEART AND VASCULAR STRUCTURES: Heart normal in size. Normal vasculature. BONES: No acute findings. HARDWARE: None in the chest. OTHER: No other significant finding. IMPRESSION: NO ACUTE RADIOGRAPHIC FINDING IN THE CHEST. TECHNICAL DOCUMENTATION: JOB ID: [id number] [employer]- All Rights Reserved Reading location - IP/workstation name: [email or web address]
[2018-05-23 14:06] VITALS: BP 127/86
--- NOTE | 2018-05-24 00:27 | EKG REPORT ---
SEVERITY:- BORDERLINE ECG - SINUS RHYTHM BORDERLINE T ABNORMALITIES, ANTERIOR LEADS : Confirmed by: Dalia Giron MD 24-May-2018 00:26:14
== END 2018-05-23 14:18 | disposition home or self-care (01) ==
LOC: ER 11:10
DX: R42 Dizziness and giddiness (principal); E86.0 Dehydration; F17.200 Nicotine dependence, unspecified, uncomplicated; J45.909 Unspecified asthma, uncomplicated; E11.9 Type 2 diabetes mellitus without complications
CPT/HCPCS: 93005; 99285; 96360; 96361; 36415; 82962; 85025; 80053; 84484; 71045; 93010; J7030

== ENCOUNTER 2018-06-04 09:32 | Emergency (ER) | payer MEDICARE, MEDICAID ==
[2018-06-04 09:59] LABS: ABSOLUTE BASOPHILS # (AUTO) 0.1 10^3/uL (0.0-0.2); ABSOLUTE EOSINOPHILS # (AUTO) 0.2 10^3/uL (0.0-0.6); ABSOLUTE MONOCYTES (AUTO) 0.4 10^3/uL (0.1-1.4); ABSOLUTE NEUT (AUTO) 5.2 10^3/uL (1.7-8.2); BASOPHILS % (AUTO) 0.7 % (0-2); EOSINOPHILS % (AUTO) 2.9 % (0-6); HEMATOCRIT 40.4 % (36.0-47.0); HEMOGLOBIN 13.3 g/dL (12.0-15.5); LYMPHOCYTES % (AUTO) 25.9 % (13-45); MEAN CORPUSCULAR HEMOGLOBIN 31.8 pg (27.0-33.4); MEAN CORPUSCULAR VOLUME 96 fl (80-97); MONOCYTES % (AUTO) 5.5 % (3-13); PLATELET COUNT 331 10^3/uL (150-450); RED BLOOD COUNT 4.19 10^6/uL (3.72-5.28); RED CELL DISTRIBUTION WIDTH 12.5 % (11.5-14.0); TOTAL CELLS COUNTED % (AUTO) 100 %; WHITE BLOOD COUNT 7.9 10^3/uL (4.0-10.5)
[2018-06-04 10:03] LABS: VENOUS BLOOD BASE EXCESS -7.5 mmol/L; VENOUS BLOOD HCO3 19.4 mmol/L (20-32); VENOUS BLOOD PCO2 44.4 mmHg (35-63); VENOUS BLOOD PH 7.26 (7.30-7.42)
[2018-06-04] MEDS ORDERED: NORMAL SALINE 1000 ML 1,000 ML IV ONE ×2 (10:09→10:45)
[2018-06-04 10:21] LABS: ALANINE AMINOTRANSFERASE 40 U/L (9-52); ALBUMIN 4.6 g/dL (3.5-5.0); ALKALINE PHOSPHATASE 103 U/L (38-126); ANION GAP 17 (5-19); ASPARTATE AMINO TRANSFERASE 23 U/L (14-36); BILIRUBIN,DIRECT 0.3 mg/dL (0.0-0.4); BILIRUBIN,TOTAL 0.9 mg/dL (0.2-1.3); BLOOD UREA NITROGEN 33 mg/dL (7-20); CALCIUM 10.4 mg/dL (8.4-10.2); CARBON DIOXIDE 21 mmol/L (22-30); CHLORIDE 93 mmol/L (98-107); POTASSIUM 5.5 mmol/L (3.6-5.0); SODIUM 131.3 mmol/L (137-145); TOTAL PROTEIN 7.5 g/dL (6.3-8.2)
[2018-06-04 10:31] LABS: GLUCOSE 649 mg/dL (75-110)
[2018-06-04] MEDS ORDERED: INSULIN REG, HUMAN 100 UNIT/ML 3 ML VIAL (PYX) IV ONE (10:45)
[2018-06-04 11:51] LABS: APPEARANCE,URINE SLIGHTLY-CLOUDY; BILIRUBIN,URINE NEGATIVE (NEGATIVE); COLOR,URINE YELLOW; GLUCOSE, URINE >=500 mg/dL (NEGATIVE); KETONES,URINE 20 mg/dL (NEGATIVE); LEUKOCYTE ESTERASE,URINE NEGATIVE (NEGATIVE); NITRITE,URINE NEGATIVE (NEGATIVE); PROTEIN,URINE 30 mg/dL (NEGATIVE); UROBILINOGEN,URINE NEGATIVE mg/dL (<2.0)
[2018-06-04 12:48] VITALS: BP 107/66
--- NOTE | 2018-06-04 12:49 | ER Document Report ---
ED Blood Sugar Problem - General Chief Complaint: High Blood Sugar Stated Complaint: BLOOD SUGAR ISSUES Time Seen by Provider: 06/04/18 10:07 Primary Care Provider: LAWSON HUDSON DO [Primary Care Provider] - Follow up as needed Notes: Patient is a 33-year-old type 1 diabetes with an insulin pump patient presents to the emergency department for vomiting intermittently for the last 2 days. Patient states she has been unable to eat anything due to her generalized nausea feeling. Patient states around 7:00 this morning she did take her blood sugar and it read 190. Patient states she is unsure of the dosage of her NovoLog insulin through the pump but states it has not been changed recently. Patient is currently denying any nausea, states she feels hungry. Patient is denying chest pain, shortness of breath, diarrhea, fever, abdominal pain. Past medical history: Type I diabetic, bipolar, depression, PTSD, hypothyroid, GERD, anxiety Medications: NovoLog, Synthroid, Xanax, Reglan, omeprazole, lisinopril Allergies: Sulfa, penicillin, Thorazine, gabapentin TRAVEL OUTSIDE OF THE [place] IN LAST 30 DAYS: No - Related Data Allergies/Adverse Reactions: mushroom Allergy (Severe, Verified 06/04/18 10:11) Anaphylaxis alcohol [Alcohol] Allergy (Unknown, Verified 06/04/18 10:11) Hives gabapentin Allergy (Unknown, Verified 06/04/18 10:11) Hives morphine [Morphine] Allergy (Unknown, Verified 06/04/18 10:11) Penicillins Allergy (Unknown, Verified 06/04/18 10:11) Sulfa (Sulfonamide Antibiotics) Allergy (Unknown, Verified 06/04/18 10:11) adhesive [Adhesive] Allergy (Verified 06/04/18 10:11) chlorpromazine [From Thorazine] Allergy (Verified 06/04/18 10:11) tomato [Tomato] Adverse Reaction (Severe, Verified 06/04/18 10:11) Anaphylaxis Past Medical History - General Information source: Patient - Social History Smoking Status: Current Every Day Smoker Frequency of alcohol use: None Drug Abuse: Marijuana Family History: Arthritis, CAD, DM, Malignancy, Thyroid Disfunction Patient has suicidal ideation: No Patient has homicidal ideation: No - Past Medical History Cardiac Medical History: Reports: Hx Hypercholesterolemia Denies: Hx Coronary Artery Disease, Hx DVT, Hx Heart Attack, Hx Pulmonary Embolism Pulmonary Medical History: Reports: Hx Asthma Denies: Hx COPD, Hx Tuberculosis Neurological Medical History: 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 Denies: Hx Crohn's Disease, Hx Hiatal Hernia, Hx Ulcer, Hx Ulcerative Colitis Musculoskeletal Medical History: Denies Hx Arthritis, Denies Hx Gout, Reports Hx Musculoskeletal Deformity, Reports Hx Musculoskeletal Trauma Skin Medical History: Denies Hx Eczema, Denies Hx Psoriasis Psychiatric Medical History: Reports: Hx Anxiety, Hx Bipolar Disorder, Hx D epression, Hx Post Traumatic Stress Disorder Traumatic Medical History: Reports: Hx Fractures - Wrist hand and toe Infectious Medical History: Past Surgical History: Reports: Hx Oral Surgery - wisdom teeth, Hx Orthopedic Surgery, Other - [place] teeth excisions bilaterally, bilateral ingrown toenail removals. Denies: Hx Mastectomy, Hx Open Heart Surgery - Immunizations Hx Diphtheria, Pertussis, Tetanus Vaccination: Yes Hx Pneumococcal Vaccination: 03/10/13 Review of Systems - Review of Systems Constitutional: denies: Chills, Fever EENT: No symptoms reported Cardiovascular: No symptoms reported Respiratory: No symptoms reported Gastrointestinal: See HPI Genitourinary: denies: Burning, Dysuria, Discharge Female Genitourinary: Last menstrual period - currently Musculoskeletal: No symptoms reported Skin: No symptoms reported Hematologic/Lymphatic: No symptoms reported Neurological/Psychological: No symptoms reported Physical Exam - Vital signs Vitals: Resp BP Pulse Ox 20 100/66 97 06/04/18 09:35 06/04/18 09:35 06/04/18 09:35 - Notes Notes: GENERAL: Alert, interacts well. No acute distress. HEAD: Normocephalic, atraumatic. EYES: Pupils equal, round, and reactive to light. Extraocular movements intact. ENT: Oral mucosa dry, tongue midline. NECK: Full range of motion. Supple. Trachea midline. LUNGS: Clear to auscultation bilaterally, no wheezes, rales, or rhonchi. No respiratory distress. HEART: Regular rate and rhythm. No murmur ABDOMEN: Soft, non-tender. Non-distended. Bowel sounds present in all 4 quadrants. No McBurney's point tenderness, no Saldaña sign noted. EXTREMITIES: Moves all 4 extremities spontaneously. No edema, normal radial and dorsalis pedis pulses bilaterally. No cyanosis. BACK: no cervical, thoracic, lumbar midline tenderness. No saddle anesthesia, normal distal neurovascular exam. NEUROLOGICAL: Alert and oriented x3. Normal speech. cranial nerves II through XII grossly intact PSYCH: Normal affect, normal mood. SKIN: Warm, dry, normal turgor. No rashes or lesions noted. Course - Re-evaluation Re-evalutation: Patient is well-known to the emergency room. Patient's labs revealed no signs of leukocytosis, no signs of anemia. Her pH is 7.26 via VBG, she does have an anion gap of 17 and a CO2 of 21 on CMP. She does not appear to be in DKA. Patient's initial blood sugar was 649. Patient states in the ambulance she did bolus herself 9 units of her NovoLog via her insulin pump. After 1 L of fluid repeat blood sugar was 599. Patient was given IV insulin and another fluid bolus. Patient's sugar did come down to 344. Patient's anion gap was only 17 so she does not appear to be acidotic. Discussed this case with my attending Dr. Hicks who suggests another insulin dose and more fluid resuscitation. Patient is currently refusing more insulin or more fluid. Patient states she wants to go home. Discussed that her blood sugars are still elevated and we would like to continue to monitor her. Discussed that she will be leaving the hospital AGAINST MEDICAL ADVICE. Patient voices understanding has a GCS of 15 and signs AGAINST MEDICAL ADVICE paperwork. Patient's EKG shows sinus rhythm, rate of 76, QTc 450, no ST segment elevations or peaked T waves noted on EKG. - Vital Signs Vital signs: Temp Pulse Resp BP Pulse Ox 97.9 F 14 107/66 100 06/04/18 09:44 06/04/18 12:47 06/04/18 12:47 06/04/18 12:47 - Laboratory Result Diagrams: 06/04/18 09:39 06/04/18 09:39 Laboratory results interpreted by me: 06/04/18 06/04/18 06/04/18 09:39 09:39 10:37 VBG pH 7.26 L VBG HCO3 19.4 L Sodium 131.3 L Potassium 5.5 H Chloride 93 L Carbon Dioxide 21 L BUN 33 H Creatinine 1.35 H Est GFR ( Amer) 55 L Est GFR (Non-Af Amer) 45 L Glucose 649 H* POC Glucose > 550 H* Calcium 10.4 H Urine Protein Urine Glucose (UA) Urine Ketones Urine Blood 06/04/18 06/04/18 11:15 12:06 VBG pH VBG HCO3 Sodium Potassium Chloride Carbon Dioxide BUN Creatinine Est GFR ( Amer) Est GFR (Non-Af Amer) Glucose POC Glucose 344 H Calcium Urine Protein 30 H Urine Glucose (UA) >=500 H Urine Ketones 20 H Urine Blood SMALL H Discharge - Discharge Clinical Impression: Hyperglycemia Condition: Fair Disposition: AGAINST MEDICAL ADVICE Additional Instructions: As we discussed you are leaving the hospital AGAINST MEDICAL ADVICE. Your blood sugar is still elevated at this time. Please make sure you are using your insulin pump as directed by her primary care provider. Please also make sure you are staying well-hydrated. Please make sure you immediately return to the e mergency room should you have any other concerning symptoms and follow-up with your primary care provider in the next 12-24 hours. Forms: Return to Work Referrals: LAWSON HUDSON, [Primary Care Provider] - Follow up as needed
--- NOTE | 2018-06-06 09:35 | EKG REPORT ---
SEVERITY:- BORDERLINE ECG - SINUS RHYTHM PROBABLE LEFT ATRIAL ABNORMALITY BORDERLINE T ABNORMALITIES, ANTERIOR LEADS : Confirmed by: Jorge Pruett 06-Jun-2018 09:34:33
== END 2018-06-04 12:54 | disposition left against medical advice (07) ==
LOC: ER 09:32
DX: E10.65 Type 1 diabetes mellitus with hyperglycemia (principal); R11.2 Nausea with vomiting, unspecified; F17.200 Nicotine dependence, unspecified, uncomplicated; E78.00 Pure hypercholesterolemia, unspecified; E03.9 Hypothyroidism, unspecified; Z88.2 Allergy status to sulfonamides; Z88.0 Allergy status to penicillin
CPT/HCPCS: 93005; 99284; 96360; 96361; 36415; 82962; 85025; 80053; 81001; 82803; 93010; A9270; J7030; J1815

== ENCOUNTER 2018-07-06 12:36 | Inpatient (IN) | payer MEDICARE, MEDICAID ==
[2018-07-06] MEDS ORDERED: INSULIN REG, HUMAN 100 UNIT/ML 3 ML VIAL (PYX) IV ONE ×2 (13:30→16:08)
[2018-07-06] MEDS ORDERED: NORMAL SALINE 1000 ML 1,000 ML IV ONE ×3 (13:30→16:57)
[2018-07-06] MEDS ORDERED: ONDANSETRON 4 MG TAB.RAPDIS PO ONE (13:32)
--- NOTE | 2018-07-06 13:34 | ER Document Report ---
ED Medical Screen (RME) - General Chief Complaint: High Blood Sugar Stated Complaint: BLOOD SUGAR ISSUE Time Seen by Provider: 07/06/18 13:30 Primary Care Provider: LAWSON HUDSON DO [Primary Care Provider] - Follow up as needed Mode of Arrival: Ambulatory Information source: Patient TRAVEL OUTSIDE OF THE [place] IN LAST 30 DAYS: No - HPI Patient complains to provider of: elevated BS Onset: This morning - pt has h/o IDDM who has been in DKA in the past. Feels as if she is in DKA again. Plus N/V - Related Data Allergies/Adverse Reactions: mushroom Allergy (Severe, Verified 06/04/18 10:11) Anaphylaxis alcohol [Alcohol] Allergy (Unknown, Verified 06/04/18 10:11) Hives gabapentin Allergy (Unknown, Verified 06/04/18 10:11) Hives morphine [Morphine] Allergy (Unknown, Verified 06/04/18 10:11) Penicillins Allergy (Unknown, Verified 06/04/18 10:11) Sulfa (Sulfonamide Antibiotics) Allergy (Unknown, Verified 06/04/18 10:11) adhesive [Adhesive] Allergy (Verified 06/04/18 10:11) chlorpromazine [From Thorazine] Allergy (Verified 06/04/18 10:11) tomato [Tomato] Adverse Reaction (Severe, Verified 06/04/18 10:11) Anaphylaxis Past Medical History - Past Medical History Cardiac Medical History: Reports: Hx Hypercholesterolemia Denies: Hx Coronary Artery Disease, Hx DVT, Hx Heart Attack, Hx Pulmonary Embolism Pulmonary Medical History: Reports: Hx Asthma Denies: Hx COPD, Hx Tuberculosis Neurological Medical History: 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 Denies: Hx Crohn's Disease, Hx Hiatal Hernia, Hx Ulcer, Hx Ulcerative Colitis Musculoskeltal Medical History: Denies Hx Arthritis, Denies Hx Gout, Reports Hx Musculoskeletal Deformity, Reports Hx Musculoskeletal Trauma Skin Medical History: Denies Hx Eczema, Denies Hx Psoriasis Psychiatric Medical History: Reports: Hx Anxiety, Hx Bipolar Disorder, Hx Depression, Hx Post Traumatic Stress Disorder Traumatic Medical History: Reports: Hx Fractures - Wrist hand and toe Infectious Medical History: Past Surgical History: Reports: Hx Oral Surgery - wisdom teeth, Hx Orthopedic Surgery, Other - [place] teeth excisions bilaterally, bilateral ingrown toenail removals. Denies: Hx Mastectomy, Hx Open Heart Surgery - Immunizations Hx Diphtheria, Pertussis, Tetanus Vaccination: Yes History of Influenza Vaccine for 01/2017 - 06/2017 Season: Yes Influenza Administration Date for 01/2017 - 06/2017 Season: 03/10/17 Physical Exam - Vital signs Vitals: Temp Pulse Resp BP Pulse Ox 98.3 F 84 18 131/81 H 98 07/06/18 13:01 07/06/18 13:01 07/06/18 13:01 07/06/18 13:01 07/06/18 13:01 Course - Vital Signs Vital signs: Temp Pulse Resp BP Pulse Ox 98.3 F 84 18 131/81 H 98 07/06/18 13:01 07/06/18 13:01 07/06/18 13:01 07/06/18 13:01 07/06/18 13:01 Doctor's Discharge - Discharge Referrals: LAWSON HUDSON DO [Primary Care Provider] - Follow up as needed
[2018-07-06] MEDS ORDERED: PROMETHAZINE HCL INJ 25 MG/1 ML VIAL IM ONE (14:33)
[2018-07-06] MEDS ORDERED: FAMOTIDINE INJ/PF 20 MG/2 ML SDV IV ONE (14:37)
[2018-07-06] MEDS ORDERED: LORAZEPAM INJ 2 MG/1 ML VIAL IV ONE (14:37)
[2018-07-06 15:22] LABS: ARTERIAL BLOOD BASE EXCESS -2.7 mmol/L; ARTERIAL BLOOD H2CO3 1.11 mmol/L (1.05-1.35); ARTERIAL BLOOD HCO3 21.7 mmol/L (20-24); ARTERIAL BLOOD O2 SATURATION 97.7 % (94-98); ARTERIAL BLOOD PCO2 36.8 mmHg (35-45); ARTERIAL BLOOD PH 7.39 (7.35-7.45); ARTERIAL BLOOD PO2 103.3 mmHg (80-100); ARTERIAL BLOOD TOTAL CO2 22.9 mmol/L (21-25)
[2018-07-06 15:26] LABS: ABSOLUTE BASOPHILS # (AUTO) 0.1 10^3/uL (0.0-0.2); ABSOLUTE LYMPHOCYTES (AUTO) 2.7 10^3/uL (0.5-4.7); ABSOLUTE MONOCYTES (AUTO) 0.6 10^3/uL (0.1-1.4); ABSOLUTE NEUT (AUTO) 10.8 10^3/uL (1.7-8.2); BASOPHILS % (AUTO) 0.5 % (0-2); EOSINOPHILS % (AUTO) 0.1 % (0-6); HEMATOCRIT 36.5 % (36.0-47.0); HEMOGLOBIN 12.1 g/dL (12.0-15.5); LYMPHOCYTES % (AUTO) 19.1 % (13-45); MEAN CORPUSCULAR HEMOGLOBIN 31.6 pg (27.0-33.4); MEAN CORPUSCULAR HGB CONC 33.2 g/dL (32.0-36.0); MEAN CORPUSCULAR VOLUME 95 fl (80-97); MONOCYTES % (AUTO) 4.4 % (3-13); PLATELET COUNT 358 10^3/uL (150-450); RED BLOOD COUNT 3.85 10^6/uL (3.72-5.28); RED CELL DISTRIBUTION WIDTH 13.1 % (11.5-14.0); SEGMENTED NEUTROPHILS % (AUTO) 75.9 % (42-78); TOTAL CELLS COUNTED % (AUTO) 100 %; WHITE BLOOD COUNT 14.2 10^3/uL (4.0-10.5)
[2018-07-06 15:36] LABS: ALANINE AMINOTRANSFERASE 69 U/L (9-52); ALBUMIN 4.3 g/dL (3.5-5.0); ALKALINE PHOSPHATASE 130 U/L (38-126); ASPARTATE AMINO TRANSFERASE 40 U/L (14-36); BILIRUBIN,DIRECT 0.4 mg/dL (0.0-0.4); BILIRUBIN,TOTAL 0.8 mg/dL (0.2-1.3); BLOOD UREA NITROGEN 42 mg/dL (7-20); CALCIUM 10.3 mg/dL (8.4-10.2); POTASSIUM 3.8 mmol/L (3.6-5.0); TOTAL PROTEIN 7.5 g/dL (6.3-8.2)
[2018-07-06 15:45] LABS: CARBON DIOXIDE 22 mmol/L (22-30); CHLORIDE 83 mmol/L (98-107); SODIUM 126.4 mmol/L (137-145)
[2018-07-06 15:47] LABS: ARTERIAL BLOOD FIO2 ROOM AIR
[2018-07-06 15:49] LABS: ANION GAP 21 (5-19)
[2018-07-06 15:50] LABS: GLUCOSE 990 mg/dL (75-110)
[2018-07-06] MEDS ORDERED: GLUCAGON,HUMAN RECOMB 1 MG INJ IM PRN ×2 (16:09→17:31)
[2018-07-06] MEDS ORDERED: DEXTROSE 50%-WATER 25 GM/50 ML DISP.SYRIN IV PRN ×4 (16:09→17:31)
[2018-07-06] MEDS ORDERED: NORMAL SALINE 100 ML with INSULIN REGULAR, HUMAN 100 UNIT IV PRN ×4 (16:09→17:31)
[2018-07-06] MEDS ORDERED: DEXTROSE 40% GEL 15 GM TUBE PO PRN ×4 (16:09→17:31)
[2018-07-06] MEDS ORDERED: INSULIN REG, HUMAN 100 UNIT/ML 3 ML VIAL (PYX) ONE (16:19)
--- NOTE | 2018-07-06 16:20 | ER Document Report ---
ED General - General Chief Complaint: High Blood Sugar Stated Complaint: BLOOD SUGAR ISSUE Time Seen by Provider: 07/06/18 13:30 Primary Care Provider: LAWSON HUDSON DO [Primary Care Provider] - Follow up as needed Mode of Arrival: Ambulatory Information source: Patient TRAVEL OUTSIDE OF THE [place] IN LAST 30 DAYS: No - HPI Notes: Patient is a 33-year-old brittle insulin-dependent diabetic presents to the emergency department with report that she lost her glucometer recently and was unable to appropriately manage her insulin pump settings and started having nausea vomiting last evening. She states early this morning she gave herself a bolus of 9 units of regular insulin above her basal rate on her insulin pump, b ut had nausea vomiting since last evening without hematemesis. She questions having a slightly loose bowel movement without any bright red blood. She reports no cough or congestion or chest pain or shortness of breath. She denies any abdominal pain. She states she feels like she is back in ketoacidosis again. She reports being compliant with other medications. - Related Data Allergies/Adverse Reactions: mushroom Allergy (Severe, Verified 06/04/18 10:11) Anaphylaxis alcohol [Alcohol] Allergy (Unknown, Verified 06/04/18 10:11) Hives gabapentin Allergy (Unknown, Verified 06/04/18 10:11) Hives morphine [Morphine] Allergy (Unknown, Verified 06/04/18 10:11) Penicillins Allergy (Unknown, Verified 06/04/18 10:11) Sulfa (Sulfonamide Antibiotics) Allergy (Unknown, Verified 06/04/18 10:11) adhesive [Adhesive] Allergy (Verified 06/04/18 10:11) chlorpromazine [From Thorazine] Allergy (Verified 06/04/18 10:11) tomato [Tomato] Adverse Reaction (Severe, Verified 06/04/18 10:11) Anaphylaxis Past Medical History - General Information source: Patient - Social History Smoking Status: Current Every Day Smoker Chew tobacco use (# tins/day): No Frequency of alcohol use: None Drug Abuse: Marijuana Family History: Arthritis, CAD, DM, Malignancy, Thyroid Disfunction Patient has suicidal ideation: No Patient has homicidal ideation: No - Past Medical History Cardiac Medical History: Reports: Hx Hypercholesterolemia Denies: Hx Coronary Artery Disease, Hx DVT, Hx Heart Attack, Hx Pulmonary Embolism Pulmonary Medical History: Reports: Hx Asthma Denies: Hx COPD, Hx Tuberculosis Neurological Medical History: 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 Denies: Hx Crohn's Disease, Hx Hiatal Hernia, Hx Ulcer, Hx Ulcerative Colitis Musculoskeletal Medical History: Denies Hx Arthritis, Denies Hx Gout, Reports Hx Musculoskeletal Deformity, Reports Hx Musculoskeletal Trauma Skin Medical History: Denies Hx Eczema, Denies Hx Psoriasis Psychiatric Medical History: Reports: Hx Anxiety, Hx Bipolar Disorder, Hx De pression, Hx Post Traumatic Stress Disorder Traumatic Medical History: Reports: Hx Fractures - Wrist hand and toe Infectious Medical History: Past Surgical History: Reports: Hx Oral Surgery - wisdom teeth, Hx Orthopedic Surgery, Other - [place] teeth excisions bilaterally, bilateral ingrown toenail removals. Denies: Hx Mastectomy, Hx Open Heart Surgery - Immunizations Hx Diphtheria, Pertussis, Tetanus Vaccination: Yes Hx Pneumococcal Vaccination: 03/10/13 Review of Systems - Review of Systems -: Yes All other systems reviewed and negative Physical Exam - Vital signs Vitals: Temp Pulse Resp BP Pulse Ox 98.3 F 84 18 131/81 H 98 07/06/18 13:01 07/06/18 13:01 07/06/18 13:01 07/06/18 13:01 07/06/18 13:01 - Notes Notes: PHYSICAL EXAMINATION: GENERAL: Well-appearing, well-nourished and in no acute distress. HEAD: Atraumatic, normocephalic. EYES: Pupils equal round and reactive to light, extraocular movements intact, conjunctiva are normal. ENT: Nares patent, oropharynx clear without exudates. Very dry mucous membranes. NECK: Normal range of motion, supple without lymphadenopathy LUNGS: Breath sounds clear to auscultation bilaterally and equal. No wheezes rales or rhonchi. HEART: Regular rate and rhythm without murmurs ABDOMEN: Soft, nontender, nondistended abdomen. No guarding, no rebound. No masses appreciated. Female : deferred Musculoskeletal: Normal range of motion, no pitting or edema. No cyanosis. NEUROLOGICAL: Cranial nerves grossly intact. Normal speech, normal gait. Normal sensory, motor exams PSYCH: Normal mood, normal affect. SKIN: Warm, Dry, normal turgor, no rashes or lesions noted. Course - Re-evaluation Re-evalutation: 07/06/18 16:21 Patient was given Zofran p.o., but she either vomited up or spit it up. The patient had her insulin pump in place and there was difficulty initially starting an IV, so she was instructed to give herself 9 units bolus of regular insulin by way of the insulin pump, as her initial blood sugar was too high to register. Patient was bolused 1 L normal saline. Initial blood sugar was 990 and patient was given 5 units of IV insulin. Later was still too high to register and she was given an additional 10 units of IV insulin. Second liter normal saline was ordered on the patient. Vital signs remained stable and she was alert. Blood gas did not show any significant acidosis. Call was made for admission for the patient. Insulin drip was started on the patient. 07/06/18 16:55 Second call made for admission for the patient for hyperglycemia with acute kidney injury and dehydration. Urinalysis and test are still pending. Discussed with Dr. Crump who came in to see the patient. 07/06/18 17:02 - Vital Signs Vital signs: Temp Pulse Resp BP Pulse Ox 98.3 F 84 16 131/81 H 98 07/06/18 13:01 07/06/18 13:01 07/06/18 13:33 07/06/18 13:01 07/06/18 13:01 - Laboratory Result Diagrams: 07/06/18 15:06 07/06/18 15:06 Laboratory results interpreted by me: 07/06/18 07/06/18 07/06/18 15:06 15:06 15:06 WBC 14.2 H Absolute Neutrophils 10.8 H ABG pO2 103.3 H Sodium 126.4 L Chloride 83 L Anion Gap 21 H BUN 42 H Creatinine 1.82 H Est GFR ( Amer) 39 L Est GFR (Non-Af Amer) 32 L Glucose 990 H* Calcium 10.3 H AST 40 H ALT 69 H Alkaline Phosphatase 130 H Critical Care Note - Critical Care Note Total time excluding time spent on procedures (mins): 34 Discharge - Discharge Clinical Impression: Hyperglycemia, Acute kidney injury Acute kidney failure Qualifiers: Acute renal failure type: unspecified Qualified Code(s): N17.9 - Acute kidney failure, unspecified Condition: Good Disposition: ADMITTED INPATIENT Admitting Provider: Hospitalist Unit Admitted: Medical Floor Referrals: LAWSON HUDSON DO [Primary Care Provider] - Follow up as needed
[2018-07-06] MEDS ORDERED: ONDANSETRON HCL INJ/PF 4 MG/2 ML SDV IV PRN (17:27)
--- NOTE | 2018-07-06 17:27 | PDOC H&P ---
History of Present Illness Admission Date/PCP: LAWSON HUDSON DO History of Present Illness: JEANINE OSORIO is a 33 year old female patient presented with chief complaint of nausea and vomiting. She is a known case of insulin-dependent diabetes mellitus and has been on insulin pump. Since patient lost her glucometer she is not able to appropriately manage her insulin pump. This morning she give it is safe 9 units bolus insulin. She continued to have nausea vomiting of ingested material. She endorses also an episode of loose stools. She denies any fever, chills, palpitation, chest pain, cough or diaphoresis. No headache, dizziness blurry vision or any seizure activity. His her initial blood work shows hyponatremia with sodium of 126, anion gap 21 acute acute kidney injury evidenced by BUN of 42 and creatinine of 1.82 and her blood sugar is 990. 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 Endocrine Medical History: Reports: Diabetes Mellitus Type 1, Diabetes Mellitus Type 2, Hypothyroidism GI Medical History: Reports: Gastroesophageal Reflux Disease Denies: Crohn's Disease, Hiatal Hernia, Ulcerative Colitis Musculoskeltal Medical History: Denies: Arthritis, Gout Skin Medical History: Denies: Eczema, Psoriasis Psychiatric Medical History: Reports: Bipolar Disorder, Depression, Post Traumatic Stress Disorder Hematology: Denies: Anemia, Bleeding Tendencies Past Surgical History Past Surgical History: Reports: Orthopedic Surgery, Other - [place] teeth excisions bilaterally, bilateral ingrown toenail removals Denies: Amputation, Mastectomy Social History Smoking Status: Current Every Day Smoker Frequency of Alcohol Use: Rare Hx Recreational Drug Use: No Drugs: Marijuana Hx Prescription Drug Abuse: No - Advance Directive Resuscitation Status: Full Code Family History Family History: Arthritis, CAD, DM, Malignancy, Thyroid Disfunction Parental Family History Reviewed: Yes Children Family History Reviewed: Yes Sibling(s) Family History Reviewed.: Yes Medication/Allergy Home Medications: Aspirin [Adult Low Dose Aspirin EC] 81 mg PO DAILY 05/21/18 Brexpiprazole [Rexulti] 1 mg PO DAILY 05/21/18 Hydroxyzine Pamoate [Vistaril 50 mg Capsule] 50 mg PO BID 05/21/18 Insulin Aspart [Novolog Insulin (Aspart) 100 unit/mL] 0 units PUMP .ASDIR 05/21/18 Levothyroxine Sodium 300 mcg PO Q6AM 05/21/18 Lisinopril [Zestril] 10 mg PO DAILY 05/21/18 Meloxicam [Mobic] 15 mg PO DAILY 05/21/18 Metoclopramide HCl [Reglan 10 mg Tablet] 10 mg PO BID 05/21/18 Omeprazole 40 mg PO DAILY 05/21/18 Prazosin HCl [Minipress] 2 mg PO QHS 05/21/18 Propranolol HCl [Inderal 20 mg Tablet] 10 mg PO QID 05/21/18 Simvastatin [Zocor 20 mg Tablet] 20 mg PO QPM 05/21/18 Trazodone HCl [Desyrel 50 mg Tablet] 50 mg PO QHS 05/21/18 Allergies/Adverse Reactions: mushroom Allergy (Severe, Verified 06/04/18 10:11) Anaphylaxis alcohol [Alcohol] Allergy (Unknown, Verified 06/04/18 10:11) Hives gabapentin Allergy (Unknown, Verified 06/04/18 10:11) Hives morphine [Morphine] Allergy (Unknown, Verified 06/04/18 10:11) Penicillins Allergy (Unknown, Verified 06/04/18 10:11) Sulfa (Sulfonamide Antibiotics) Allergy (Unknown, Verified 06/04/18 10:11) adhesive [Adhesive] Allergy (Verified 06/04/18 10:11) chlorpromazine [From Thorazine] Allergy (Verified 06/04/18 10:11) tomato [Tomato] Adverse Reaction (Severe, Verified 06/04/18 10:11) Anaphylaxis Review of Systems Constitutional: ABSENT: chills, fever(s), headache(s), weight gain, weight loss Eyes: ABSENT: visual disturbances Ears: ABSENT: hearing changes Cardiovascular: ABSENT: chest pain, dyspnea on exertion, edema, orthropnea, palpitations Respiratory: ABSENT: cough, hemoptysis Gastrointestinal: PRESENT: nausea, vomiting. ABSENT: abdominal pain, constipation, diarrhea, hematemesis, hematochezia Genitourinary: ABSENT: dysuria, hematuria Musculoskeletal: ABSENT: joint swelling Integumentary: ABSENT: rash, wounds Neurological: ABSENT: abnormal gait, abnormal speech, confusion, dizziness, focal weakness, syncope Psychiatric: ABSENT: anxiety, depression, homidical ideation, suicidal ideation Endocrine: ABSENT: cold intolerance, heat intolerance, polydipsia, polyuria Hematologic/Lymphatic: ABSENT: easy bleeding, easy bruising Physical Exam Vital Signs: Temp Pulse Resp BP Pulse Ox 98.3 F 84 16 131/81 H 98 07/06/18 13:01 07/06/18 13:01 07/06/18 13:33 07/06/18 13:01 07/06/18 13:01 Intake & Output 07/05/18 07/06/18 07/07/18 06:59 06:59 06:59 Intake Total 1000 Balance 1000 Weight 61.5 kg General appearance: PRESENT: no acute distress, well-developed, well-nourished Head exam: PRESENT: atraumatic, normocephalic Eye exam: PRESENT: conjunctiva pink, EOMI, PERRLA. ABSENT: scleral icterus Ear exam: PRESENT: normal external ear exam Mouth exam: PRESENT: moist, tongue midline Neck exam: ABSENT: carotid bruit, JVD, lymphadenopathy, thyromegaly Respiratory exam: PRESENT: clear to auscultation dave. ABSENT: rales, rhonchi, wheezes Cardiovascular exam: PRESENT: RRR. ABSENT: diastolic murmur, rubs, systolic murmur Pulses: PRESENT: normal dorsalis pedis pul Vascular exam: PRESENT: normal capillary refill GI/Abdominal exam: PRESENT: normal bowel sounds, soft. ABSENT: distended, guarding, mass, organolmegaly, rebound, tenderness Rectal exam: PRESENT: deferred Extremities exam: PRESENT: full ROM. ABSENT: calf tenderness, clubbing, pedal edema Neurological exam: PRESENT: alert, awake, oriented to person, oriented to place, oriented to time, oriented to situation, CN II-XII grossly intact. ABSENT: motor sensory deficit Psychiatric exam: PRESENT: appropriate affect, normal mood. ABSENT: homicidal ideation, suicidal ideation Skin exam: PRESENT: dry, intact, warm. ABSENT: cyanosis, rash Results Laboratory Results: 07/06/18 15:06 07/06/18 15:06 07/06/18 07/06/18 07/06/18 15:06 15:06 15:06 WBC 14.2 H RBC 3.85 Hgb 12.1 Hct 36.5 MCV 95 MCH 31.6 MCHC 33.2 RDW 13.1 Plt Count 358 Seg Neutrophils % 75.9 Lymphocytes % 19.1 Monocytes % 4.4 Eosinophils % 0.1 Basophils % 0.5 Absolute Neutrophils 10.8 H Absolute Lymphocytes 2.7 Absolute Monocytes 0.6 Absolute Eosinophils 0.0 Absolute Basophils 0.1 Carbonic Acid 1.11 HCO3/H2CO3 Ratio 19:1 ABG pH 7.39 ABG pCO2 36.8 ABG pO2 103.3 H ABG HCO3 21.7 ABG O2 Saturation 97.7 ABG Base Excess -2.7 FiO2 ROOM AIR Sodium 126.4 L Potassium 3.8 Chloride 83 L Carbon Dioxide 22 Anion Gap 21 H BUN 42 H Creatinine 1.82 H Est GFR ( Amer) 39 L Est GFR (Non-Af Amer) 32 L Glucose 990 H* Calcium 10.3 H Total Bilirubin 0.8 AST 40 H ALT 69 H Alkaline Phosphatase 130 H Total Protein 7.5 Albumin 4.3 Assessment and Plan - Diagnosis (1) DKA (diabetic ketoacidoses) Qualifiers: Diabetes mellitus type: type 1 Is this a current diagnosis for this admission?: Yes Plan: Patient is being hydrated aggressively and she has been on insulin drip casey col. (2) Acute kidney injury Is this a current diagnosis for this admission?: Yes Plan: We will cautiously hydrate her. We will avoid nephrotoxic agents. (3) Hyperlipidemia Qualifiers: Hyperlipidemia type: pure hypercholesterolemia Qualified Code(s): E78.00 - Pure hypercholesterolemia, unspecified Is this a current diagnosis for this admission?: Yes Plan: Continue home medication. (4) Hypothyroidism Qualifiers: Hypothyroidism type: acquired Qualified Code(s): E03.9 - Hypothyroidism, unspecified Is this a current diagnosis for this admission?: Yes Plan: Continue Synthroid (5) Seizure disorder Is this a current diagnosis for this admission?: Yes Plan: In remission - Inpatient Certification Medical Necessity: Need Close Monitoring Due to Risk of Patient Decompensation, Need For IV Fluids
[2018-07-06] MEDS: ENOXAPARIN SODIUM INJ 40 MG/0.4 ML DISP.SYRIN SUBCUT SCH (18:37)
[2018-07-06 21:15] LABS: ALANINE AMINOTRANSFERASE 56 U/L (9-52); ALBUMIN 2.9 g/dL (3.5-5.0); ALKALINE PHOSPHATASE 82 U/L (38-126); ANION GAP 8 (5-19); ASPARTATE AMINO TRANSFERASE 30 U/L (14-36); BILIRUBIN,DIRECT 0.3 mg/dL (0.0-0.4); BILIRUBIN,TOTAL 0.4 mg/dL (0.2-1.3); BLOOD UREA NITROGEN 36 mg/dL (7-20); CALCIUM 8.9 mg/dL (8.4-10.2); CARBON DIOXIDE 23 mmol/L (22-30); CHLORIDE 102 mmol/L (98-107); GLUCOSE 389 mg/dL (75-110); POTASSIUM 3.2 mmol/L (3.6-5.0); SODIUM 133.4 mmol/L (137-145); TOTAL PROTEIN 5.9 g/dL (6.3-8.2)
[2018-07-06] MEDS: POTASSIUM CHLORIDE 10 MEQ CAPSULE.ER PO SCH (23:15)
[2018-07-06] MEDS: NORMAL SALINE 1000 ML 1,000 ML IV PRN (23:15)
[2018-07-06] MEDS: POTASSI CL 20 MEQ/50 ML RIDER 20 MEQ/50 ML RTUPB IV SCH (23:15)
[2018-07-07] MEDS: POTASSI CL 20 MEQ/50 ML RIDER 20 MEQ/50 ML RTUPB IV SCH (01:40)
[2018-07-07] MEDS: NORMAL SALINE 1000 ML 1,000 ML IV PRN (04:28)
[2018-07-07 08:02] LABS: ALANINE AMINOTRANSFERASE 52 U/L (9-52); ALKALINE PHOSPHATASE 87 U/L (38-126); ANION GAP 6 (5-19); ASPARTATE AMINO TRANSFERASE 41 U/L (14-36); BILIRUBIN,DIRECT 0.2 mg/dL (0.0-0.4); BILIRUBIN,TOTAL 0.6 mg/dL (0.2-1.3); BLOOD UREA NITROGEN 27 mg/dL (7-20); CALCIUM 8.9 mg/dL (8.4-10.2); CARBON DIOXIDE 21 mmol/L (22-30); CHLORIDE 108 mmol/L (98-107); GLUCOSE 220 mg/dL (75-110); SODIUM 135.2 mmol/L (137-145); TOTAL PROTEIN 5.9 g/dL (6.3-8.2)
[2018-07-07 08:08] LABS: ABSOLUTE EOSINOPHILS # (AUTO) 0.1 10^3/uL (0.0-0.6); ABSOLUTE LYMPHOCYTES (AUTO) 3.9 10^3/uL (0.5-4.7); ABSOLUTE MONOCYTES (AUTO) 0.6 10^3/uL (0.1-1.4); ABSOLUTE NEUT (AUTO) 9.7 10^3/uL (1.7-8.2); BASOPHILS % (AUTO) 0.3 % (0-2); EOSINOPHILS % (AUTO) 0.4 % (0-6); HEMOGLOBIN 11.4 g/dL (12.0-15.5); LYMPHOCYTES % (AUTO) 27.3 % (13-45); MEAN CORPUSCULAR HEMOGLOBIN 30.9 pg (27.0-33.4); MEAN CORPUSCULAR HGB CONC 34.4 g/dL (32.0-36.0); PLATELET COUNT 299 10^3/uL (150-450); RED BLOOD COUNT 3.68 10^6/uL (3.72-5.28); RED CELL DISTRIBUTION WIDTH 12.9 % (11.5-14.0); TOTAL CELLS COUNTED % (AUTO) 100 %; WHITE BLOOD COUNT 14.2 10^3/uL (4.0-10.5)
[2018-07-07 08:10] LABS: MEAN CORPUSCULAR VOLUME 90 fl (80-97); POTASSIUM 4.4 mmol/L (3.6-5.0)
[2018-07-07] MEDS ORDERED: DEXTROSE 40% GEL 15 GM TUBE PO PRN ×2 (08:15)
[2018-07-07] MEDS ORDERED: DEXTROSE 50%-WATER 25 GM/50 ML DISP.SYRIN IV PRN ×2 (08:15)
[2018-07-07] MEDS ORDERED: TRAZODONE HCL 50 MG TABLET PO PRN (08:22)
[2018-07-07] MEDS ORDERED: ALPRAZOLAM 0.5 MG TABLET PO PRN (08:22)
[2018-07-07] MEDS ORDERED: INSULIN REG, HUMAN 100 UNIT/ML 3 ML VIAL (PYX) ONE ×2 (08:47→18:22)
[2018-07-07] MEDS: TRAMADOL HCL 50 MG TABLET PO PRN ×2 (08:52→15:40)
[2018-07-07] MEDS: ENOXAPARIN SODIUM INJ 40 MG/0.4 ML DISP.SYRIN SUBCUT SCH (09:00)
[2018-07-07] MEDS: POTASSIUM CHLORIDE 10 MEQ CAPSULE.ER PO SCH (09:04)
[2018-07-07] MEDS: PROPRANOLOL HCL 10 MG TABLET PO SCH ×4 (09:04→22:44)
[2018-07-07] MEDS: FLUTICASONE NASAL SPRAY 50 MCG/SPRY 120 SPRAY/16 GM NASL SCH (09:05)
[2018-07-07] MEDS ORDERED: (PENDING PHARMACY ID) (Brexpiprazole [Rexulti] 1 MG) PO SCH (10:00)
[2018-07-07] MEDS ORDERED: INSULIN REG, HUMAN 100 UNIT/ML 3 ML VIAL (PYX) SUBCUT SCH (11:00)
[2018-07-07] MEDS: ARIPIPRAZOLE 5 MG TABLET PO SCH (11:36)
--- NOTE | 2018-07-07 12:04 | PDOC PROGRESS REPORT ---
Subjective Progress Note for:: 07/07/18 Subjective:: Patient is seen resting in bed. She is somewhat lethargic. She is awake, alert, oriented x3. She denies any chest pain, shortness of breath or dyspnea. She denies any nausea, vomiting or abdominal pain. She has had no further diarrhea. She is eating some. She denies any dysuria. She is having some lower back pain which is chronic. She denies any other arthralgias or myalgias. Remaining review of systems are negative Reason For Visit: DKA Physical Exam Vital Signs: Temp Pulse Resp BP Pulse Ox 98.6 F 72 18 136/79 H 99 07/07/18 07:00 07/07/18 07:00 07/07/18 07:00 07/07/18 07:00 07/07/18 07:00 Intake & Output 07/06/18 07/07/18 07/08/18 06:59 06:59 06:59 Intake Total 3393 Balance 3393 Weight 61.6 kg General appearance: PRESENT: no acute distress, well-developed, well-nourished Head exam: PRESENT: atraumatic, normocephalic Eye exam: PRESENT: conjunctiva pink, EOMI, PERRLA. ABSENT: scleral icterus Ear exam: PRESENT: normal external ear exam Mouth exam: PRESENT: moist, tongue midline Neck exam: ABSENT: carotid bruit, JVD, lymphadenopathy, thyromegaly Respiratory exam: PRESENT: clear to auscultation dave, symmetrical, unlabored. ABSENT: rales, rhonchi, wheezes Cardiovascular exam: PRESENT: RRR. ABSENT: diastolic murmur, rubs, systolic murmur Pulses: PRESENT: normal carotid pulses, normal radial pulses Vascular exam: PRESENT: normal capillary refill GI/Abdominal exam: PRESENT: normal bowel sounds, soft. ABSENT: distended, guar ding, mass, organolmegaly, rebound, tenderness Rectal exam: PRESENT: deferred Extremities exam: PRESENT: full ROM. ABSENT: calf tenderness, clubbing, pedal edema Musculoskeletal exam: PRESENT: ambulatory, full ROM Neurological exam: PRESENT: alert, awake, oriented to person, oriented to place, oriented to time, oriented to situation, CN II-XII grossly intact. ABSENT: motor sensory deficit Psychiatric exam: PRESENT: flat affect Skin exam: PRESENT: dry, intact, warm. ABSENT: cyanosis, rash Results Laboratory Results: 07/07/18 06:50 07/07/18 06:50 07/06/18 07/06/18 07/06/18 15:06 15:06 15:06 WBC 14.2 H RBC 3.85 Hgb 12.1 Hct 36.5 MCV 95 MCH 31.6 MCHC 33.2 RDW 13.1 Plt Count 358 Seg Neutrophils % 75.9 Lymphocytes % 19.1 Monocytes % 4.4 Eosinophils % 0.1 Basophils % 0.5 Absolute Neutrophils 10.8 H Absolute Lymphocytes 2.7 Absolute Monocytes 0.6 Absolute Eosinophils 0.0 Absolute Basophils 0.1 Carbonic Acid 1.11 HCO3/H2CO3 Ratio 19:1 ABG pH 7.39 ABG pCO2 36.8 ABG pO2 103.3 H ABG HCO3 21.7 ABG O2 Saturation 97.7 ABG Base Excess -2.7 FiO2 ROOM AIR Sodium 126.4 L Potassium 3.8 Chloride 83 L Carbon Dioxide 22 Anion Gap 21 H BUN 42 H Creatinine 1.82 H Est GFR ( Amer) 39 L Est GFR (Non-Af Amer) 32 L Glucose 990 H* Calcium 10.3 H Total Bilirubin 0.8 AST 40 H ALT 69 H Alkaline Phosphatase 130 H Total Protein 7.5 Albumin 4.3 07/06/18 07/07/18 07/07/18 19:45 06:50 06:50 WBC 14.2 H RBC 3.68 L Hgb 11.4 L Hct 33.0 L MCV 90 D MCH 30.9 MCHC 34.4 RDW 12.9 Plt Count 299 Seg Neutrophils % 68.0 Lymphocytes % 27.3 Monocytes % 4.0 Eosinophils % 0.4 Basophils % 0.3 Absolute Neutrophils 9.7 H Absolute Lymphocytes 3.9 Absolute Monocytes 0.6 Absolute Eosinophils 0.1 Absolute Basophils 0.0 Carbonic Acid HCO3/H2CO3 Ratio ABG pH ABG pCO2 ABG pO2 ABG HCO3 ABG O2 Saturation ABG Base Excess FiO2 Sodium 133.4 L 135.2 L Potassium 3.2 L 4.4 D Chloride 102 108 H Carbon Dioxide 23 21 L Anion Gap 8 6 BUN 36 H 27 H Creatinine 1.37 H 1.35 H Est GFR ( Amer) 54 L 55 L Est GFR (Non-Af Amer) 45 L 45 L Glucose 389 H 220 H Calcium 8.9 8.9 Total Bilirubin 0.4 0.6 AST 30 41 H ALT 56 H 52 Alkaline Phosphatase 82 87 Total Protein 5.9 L 5.9 L Albumin 2.9 L 3.0 L Assessment and Plan - Diagnosis (1) DKA (diabetic ketoacidoses) Qualifiers: Diabetes mellitus type: type 1 Diabetes mellitus complication detail: without coma Qualified Code(s): E10.10 - Type 1 diabetes mellitus with ketoacidosis without coma Is this a current diagnosis for this admission?: Yes Plan: Resolved. Her gap is closed. She is off IV insulin. She is now being covered with sliding scale and will start Lantus on her tonight. She does not have her insulin pump with her. She will have someone bring that them from home when she is ready for discharge. She apparently lost her glucometer therefore was not checking sugars regularly. Nursing is working on getting her a new glucometer. Appetite is improved she has had no further nausea vomiting or diarrhea. We will continue IV hydration this morning DC fluids if she is eating and drinking better later on. (2) Acute kidney injury Is this a current diagnosis for this admission?: Yes Plan: We will cautiously hydrate her. We will avoid nephrotoxic agents. (4) Hypothyroidism Qualifiers: Hypothyroidism type: acquired Qualified Code(s): E03.9 - Hypothyroidism, unspecified Is this a current diagnosis for this admission?: Yes Plan: Secondary to dehydration. (6) Bipolar 1 disorder Is this a current diagnosis for this admission?: Yes Plan: Counseled As needed nicotine patch (7) Hyperlipidemia Qualifiers: Hyperlipidemia type: pure hypercholesterolemia Qualified Code(s): E78.00 - Pure hypercholesterolemia, unspecified Is this a current diagnosis for this admission?: Yes Plan: Continue statin - Time Time Spent with patient: 25-34 minutes Total Critical Time (Minutes): 20 Medications reviewed and adjusted accordingly: Yes Anticipated discharge: Home Within: within 48 hours - Inpatient Certification Based on my medical assessment, after consideration of the patient's comorbidities, presenting symptoms, or acuity I expect that the services needed warrant INPATIENT care.: Yes I certify that my determination is in accordance with my understanding of Medicare's requirements for reasonable and necessary INPATIENT services [42 CFR 412.3e].: Yes Medical Necessity: Need For IV Fluids
[2018-07-07] MEDS ORDERED: (PENDING PHARMACY ID) (Prazosin Hcl [Minipress] 2 MG) PO SCH (22:00)
[2018-07-07] MEDS ORDERED: INSULIN GLARGINE,HUM.REC.ANLOG 1,000 UNIT/10 ML VIAL SUBCUT SCH (22:00)
[2018-07-08 06:24] LABS: ABSOLUTE BASOPHILS # (AUTO) 0.1 10^3/uL (0.0-0.2); ABSOLUTE EOSINOPHILS # (AUTO) 0.1 10^3/uL (0.0-0.6); ABSOLUTE LYMPHOCYTES (AUTO) 3.2 10^3/uL (0.5-4.7); ABSOLUTE MONOCYTES (AUTO) 0.2 10^3/uL (0.1-1.4); ABSOLUTE NEUT (AUTO) 4.1 10^3/uL (1.7-8.2); BASOPHILS % (AUTO) 0.8 % (0-2); EOSINOPHILS % (AUTO) 1.3 % (0-6); HEMATOCRIT 31.7 % (36.0-47.0); LYMPHOCYTES % (AUTO) 41.3 % (13-45); MEAN CORPUSCULAR HEMOGLOBIN 31.4 pg (27.0-33.4); MEAN CORPUSCULAR HGB CONC 34.8 g/dL (32.0-36.0); MEAN CORPUSCULAR VOLUME 90 fl (80-97); MONOCYTES % (AUTO) 3.2 % (3-13); PLATELET COUNT 233 10^3/uL (150-450); RED BLOOD COUNT 3.51 10^6/uL (3.72-5.28); SEGMENTED NEUTROPHILS % (AUTO) 53.4 % (42-78); TOTAL CELLS COUNTED % (AUTO) 100 %; WHITE BLOOD COUNT 7.7 10^3/uL (4.0-10.5)
[2018-07-08 06:47] LABS: ALANINE AMINOTRANSFERASE 128 U/L (9-52); ALBUMIN 2.7 g/dL (3.5-5.0); ALKALINE PHOSPHATASE 88 U/L (38-126); ASPARTATE AMINO TRANSFERASE 215 U/L (14-36); BILIRUBIN,DIRECT 0.2 mg/dL (0.0-0.4); BILIRUBIN,TOTAL 0.5 mg/dL (0.2-1.3); BLOOD UREA NITROGEN 17 mg/dL (7-20); CALCIUM 8.6 mg/dL (8.4-10.2); GLUCOSE 370 mg/dL (75-110); POTASSIUM 4.5 mmol/L (3.6-5.0); TOTAL PROTEIN 5.4 g/dL (6.3-8.2)
[2018-07-08 06:52] LABS: CARBON DIOXIDE 22 mmol/L (22-30); CHLORIDE 104 mmol/L (98-107); SODIUM 130.3 mmol/L (137-145)
[2018-07-08 06:54] LABS: ANION GAP 4 (5-19)
[2018-07-08] MEDS: INSULIN REG, HUMAN 100 UNIT/ML 3 ML VIAL (PYX) SUBCUT SCH ×2 (08:18→12:11)
[2018-07-08] MEDS: ARIPIPRAZOLE 5 MG TABLET PO SCH (10:30)
[2018-07-08] MEDS: ENOXAPARIN SODIUM INJ 40 MG/0.4 ML DISP.SYRIN SUBCUT SCH (10:31)
[2018-07-08] MEDS: FLUTICASONE NASAL SPRAY 50 MCG/SPRY 120 SPRAY/16 GM NASL SCH (10:32)
[2018-07-08] MEDS: PROPRANOLOL HCL 10 MG TABLET PO SCH (10:33)
[2018-07-08 12:24] VITALS: BP 143/88
--- NOTE | 2018-07-10 14:20 | PDOC DISCHARGE SUMMARY ---
General - Admit/Disc Date/PCP Admission Date/Primary Care Provider: 07/06/18 18:04 LAWSON HUDSON, Discharge Date: 07/08/18 - Discharge Diagnosis (1) AMANDA (acute kidney injury) Is this a current diagnosis for this admission?: Yes Summary: Resolved. Secondary to dehydration in the setting of DKA. Admitted with Cr of 1.82; now 1.08 Patient was admitted for DKA and provided generous IV fluids. Her N/V was managed with antiemetics as needed. Her AMANDA and DKA have subsequently resolved. She is now tolerating a regular diet and drinking adequate fluids. (2) DKA (diabetic ketoacidoses) Is this a current diagnosis for this admission?: Yes Summary: Patient was admitted with DKA secondary to diabetes management noncompliance. A1C >14. Reports that she has lost her glucometer and does not check her glucose or make adjustments to her insulin pump. She was admitted to the medical floor on continuous cardiac telemetry and provided standard care for management of DKA with generous IVF and an insulin drip. Her Anion gap closed and she was transitioned to subcutaneous insulin. Her diet was advanced; patient tolerated well without additional nausea and vomiting. At discharge, she was in stable condition. She was provided a prescription for a glucometer kit with lancets and test strips. She declined prescriptions for Lantus, Humalog, and insulin needles. She reported that she had plenty of insulin at home to use in her insulin pump. She was cautioned about continued use of the insulin pump without frequent blood glucose checks. She replied that she was well aware of how to manage her insulin and did not require education. she declined opportunities to meet with the registered route associate and cosmetology educator. She was advised to follow dietary recommendations and monitor her glucose most closely. She is instructed to follow up with her PCP within [address] Wood, chief nurse; she is advised to notify them of her admission and follow up as directed. She is advised to return to the emergency room as needed for concerning symptoms. (3) Dehydration Is this a current diagnosis for this admission?: Yes Summary: Resolved; secondary to DKA. (4) Hyponatremia Is this a current diagnosis for this admission?: Yes Summary: Improved; secondary to dehydration. Patient now tolerating a consistent carb diet with adequate p.o. fluid intake. (5) Tobacco abuse Is this a current diagnosis for this admission?: Yes Summary: Smoking cessation is encouraged. She declines Nicotine replacement therapy. (6) Bipolar 1 disorder Is this a current diagnosis for this admission?: Yes Summary: Continue home medication regiment. - Additional Information Resuscitation Status: Full Code Discharge Diet: Diabetic Discharge Activity: Activity As Tolerated, Balance Activity w/Rest Home Medications: Alprazolam [Xanax 0.5 mg Tablet] 0.5 mg PO TIDP PRN 07/06/18 Brexpiprazole [Rexulti] 1 mg PO DAILY 07/06/18 Fluticasone Propionate [Flonase Nasal [place] 50 Mcg/[place] 16 gm] 1 spray NASL DAILY 07/06/18 Lisinopril [Prinivil 10 mg Tablet] 10 mg PO DAILY 07/06/18 Meloxicam [Mobic] 15 mg PO DAILY 07/06/18 Prazosin HCl [Minipress] 2 mg PO QHS 07/06/18 Propranolol HCl [Inderal 10 mg Tablet] 10 mg PO QID 07/06/18 Trazodone HCl [Desyrel 50 mg Tablet] 50 mg PO HSP PRN 07/06/18 History of Present Illness History of Present Illness: Per H&P by Dr. Crump: JEANINE OSORIO is a 33 year old female patient presented with chief complaint of nausea and vomiting. She is a known case of insulin-dependent diabetes mellitus and has been on insulin pump. Since patient lost her glucometer she is not able to appropriately manage her insulin pump. This morning she give it is safe 9 units bolus insulin. She continued to have nausea vomiting of ingested material. She endorses also an episode of loose stools. She denies any fever, chills, palpitation, chest pain, cough or diaphoresis. No headache, dizziness blurry vision or any seizure activity. His her initial blood work shows hyponatremia with sodium of 126, anion gap 21 acute acute kidney injury evidenced by BUN of 42 and creatinine of 1.82 and her blood sugar is 990. Physical Exam Vital Signs: Temp Pulse Resp BP Pulse Ox 98.6 F 59 L 16 120/80 98 07/08/18 07:00 07/08/18 07:00 07/08/18 07:00 07/08/18 07:00 07/08/18 07:00 Intake & Output 07/07/18 07/08/18 07/09/18 06:59 06:59 06:59 Intake Total 3393 1017 Output Total 2050 Balance 3393 -1033 Weight 61.6 kg 66 kg General appearance: PRESENT: no acute distress, disheveled, well-developed, well-nourished Head exam: PRESENT: atraumatic, normocephalic Eye exam: PRESENT: conjunctiva pink, EOMI, PERRLA. ABSENT: scleral icterus Ear exam: PRESENT: normal external ear exam Mouth exam: PRESENT: moist, tongue midline Neck exam: ABSENT: carotid bruit, JVD, lymphadenopathy, thyromegaly Respiratory exam: PRESENT: clear to auscultation dave. ABSENT: rales, rhonchi, wheezes Cardiovascular exam: PRESENT: RRR. ABSENT: diastolic murmur, rubs, systolic murmur Pulses: PRESENT: normal dorsalis pedis pul Vascular exam: PRESENT: normal capillary refill GI/Abdominal exam: PRESENT: normal bowel sounds, soft. ABSENT: distended, guarding, mass, organolmegaly, rebound, tenderness Rectal exam: PRESENT: deferred Extremities exam: PRESENT: full ROM. ABSENT: calf tenderness, clubbing, pedal edema Neurological exam: PRESENT: alert, awake, oriented to person, oriented to place, oriented to time, oriented to situation, CN II-XII grossly intact. ABSENT: motor sensory deficit Psychiatric exam: PRESENT: agitated, appropriate affect. ABSENT: homicidal ideation, suicidal ideation Skin exam: PRESENT: dry, intact, warm. ABSENT: cyanosis, rash Results Laboratory Results: 07/08/18 06:05 07/08/18 06:05 07/08/18 07/08/18 06:05 06:05 WBC 7.7 RBC 3.51 L Hgb 11.0 L Hct 31.7 L MCV 90 MCH 31.4 MCHC 34.8 RDW 13.0 Plt Count 233 Seg Neutrophils % 53.4 Lymphocytes % 41.3 Monocytes % 3.2 Eosinophils % 1.3 Basophils % 0.8 Absolute Neutrophils 4.1 Absolute Lymphocytes 3.2 Absolute Monocytes 0.2 Absolute Eosinophils 0.1 Absolute Basophils 0.1 Sodium 130.3 L Potassium 4.5 Chloride 104 Carbon Dioxide 22 Anion Gap 4 L BUN 17 Creatinine 1.08 Est GFR ( Amer) > 60 Est GFR (Non-Af Amer) 59 L Glucose 370 H Calcium 8.6 Magnesium 1.8 Total Bilirubin 0.5 AST 215 H ALT 128 H Alkaline Phosphatase 88 Total Protein 5.4 L Albumin 2.7 L Qualifiers - * PATIENT BEING DISCHARGED WITH ANY OF THE FOLLOWING DIAGNOSIS: No Plan Discharge Plan: Follow up your PCP within 1 week. Follow up with your chief nurse as scheduled. Eat a consistent carb diet. Avoid high sugar foods and drinks. Drink plenty of water. STOP smoking, do not drink alcohol. Check blood sugar before meals and before bed; adjust your pump as directed by your chief nurse. Take medications as prescribed. Return to the Emergency Department as needed for concerning symptoms. Time Spent: Less than 30 Minutes
== END 2018-07-08 12:50 | disposition home or self-care (01) | DRG 682 ==
LOC: ER 12:36 → EH 18:04 → 4N 22:34
PROVIDERS: ADMIT Internal Medicine; ATTEND Internal Medicine
DX: N17.9 Acute kidney failure, unspecified (principal); E10.10 Type 1 diabetes mellitus with ketoacidosis without coma; E87.1 Hypo-osmolality and hyponatremia; Z96.41 Presence of insulin pump (external) (internal); E78.5 Hyperlipidemia, unspecified; F31.9 Bipolar disorder, unspecified; E86.0 Dehydration; K21.9 Gastro-esophageal reflux disease without esophagitis; E03.9 Hypothyroidism, unspecified; G40.909 Epilepsy, unspecified, not intractable, without status epilepticus; F17.200 Nicotine dependence, unspecified, uncomplicated; Z79.4 Long term (current) use of insulin; Z91.14 Patient's other noncompliance with medication regimen; Z79.82 Long term (current) use of aspirin; Z88.2 Allergy status to sulfonamides; Z88.0 Allergy status to penicillin; Z88.8 Allergy status to other drugs, medicaments and biological substances
CPT/HCPCS: 36415; 36600; 80053; 82803; 82962; 83036; 83735; 85025; 96361; 96372; 96374; 96375; 99285; J1650; J1815; J2060; J2550; J3480; J3490; J7030; S0028; S0119

== ENCOUNTER 2018-09-29 14:17 | Emergency (ER) | payer MEDICARE, MEDICAID | END 2018-09-29 14:20 | disposition left against medical advice (07) | LOC: ER 14:17 | DX: Z53.21 Procedure and treatment not carried out due to patient leaving prior to being seen by health care provider (principal) ==

== ENCOUNTER 2018-10-03 15:52 | Inpatient (IN) | payer MEDICARE, MEDICAID ==
[2018-10-03] MEDS ORDERED: NORMAL SALINE 1000 ML 1,000 ML IV ONE ×3 (16:12→19:46)
[2018-10-03] MEDS ORDERED: ONDANSETRON HCL INJ/PF 4 MG/2 ML SDV IV ONE (16:12)
--- NOTE | 2018-10-03 16:13 | ER Document Report ---
ED Medical Screen (RME) - General Chief Complaint: High Blood Sugar Stated Complaint: DIZZINESS Time Seen by Provider: 10/03/18 16:09 Primary Care Provider: LAWSON HUDSON DO [Primary Care Provider] - Follow up as needed Information source: Patient Notes: Patient presents complaining of nausea vomiting with elevated blood sugar for the past 2 days. Patient does report a history of insulin-dependent diabetes. Patient reports right flank pain that started today. Patient also complains of dizziness. I have greeted and performed a rapid initial assessment of this patient. A comp rehensive ED assessment and evaluation of the patient, analysis of test results and completion of the medical decision making process will be conducted by additional ED providers. TRAVEL OUTSIDE OF THE [place] IN LAST 30 DAYS: No - Related Data Allergies/Adverse Reactions: mushroom Allergy (Severe, Verified 10/03/18 15:59) Anaphylaxis alcohol [Alcohol] Allergy (Unknown, Verified 10/03/18 15:59) Hives gabapentin Allergy (Unknown, Verified 10/03/18 15:59) Hives morphine [Morphine] Allergy (Unknown, Verified 10/03/18 15:59) Penicillins Allergy (Unknown, Verified 10/03/18 15:59) Sulfa (Sulfonamide Antibiotics) Allergy (Unknown, Verified 10/03/18 15:59) adhesive [Adhesive] Allergy (Verified 10/03/18 15:59) chlorpromazine [From Thorazine] Allergy (Verified 10/03/18 15:59) tomato [Tomato] Adverse Reaction (Severe, Verified 10/03/18 15:59) Anaphylaxis Past Medical History - Social History Frequency of alcohol use: None Drug Abuse: Marijuana - Past Medical History Cardiac Medical History: Reports: Hx Hypercholesterolemia Denies: Hx Coronary Artery Disease, Hx DVT, Hx Heart Attack, Hx Pulmonary Embolism Pulmonary Medical History: Reports: Hx Asthma Denies: Hx COPD, Hx Tuberculosis Neurological Medical History: 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 Denies: Hx Crohn's Disease, Hx Hiatal Hernia, Hx Ulcer, Hx Ulcerative Colitis Musculoskeltal Medical History: Denies Hx Arthritis, Denies Hx Gout, Reports Hx Musculoskeletal Deformity, Reports Hx Musculoskeletal Trauma Skin Medical History: Denies Hx Eczema, Denies Hx Psoriasis Psychiatric Medical History: Reports: Hx Anxiety, Hx Bipolar Disorder, Hx Depression, Hx Post Traumatic Stress Disorder Traumatic Medical History: Reports: Hx Fractures - Wrist hand and toe Infectious Medical History: Past Surgical History: Reports: Hx Oral Surgery, Hx Orthopedic Surgery, Other - [place] teeth excisions bilaterally, bilateral ingrown toenail removals. Denies: Hx Mastectomy, Hx Open Heart Surgery - Immunizations Hx Diphtheria, Pertussis, Tetanus Vaccination: Yes History of Influenza Vaccine for 01/2017 - 06/2017 Season: Yes Influenza Administration Date for 01/2017 - 06/2017 Season: 03/10/17 Physical Exam - Vital signs Vitals: Temp Pulse Resp BP Pulse Ox 97.7 F 76 16 117/60 97 10/03/18 16:03 10/03/18 16:03 10/03/18 16:03 10/03/18 16:03 10/03/18 16:03 - Back Back: CVA tenderness - Right Course - Vital Signs Vital signs: Temp Pulse Resp BP Pulse Ox 97.7 F 76 16 117/60 97 10/03/18 16:03 10/03/18 16:03 10/03/18 16:03 10/03/18 16:03 10/03/18 16:03 Doctor's Discharge - Discharge Referrals: LAWSON HUDSON DO [Primary Care Provider] - Follow up as needed
[2018-10-03 17:53] LABS: VENOUS BLOOD BASE EXCESS -11.9 mmol/L; VENOUS BLOOD HCO3 15.1 mmol/L (20-32); VENOUS BLOOD PH 7.22 (7.30-7.42)
[2018-10-03 17:55] LABS: ABSOLUTE EOSINOPHILS # (AUTO) 0.1 10^3/uL (0.0-0.6); ABSOLUTE LYMPHOCYTES (AUTO) 1.5 10^3/uL (0.5-4.7); ABSOLUTE MONOCYTES (AUTO) 0.3 10^3/uL (0.1-1.4); BASOPHILS % (AUTO) 0.6 % (0-2); EOSINOPHILS % (AUTO) 0.7 % (0-6); HEMATOCRIT 36.5 % (36.0-47.0); HEMOGLOBIN 11.7 g/dL (12.0-15.5); LYMPHOCYTES % (AUTO) 21.4 % (13-45); MEAN CORPUSCULAR HEMOGLOBIN 31.9 pg (27.0-33.4); MEAN CORPUSCULAR VOLUME 100 fl (80-97); MONOCYTES % (AUTO) 4.6 % (3-13); PLATELET COUNT 302 10^3/uL (150-450); RED BLOOD COUNT 3.66 10^6/uL (3.72-5.28); RED CELL DISTRIBUTION WIDTH 14.7 % (11.5-14.0); SEGMENTED NEUTROPHILS % (AUTO) 72.7 % (42-78); TOTAL CELLS COUNTED % (AUTO) 100 %; WHITE BLOOD COUNT 6.8 10^3/uL (4.0-10.5)
[2018-10-03 18:11] LABS: ALANINE AMINOTRANSFERASE 68 U/L (9-52); ALKALINE PHOSPHATASE 100 U/L (38-126); ASPARTATE AMINO TRANSFERASE 33 U/L (14-36); BILIRUBIN,DIRECT 0.5 mg/dL (0.0-0.4); BILIRUBIN,TOTAL 1.1 mg/dL (0.2-1.3); BLOOD UREA NITROGEN 44 mg/dL (7-20); CALCIUM 9.3 mg/dL (8.4-10.2); LIPASE 69.6 U/L (23-300); POTASSIUM 5.5 mmol/L (3.6-5.0); TOTAL PROTEIN 6.6 g/dL (6.3-8.2)
[2018-10-03 18:16] LABS: CARBON DIOXIDE 15 mmol/L (22-30); CHLORIDE 85 mmol/L (98-107); SODIUM 123.8 mmol/L (137-145)
[2018-10-03 18:19] LABS: ANION GAP 24 (5-19)
[2018-10-03 18:20] LABS: GLUCOSE 1152 mg/dL (75-110)
[2018-10-03] MEDS ORDERED: DEXTROSE 50%-WATER 25 GM/50 ML DISP.SYRIN IV PRN ×2 (18:37)
[2018-10-03] MEDS ORDERED: NORMAL SALINE 100 ML with INSULIN REGULAR, HUMAN 100 UNIT IV PRN ×2 (18:37)
[2018-10-03] MEDS ORDERED: DEXTROSE 40% GEL 15 GM TUBE PO PRN ×3 (18:37→21:30)
[2018-10-03] MEDS ORDERED: GLUCAGON,HUMAN RECOMB 1 MG INJ IM PRN ×2 (18:37→21:30)
[2018-10-03] MEDS ORDERED: INSULIN REG, HUMAN 100 UNIT/ML 3 ML VIAL (PYX) ONE (18:54)
--- NOTE | 2018-10-03 19:47 | ER Document Report ---
ED General - General Chief Complaint: High Blood Sugar Stated Complaint: DIZZINESS Time Seen by Provider: 10/03/18 16:09 Primary Care Provider: LAWSON HUDSON DO [NO LOCAL MD] - Follow up as needed Notes: Patient is a 33-year-old female that presents to the emergency department for chief complaint of dehydration, urinary frequency, abdominal pain and nausea. Patient states that since yesterday around 4:30 AM, she is been having nausea, vomiting, urinating more and feeling more dehydrated. She is type I diabetic, on an insulin pump, when asked what her basal rate is she does not know, she is supposed to change her site today, I asked if she knew if there is any insulin left in her pump and she did not know either. She is a history of being noncompliant, has been hospitalized multiple times for DKA. She states that she is been having some vague abdominal pain, but denies any fevers, chills, night sweats, chest pain, shortness of breath, difficulty breathing, cough, congestion. Past Medical History: Diabetes mellitus, insulin-dependent Past Surgical History: Boyd tooth extraction Social History: Admits to smoking, denies alcohol or drug use. Dr. Wood is her physician Family History: Reviewed and noncontributory for presenting illness Allergies: Reviewed, see documented allergy list. REVIEW OF SYSTEMS: Other than noted above, the 12 point review of systems was reviewed with the patient and were negative, all pertinent findings are included in the HPI. PHYSICAL EXAMINATION: Vital signs reviewed, nursing noted reviewed. GENERAL: Well-appearing, well-nourished and in no acute distress. HEAD: Atraumatic, normocephalic. EYES: Eyes appear normal, extraocular movements intact, sclera anicteric, conjunctiva are normal. ENT: nares patent, oropharynx clear without exudates. Dry mucous membranes NECK: Normal range of motion, supple without lymphadenopathy LUNGS: Breath sounds clear to auscultation bilaterally and equal. No wheezes rales or rhonchi. HEART: Regular rate and rhythm without murmurs ABDOMEN: Soft, mild diffuse abdominal discomfort with palpation, no focal tenderness, normoactive bowel sounds. No rebound, guarding, or rigidity. No masses appreciated. EXTREMITIES: Nontender, good range of motion, no pitting or edema. NEUROLOGICAL: No focal neurological deficits. Moves all extremities spontaneously Motor and sensory grossly intact on exam. PSYCH: Normal mood, flat affect SKIN: Warm, Dry, normal turgor, no rashes or lesions noted on exposed skin TRAVEL OUTSIDE OF THE [place] IN LAST 30 DAYS: No - Related Data Allergies/Adverse Reactions: mushroom Allergy (Severe, Verified 10/03/18 15:59) Anaphylaxis alcohol [Alcohol] Allergy (Unknown, Verified 10/03/18 15:59) Hives gabapentin Allergy (Unknown, Verified 10/03/18 15:59) Hives morphine [Morphine] Allergy (Unknown, Verified 10/03/18 15:59) Penicillins Allergy (Unknown, Verified 10/03/18 15:59) Sulfa (Sulfonamide Antibiotics) Allergy (Unknown, Verified 10/03/18 15:59) adhesive [Adhesive] Allergy (Verified 10/03/18 15:59) chlorpromazine [From Thorazine] Allergy (Verified 10/03/18 15:59) tomato [Tomato] Adverse Reaction (Severe, Verified 10/03/18 15:59) Anaphylaxis Past Medical History - General Information source: Patient - Social History Smoking Status: Current Every Day Smoker Frequency of alcohol use: None Drug Abuse: Marijuana Family History: Arthritis, CAD, DM, Malignancy, Thyroid Disfunction Patient has suicidal ideation: No Patient has homicidal ideation: No - Past Medical History Cardiac Medical History: Reports: Hx Hypercholesterolemia Denies: Hx Coronary Artery Disease, Hx DVT, Hx Heart Attack, Hx Pulmonary E mbolism Pulmonary Medical History: Reports: Hx Asthma Denies: Hx COPD, Hx Tuberculosis Neurological Medical History: 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 Denies: Hx Crohn's Disease, Hx Hiatal Hernia, Hx Ulcer, Hx Ulcerative Colitis Musculoskeletal Medical History: Denies Hx Arthritis, Denies Hx Gout, Reports Hx Musculoskeletal Deformity, Reports Hx Musculoskeletal Trauma Skin Medical History: Denies Hx Eczema, Denies Hx Psoriasis Psychiatric Medical History: Reports: Hx Anxiety, Hx Bipolar Disorder, Hx Depression, Hx Post Traumatic Stress Disorder Traumatic Medical History: Reports: Hx Fractures - Wrist hand and toe Infectious Medical History: Past Surgical History: Reports: Hx Oral Surgery, Hx Orthopedic Surgery, Other - [place] teeth excisions bilaterally, bilateral ingrown toenail removals. Denies: Hx Mastectomy, Hx Open Heart Surgery - Immunizations Hx Diphtheria, Pertussis, Tetanus Vaccination: Yes Hx Pneumococcal Vaccination: 03/10/13 Physical Exam - Vital signs Vitals: Temp Pulse Resp BP Pulse Ox 97.7 F 76 16 117/60 97 10/03/18 16:03 10/03/18 16:03 10/03/18 16:03 10/03/18 16:03 10/03/18 16:03 Course - Re-evaluation Re-evalutation: Patient seen and examined vital signs reviewed. Laboratory data and imaging were ordered as appropriate for the patient's presenting symptoms and complaint, with consideration of any critical or life threatening conditions that may be associated with their obtained history and exam as noted above. Patient was treated with IV fluid bolusing, started on insulin infusion Results were reviewed when available and demonstrated markedly elevated glucose greater than 1100, with anion gap of 24, pseudohyponatremia The patient was re-evaluated and was improving, stable, glucose still reading high, continue insulin infusion by protocol Evaluation was most consistent with DKA, marked hyperglycemia Results were discussed with the patient at this point after careful consideration I feel that that patient should be admitted to the hospital. This was discussed with the patient that it is in the best interest for their care to be admitted for further evaluation and management. Patient agreed with this plan of care. A call was placed to the admitting physician, Dr. hector real who graciously accepted the patient onto their service. *Note is created using voice recognition software and may contain spelling, syntax or grammatical errors. Laboratory 10/03/18 10/03/18 10/03/18 17:29 17:29 17:29 WBC 6.8 RBC 3.66 L Hgb 11.7 L Hct 36.5 MCV 100 H MCH 31.9 MCHC 32.0 RDW 14.7 H Plt Count 302 Seg Neutrophils % 72.7 Lymphocytes % 21.4 Monocytes % 4.6 Eosinophils % 0.7 Basophils % 0.6 Absolute Neutrophils 5.0 Absolute Lymphocytes 1.5 Absolute Monocytes 0.3 Absolute Eosinophils 0.1 Absolute Basophils 0.0 VBG pH 7.22 L VBG pCO2 38.0 VBG HCO3 15.1 L VBG Base Excess -11.9 Sodium 123.8 L Potassium 5.5 H Chloride 85 L Carbon Dioxide 15 L Anion Gap 24 H BUN 44 H Creatinine 2.17 H Est GFR ( Amer) 32 L Est GFR (Non-Af Amer) 26 L Glucose 1152 H* Calcium 9.3 Total Bilirubin 1.1 Direct Bilirubin 0.5 H Neonat Total Bilirubin Not Reportable Neonat Direct Bilirubin Not Reportable Neonat Indirect Bili Not Reportable AST 33 ALT 68 H Alkaline Phosphatase 100 Total Protein 6.6 Albumin 4.0 Lipase 69.6 - Vital Signs Vital signs: Temp Pulse Resp BP Pulse Ox 97.7 F 76 16 117/60 97 10/03/18 16:03 10/03/18 16:03 10/03/18 16:03 10/03/18 16:03 10/03/18 16:03 - Laboratory Result Diagrams: 10/03/18 17:29 10/03/18 17:29 Laboratory results interpreted by me: 10/03/18 10/03/18 10/03/18 17:29 17:29 17:29 RBC 3.66 L Hgb 11.7 L MCV 100 H RDW 14.7 H VBG pH 7.22 L VBG HCO3 15.1 L Sodium 123.8 L Potassium 5.5 H Chloride 85 L Carbon Dioxide 15 L Anion Gap 24 H BUN 44 H Creatinine 2.17 H Est GFR ( Amer) 32 L Est GFR (Non-Af Amer) 26 L Glucose 1152 H* Direct Bilirubin 0.5 H ALT 68 H - EKG Interpretation by Me Additional EKG results interpreted by me: EKG demonstrates sinus rhythm with a ventricular rate of 70 bpm, normal axis, normal intervals, no ST elevation, compared to prior EKG from 06/04/2018, without significant change. Critical Care Note - Critical Care Note Total time excluding time spent on procedures (mins): 45 Comments: Critical care time 45 minutes exclusive from separate billable procedures for a patient requiring complex medical decision making, and high potential for clinical deterioration. In a patient with severe DKA, requiring resuscitation, insulin infusion, close monitoring and admission to the ICU. Time spent obtaining history from patient or surrogate, discussions with consultants, development of treatment plan with patient or surrogate, evaluation of patient's response to treatment, examination of patient, ordering and performing treatments and interventions, ordering and review of laboratory studies, re- evaluation of patient's condition, ordering and review of radiographic studies and review of old charts Discharge - Discharge Clinical Impression: Hyponatremia, Hyperkalemia, AMANDA (acute kidney injury) Diabetic ketoacidosis Qualifiers: Diabetes mellitus type: type 1 Diabetes mellitus complication detail: without coma Qualified Code(s): E10.10 - Type 1 diabetes mellitus with ketoacidosis without coma DM I (diabetes mellitus, type I) Qualifiers: Diabetes mellitus complication status: with hyperglycemia Qualified Code(s): E10.65 - Type 1 diabetes mellitus with hyperglycemia Condition: Stable Disposition: ADMITTED INPATIENT Admitting Provider: Tanya (Hospitalist) Unit Admitted: ICU Referrals: LAWSON HUDSON DO [NO LOCAL MD] - Follow up as needed
[2018-10-03] MEDS ORDERED: FENTANYL CITRATE INJ/PF 100 MCG/2 ML AMPUL IV ONE (19:56)
[2018-10-03 20:07] LABS: APPEARANCE,URINE SLIGHTLY-CLOUDY; BILIRUBIN,URINE NEGATIVE (NEGATIVE); COLOR,URINE STRAW; GLUCOSE, URINE >=500 mg/dL (NEGATIVE); KETONES,URINE 20 mg/dL (NEGATIVE); LEUKOCYTE ESTERASE,URINE NEGATIVE (NEGATIVE); NITRITE,URINE NEGATIVE (NEGATIVE); PROTEIN,URINE NEGATIVE (NEGATIVE); URINE SPECIFIC GRAVITY 1.022; UROBILINOGEN,URINE NEGATIVE mg/dL (<2.0)
[2018-10-03] MEDS ORDERED: MAG HYDROX/AL HYDROX/SIMETH SUSP 30 ML UDCUP PO PRN (20:55)
[2018-10-03] MEDS ORDERED: MAGNESIUM HYDROXIDE SUSP 30 ML UDCUP PO PRN (20:55)
[2018-10-03] MEDS ORDERED: ACETAMINOPHEN 650 MG SUPP.RECT PR PRN (21:03)
[2018-10-03] MEDS ORDERED: NALBUPHINE HCL INJ 10 MG/1 ML AMPULE IV PRN (21:03)
[2018-10-03] MEDS ORDERED: NICOTINE 21 MG/24 HR PATCH.TD24 TD PRN (21:03)
[2018-10-03] MEDS ORDERED: TRAZODONE HCL 50 MG TABLET PO PRN (21:05)
[2018-10-03] MEDS ORDERED: ALPRAZOLAM 0.5 MG TABLET PO PRN (21:08)
[2018-10-03] MEDS ORDERED: DEXTROSE 40% GEL 15 GM TUBE X 2 PO PRN (21:30)
[2018-10-03] MEDS ORDERED: DEXTROSE 50%-WATER SYRINGE 12.5 GM/25 ML DOSE IV PRN (21:30)
[2018-10-03] MEDS ORDERED: DEXTROSE 50%-WATER SYRINGE 25 GM/50 ML DOSE IV PRN (21:30)
[2018-10-03] MEDS ORDERED: (PENDING PHARMACY ID) (Prazosin Hcl [Minipress] 2 MG) PO SCH (22:00)
--- NOTE | 2018-10-03 22:01 | EKG REPORT ---
SEVERITY:- BORDERLINE ECG - SINUS RHYTHM BORDERLINE T ABNORMALITIES, ANTERIOR LEADS : Confirmed by: Jorge Pruett 03-Oct-2018 22:00:21
[2018-10-03] MEDS: RINGERS SOLUTION,LACTATED 1,000 ML IV PRN (22:54)
[2018-10-03] MEDS: DEXTROSE 5%-WATER 1000 ML 1,000 ML with SODIUM BICARBONATE 150 MEQ IV PRN ×2 (22:54)
[2018-10-03] MEDS: HEPARIN SOD (PORCINE) 5,000 UNIT/ML 1 ML SYRINGE SUBCUT SCH (22:55)
[2018-10-03] MEDS: SIMVASTATIN 10 MG TABLET PO SCH (22:57)
[2018-10-03] MEDS: ACETAMINOPHEN 325 MG TABLET PO PRN (22:58)
[2018-10-03] MEDS: PANTOPRAZOLE SODIUM 40 MG VIAL IV SCH (22:59)
[2018-10-03] MEDS: METOCLOPRAMIDE HCL INJ/PF 10 MG/2 ML SDV IV SCH (22:59)
--- NOTE | 2018-10-03 23:13 | PDOC H&P ---
History of Present Illness Admission Date/PCP: 10/03/18 20:08 No local PCP Patient complains of: Nausea and vomiting History of Present Illness: JEANINE YAP is a 33 year old female who presented to the emergency room with a 1-day history of nausea and vomiting. She admits developing nausea and vomiting in the evening of the day prior to admission. The nausea and vomiting was accompanied by vague mild to moderate right upper abdominal/right lateral flank cramping and soreness without radiation. The nausea and vomiting was also associated with urinary frequency, polydipsia and polyuria. She admits that she has not been monitoring her diabetes well and she is not certain if she has any insulin left in her insulin pump but she was due for a pump site change today. She admits numerous prior similar episodes related to her diabetic control with diabetic ketoacidosis and denies any other aggravating or ameliorating factors for her nausea and vomiting. In the emergency room she was found to have an initial blood sugar of 1152 with a sodium of 123 and a potassium of 5.5. Serum creatinine was 2.17 and bicarbonate was 15 with an anion gap of 24. Patient was subsequently admitted to the ICU for further evaluation and treatment. Past Medical History Cardiac Medical History: Reports: Hyperlipidema Denies: Coronary Artery Disease, DVT, Myocardial Infarction, Pulmonary Embolism Pulmonary Medical History: Reports: Asthma Denies: Chronic Obstructive Pulmonary Disease (COPD), Respiratory Failure, Tuberculosis EENT Medical History: Denies: Cataracts, Ears - Hearing aids Neurological Medical History: Reports: Seizures - Grand mal seizure x1 as a child Denies: Hemorrhagic CVA, Ischemic CVA, Multiple Sclerosis Endocrine Medical History: Reports: Diabetes Mellitus Type 1, Hypothyroidism Denies: Diabetes Mellitus Type 2, Hyperthyroidism Renal/ Medical History: Denies: Chronic Kidney Disease, Nephrolithiasis Malignancy Medical History: Reports: None GI Medical History: Reports: Gastroesophageal Reflux Disease Denies: Cirrhosis, Crohn's Disease, Hiatal Hernia, Ulcerative Colitis Musculoskeltal Medical History: Denies: Arthritis, Gout Skin Medical History: Denies: Eczema, Psoriasis Psychiatric Medical History: Reports: Bipolar Disorder, Depression, Post Traumatic Stress Disorder, Tobacco Dependency Denies: Alcohol Dependency, Substance Abuse Traumatic Medical History: Reports: None Hematology: Denies: Anemia, Bleeding Tendencies Infectious Medical History: Reports: None Past Surgical History Past Surgical History: Reports: Orthopedic Surgery - Ankle surgery, Other - [place] teeth excisions bilaterally, bilateral ingrown toenail removals Social History Information Source: Patient Lives with: Friend - Lives in an apartment with 3 roommates Smoking Status: Current Every Day Smoker Frequency of Alcohol Use: Occasional Hx Recreational Drug Use: No - denies Drugs: None Hx Prescription Drug Abuse: No - denies - Advance Directive Resuscitation Status: Full Code Surrogate healthcare decision maker:: Jseica Yap her mother Family History Family History: Arthritis, CAD, DM, Malignancy, Thyroid Disfunction Parental Family History Reviewed: Yes Children Family History Reviewed: No Sibling(s) Family History Reviewed.: Yes Medication/Allergy Home Medications: Alprazolam [Xanax] 1 mg PO Q12HP PRN 10/03/18 Ciclopirox 1 applic TOP QHS 10/03/18 Insulin Aspart [Novolog Insulin (Aspart) 100 unit/mL] 50 units PUMP DAILY 10/03/18 Omeprazole 40 mg PO DAILY 10/03/18 Prazosin HCl [Minipress] 2 mg PO QHS 10/03/18 Propranolol HCl [Inderal 20 mg Tablet] 10 mg PO Q6 10/03/18 Simvastatin [Zocor 20 mg Tablet] 20 mg PO QPM 10/03/18 Trazodone HCl [Desyrel 50 mg Tablet] 50 mg PO HSP PRN 10/03/18 Allergies/Adverse Reactions: mushroom Allergy (Severe, Verified 10/03/18 15:59) Anaphylaxis alcohol [Alcohol] Allergy (Unknown, Verified 10/03/18 15:59) Hives gabapentin Allergy (Unknown, Verified 10/03/18 15:59) Hives morphine [Morphine] Allergy (Unknown, Verified 10/03/18 15:59) Penicillins Allergy (Unknown, Verified 10/03/18 15:59) Sulfa (Sulfonamide Antibiotics) Allergy (Unknown, Verified 10/03/18 15:59) adhesive [Adhesive] Allergy (Verified 10/03/18 15:59) chlorpromazine [From Thorazine] Allergy (Verified 10/03/18 15:59) tomato [Tomato] Adverse Reaction (Severe, Verified 10/03/18 15:59) Anaphylaxis Review of Systems Constitutional: ABSENT: chills, fever(s) Eyes: ABSENT: visual disturbances, other - Eye pain Ears: ABSENT: hearing changes, other - Ear pain Nose, Mouth, and Throat: ABSENT: mouth pain, sore throat Cardiovascular: ABSENT: chest pain, palpitations Respiratory: ABSENT: cough, dyspnea Gastrointestinal: PRESENT: as per HPI, abdominal pain, nausea, vomiting. ABSENT: constipation, diarrhea Genitourinary: PRESENT: other - Polyuria and urinary frequency. ABSENT: difficulty urinating, dysuria, hematuria Musculoskeletal: ABSENT: back pain, joint swelling, muscle weakness Integumentary: ABSENT: pruritus, rash Neurological: ABSENT: confusion, convulsions, focal weakness, memory loss, syncope Psychiatric: ABSENT: anxiety, depression Endocrine: PRESENT: as per HPI, polydipsia, polyuria. ABSENT: cold intolerance, heat intolerance, polyphagia Hematologic/Lymphatic: ABSENT: easy bleeding, easy bruising Physical Exam Vital Signs: Temp Pulse Resp BP Pulse Ox 97.7 F 76 16 117/60 97 10/03/18 16:03 10/03/18 16:03 10/03/18 16:03 10/03/18 16:03 10/03/18 16:03 Intake & Output 10/01/18 10/02/18 10/03/18 23:59 23:59 23:59 Intake Total 1000 Balance 1000 Weight 63.1 kg General appearance: PRESENT: no acute distress, cooperative Head exam: PRESENT: atraumatic, normocephalic Eye exam: ABSENT: conjunctival injection, scleral icterus Ear exam: PRESENT: bleeding, drainage, normal external ear exam Mouth exam: PRESENT: dry mucosa, neck supple Neck exam: ABSENT: thyromegaly, tracheal deviation Respiratory exam: PRESENT: clear to auscultation dave, symmetrical, unlabored Cardiovascular exam: PRESENT: RRR, tachycardia. ABSENT: clicks, gallop, rubs Pulses: PRESENT: normal radial pulses, normal dorsalis pedis pul Vascular exam: PRESENT: normal capillary refill. ABSENT: pallor GI/Abdominal exam: PRESENT: normal bowel sounds, soft, tenderness - Mild epigastric tenderness on palpation Rectal exam: PRESENT: deferred Extremities exam: ABSENT: joint swelling, pedal edema Musculoskeletal exam: PRESENT: full ROM, normal inspection Neurological exam: PRESENT: alert, awake, oriented to person, oriented to place, oriented to time, oriented to situation, CN II-XII grossly intact. ABSENT: motor sensory deficit Psychiatric exam: PRESENT: appropriate affect, normal mood Skin exam: PRESENT: dry, intact, warm. ABSENT: jaundice, rash, urticaria Results Laboratory Results: 10/03/18 17:29 10/03/18 17:29 10/03/18 10/03/18 10/03/18 17:29 17:29 17:29 WBC 6.8 RBC 3.66 L Hgb 11.7 L Hct 36.5 MCV 100 H MCH 31.9 MCHC 32.0 RDW 14.7 H Plt Count 302 Seg Neutrophils % 72.7 Lymphocytes % 21.4 Monocytes % 4.6 Eosinophils % 0.7 Basophils % 0.6 Absolute Neutrophils 5.0 Absolute Lymphocytes 1.5 Absolute Monocytes 0.3 Absolute Eosinophils 0.1 Absolute Basophils 0.0 VBG pH 7.22 L VBG pCO2 38.0 VBG HCO3 15.1 L VBG Base Excess -11.9 Sodium 123.8 L Potassium 5.5 H Chloride 85 L Carbon Dioxide 15 L Anion Gap 24 H BUN 44 H Creatinine 2.17 H Est GFR ( Amer) 32 L Est GFR (Non-Af Amer) 26 L Glucose 1152 H* Calcium 9.3 Total Bilirubin 1.1 AST 33 ALT 68 H Alkaline Phosphatase 100 Total Protein 6.6 Albumin 4.0 Lipase 69.6 Urine Color Urine Appearance Urine pH Ur Specific [place] Urine Protein Urine Glucose (UA) Urine Ketones Urine Blood Urine Nitrite Ur Leukocyte Esterase Urine WBC (Auto) Urine RBC (Auto) 10/03/18 17:47 WBC RBC Hgb Hct MCV MCH MCHC RDW Plt Count Seg Neutrophils % Lymphocytes % Monocytes % Eosinophils % Basophils % Absolute Neutrophils Absolute Lymphocytes Absolute Monocytes Absolute Eosinophils Absolute Basophils VBG pH VBG pCO2 VBG HCO3 VBG Base Excess Sodium Potassium Chloride Carbon Dioxide Anion Gap BUN Creatinine Est GFR ( Amer) Est GFR (Non-Af Amer) Glucose Calcium Total Bilirubin AST ALT Alkaline Phosphatase Total Protein Albumin Lipase Urine Color STRAW Urine Appearance SLIGHTLY-CLOUDY Urine pH 5.0 Ur Specific [place] 1.022 Urine Protein NEGATIVE Urine Glucose (UA) >=500 H Urine Ketones 20 H Urine Blood SMALL H Urine Nitrite NEGATIVE Ur Leukocyte Esterase NEGATIVE Urine WBC (Auto) 2 Urine RBC (Auto) 0 Assessment and Plan - Diagnosis (1) Diabetic ketoacidosis Qualifiers: Diabetes mellitus type: type 1 Diabetes mellitus complication detail: without coma Qualified Code(s): E10.10 - Type 1 diabetes mellitus with k etoacidosis without coma Is this a current diagnosis for this admission?: Yes Plan: Patient will be admitted to the intensive care unit. She will receive an insulin infusion and a bicarbonate infusion per protocols. Her electrolytes will be monitored closely and corrected as appropriate per established protocols. She will receive abundant IV fluids and will use Nubain 10 mg IV every 3 hours on a as needed basis for pain. Her associated nausea and vomiting will be controlled with IV Reglan. Daily CBCs, metabolic profiles and magnesiu m levels will be obtained in addition to other laboratory obtained on a more frequent basis as required for monitoring. Hemoglobin A1c will be obtained. (2) Acute kidney injury Is this a current diagnosis for this admission?: Yes Plan: Patient will receive IV fluid hydration and her electrolytes will be monitored closely as noted above. Renal functions will also be monitored on a daily basis. (3) Hyponatremia Is this a current diagnosis for this admission?: Yes Plan: Patient's electrolytes will be monitored closely as noted above. With appropriate correction as per protocol. (4) Hyperkalemia Is this a current diagnosis for this admission?: Yes Plan: Patient's electrolytes will be monitored closely as noted above. With appropriate correction as per protocol. (5) Hypothyroidism Qualifiers: Hypothyroidism type: unspecified Qualified Code(s): E03.9 - Hypothyroidism, unspecified Is this a current diagnosis for this admission?: Yes Plan: Patient will be continued on her usual thyroid replacement hormone during her hospital course. IV administration will be provided until she is able to take medication by mouth. A thyroid profile will be obtained during this admission. (6) Tobacco abuse Is this a current diagnosis for this admission?: Yes Plan: Smoking cessation is advised and counseled briefly. A nicotine replacement patch is available for the patient's use, if desired. - Time Time Spent with patient: 25-34 minutes Smoking Cessation Education: 3 to 10 minutes Medications reviewed and adjusted accordingly: Yes Anticipated discharge: Home - Inpatient Certification Based on my medical assessment, after consideration of the patient's comorbidities, presenting symptoms, or acuity I expect that the services needed warrant INPATIENT care.: Yes I certify that my determination is in accordance with my understanding of Medicare's requirements for reasonable and necessary INPATIENT services [42 CFR 412.3e].: Yes Medical Necessity: Need Close Monitoring Due to Risk of Patient Decompensation, Need For IV Fluids, Need For Continuous Telemetry Monitoring, Risk of Compli cation if Not Cared For in Hospital
--- NOTE | 2018-10-03 23:14 | ADVANCED CARE ---
- Diagnosis (1) Diabetic ketoacidosis Diagnosis Current: Yes (2) Acute kidney injury Diagnosis Current: Yes (3) Hyponatremia Diagnosis Current: Yes (4) Hyperkalemia Diagnosis Current: Yes (5) Hypothyroidism Diagnosis Current: Yes (6) Tobacco abuse Diagnosis Current: Yes Attendance: Patient and myself Resuscitation Status: Full Code Discussion: Patient continues to desire to be maintained as a full code CODE STATUS for her current admission. She chooses to designate Jesica Yap (her mother) as her surrogate medical decision-maker. Care Planning Goals: 1. Patient's CODE STATUS will remain full code throughout the remainder of her hospital course. 2. Jesica Yap will be designated as the patient's surrogate medical decision maker. Document(s) Completed: The following entries will be made into the patient's permanent medical record and orders via EMR entry: 1. Patient's CODE STATUS will remain full code throughout the remainder of her hospital course. 2. Jesica Yap will be designated as the patient's surrogate medical decision maker. Time Spent: 9 minutes
[2018-10-03] MEDS ORDERED: PROPRANOLOL HCL 10 MG TABLET ONE (23:21)
[2018-10-03] MEDS: PROPRANOLOL HCL 10 MG TABLET PO SCH (23:53)
[2018-10-04] MEDS ORDERED: PROPRANOLOL HCL 20 MG TABLET PO SCH
[2018-10-04] MEDS: NORMAL SALINE 100 ML with INSULIN REGULAR, HUMAN 100 UNIT IV PRN ×4 (00:01→03:58)
[2018-10-04 00:23] LABS: ANION GAP 11 (5-19); BLOOD UREA NITROGEN 35 mg/dL (7-20); CARBON DIOXIDE 20 mmol/L (22-30); CHLORIDE 101 mmol/L (98-107); SODIUM 132.2 mmol/L (137-145)
[2018-10-04 00:29] LABS: POTASSIUM 3.6 mmol/L (3.6-5.0)
[2018-10-04 00:31] LABS: GLUCOSE 539 mg/dL (75-110)
[2018-10-04] MEDS: DEXTROSE 5%-WATER 1000 ML 1,000 ML with SODIUM BICARBONATE 150 MEQ IV PRN ×4 (01:00→03:00)
[2018-10-04] MEDS: RINGERS SOLUTION,LACTATED 1,000 ML IV PRN ×3 (02:55→12:00)
[2018-10-04] MEDS: HEPARIN SOD (PORCINE) 5,000 UNIT/ML 1 ML SYRINGE SUBCUT SCH ×3 (05:01→21:07)
[2018-10-04] MEDS: METOCLOPRAMIDE HCL INJ/PF 10 MG/2 ML SDV IV SCH ×4 (05:07→23:53)
[2018-10-04] MEDS: PROPRANOLOL HCL 10 MG TABLET PO SCH ×3 (05:07→17:18)
[2018-10-04] MEDS: ACETAMINOPHEN 325 MG TABLET PO PRN ×2 (05:07→21:30)
[2018-10-04 06:20] LABS: HEMATOCRIT 31.2 % (36.0-47.0); MEAN CORPUSCULAR HEMOGLOBIN 32.5 pg (27.0-33.4); MEAN CORPUSCULAR HGB CONC 35.3 g/dL (32.0-36.0); PLATELET COUNT 289 10^3/uL (150-450); RED BLOOD COUNT 3.39 10^6/uL (3.72-5.28); RED CELL DISTRIBUTION WIDTH 14.9 % (11.5-14.0)
[2018-10-04 06:24] LABS: MEAN CORPUSCULAR VOLUME 92 fl (80-97)
[2018-10-04 06:26] LABS: BLOOD UREA NITROGEN 28 mg/dL (7-20); CHLORIDE 97 mmol/L (98-107); GLUCOSE 154 mg/dL (75-110); POTASSIUM 3.2 mmol/L (3.6-5.0); SODIUM 136.5 mmol/L (137-145)
[2018-10-04 06:38] LABS: ANION GAP 8 (5-19)
[2018-10-04 06:42] LABS: FREE T3 2.17 pg/mL (2.77-5.27); FREE T4 (FREE THYROXINE) 0.64 ng/dL (0.78-2.19)
[2018-10-04 06:45] LABS: CARBON DIOXIDE 32 mmol/L (22-30)
[2018-10-04] MEDS: POTASSIUM CHLORIDE 20 MEQ/50 ML RTU IV SCH ×2 (08:37→09:57)
[2018-10-04] MEDS: DOCUSATE SODIUM 100 MG CAPSULE PO SCH ×2 (09:00→17:13)
[2018-10-04] MEDS: PANTOPRAZOLE SODIUM 40 MG VIAL IV SCH (09:00)
[2018-10-04 15:53] LABS: BLOOD UREA NITROGEN 26 mg/dL (7-20); CALCIUM 8.8 mg/dL (8.4-10.2); CARBON DIOXIDE 28 mmol/L (22-30); CHLORIDE 95 mmol/L (98-107); GLUCOSE 325 mg/dL (75-110)
[2018-10-04 15:56] LABS: ANION GAP 12 (5-19); SODIUM 135.3 mmol/L (137-145)
[2018-10-04 16:06] LABS: POTASSIUM 4.5 mmol/L (3.6-5.0)
[2018-10-04] MEDS: INSULIN LISPRO 100 UNIT/ML 3 ML VIAL SUBCUT SCH ×2 (16:41→21:30)
[2018-10-04] MEDS ORDERED: LEVOTHYROXINE SODIUM INJ/PF 0.5 MG SDV IV ONE (17:00)
[2018-10-04] MEDS ORDERED: LEVOTHYROXINE SODIUM INJ/PF 0.1 MG SDV IV ONE (17:30)
[2018-10-04] MEDS ORDERED: INSULIN GLARGINE,HUM.REC.ANLOG 1,000 UNIT/10 ML VIAL (PYX) SUBCUT ONE (21:24)
[2018-10-04] MEDS: INSULIN GLARGINE,HUM.REC.ANLOG 1,000 UNIT/10 ML VIAL SUBCUT SCH (21:30)
[2018-10-04] MEDS: SIMVASTATIN 10 MG TABLET PO SCH (21:31)
[2018-10-04] MEDS ORDERED: INSULIN GLARGINE,HUM.REC.ANLOG 1,000 UNIT/10 ML VIAL SUBCUT SCH (22:00)
[2018-10-05] MEDS ORDERED: PROPRANOLOL HCL 10 MG TABLET ONE (00:37)
[2018-10-05] MEDS: PROPRANOLOL HCL 10 MG TABLET PO SCH ×3 (00:59→12:04)
[2018-10-05] MEDS: HEPARIN SOD (PORCINE) 5,000 UNIT/ML 1 ML SYRINGE SUBCUT SCH (05:12)
[2018-10-05] MEDS: METOCLOPRAMIDE HCL INJ/PF 10 MG/2 ML SDV IV SCH ×2 (05:48→11:55)
[2018-10-05] MEDS ORDERED: PANTOPRAZOLE SODIUM 40 MG TABLET.DR PO SCH (06:00)
[2018-10-05] MEDS ORDERED: LEVOTHYROXINE SODIUM 0.05 MG TABLET PO SCH (06:00)
[2018-10-05 06:34] LABS: HEMATOCRIT 35.8 % (36.0-47.0); HEMOGLOBIN 12.4 g/dL (12.0-15.5); MEAN CORPUSCULAR HEMOGLOBIN 31.8 pg (27.0-33.4); MEAN CORPUSCULAR HGB CONC 34.5 g/dL (32.0-36.0); MEAN CORPUSCULAR VOLUME 92 fl (80-97); PLATELET COUNT 331 10^3/uL (150-450); RED BLOOD COUNT 3.88 10^6/uL (3.72-5.28); RED CELL DISTRIBUTION WIDTH 14.9 % (11.5-14.0); WHITE BLOOD COUNT 8.9 10^3/uL (4.0-10.5)
--- NOTE | 2018-10-05 06:53 | PDOC PROGRESS REPORT ---
Subjective Progress Note for:: 10/04/18 Subjective:: Patient feels better. Unfortunately she has no idea what her settings are on her insulin pump. It is likely her DKA was result of not realizing her pump was empty. Reason For Visit: SEVERE DIABETIC KETOACIDOSIS Physical Exam Vital Signs: Temp Pulse Resp BP Pulse Ox 99.1 F 71 12 113/69 100 10/04/18 12:00 10/04/18 12:00 10/04/18 12:00 10/04/18 12:00 10/04/18 12:00 Intake & Output 10/03/18 10/04/18 10/05/18 06:59 06:59 06:59 Intake Total 6089 3181 Output Total 1100 0 Balance 4989 3181 Weight 65.3 kg General appearance: PRESENT: no acute distress, cooperative, well-developed Head exam: PRESENT: atraumatic, normocephalic Respiratory exam: PRESENT: clear to auscultation dave, symmetrical, unlabored. ABSENT: accessory muscle use, rales, rhonchi, tachypnea, wheezes Cardiovascular exam: PRESENT: RRR, +S1, +S2 GI/Abdominal exam: PRESENT: normal bowel sounds, soft. ABSENT: distended, tenderness Rectal exam: PRESENT: deferred Gentrourinary exam: ABSENT: indwelling catheter Musculoskeletal exam: PRESENT: ambulatory Neurological exam: PRESENT: alert, awake, CN II-XII grossly intact. ABSENT: or iented to person, oriented to place, oriented to time, oriented to situation Psychiatric exam: PRESENT: appropriate affect, normal mood. ABSENT: agitated, anxious Focused psych exam: ABSENT: delusional, restlessness Skin exam: PRESENT: dry, warm. ABSENT: rash Results Laboratory Results: 10/04/18 06:00 10/04/18 06:00 10/03/18 10/03/18 10/03/18 17:29 17:29 17:29 WBC 6.8 RBC 3.66 L Hgb 11.7 L Hct 36.5 MCV 100 H MCH 31.9 MCHC 32.0 RDW 14.7 H Plt Count 302 Seg Neutrophils % 72.7 Lymphocytes % 21.4 Monocytes % 4.6 Eosinophils % 0.7 Basophils % 0.6 Absolute Neutrophils 5.0 Absolute Lymphocytes 1.5 Absolute Monocytes 0.3 Absolute Eosinophils 0.1 Absolute Basophils 0.0 VBG pH 7.22 L VBG pCO2 38.0 VBG HCO3 15.1 L VBG Base Excess -11.9 Sodium 123.8 L Potassium 5.5 H Chloride 85 L Carbon Dioxide 15 L Anion Gap 24 H BUN 44 H Creatinine 2.17 H Est GFR ( Amer) 32 L Est GFR (Non-Af Amer) 26 L Glucose 1152 H* Calcium 9.3 Magnesium Total Bilirubin 1.1 AST 33 ALT 68 H Alkaline Phosphatase 100 Total Protein 6.6 Albumin 4.0 Lipase 69.6 TSH Free T4 Free T3 pg/mL Urine Color Urine Appearance Urine pH Ur Specific [place] Urine Protein Urine Glucose (UA) Urine Ketones Urine Blood Urine Nitrite Ur Leukocyte Esterase Urine WBC (Auto) Urine RBC (Auto) 10/03/18 10/03/18 10/04/18 17:47 23:53 06:00 WBC 8.0 RBC 3.39 L Hgb 11.0 L Hct 31.2 L MCV 92 D MCH 32.5 MCHC 35.3 RDW 14.9 H Plt Count 289 Seg Neutrophils % Lymphocytes % Monocytes % Eosinophils % Basophils % Absolute Neutrophils Absolute Lymphocytes Absolute Monocytes Absolute Eosinophils Absolute Basophils VBG pH VBG pCO2 VBG HCO3 VBG Base Excess Sodium 132.2 L Potassium 3.6 D Chloride 101 Carbon Dioxide 20 L Anion Gap 11 BUN 35 H Creatinine 1.55 H Est GFR ( Amer) 47 L Est GFR (Non-Af Amer) 39 L Glucose 539 H* Calcium 8.0 L Magnesium Total Bilirubin AST ALT Alkaline Phosphatase Total Protein Albumin Lipase TSH Free T4 Free T3 pg/mL Urine Color STRAW Urine Appearance SLIGHTLY-CLOUDY Urine pH 5.0 Ur Specific [place] 1.022 Urine Protein NEGATIVE Urine Glucose (UA) >=500 H Urine Ketones 20 H Urine Blood SMALL H Urine Nitrite NEGATIVE Ur Leukocyte Esterase NEGATIVE Urine WBC (Auto) 2 Urine RBC (Auto) 0 10/04/18 10/04/18 06:00 06:00 WBC RBC Hgb Hct MCV MCH MCHC RDW Plt Count Seg Neutrophils % Lymphocytes % Monocytes % Eosinophils % Basophils % Absolute Neutrophils Absolute Lymphocytes Absolute Monocytes Absolute Eosinophils Absolute Basophils VBG pH VBG pCO2 VBG HCO3 VBG Base Excess Sodium 136.5 L Potassium 3.2 L Chloride 97 L Carbon Dioxide 32 H D Anion Gap 8 BUN 28 H Creatinine 1.19 Est GFR ( Amer) > 60 Est GFR (Non-Af Amer) 53 L Glucose 154 H Calcium 8.0 L Magnesium 1.8 Total Bilirubin AST ALT Alkaline Phosphatase Total Protein Albumin Lipase TSH 499.00 H Free T4 0.64 L Free T3 pg/mL 2.17 L Urine Color Urine Appearance Urine pH Ur Specific [place] Urine Protein Urine Glucose (UA) Urine Ketones Urine Blood Urine Nitrite Ur Leukocyte Esterase Urine WBC (Auto) Urine RBC (Auto) Assessment and Plan - Diagnosis (1) Diabetic ketoacidosis Qualifiers: Diabetes mellitus type: type 1 Diabetes mellitus complication detail: without coma Qualified Code(s): E10.10 - Type 1 diabetes mellitus with ketoacidosis without coma Is this a current diagnosis for this admission?: Yes Plan: Patient will be admitted to the intensive care unit. She will receive an insulin infusion and a bicarbonate infusion per protocols. Her electrolytes will be monitored closely and corrected as appropriate per established protocols. She will receive abundant IV fluids and will use Nubain 10 mg IV every 3 hours on a as needed basis for pain. Her associated nausea and vomiting will be controlled with IV Reglan. Daily CBCs, metabolic profiles and magnesium levels will be obtained in addition to other laboratory obtained on a more frequent basis as required for monitoring. Hemoglobin A1c will be obtained. 10/04/2018-the patient was tapered off her insulin drip. She was given aggressive fluid resuscitation. Her anion gap normalized. Unfortunately she does not know the settings of her insulin pump. She did not know that her insulin pump was empty and in fact has very little knowledge of the workings of her treatment plan. There is a history of noncompliance in the medical record. The patient was placed on long-acting insulin as well as a sliding scale based roughly on the infusion. She is tolerating her diet and can be downgraded from the ICU. We did ask patient who her doctor was. She give us the name. We called the office. There is no record of seeing the patient. (2) Hyperglycemia due to type 1 diabetes mellitus Is this a current diagnosis for this admission?: Yes Plan: 10/04/2018-the patient's serum glucose was over 1000 on admission. With the insulin infusion she quickly corrected. (3) Hypothyroidism Qualifiers: Hypothyroidism type: unspecified Qualified Code(s): E03.9 - Hypothyroidism, unspecified Is this a current diagnosis for this admission?: Yes Plan: Patient will be continued on her usual thyroid replacement hormone during her hospital course. IV administration will be provided until she is able to take medication by mouth. A thyroid profile will be obtained during this admission. 10/04/2018-the patient was unaware of her dose of levothyroxine. Her serum TSH initially tested at 499. She was given 50 mcg of levothyroxine by IV and I have ordered 50 mcg by mouth daily starting tomorrow. (4) Hyponatremia Is this a current diagnosis for this admission?: Yes Plan: 10/04/2018-with aggressive fluid resuscitation her hyponatremia significantly improved. We will continue to monitor as she transitions to an oral diet. Hyponatremia was result of her profound hyperglycemia (5) Acute kidney injury Is this a current diagnosis for this admission?: Yes Plan: 10/04/2018-this is likely from dehydration and her metabolic state. Continue to evaluate renal function with the aggressive fluid resuscitation. (6) Hyperkalemia Is this a current diagnosis for this admission?: Yes Plan: 10/04/2018-likely a direct result of the acute kidney injury. Monitor for improvement with the aggressive hydration. - Time Time Spent with patient: 35 or more minutes Medications reviewed and adjusted accordingly: Yes Anticipated discharge: Home
[2018-10-05 06:57] LABS: BLOOD UREA NITROGEN 25 mg/dL (7-20); CALCIUM 8.4 mg/dL (8.4-10.2); POTASSIUM 3.7 mmol/L (3.6-5.0)
[2018-10-05 07:02] LABS: CARBON DIOXIDE 33 mmol/L (22-30); CHLORIDE 101 mmol/L (98-107); SODIUM 136.3 mmol/L (137-145)
[2018-10-05 07:07] LABS: GLUCOSE 49 mg/dL (75-110)
[2018-10-05 07:10] LABS: ANION GAP 2 (5-19)
[2018-10-05] MEDS: INSULIN LISPRO 100 UNIT/ML 3 ML VIAL SUBCUT SCH ×2 (07:52→11:54)
[2018-10-05] MEDS: DOCUSATE SODIUM 100 MG CAPSULE PO SCH (09:58)
[2018-10-05] MEDS: INSULIN GLARGINE,HUM.REC.ANLOG 1,000 UNIT/10 ML VIAL SUBCUT SCH (09:59)
[2018-10-05 12:06] VITALS: BP 119/72
--- NOTE | 2018-10-05 21:31 | Left Against Medical Advice ---
Against Medical Advice Admission Date/Time: 10/03/18 20:08 Primary Care Provider: Date of Patient Emigration: 10/05/18 - Diagnosis: (1) Diabetic ketoacidosis Is this a current diagnosis for this admission?: Yes (2) Hyperglycemia due to type 1 diabetes mellitus Is this a current diagnosis for this admission?: Yes (3) Hypothyroidism Is this a current diagnosis for this admission?: Yes (4) Hyponatremia Is this a current diagnosis for this admission?: Yes (5) Acute kidney injury Is this a current diagnosis for this admission?: Yes (6) Hyperkalemia Is this a current diagnosis for this admission?: Yes - Summary: Summary: Please see Admission and Progress Notes as well. JEANINE OSORIO is a 33 F, who LEFT AGAINST MEDICAL ADVICE. The Patient was admitted on 10/03/18 20:08. The patient was admitted for severe diabetic ketoacidosis with a glucose greater than 1000 and significant acidemia. She was quickly titrated off of the insulin infusion. She was started on oral diet. She did not know any of her insulin pump settings and therefore it was difficult to dose long-acting insulin along with the sliding scale. She did not know if she had a replacement cartridge of NovoLog for her pump. We tried to reach out to her [employer]freeze operator Dr. Wood in [place], without luck. In addition the patient's thyroid-stimulating hormone was 499. On repeat it was still 350 but this was after very aggressive fluid resuscitation. I did initiate levothyroxine therapy. I started at 50 mcg so as not to overwhelm the patient's physiology. The patient did not report any thyroid replacement therapy. Unfortunately the patient decided to leave AGAINST MEDICAL ADVICE. She reported to the nurse that she had to have a cigarette. No prescriptions were provided since I did not have a chance to see her prior to her departure.
== END 2018-10-05 13:42 | disposition left against medical advice (07) | DRG 638 ==
LOC: ER 15:52 → EH 20:08 → ICU 22:41 → 5 10-04 17:41
PROVIDERS: ADMIT Emergency Medicine; ATTEND Emergency Medicine
DX: E10.10 Type 1 diabetes mellitus with ketoacidosis without coma (principal); E87.1 Hypo-osmolality and hyponatremia; N17.9 Acute kidney failure, unspecified; E87.5 Hyperkalemia; E03.9 Hypothyroidism, unspecified; Z96.41 Presence of insulin pump (external) (internal); Z79.4 Long term (current) use of insulin
CPT/HCPCS: 36415; 80048; 80053; 81001; 82803; 82962; 83036; 83690; 83735; 84439; 84443; 84481; 85025; 85027; 93005; 93010; 96361; 96374; 99285; J1815; J2405; J2765; J3010; J3480; J3490; J7030; J7050; J7060; J7120; S0164

== ENCOUNTER 2018-10-11 00:18 | Emergency (ER) | payer MEDICARE, MEDICAID ==
[2018-10-11 00:56] VITALS: BP 131/74
== END 2018-10-11 03:07 | disposition left against medical advice (07) ==
LOC: ER 00:18
DX: Z53.21 Procedure and treatment not carried out due to patient leaving prior to being seen by health care provider (principal)

== ENCOUNTER 2018-10-11 09:14 | Emergency (ER) | payer MEDICARE, MEDICAID ==
[2018-10-11] MEDS ORDERED: ACETAMINOPHEN 325 MG TABLET PO ONE (09:17)
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
--- NOTE | 2018-10-11 10:55 | RADIOLOGY REPORT (SQ) ---
EXAM DESCRIPTION: KNEE RIGHT 4 VIEWS COMPLETED DATE/TIME: 10/11/2018 10:41 am REASON FOR STUDY: fall,abrasion COMPARISON: None. NUMBER OF VIEWS: Four views. TECHNIQUE: AP, lateral, and both oblique radiographic images acquired of the right knee. LIMITATIONS: None. FINDINGS: MINERALIZATION: Normal. BONES: No acute fracture or dislocation. No worrisome bone lesions. JOINT: Moderate size suprapatellar knee joint effusion. SOFT TISSUES: No soft tissue swelling. No radio-opaque foreign body. OTHER: No other significant finding. IMPRESSION: Moderate size suprapatellar knee joint effusion, question internal derangement of the kn ee without fracture TECHNICAL DOCUMENTATION: JOB ID: [id number] [employer]- All Rights Reserved Reading location - IP/workstation name: [email or web address]
[2018-10-11] MEDS ORDERED: IBUPROFEN 800 MG TABLET PO ONE (11:10)
[2018-10-11 11:21] VITALS: BP 132/88
== END 2018-10-11 11:22 | disposition home or self-care (01) ==
LOC: ER 09:14
DX: S80.211A Abrasion, right knee, initial encounter (principal); S99.911A Unspecified injury of right ankle, initial encounter; M25.461 Effusion, right knee; W01.0XXA Fall on same level from slipping, tripping and stumbling without subsequent striking against object, initial encounter; F17.210 Nicotine dependence, cigarettes, uncomplicated; E78.00 Pure hypercholesterolemia, unspecified; E10.9 Type 1 diabetes mellitus without complications
CPT/HCPCS: 99283; 73564; A9270 ×2

== ENCOUNTER 2018-10-31 13:19 | Emergency (ER) | payer OTHER, MEDICARE, MEDICAID ==
[2018-10-31] MEDS ORDERED: KETOROLAC TROMETHAMINE 60 MG/2 ML SDV IM ONE (14:59)
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
[2018-10-31 17:08] VITALS: BP 144/88
== END 2018-10-31 17:08 | disposition home or self-care (01) ==
LOC: ER 13:19
DX: M54.6 Pain in thoracic spine (principal); M54.5 Low back pain; V44.5XXA Car driver injured in collision with heavy transport vehicle or bus in traffic accident, initial encounter; E10.9 Type 1 diabetes mellitus without complications; Z96.41 Presence of insulin pump (external) (internal); F17.200 Nicotine dependence, unspecified, uncomplicated; J45.909 Unspecified asthma, uncomplicated; Z87.892 Personal history of anaphylaxis; Z91.018 Allergy to other foods; Z88.6 Allergy status to analgesic agent; Z88.5 Allergy status to narcotic agent; Z88.0 Allergy status to penicillin; Z88.2 Allergy status to sulfonamides; Z91.048 Other nonmedicinal substance allergy status
CPT/HCPCS: 99284; 96372; 82962; 72128; 72131; J1885

== ENCOUNTER 2019-06-09 17:01 | Emergency (ER) | payer MEDICARE, MEDICAID ==
[2019-06-09] MEDS ORDERED: NORMAL SALINE 1000 ML 1,000 ML IV PRN (17:42)
[2019-06-09 17:52] LABS: ABSOLUTE EOSINOPHILS # (AUTO) 0.5 10^3/uL (0.0-0.6); ABSOLUTE LYMPHOCYTES (AUTO) 1.7 10^3/uL (0.5-4.7); ABSOLUTE MONOCYTES (AUTO) 0.7 10^3/uL (0.1-1.4); ABSOLUTE NEUT (AUTO) 5.2 10^3/uL (1.7-8.2); BASOPHILS % (AUTO) 0.6 % (0-2); EOSINOPHILS % (AUTO) 5.9 % (0-6); HEMATOCRIT 37.6 % (36.0-47.0); HEMOGLOBIN 11.9 g/dL (12.0-15.5); LYMPHOCYTES % (AUTO) 21.3 % (13-45); MEAN CORPUSCULAR HEMOGLOBIN 31.3 pg (27.0-33.4); MEAN CORPUSCULAR HGB CONC 31.6 g/dL (32.0-36.0); MEAN CORPUSCULAR VOLUME 99 fl (80-97); MONOCYTES % (AUTO) 8.3 % (3-13); PLATELET COUNT 292 10^3/uL (150-450); RED BLOOD COUNT 3.79 10^6/uL (3.72-5.28); RED CELL DISTRIBUTION WIDTH 15.5 % (11.5-14.0); SEGMENTED NEUTROPHILS % (AUTO) 63.9 % (42-78); TOTAL CELLS COUNTED % (AUTO) 100 %; WHITE BLOOD COUNT 8.1 10^3/uL (4.0-10.5)
[2019-06-09 17:55] LABS: INTERNATIONAL RATION (INR) 0.88; PROTHROMBIN TIME 11.9 SEC (11.4-15.4)
--- NOTE | 2019-06-09 17:58 | RADIOLOGY REPORT (SQ) ---
EXAM DESCRIPTION: CHEST 2 VIEWS COMPLETED DATE/TIME: 06/09/2019 5:42 pm REASON FOR STUDY: chest pain COMPARISON: Chest radiographs 01/22/2019 EXAM PARAMETERS: NUMBER OF VIEWS: two views TECHNIQUE: Digital Frontal and Lateral radiographic views of the chest acquired. RADIATION DOSE: NA LIMITATIONS: none FINDINGS: LUNGS AND PLEURA: Mild thickening of the right major fissure inferiorly on the lateral pro jection. MEDIASTINUM AND HILAR STRUCTURES: No masses or contour abnormalities. HEART AND VASCULAR STRUCTURES: Heart normal size. No evidence for failure. BONES: No acute findings. HARDWARE: None in the chest. OTHER: No other significant finding. IMPRESSION: Mild thickening of the right major fissure inferiorly on the lateral projection, which m ay represent scarring or a developing right middle lobe pneumonia in the appropriate clinical setting . TECHNICAL DOCUMENTATION: JOB ID: [id number] 2010 [facility]- All Rights Reserved Reading location - IP/workstation name: [email or web address]
[2019-06-09 18:07] LABS: ALBUMIN 3.1 g/dL (3.5-5.0); ALKALINE PHOSPHATASE 96 U/L (38-126); ANION GAP 10 (5-19); ASPARTATE AMINO TRANSFERASE 14 U/L (14-36); BILIRUBIN,DIRECT 0.3 mg/dL (0.0-0.4); BILIRUBIN,TOTAL 0.4 mg/dL (0.2-1.3); BLOOD UREA NITROGEN 28 mg/dL (7-20); CALCIUM 8.8 mg/dL (8.4-10.2); CARBON DIOXIDE 25 mmol/L (22-30); CHLORIDE 95 mmol/L (98-107); CREATINE KINASE 50 U/L (30-135); POTASSIUM 5.5 mmol/L (3.6-5.0); TOTAL PROTEIN 5.9 g/dL (6.3-8.2)
[2019-06-09 18:16] LABS: GLUCOSE 1014 mg/dL (75-110)
[2019-06-09 18:21] LABS: CREATINE KINASE MB 0.88 ng/mL (<4.55); TROPONIN I 0.014 ng/mL
[2019-06-09] MEDS ORDERED: NORMAL SALINE 1000 ML 1,000 ML IV ONE ×2 (18:38→21:27)
[2019-06-09] MEDS ORDERED: INSULIN REG, HUMAN 100 UNIT/ML 3 ML VIAL (PYX) IV ONE (19:04)
[2019-06-09 19:06] LABS: VENOUS BLOOD BASE EXCESS -4.8 mmol/L; VENOUS BLOOD HCO3 19.9 mmol/L (20-32); VENOUS BLOOD PCO2 35.4 mmHg (35-63); VENOUS BLOOD PH 7.37 (7.30-7.42)
[2019-06-09] MEDS ORDERED: INSULIN REG, HUMAN 100 UNIT/ML 3 ML VIAL (PYX) ONE (19:31)
[2019-06-09] MEDS ORDERED: KETOROLAC TROMETHAMINE INJ/PF 30 MG/1 ML SDV IV ONE (20:10)
[2019-06-09] MEDS ORDERED: ACETAMINOPHEN 325 MG TABLET PO ONE (20:58)
--- NOTE | 2019-06-09 22:46 | EKG REPORT ---
SEVERITY:- BORDERLINE ECG - SINUS RHYTHM PROBABLE LEFT ATRIAL ABNORMALITY BORDERLINE T WAVE ABNORMALITIES : Confirmed by: Dalia Giron MD 09-Jun-2019 22:45:21
[2019-06-09] MEDS ORDERED: INSULIN REG, HUMAN 100 UNIT/ML 3 ML VIAL (PYX) SUBCUT ONE (23:24)
--- NOTE | 2019-06-09 23:27 | ER Document Report ---
ED General - General Chief Complaint: Chest Pain Stated Complaint: CHEST PAIN Time Seen by Provider: 06/09/19 18:36 Primary Care Provider: CARROLL PEPPER PA-C [Primary Care Provider] - Follow up as needed Mode of Arrival: Medic Information source: Patient Notes: Patient is a 34-year-old female insulin-dependent diabetic presenting to the emergency department with chief complaint of chest pain and possible elevated glucose. Patient reports she has been out of the state for the last 2 months, she states that she took a 2-day bus ride home and arrived back here today. She reports she has been having chest pain which is sharp stabbing located in the left upper chest wall and reproducible with palpation over the last several weeks. She states today the pain got worse. She also reports her blood sugars have been reading high. She states she does have an insulin pump. She denies any nausea, vomiting, diarrhea. TRAVEL OUTSIDE OF THE [place] IN LAST 30 DAYS: No - Related Data Allergies/Adverse Reactions: mushroom Allergy (Severe, Verified 01/22/19 14:51) Anaphylaxis alcohol [Alcohol] Allergy (Unknown, Verified 01/22/19 14:51) Hives gabapentin Allergy (Unknown, Verified 01/22/19 14:51) Hives morphine [Morphine] Allergy (Unknown, Verified 01/22/19 14:51) Penicillins Allergy (Unknown, Verified 01/22/19 14:51) Sulfa (Sulfonamide Antibiotics) Allergy (Unknown, Verified 01/22/19 14:51) adhesive [Adhesive] Allergy (Verified 01/22/19 14:51) chlorpromazine [From Thorazine] Allergy (Verified 01/22/19 14:51) tomato [Tomato] Adverse Reaction (Severe, Verified 01/22/19 14:51) Anaphylaxis Past Medical History - Social History Smoking Status: Current Every Day Smoker Family History: Arthritis, CAD, DM, Malignancy, Thyroid Disfunction Patient has suicidal ideation: No Patient has homicidal ideation: No - Past Medical History Cardiac Medical History: Reports: Hx Hypercholesterolemia Denies: Hx Coronary Artery Disease, Hx DVT, Hx Heart Attack, Hx Pulmonary Embolism Pulmonary Medical History: Reports: Hx Asthma Denies: Hx COPD, Hx Respiratory Failure, Hx Tuberculosis Neurological Medical History: Reports: Hx Seizures - 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 Denies: Hx Diabetes Mellitus Type 2, Hx Hyperthyroidism Renal/ Medical History: Denies: Hx Peritoneal Dialysis GI Medical History: Reports: Hx Gastroesophageal Reflux Disease. Denies: Hx Cirrhosis, Hx Crohn's Disease, Hx Hiatal Hernia, Hx Ulcer, Hx Ulcerative Colitis Musculoskeletal Medical History: Denies Hx Arthritis, Denies Hx Gout, Reports Hx Musculoskeletal Deformity, Reports Hx Musculoskeletal Trauma Skin Medical History: Denies Hx Eczema, Denies Hx Psoriasis Psychiatric Medical History: Reports: Hx Anxiety, Hx Bipolar Disorder, Hx Depre ssion, Hx Post Traumatic Stress Disorder Traumatic Medical History: Reports: Hx Fractures - Wrist hand and toe Infectious Medical History: Past Surgical History: Reports: Hx Oral Surgery, Hx Orthopedic Surgery - Ankle surgery, Other - [place] teeth excisions bilaterally, bilateral ingrown toenail removals. Denies: Hx Mastectomy, Hx Open Heart Surgery - Immunizations Hx Diphtheria, Pertussis, Tetanus Vaccination: Yes Hx Pneumococcal Vaccination: 03/10/13 Review of Systems - Review of Systems Cardiovascular: Chest pain Musculoskeletal: See HPI -: Yes All other systems reviewed and negative Physical Exam - Vital signs Vitals: Resp Pulse Ox 22 H 93 06/09/19 17:05 06/09/19 17:05 - Notes Notes: PHYSICAL EXAMINATION: GENERAL: Well-appearing, well-nourished and in no acute distress. HEAD: Atraumatic, normocephalic. EYES: Pupils equal round and reactive to light, extraocular movements intact, conjunctiva are normal. ENT: Nares patent, oropharynx clear without exudates. Moist mucous membranes. NECK: Normal range of motion, supple without lymphadenopathy LUNGS: Breath sounds clear to auscultation bilaterally and equal. No wheezes rales or rhonchi. HEART: Regular rate and rhythm without murmurs ABDOMEN: Soft, nontender, nondistended abdomen. No guarding, no rebound. No masses appreciated. Female : deferred Musculoskeletal: Normal range of motion, no pitting or edema. No cyanosis. Reproducible pain with palpation on the chest wall. NEUROLOGICAL: Cranial nerves grossly intact. Normal speech, normal gait. Normal sensory, motor exams PSYCH: Normal mood, normal affect. SKIN: Warm, Dry, normal turgor, no rashes or lesions noted. Course - Re-evaluation Re-evalutation: Patient appears well, nontoxic. Labs as recorded below. Patient is signif icantly hyperglycemic but is not in DKA. VBG normal. Patient will be given insulin, fluids and will be reevaluated. Patient will be discharged home if blood sugar comes down into the 400 range. Her chest x-ray was benign. EKG is shows a sinus rhythm, no change from previous on file, no ST segment elevations or depressions. Her troponin was negative. Her pain is reproducible and not consistent with cardiac chest pain. 06/09/19 23:10 Patient's blood sugar has come down to the 400 range after administration of 3 L of IV fluid as well as IV insulin. Patient will be given additional 5 units of subcu insulin prior to discharge home as she states that her insulin pump is about to run out. She states she only has about 4 units left. Patient has an upcoming appointment with her relationship banker. Extensive instructions were given regarding compliance with medication and also seeing her relationship banker as soon as possible because clearly her insulin pump is not working properly or malfunctioning. Patient verbalizes understanding and agreement with this plan. - Vital Signs Vital signs: Temp Pulse Resp BP Pulse Ox 98 F 92 22 H 103/87 H 96 06/10/19 00:36 06/10/19 00:36 06/10/19 00:36 06/10/19 00:36 06/10/19 00:36 - Laboratory Result Diagrams: 06/09/19 17:18 06/09/19 21:44 Laboratory results interpreted by me: 06/09/19 06/09/19 06/09/19 17:18 17:18 18:50 Hgb 11.9 L MCV 99 H MCHC 31.6 L RDW 15.5 H VBG HCO3 19.9 L Sodium 130.4 L Potassium 5.5 H Chloride 95 L BUN 28 H Est GFR (MDRD) Non-Af 49 L Glucose 1014 H* POC Glucose Total Protein 5.9 L Albumin 3.1 L 06/09/19 06/10/19 21:44 00:26 Hgb MCV MCHC RDW VBG HCO3 Sodium Potassium Chloride BUN Est GFR (MDRD) Non-Af Glucose 488 H* POC Glucose 162 H Total Protein Albumin Discharge - Discharge Clinical Impression: Hyperglycemia due to type 1 diabetes mellitus Chest pain Qualifiers: Chest pain type: unspecified Qualified Code(s): R07.9 - Chest pain, unspecified Condition: Stable Disposition: HOME, SELF-CARE Additional Instructions: You were seen in the emergency department today for chest pain and an episode of hyperglycemia. Likely you were not in diabetic ketoacidosis. Your work-up today was unremarkable as far as her cardiac enzymes, EKG and chest x-ray. Your blood glucose was elevated significantly but has come down nicely with insulin. Please call your relationship banker tomorrow to schedule a follow-up appointment. There must be some adjustment made to your insulin regimen and/or insulin pump for your blood sugar to have gotten to the 1000 range despite having an insulin pump. Please drink plenty of fluids. Maintain a diabetic diet. Follow-up with your doctor as discussed. Referrals: CARROLL PEPPER PA-C [Primary Care Provider] - Follow up as needed
[2019-06-10 00:38] VITALS: BP 103/87
== END 2019-06-10 00:38 | disposition home or self-care (01) ==
LOC: ER 17:01
DX: E10.65 Type 1 diabetes mellitus with hyperglycemia (principal); R07.9 Chest pain, unspecified; R07.89 Other chest pain; J45.909 Unspecified asthma, uncomplicated; F17.200 Nicotine dependence, unspecified, uncomplicated
CPT/HCPCS: 93005; 99285; 96361; 96374; 36415; 82553; 82962; 82550; 82947; 85025; 85610; 80053; 84484; 82803; 71046; 93010; J1885; A9270; J7030; J1815

== ENCOUNTER 2019-07-18 13:45 | Emergency (ER) | payer MEDICARE, MEDICAID ==
--- NOTE | 2019-07-18 13:52 | ER Document Report ---
ED General - General Chief Complaint: Chest Pain Stated Complaint: CHEST PAIN Primary Care Provider: CARROLL PEPPER PA-C [Primary Care Provider] - Follow up as needed TRAVEL OUTSIDE OF THE [place] 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 Patient was given nitroglycerin in route with relief. Patient states that she has had a fever for the last 4 days because of her abscess, has not seen a primary care provider for this issue. States she has been self quarantining due to recently having her CABG. Patient states she did get her flu shot in March. pain in is 4/10, throbbing to left buttocks. States she is a non-smoker. Denies palpitations, shortness of breath, dyspnea, nausea, vomiting, diarrhea, abdominal pain, hematuria,blurred vision, double vision, loss of vision, speech changes, LH, dizziness, syncope, headaches, wheezing, ST, URI, neck pain, weakness, bowel or bladder dysfunction, saddle anesthesia, numbness or tingling in bilateral upper or lower extremities equally, muscle paralysis, weakness in bilateral upper or lower extremities equally. - Related Data Allergies/Adverse Reactions: mushroom Allergy (Severe, Verified 01/22/19 14:51) Anaphylaxis alcohol [Alcohol] Allergy (Unknown, Verified 01/22/19 14:51) Hives gabapentin Allergy (Unknown, Verified 01/22/19 14:51) Hives morphine [Morphine] Allergy (Unknown, Verified 01/22/19 14:51) Penicillins Allergy (Unknown, Verified 01/22/19 14:51) Sulfa (Sulfonamide Antibiotics) Allergy (Unknown, Verified 01/22/19 14:51) adhesive [Adhesive] Allergy (Verified 01/22/19 14:51) chlorpromazine [From Thorazine] Allergy (Verified 01/22/19 14:51) tomato [Tomato] Adverse Reaction (Severe, Verified 01/22/19 14:51) Anaphylaxis Past Medical History - General Information source: Patient - Social History Smoking Status: Unknown if Ever Smoked Family History: Arthritis, CAD, DM, Malignancy, Thyroid Disfunction - Past Medical History Cardiac Medical History: Reports: Hx Hypercholesterolemia Denies: Hx Coronary Artery Disease, Hx DVT, Hx Heart Attack, Hx Pulmonary Embolism Pulmonary Medical History: Reports: Hx Asthma Denies: Hx COPD, Hx Respiratory Failure, Hx Tuberculosis Neurological Medical History: Reports: Hx Seizures - 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 Denies: Hx Diabetes Mellitus Type 2, Hx Hyperthyroidism Renal/ Medical History: Denies: Hx Peritoneal Dialysis GI Medical History: Reports: Hx Gastroesophageal Reflux Disease. Denies: Hx Cirrhosis, Hx Crohn's Disease, Hx Hiatal Hernia, Hx Ulcer, Hx Ulcerative Colitis Musculoskeletal Medical History: Denies Hx Arthritis, Denies Hx Gout, Reports Hx Musculoskeletal Deformity, Reports Hx Musculoskeletal Trauma Skin Medical History: Denies Hx Eczema, Denies Hx Psoriasis Psychiatric Medical History: Reports: Hx Anxiety, Hx Bipolar Disorder, Hx Depression, Hx Post Traumatic Stress Disorder Traumatic Medical History: Reports: Hx Fractures - Wrist hand and toe Infectious Medical History: Past Surgical History: Reports: Hx Oral Surgery, Hx Orthopedic Surgery - Ankle surgery, Other - [place] teeth excisions bilaterally, bilateral ingrown toenail removals. Denies: Hx Mastectomy, Hx Open Heart Surgery - Immunizations Hx Diphtheria, Pertussis, Tetanus Vaccination: Yes Hx Pneumococcal Vaccination: 03/10/13 Review of Systems - Review of Systems Constitutional: See HPI EENT: No symptoms reported Cardiovascular: See HPI Respiratory: No symptoms reported Gastrointestinal: No symptoms reported Genitourinary: No symptoms reported Female Genitourinary: No symptoms reported Musculoskeletal: No symptoms reported Skin: See HPI Hematologic/Lymphatic: No symptoms reported Neurological/Psychological: No symptoms reported Physical Exam - Vital signs Vitals: Temp Resp BP Pulse Ox 102.4 F H 18 146/93 H 98 07/18/19 13:46 07/18/19 13:46 07/18/19 13:46 07/18/19 13:46 - Notes Notes: PHYSICAL EXAMINATION: reviewed vital signs by RN GENERAL: Ill appearing, well-nourished and in no acute distress. HEAD: Atraumatic, normocephalic. EYES: Pupils equal round and reactive to light, extraocular movements intact, conjunctiva are normal. ENT: Nares patent, oropharynx clear without exudates. Moist mucous membranes. NECK: Normal range of motion, supple without lymphadenopathy LUNGS: Breath sounds clear to auscultation bilaterally and equal. No wheezes rales or rhonchi. HEART: Sinus tachycardia ABDOMEN: Soft, nontender, nondistended abdomen. No guarding, no rebound. No masses appreciated. Female : deferred Musculoskeletal: Normal range of motion, no pitting or edema. No cyanosis. NEUROLOGICAL: Cranial nerves grossly intact. Normal speech, normal gait. Normal sensory, motor exams PSYCH: Normal mood, normal affect. SKIN: Warm, Dry, normal turgor, no rashes or lesions noted. Left buttocks with area of 4 cm x 5 cm area of induration warmth to touch without any fluctuance, no surrounding erythema, no surrounding lymphadenopathy Course - Re-evaluation Re-evalutation: 07/18/19 17:31 Febrile, tachycardic. Nurse's notes reviewed. CBC shows a leukocytosis of 16.8 without bands. CMP negative for hepatic or renal dysfunction, no electrolyte disturbances. initial troponin normal. EKG negative for ST segment changes, no STEMI. Chest x-ray unremarkable. Lactic acid 1.5. Blood cultures pending. Rapid strep, rapid flu negative. patient given Tylenol in route for fever of 102.6 Fahrenheit. Patient states her chest pain is better since coming to ER. IV antibiotics, vancomycin and cefepime as well as IV fluids initiated. Fever reduced down to 98.6 F after Tylenol, heart rate down to 110 blood pressure stable. consulted with Dr. Ruben Hicks, supervising duct layer supervisor guarding pert inent laboratory diagnostic and clinical findings. She did advise for admission. consulted with hospitalist, Ynes Campuzano, ROD, lead hospitalist for admission for sepsis presentation of chest pain. She recommended transfer to [facility] instead of staying at [facility] due to patient's extensive medical history, two MS's and recent CABG as well as pt possibly needing a cardiothroacic surgeon, which [facility] has since she had surgeon there on 06/14/2019. Dr. Hicks made aware of need of transfer, consulted with Dr. Pearson, hospitalist, at [facility] at 1730 who will accept patient for sepsis and chest pain and patient will be in route by ground EMS. Will order CT of pelvis with contrast as recommended to be done by [facility] and will send images with transfer. patient verbalized an understanding of this plan of care and agreed with the plan of care. 07/18/19 18:49 - Vital Signs Vital signs: Temp Pulse Resp BP Pulse Ox 98.8 F 17 142/91 H 97 07/18/19 15:38 07/18/19 17:01 07/18/19 17:01 07/18/19 17:01 - Laboratory Result Diagrams: 07/18/19 13:55 07/18/19 13:55 Laboratory results interpreted by me: 07/18/19 07/18/19 07/18/19 13:55 13:55 15:35 WBC 16.8 H RDW 15.0 H Lymph % (Auto) 9.9 L Absolute Neuts (auto) 13.7 H Seg Neutrophils % 81.7 H Sodium 130.9 L BUN 22 H Creatinine 1.33 H Est GFR ( Amer) 56 L Est GFR (MDRD) Non-Af 46 L Glucose 347 H Alkaline Phosphatase 156 H Albumin 3.0 L Lipase 17.6 L Urine Protein >=500 H Urine Glucose (UA) >=500 H Urine Ketones TRACE H Urine Ascorbic Acid 40 H Discharge - Discharge Clinical Impression: Sepsis, Chest pain Condition: Stable Disposition: [facility] Referrals: CARROLL PEPPER PA-C [Primary Care Provider] - Follow up as needed
[2019-07-18 14:29] LABS: ABSOLUTE LYMPHOCYTES (AUTO) 1.7 10^3/uL (0.5-4.7); ABSOLUTE MONOCYTES (AUTO) 1.3 10^3/uL (0.1-1.4); ABSOLUTE NEUT (AUTO) 13.7 10^3/uL (1.7-8.2); BASOPHILS % (AUTO) 0.3 % (0-2); EOSINOPHILS % (AUTO) 0.2 % (0-6); HEMOGLOBIN 13.2 g/dL (12.0-15.5); LYMPHOCYTES % (AUTO) 9.9 % (13-45); MEAN CORPUSCULAR HEMOGLOBIN 31.3 pg (27.0-33.4); MEAN CORPUSCULAR HGB CONC 34.6 g/dL (32.0-36.0); MEAN CORPUSCULAR VOLUME 90 fl (80-97); MONOCYTES % (AUTO) 7.9 % (3-13); PLATELET COUNT 433 10^3/uL (150-450); SEGMENTED NEUTROPHILS % (AUTO) 81.7 % (42-78); TOTAL CELLS COUNTED % (AUTO) 100 %; WHITE BLOOD COUNT 16.8 10^3/uL (4.0-10.5)
[2019-07-18 14:41] LABS: ALKALINE PHOSPHATASE 156 U/L (38-126); ANION GAP 9 (5-19); ASPARTATE AMINO TRANSFERASE 17 U/L (14-36); BILIRUBIN,DIRECT 0.3 mg/dL (0.0-0.4); BILIRUBIN,TOTAL 0.5 mg/dL (0.2-1.3); BLOOD UREA NITROGEN 22 mg/dL (7-20); CARBON DIOXIDE 24 mmol/L (22-30); CHLORIDE 98 mmol/L (98-107); GLUCOSE 347 mg/dL (75-110); POTASSIUM 4.5 mmol/L (3.6-5.0); TOTAL PROTEIN 6.4 g/dL (6.3-8.2)
--- NOTE | 2019-07-18 14:49 | RADIOLOGY REPORT (SQ) ---
EXAM DESCRIPTION: CHEST SINGLE VIEW IMAGES COMPLETED DATE/TIME: 07/18/2019 2:40 pm REASON FOR STUDY: fever/cp COMPARISON: 06/09/2019. EXAM PARAMETERS: NUMBER OF VIEWS: One view. TECHNIQUE: Single frontal radiographic view of the chest acquired. RADIATION DOSE: NA LIMITATIONS: None. FINDINGS: LUNGS AND PLEURA: No opacities, masses or pneumothorax. No pleural effusion. MEDIASTINUM AND HILAR STRUCTURES: No masses. Contour normal. HEART AND VASCULAR STRUCTURES: Heart normal in size. Normal vasculature. BONES: No acute findings. HARDWARE: Sternotomy wires. OTHER: No other significant finding. IMPRESSION: NO ACUTE RADIOGRAPHIC FINDING IN THE CHEST. TECHNICAL DOCUMENTATION: JOB ID: [id number] 2010 [employer]- All Rights Reserved Reading location - IP/workstation name: [email or web address]
[2019-07-18 14:56] LABS: A TYPE INFLUENZA AG NEGATIVE (NEGATIVE); B INFLUENZA AG NEGATIVE (NEGATIVE)
[2019-07-18 16:07] LABS: APPEARANCE,URINE SLIGHTLY-CLOUDY; BILIRUBIN,URINE NEGATIVE (NEGATIVE); COLOR,URINE YELLOW; GLUCOSE, URINE >=500 mg/dL (NEGATIVE); KETONES,URINE TRACE mg/dL (NEGATIVE); LEUKOCYTE ESTERASE,URINE NEGATIVE (NEGATIVE); NITRITE,URINE NEGATIVE (NEGATIVE); PROTEIN,URINE >=500 mg/dL (NEGATIVE); UROBILINOGEN,URINE NEGATIVE mg/dL (<2.0)
[2019-07-18] MEDS ORDERED: VANCOMYCIN HCL INJ 1000 MG VIAL IV ONE (17:08)
[2019-07-18] MEDS ORDERED: CEFEPIME 1 GM/D5W RTU 1 GM/50 ML RTUPB IV ONE (17:11)
[2019-07-18] MEDS ORDERED: NORMAL SALINE 1000 ML 1,000 ML IV ONE (17:11)
--- NOTE | 2019-07-18 18:27 | RADIOLOGY REPORT (SQ) ---
EXAM DESCRIPTION: CT PELVIS WITH IMAGES COMPLETED DATE/TIME: 07/18/2019 6:03 pm REASON FOR STUDY: L buttocks with cellulitis COMPARISON: None. TECHNIQUE: CT scan of the pelvis performed without intravenous or oral contrast. Images reviewed wi th soft tissue and bone windows. Reconstructed coronal and sagittal MPR images reviewed. All images stored on PACS. All CT scanners at this facility use dose modulation, iterative reconstruction, and/or weight based d osing when appropriate to reduce radiation dose to as low as reasonably achievable (ALARA). [facility]: Dose Right [facility]: CareDose [facility]: Dose Right [facility]: Teradose 4D [facility]: [employer] RADIATION DOSE: CT Rad equipment meets quality standard of care and radiation dose reduction techniq ues were employed. CTDIvol: 6.2 mGy. DLP: 238 mGy-cm LIMITATIONS: None. FINDINGS: PELVIC BONES: No acute fracture. No worrisome bone lesions. VISUALIZED SPINE: No acute findings. HIP(S): No acute fracture or dislocation. No worrisome bone lesions. PELVIC SOFT TISSUES: No significant findings. EXTRAPELVIC SOFT TISSUES: Mild soft tissue density in the medial left buttock region measures approx imate 2.3 cm in diameter. There is some extension toward the left anal crease. Mild thickening of t he overlying skin on the left. No evidence of abscess collection or sinus tract. Mild soft tissue stranding is also noted in the medial soft tissues of the right buttock region. No evidence of abscess collection or sinus tract. These findings suggest inflammatory changes. Mild th ickening of the overlying skin. The adjacent musculature is unremarkable in appearance. OTHER: Mildly prominent left inguinal lymph node measures 1.6 cm in AP diameter. A few other bilate ral borderline inguinal lymph nodes. Small fat containing right inguinal hernia. There are nondistended fluid filled large and small brittany l loops. IMPRESSION: 1. The constellation of findings as detailed above in the medial aspect of the left glu teal region suggest cellulitis/phlegmon. Mild changes are noted on the right. No evidence of absces s collection or sinus tract. 2. Bilateral inguinal lymph nodes, the largest is noted on the left. These findings may be on a bhavya ctive basis. Correlation suggested. 3. Additional findings as above. COMMENT: 67.3 ml Omnipaque 350 BUN=22 TECHNICAL DOCUMENTATION: JOB ID: [id number] Quality ID # [id number]: Final reports with documentation of one or more dose reduction techniques (e.g., Au tomated exposure control, adjustment of the mA and/or kV according to patient size, use of iterative reconstruction technique) 2010 [employer]- All Rights Reserved Reading location - IP/workstation name: [email or web address]
[2019-07-18] MEDS ORDERED: HYDROMORPHONE HCL INJ/PF 2 MG/ML AMPULE IV ONE (20:01)
[2019-07-18] MEDS ORDERED: ONDANSETRON HCL INJ/PF 4 MG/2 ML SDV IV ONE (20:01)
[2019-07-18 20:50] VITALS: BP 162/98
--- NOTE | 2019-07-18 21:24 | EKG REPORT ---
SEVERITY:- BORDERLINE ECG - SINUS TACHYCARDIA BORDERLINE RIGHT AXIS DEVIATION BORDERLINE ST ELEVATION, INFERIOR LEADS : Confirmed by: Dalia Giron MD 18-Jul-2019 21:22:45
--- NOTE | 2019-07-18 21:26 | ER Document Report ---
Doctor's Note Notes: 07/18/19 21:23 34-year-old female preparing to the transfer to [facility] chest pain and sepsis. She states her pain level is a 3 out of 5. Patient is in stable condition transport will give patient 1 mg of Dilaudid IM in route to [facility]. Blood pressure 156/98, pulse 107, respirations 19, temperature 100.5 she has recently received Tylenol, and O2 sat was 99%.
== END 2019-07-18 21:14 | disposition short-term general hospital (02) ==
LOC: ER 13:45
DX: A41.9 Sepsis, unspecified organism (principal); R07.9 Chest pain, unspecified; L03.317 Cellulitis of buttock; R50.9 Fever, unspecified; R00.0 Tachycardia, unspecified; I25.2 Old myocardial infarction; Z95.1 Presence of aortocoronary bypass graft; Z88.8 Allergy status to other drugs, medicaments and biological substances; Z88.2 Allergy status to sulfonamides; Z88.0 Allergy status to penicillin; J45.909 Unspecified asthma, uncomplicated
CPT/HCPCS: 93005; 36415; 87040; 87070; 87880; 82962; 83605; 83690; 85025; 87077; 80053; 81001; 84484; 87186; 87804; 87150 ×26; 71045; 72193; 93010; J1170; J2405; J7030; J3370; J0692

== ENCOUNTER 2019-09-11 13:49 | Emergency (ER) | payer MEDICARE, MEDICAID ==
[2019-09-11 14:32] LABS: ABSOLUTE BASOPHILS # (AUTO) 0.1 10^3/uL (0.0-0.2); ABSOLUTE LYMPHOCYTES (AUTO) 1.1 10^3/uL (0.5-4.7); ABSOLUTE MONOCYTES (AUTO) 0.4 10^3/uL (0.1-1.4); ABSOLUTE NEUT (AUTO) 7.8 10^3/uL (1.7-8.2); BASOPHILS % (AUTO) 0.7 % (0-2); EOSINOPHILS % (AUTO) 0.5 % (0-6); HEMATOCRIT 34.1 % (36.0-47.0); LYMPHOCYTES % (AUTO) 12.1 % (13-45); MEAN CORPUSCULAR HEMOGLOBIN 30.2 pg (27.0-33.4); MEAN CORPUSCULAR HGB CONC 29.4 g/dL (32.0-36.0); MONOCYTES % (AUTO) 3.8 % (3-13); PLATELET COUNT 383 10^3/uL (150-450); RED BLOOD COUNT 3.32 10^6/uL (3.72-5.28); RED CELL DISTRIBUTION WIDTH 15.9 % (11.5-14.0); SEGMENTED NEUTROPHILS % (AUTO) 82.9 % (42-78); TOTAL CELLS COUNTED % (AUTO) 100 %; WHITE BLOOD COUNT 9.3 10^3/uL (4.0-10.5)
[2019-09-11] MEDS ORDERED: ONDANSETRON HCL INJ/PF 4 MG/2 ML SDV IV ONE ×2 (14:34→18:27)
[2019-09-11] MEDS ORDERED: NORMAL SALINE 1000 ML 1,000 ML IV ONE ×4 (14:35→18:50)
[2019-09-11] MEDS ORDERED: HYDROMORPHONE HCL INJ/PF 2 MG/ML AMPULE IV ONE ×2 (14:42→18:26)
--- NOTE | 2019-09-11 14:48 | ER Document Report ---
ED General - General Chief Complaint: Vomiting Stated Complaint: VOMITING Time Seen by Provider: 09/11/19 14:12 Primary Care Provider: ALEX ELLIOTT MD [NO LOCAL MD] - Follow up as needed TRAVEL OUTSIDE OF THE [place] IN LAST 30 DAYS: No - HPI Notes: Patient is a 34-year-old female who presents to the emergency department for evaluation of vomiting and chest pain, abdominal pain. She states she woke up this morning, was feeling normal. She had some water, then immediately started vomiting. She said 6-7 episodes of nonbloody, nonbilious emesis. She states that she has pain in her chest that is sharp, it started right after the vomiting. On further questioning she also has some dull abdominal pain which she really cannot describe. She does state that this feels similar to when she was in DKA in the past. She states he been taking all of her medications as prescribed. She does have a PICC line in place, is receiving IV antibiotics for sternal infection. She is unsure as to what antibiotic she is receiving. She has had no fevers or chills. Normal bowel movements. Is urinating normally. She also notes some swelling in her legs, cannot really give me a timeline on how long that has been present. - Related Data Allergies/Adverse Reactions: mushroom Allergy (Severe, Verified 09/11/19 14:41) Anaphylaxis alcohol [Alcohol] Allergy (Unknown, Verified 09/11/19 14:41) Hives gabapentin Allergy (Unknown, Verified 09/11/19 14:41) Hives morphine [Morphine] Allergy (Unknown, Verified 09/11/19 14:41) Penicillins Allergy (Unknown, Verified 09/11/19 14:41) Sulfa (Sulfonamide Antibiotics) Allergy (Unknown, Verified 09/11/19 14:41) adhesive [Adhesive] Allergy (Verified 09/11/19 14:41) chlorpromazine [From Thorazine] Allergy (Verified 09/11/19 14:41) tomato [Tomato] Adverse Reaction (Severe, Verified 09/11/19 14:41) Anaphylaxis Home Medications: unsure but known IDDM Past Medical History - General Information source: Patient - Social History Smoking Status: Current Every Day Smoker Chew tobacco use (# tins/day): No Frequency of alcohol use: Occasional Drug Abuse: None Family History: Arthritis, CAD, DM, Malignancy, Thyroid Disfunction Patient has homicidal ideation: No - Past Medical History Cardiac Medical History: Reports: Hx Coronary Artery Disease, Hx Hypercholesterolemia Denies: Hx DVT, Hx Heart Attack, Hx Pulmonary Embolism Pulmonary Medical History: Reports: Hx Asthma Denies: Hx COPD, Hx Respiratory Failure, Hx Tuberculosis Neurological Medical History: Reports: Hx Seizures - 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 Denies: Hx Diabetes Mellitus Type 2, Hx Hyperthyroidism Renal/ Medical History: Denies: Hx Peritoneal Dialysis GI Medical History: Reports: Hx Gastroesophageal Reflux Disease. Denies: Hx Cirrhosis, Hx Crohn's Disease, Hx Hiatal Hernia, Hx Ulcer, Hx Ulcerative Colitis Musculoskeletal Medical History: Denies Hx Arthritis, Denies Hx Gout, Reports Hx Musculoskeletal Deformity, Reports Hx Musculoskeletal Trauma Skin Medical History: Denies Hx Eczema, Denies Hx Psoriasis Psychiatric Medical History: Reports: Hx Anxiety, Hx Bipolar Disorder, Hx Depression, Hx Post Traumatic Stress Disorder Traumatic Medical History: Reports: Hx Fractures - Wrist hand and toe Infectious Medical History: Reports: Other - Sternal infection status post CABG Past Surgical History: Reports: Hx Cardiac Catheterization, Hx Coronary Artery Bypass Graft - 06/14/2019, Hx Oral Surgery, Hx Orthopedic Surgery - Ankle surgery, Other - [place] teeth excisions bilaterally, bilateral ingrown toenail removals. Denies: Hx Mastectomy, Hx Open Heart Surgery - Immunizations Hx Diphtheria, Pertussis, Tetanus Vaccination: Yes Hx Pneumococcal Vaccination: 03/10/13 Review of Systems - Review of Systems Constitutional: Weakness Cardiovascular: See HPI Gastrointestinal: See HPI -: Yes All other systems reviewed and negative Physical Exam - Vital signs Vitals: Temp Pulse Resp BP Pulse Ox 98.3 F 101 H 24 H 139/65 H 96 09/11/19 13:49 09/11/19 13:49 09/11/19 13:49 09/11/19 13:49 09/11/19 13:49 - Notes Notes: This is a 34-year-old female who appears her stated age, no acute distress. Vital signs reviewed, please refer to chart. Head is normocephalic, atraumatic. Pupils equal round, reactive to light. Neck is supple without meningismus. Heart is regular rate and rhythm. Lungs are clear to auscultation bilaterally. Bandages in place overlying the sternum with a Derrick-Sheth draining tea colored, slightly opaque drainage. Abdomen is soft, diffusely tender without rebound or guarding, normoactive bowel sounds throughout. Extremities without cyanosis, clubbing. Posterior calves are nontender. She has 1+ pitting edema bilaterally. Peripheral pulses are equal. Skin is warm and dry. Patient is awake, alert, neurological exam is nonfocal. Course - Re-evaluation Re-evalutation: 09/11/19 14:46 Patient presents to the emergency department for evaluation. This is a diabetic, whose vomiting, with a known sternal infection, known coronary artery disease, known history of DKA. Laboratory investigations were ordered. She is given IV fluids, pain medications, nausea medication. She is placed on low vision therapist, chest x-ray ordered, we will continue to monitor. 09/11/19 15:37 Patient has laboratory investigations consistent with DKA. She is markedly hyperglycemic, her bicarb is 14. Her potassium is high, but I am sure this is just extracellular. I fluids and insulin drip ordered. Patient remained stable. I am still awaiting urinalysis. I spoke with in regards to this patient. He is concerned about what might have triggered her DKA. I am still awaiting urinalysis. I will speak with Ynes Campuzano, ROD, when urinalysis returns. Patient remained stable at this time. 09/11/19 18:17 Dr. Haywood came and evaluated the patient. He is concerned that infection might of prompted the DKA. He asked that I discussed this case with CT surgery. I was waiting for further lab work to come back, that eventually spoke with Dr. Galindo, CT surgeon. He states he believes that the patient had a sternal reconstruction by plastics, but would not be insistent that the patient be transferred to his facility. I spoke with internal medicine physician, Dr. Diaz. He states that again he would not think it would be necessary immediately to transfer the patient, however certainly it was reasonable that the same physicians evaluate her possible source of infection, and see if they thought that a change in this was an appropriate trigger for the DKA. I did notify Dr. Haywood of this, who believes that he would feel most comfortable with the patient being transferred, given her coexistent infection. Awaiting for phone call from Dr. Diaz. 09/11/19 18:23 Dr. Diaz will admit the patient. She is excepted to a PCU bed. 09/11/19 18:55 Patient's repeat metabolic panel is worsened. Her anion gap is higher, her bicarb is lower. I can only assume that the delay in starting her insulin drip was responsible. I did order is third liter of bolus of fluids. We will continue the insulin drip at 8 units an hour. Currently patient's heart rate is 100, blood pressure 158/96. She is mentating well. 09/11/19 20:53 Patient's glucose is 963, her anion gap is back down to 20. Her bicarb is climbing. We will maintain patient's drip at 8 units an hour. 09/11/19 21:22 Patient is stable. She states she has minimal chest wall pain at this time. Her heart rates have been stable. Transport is here, she is stable for transport to [facility]. - Vital Signs Vital signs: Temp Pulse Resp BP Pulse Ox 97.5 F 101 H 19 159/89 H 99 09/11/19 18:30 09/11/19 13:49 09/11/19 20:06 09/11/19 20:05 09/11/19 20:06 - Laboratory Result Diagrams: 09/11/19 14:08 09/11/19 20:00 Laboratory results interpreted by me: 09/11/19 09/11/19 09/11/19 14:06 14:08 14:08 RBC 3.32 L Hgb 10.0 L Hct 34.1 L MCV 103 H D MCHC 29.4 L RDW 15.9 H Lymph % (Auto) 12.1 L Seg Neutrophils % 82.9 H VBG pCO2 VBG HCO3 Sodium 122.6 L Potassium 6.8 H* Chloride 88 L Carbon Dioxide 14 L Anion Gap 21 H BUN 35 H Creatinine 1.32 H Est GFR ( Amer) 56 L Est GFR (MDRD) Non-Af 46 L Glucose 1254 H* POC Glucose > 550 H* Calcium AST 155 H Alkaline Phosphatase 164 H Total Protein 6.0 L Albumin 3.2 L Urine Protein Urine Glucose (UA) Urine Ketones Urine Blood 09/11/19 09/11/19 09/11/19 14:08 17:30 17:40 RBC Hgb Hct MCV MCHC RDW Lymph % (Auto) Seg Neutrophils % VBG pCO2 26.7 L VBG HCO3 13.4 L Sodium 127.3 L Potassium 5.4 H D Chloride 94 L Carbon Dioxide 8 L* Anion Gap 25 H BUN 36 H Creatinine 1.42 H Est GFR ( Amer) 52 L Est GFR (MDRD) Non-Af 43 L Glucose 1223 H* POC Glucose Calcium 8.1 L AST Alkaline Phosphatase Total Protein Albumin Urine Protein 100 H Urine Glucose (UA) >=500 H Urine Ketones 20 H Urine Blood SMALL H 09/11/19 20:00 RBC Hgb Hct MCV MCHC RDW Lymph % (Auto) Seg Neutrophils % VBG pCO2 VBG HCO3 Sodium 130.1 L Potassium Chloride Carbon Dioxide 12 L Anion Gap 20 H BUN 37 H Creatinine 1.31 H Est GFR ( Amer) 57 L Est GFR (MDRD) Non-Af 47 L Glucose 963 H* POC Glucose Calcium 8.2 L AST Alkaline Phosphatase Total Protein Albumin Urine Protein Urine Glucose (UA) Urine Ketones Urine Blood - Diagnostic Test Radiology reviewed: Image reviewed, Reports reviewed Radiology results interpreted by me: 09/11/19 18:20 Chest X-Ray 09/11/19 14:34 IMPRESSION: Interval removal of the sternotomy wires with skin cindy and surgical drain overlying midline. No evidence of acute cardiopulmonary complication. - EKG Interpretation by Me Additional EKG results interpreted by me: 09/11/19 14:47 Sinus tachycardia with a rate of 103 bpm, PVC noted. Normal axis and intervals. Nonspecific ST changes, but no acute changes concerning for ischemia or infarction. No significant change compared to prior study. Critical Care Note - Critical Care Note Total time excluding time spent on procedures (mins): 60 Discharge - Discharge Clinical Impression: Hyperglycemia due to type 1 diabetes mellitus, Tobacco abuse, Hyperkalemia, Chest pain Diabetic ketoacidosis Qualifiers: Diabetes mellitus type: type 1 Diabetes mellitus complication detail: without coma Qualified Code(s): E10.10 - Type 1 diabetes mellitus with ketoacidosis without coma Condition: Stable Disposition: [facility] Admitting Provider: Joe Referrals: ALEX ELLIOTT MD [NO LOCAL MD] - Follow up as needed
[2019-09-11 14:55] LABS: ALBUMIN 3.2 g/dL (3.5-5.0); ALKALINE PHOSPHATASE 164 U/L (38-126); ASPARTATE AMINO TRANSFERASE 155 U/L (14-36); BILIRUBIN,DIRECT 0.1 mg/dL (0.0-0.4); BILIRUBIN,TOTAL 0.5 mg/dL (0.2-1.3); BLOOD UREA NITROGEN 35 mg/dL (7-20); CALCIUM 8.4 mg/dL (8.4-10.2); CARBON DIOXIDE 14 mmol/L (22-30); CHLORIDE 88 mmol/L (98-107); CREATINE KINASE 80 U/L (30-135); VENOUS BLOOD BASE EXCESS -10.8 mmol/L; VENOUS BLOOD HCO3 13.4 mmol/L (20-32); VENOUS BLOOD PCO2 26.7 mmHg (35-63); VENOUS BLOOD PH 7.32 (7.30-7.42)
[2019-09-11 14:58] LABS: MEAN CORPUSCULAR VOLUME 103 fl (80-97)
[2019-09-11 15:06] LABS: CREATINE KINASE MB 1.21 ng/mL (<4.55); TROPONIN I 0.013 ng/mL
[2019-09-11] MEDS ORDERED: NORMAL SALINE 100 ML with INSULIN REGULAR, HUMAN 100 UNIT IV PRN ×2 (15:17)
[2019-09-11 15:23] LABS: ANION GAP 21 (5-19)
[2019-09-11 15:25] LABS: GLUCOSE 1254 mg/dL (75-110); POTASSIUM 6.8 mmol/L (3.6-5.0)
--- NOTE | 2019-09-11 15:38 | RADIOLOGY REPORT (SQ) ---
EXAM DESCRIPTION: CHEST SINGLE VIEW IMAGES COMPLETED DATE/TIME: 09/11/2019 3:25 pm REASON FOR STUDY: chest pain, dyspnea COMPARISON: 07/18/2019 EXAM PARAMETERS: NUMBER OF VIEWS: One view. TECHNIQUE: Single frontal radiographic view of the chest acquired. RADIATION DOSE: NA LIMITATIONS: None. FINDINGS: LUNGS AND PLEURA: No opacities, masses or pneumothorax. No pleural effusion. MEDIASTINUM AND HILAR STRUCTURES: No masses. Contour normal. HEART AND VASCULAR STRUCTURES: Heart normal in size. Normal vasculature. BONES: Interval removal of the sternotomy wires. HARDWARE: Right approach PICC tip terminates at SVC. Derrick-Sheth drain overlies midline. Skin sta ples overlie midline. OTHER: No other significant finding. IMPRESSION: Interval removal of the sternotomy wires with skin cindy and surgical drain overlying midline. No evidence of acute cardiopulmonary complication. TECHNICAL DOCUMENTATION: JOB ID: [id number] 2010 [employer]- All Rights Reserved Reading location - IP/workstation name: [email or web address]
[2019-09-11] MEDS ORDERED: INSULIN REG, HUMAN 100 UNIT/ML 3 ML VIAL (PYX) ONE (16:20)
[2019-09-11 18:01] LABS: APPEARANCE,URINE SLIGHTLY-CLOUDY; BILIRUBIN,URINE NEGATIVE (NEGATIVE); COLOR,URINE STRAW; GLUCOSE, URINE >=500 mg/dL (NEGATIVE); KETONES,URINE 20 mg/dL (NEGATIVE); LEUKOCYTE ESTERASE,URINE NEGATIVE (NEGATIVE); NITRITE,URINE NEGATIVE (NEGATIVE); PROTEIN,URINE 100 mg/dL (NEGATIVE); URINE SPECIFIC GRAVITY 1.023; UROBILINOGEN,URINE NEGATIVE mg/dL (<2.0)
[2019-09-11 18:21] LABS: BLOOD UREA NITROGEN 36 mg/dL (7-20); CALCIUM 8.1 mg/dL (8.4-10.2)
[2019-09-11 18:27] LABS: CHLORIDE 94 mmol/L (98-107)
--- NOTE | 2019-09-11 18:32 | PDOC CONSULTATION ---
Consultation Consult Date: 09/11/19 Attending physician:: FRANCIA BLACKMON Provider Consulted: IKNG NICOLE Consult reason:: DKA, nausea/vomiting, chest pain History of Present Illness Admission Date/PCP: CARROLL PEPPER PA-C Patient complains of: Nausea vomiting, chest pain History of Present Illness: JEANINE OSORIO is a 34 year old female with history of multiple MIs, CAD, status post recent CABG on 06/14/2019 at [facility], recent chest wall/mediastinal infection s/p revision/washout with closure done 2 weeks ago on IV antibiotics, DM type I, who presents to the hospital with complaints of nausea and vomiting which started this morning. Patient states her blood sugar was in the 200s yesterday and that she has been using her insulin pump. She denies any detachment of her pump. She also complains of mild abdominal pain but chest pain which has been persisting. Mostly midsternal around the site of her incisions. Admits to sweats but denies fever or chills. Admits to malaise and generalized feeling of being unwell. Also has some shortness of breath but not worsened in the past couple weeks.. Past Medical History Cardiac Medical History: Reports: Coronary Artery Disease, Hyperlipidema Denies: DVT, Myocardial Infarction, Pulmonary Embolism Pulmonary Medical History: Reports: Asthma Denies: Chronic Obstructive Pulmonary Disease (COPD), Respiratory Failure, Tuberculosis Neurological Medical History: Reports: Seizures - Grand mal seizure x1 as a child Endocrine Medical History: Reports: Diabetes Mellitus Type 1, Hypothyroidism Denies: Diabetes Mellitus Type 2, Hyperthyroidism GI Medical History: Reports: Gastroesophageal Reflux Disease Denies: Cirrhosis, Crohn's Disease, Hiatal Hernia, Ulcerative Colitis Musculoskeltal Medical History: Denies: Arthritis, Gout Skin Medical History: Denies: Eczema, Psoriasis Psychiatric Medical History: Reports: Bipolar Disorder, Depression, Post Traumatic Stress Disorder Hematology: Denies: Anemia, Bleeding Tendencies Past Surgical History Past Surgical History: Reports: Cardiac Catheterization, Coronary Artery Bypass Graft - 06/14/2019, Orthopedic Surgery - Ankle surgery, Other - [place] teeth e xcisions bilaterally, bilateral ingrown toenail removals Denies: Amputation, Mastectomy Social History Smoking Status: Current Every Day Smoker Electronic Cigarette use?: No Frequency of Alcohol Use: Occasional Hx Recreational Drug Use: No - denies Drugs: None Hx Prescription Drug Abuse: No - denies Family History Family History: Arthritis, CAD, DM, Malignancy, Thyroid Disfunction Parental Family History Reviewed: Yes Children Family History Reviewed: Unknown Sibling(s) Family History Reviewed.: Yes Medication/Allergy Home Medications: Alprazolam [Xanax] 1 mg PO Q12HP PRN 10/03/18 Ciclopirox 1 applic TOP QHS 10/03/18 Insulin Aspart [Novolog Insulin (Aspart) 100 unit/mL] 50 units PUMP DAILY 10/03/18 Omeprazole 40 mg PO DAILY 10/03/18 Prazosin HCl [Minipress] 2 mg PO QHS 10/03/18 Propranolol HCl [Inderal 20 mg Tablet] 10 mg PO Q6 10/03/18 Simvastatin [Zocor 20 mg Tablet] 20 mg PO QPM 10/03/18 Trazodone HCl [Desyrel 50 mg Tablet] 50 mg PO HSP PRN 10/03/18 Clindamycin HCl [Cleocin 300 mg Capsule] 300 mg PO QID #20 capsule 10/11/18 Methocarbamol [Robaxin 500 mg Tablet] 500 mg PO QID PRN #15 tablet 10/31/18 Naproxen 500 mg PO BID #10 tablet 10/31/18 Allergies/Adverse Reactions: mushroom Allergy (Severe, Verified 09/11/19 14:41) Anaphylaxis alcohol [Alcohol] Allergy (Unknown, Verified 09/11/19 14:41) Hives gabapentin Allergy (Unknown, Verified 09/11/19 14:41) Hives morphine [Morphine] Allergy (Unknown, Verified 09/11/19 14:41) Penicillins Allergy (Unknown, Verified 09/11/19 14:41) Sulfa (Sulfonamide Antibiotics) Allergy (Unknown, Verified 09/11/19 14:41) adhesive [Adhesive] Allergy (Verified 09/11/19 14:41) chlorpromazine [From Thorazine] Allergy (Verified 09/11/19 14:41) tomato [Tomato] Adverse Reaction (Severe, Verified 09/11/19 14:41) Anaphylaxis Review of Systems Constitutional: PRESENT: chills, fatigue. ABSENT: fever(s) Eyes: ABSENT: visual disturbances Nose, Mouth, and Throat: ABSENT: headache(s) Cardiovascular: PRESENT: chest pain Respiratory: PRESENT: cough, dyspnea Gastrointestinal: PRESENT: nausea, vomiting. ABSENT: constipation, diarrhea Genitourinary: ABSENT: dysuria Musculoskeletal: ABSENT: muscle weakness Integumentary: PRESENT: diaphoresis - Occasionally Neurological: PRESENT: weakness. ABSENT: dizziness Psychiatric: PRESENT: other - History of bipolar disorder Endocrine: PRESENT: polyuria Physical Exam Vital Signs: Temp Pulse Resp BP Pulse Ox 98.3 F 101 H 20 141/75 H 100 09/11/19 13:49 09/11/19 13:49 09/11/19 16:30 09/11/19 16:30 09/11/19 16:30 Intake & Output 09/10/19 09/11/19 09/12/19 06:59 06:59 06:59 Intake Total 1999 Balance 1999 Weight 61.235 kg General appearance: PRESENT: cooperative, mild distress Head exam: PRESENT: normocephalic Neck exam: ABSENT: JVD Respiratory exam: PRESENT: chest wall tenderness, symmetrical, tachypnea, unlabored, other - Chest wall with clean dressings over midsternal region and DINA drain with somewhat purulent substance. Very tender on palpation.. ABSENT: accessory muscle use, retraction, wheezes Cardiovascular exam: PRESENT: +S1, +S2, tachycardia. ABSENT: irregular rhythm GI/Abdominal exam: PRESENT: soft. ABSENT: rebound, rigid, tenderness Extremities exam: PRESENT: +1 edema Neurological exam: PRESENT: alert, awake, oriented to person, oriented to place, oriented to time Psychiatric exam: PRESENT: anxious Focused psych exam: ABSENT: pressured speech Results Laboratory Results: 09/11/19 14:08 09/11/19 09/11/19 09/11/19 14:08 14:08 14:08 WBC 9.3 RBC 3.32 L Hgb 10.0 L Hct 34.1 L MCV 103 H D MCH 30.2 MCHC 29.4 L RDW 15.9 H Plt Count 383 Seg Neutrophils % 82.9 H VBG pH 7.32 VBG pCO2 26.7 L VBG HCO3 13.4 L VBG Base Excess -10.8 Sodium 122.6 L Potassium 6.8 H* Chloride 88 L Carbon Dioxide 14 L Anion Gap 21 H BUN 35 H Creatinine 1.32 H Est GFR ( Amer) 56 L Glucose 1254 H* Calcium 8.4 Total Bilirubin 0.5 AST 155 H Alkaline Phosphatase 164 H Total Protein 6.0 L Albumin 3.2 L Urine Color Urine Appearance Urine pH Ur Specific [place] Urine Protein Urine Glucose (UA) Urine Ketones Urine Blood Urine Nitrite Ur Leukocyte Esterase Urine WBC (Auto) Urine RBC (Auto) 09/11/19 17:30 WBC RBC Hgb Hct MCV MCH MCHC RDW Plt Count Seg Neutrophils % VBG pH VBG pCO2 VBG HCO3 VBG Base Excess Sodium Potassium Chloride Carbon Dioxide Anion Gap BUN Creatinine Est GFR ( Amer) Glucose Calcium Total Bilirubin AST Alkaline Phosphatase Total Protein Albumin Urine Color STRAW Urine Appearance SLIGHTLY-CLOUDY Urine pH 5.0 Ur Specific [place] 1.023 Urine Protein 100 H Urine Glucose (UA) >=500 H Urine Ketones 20 H Urine Blood SMALL H Urine Nitrite NEGATIVE Ur Leukocyte Esterase NEGATIVE Urine WBC (Auto) 3 Urine RBC (Auto) 3 09/11/19 09/11/19 14:08 14:08 Creatine Kinase 80 CK-MB (CK-2) 1.21 Troponin I 0.013 Impressions: Chest X-Ray 09/11/19 14:34 IMPRESSION: Interval removal of the sternotomy wires with skin cindy and surgical drain overlying midline. No evidence of acute cardiopulmonary complic ation. Assessment and Plan - Diagnosis (1) Diabetic ketoacidosis Qualifiers: Diabetes mellitus type: type 1 Diabetes mellitus complication detail: without coma Qualified Code(s): E10.10 - Type 1 diabetes mellitus with ketoacidosis without coma Is this a current diagnosis for this admission?: Yes (2) Chest pain Is this a current diagnosis for this admission?: Yes (3) Nausea & vomiting Is this a current diagnosis for this admission?: Yes (4) Infection surgical site of organ after surgical procedure Is this a current diagnosis for this admission?: Yes (5) Status post coronary artery bypass graft Is this a current diagnosis for this admission?: Yes - Plan Summary Summary: Patient currently in distress with pain in her mid chest region. May simply be musculoskeletal from her recent surgery or possibly related to her mediastinal infection. DINA drain is in place with purulent substance. Notably she is on IV antibiotics via PICC line in right arm. Insulin pump in place. Denies detachment of insulin pump. I reviewed chest x-ray which shows no pneumonia. EKG shows sinus tachycardia but no ischemic ST changes. Troponin is minimal at 0.013. Patient has been given normal saline boluses and started on insulin drip for her DKA. Hyperkalemia expected to improve with treatment of DKA. Repeating BMP After discussing with patient and reviewing patient's case and chart, I think patient would be better [facility] at [facility] to be cared for at the facility where she had her recent complex thoracic surgeries including CABG and what sounds like a mediastinal washout following a mediast inal infection. It is unclear what is triggering patient is DKA and may very well be her mediastinal infection. It is best the patient be transferred to [facility] where patient can be evaluated, in person, by CT surgery and/or Plastic surgery that performed wound closure especially as she states her antibiotics were meant to be stopped tomorrow and her DINA drain is still draining purulent substance. Have discussed case with ER provider who has reached out to [facility] to organize for transfer. - Time Time Spent with patient: 35 or more minutes
[2019-09-11 18:47] LABS: CARBON DIOXIDE 8 mmol/L (22-30); GLUCOSE 1223 mg/dL (75-110)
[2019-09-11 18:48] LABS: ANION GAP 25 (5-19)
--- NOTE | 2019-09-11 18:50 | ER Document Report ---
Doctor's Note Notes: 09/11/19 18:46 Patient seen and examined by myself. She has no new complaints today. Her abdominal pain continues, but she states is somewhat improved. She denies any shortness of breath. Still with some abdominal pain, but it is improved. Vital signs showed continued hypertension, but not markedly so. Repeat BMP was ordered. It does show some fluid overload and potassium is rising, but emergent dialysis is not indicated. Patient is stable. Still awaiting transport to [facility].
[2019-09-11 18:54] LABS: POTASSIUM 5.4 mmol/L (3.6-5.0)
[2019-09-11 20:29] LABS: BLOOD UREA NITROGEN 37 mg/dL (7-20); CALCIUM 8.2 mg/dL (8.4-10.2); POTASSIUM 4.8 mmol/L (3.6-5.0)
[2019-09-11 20:35] LABS: CARBON DIOXIDE 12 mmol/L (22-30); CHLORIDE 98 mmol/L (98-107)
[2019-09-11 20:44] LABS: ANION GAP 20 (5-19)
[2019-09-11 20:45] LABS: GLUCOSE 963 mg/dL (75-110)
[2019-09-11 21:46] VITALS: BP 145/88
--- NOTE | 2019-09-11 23:30 | EKG REPORT ---
SEVERITY:- BORDERLINE ECG - SINUS TACHYCARDIA PROBABLE LEFT ATRIAL ABNORMALITY : Confirmed by: Jorge Pruett 11-Sep-2019 23:30:11
== END 2019-09-11 21:47 | disposition short-term general hospital (02) ==
LOC: ER 13:49
DX: E10.10 Type 1 diabetes mellitus with ketoacidosis without coma (principal); Z96.41 Presence of insulin pump (external) (internal); Z79.4 Long term (current) use of insulin; E87.5 Hyperkalemia; T81.43XA Infection following a procedure, organ and space surgical site, initial encounter; J98.51 Mediastinitis; Y83.8 Other surgical procedures as the cause of abnormal reaction of the patient, or of later complication, without mention of misadventure at the time of the procedure; R10.9 Unspecified abdominal pain; R10.817 Generalized abdominal tenderness; R53.1 Weakness; R60.0 Localized edema; R07.89 Other chest pain; R11.2 Nausea with vomiting, unspecified; R05 Cough; I25.2 Old myocardial infarction; I49.3 Ventricular premature depolarization; F17.200 Nicotine dependence, unspecified, uncomplicated; I25.10 Atherosclerotic heart disease of native coronary artery without angina pectoris; J45.909 Unspecified asthma, uncomplicated; K21.9 Gastro-esophageal reflux disease without esophagitis; E78.5 Hyperlipidemia, unspecified; R68.83 Chills (without fever); R53.83 Other fatigue; R61 Generalized hyperhidrosis; Z79.899 Other long term (current) drug therapy; Z79.1 Long term (current) use of non-steroidal anti-inflammatories (NSAID); Z79.2 Long term (current) use of antibiotics; Z95.1 Presence of aortocoronary bypass graft; Z87.892 Personal history of anaphylaxis; Z91.018 Allergy to other foods; Z88.6 Allergy status to analgesic agent; Z88.5 Allergy status to narcotic agent; Z88.0 Allergy status to penicillin; Z88.2 Allergy status to sulfonamides; Z91.048 Other nonmedicinal substance allergy status; Z88.8 Allergy status to other drugs, medicaments and biological substances
CPT/HCPCS: 93005; 96376; 99291; 96361; 96374; 96375; 36415; 82553; 82962; 82550; 83735; 85025; 80053; 81001; 84484; 82803; 71045; 93010; J1170; J2405; J7030

== ENCOUNTER 2020-01-12 12:26 | Emergency (ER) | payer MEDICARE, MEDICAID ==
--- NOTE | 2020-01-12 13:33 | ER Document Report ---
ED General Pain - General Stated Complaint: SHORTNESS OF BREATH Time Seen by Provider: 01/12/20 12:35 Primary Care Provider: CARROLL PEPPER PA-C [Primary Care Provider] - Follow up as needed Notes: HPI: 35-year-old female that presents today stating that for 2 months she has had left-sided chest discomfort. She states pain when she takes a deep breath. She denies any fevers, vomiting, calf pain or leg swelling. She states in June she had bypass at [facility]. She states she had infected wires at that time and then 1 month later in July she had the wires removed and she also had a stent placed in her bypass vessels. She states again for the last 2 months she has had constant chronic pain. She has yet to see the cyber software engineer once again. She was visiting her friend out of town and did go to the hospital at that time and she was told that it was "nothing". She denies any fevers, cough, shortness of breath, calf pain or leg swelling. She denies any fevers. She denies any pain to the upper abdomen. ROS: See HPI All other review of systems reviewed and otherwise negative Reviewed vital signs and nursing note as charted by RN. PHYSICAL EXAM: CONSTITUTIONAL: Alert and oriented and responds appropriately to questions. Well-appearing; well-nourished HEAD: Normocephalic; atraumatic EYES: Sclerae non-icteric ENT: Normal nose; no rhinorrhea; moist mucous membranes; pharynx without lesions noted NECK: Supple without meningismus; non-tender; no cervical lymphadenopathy, no masses CARD: Regular rate and rhythm; midline central chest scar with no swelling, erythema, discharge, or induration; no murmurs; symmetric distal pulses RESP: Normal chest excursion without splinting or tachypnea; exquisite tenderness to the left anterior lower ribs with no swelling, erythema, or crepitus; no bruising appreciated; breath sounds clear and equal bilaterally; no wheezes, no rhonchi, no rales ABD/GI: Normal bowel sounds; non-distended; soft, non-tender; no palpable organomegaly or masses BACK: The back appears normal and is non-tender to palpation EXT: Normal ROM in all joints; non-tender to palpation; no edema SKIN: No acute lesions noted NEURO: CN 2-12 intact; 5/5 bilateral upper and lower extremity strength with sensation intact to light touch PSYCH: The patient's mood and manner are appropriate. Grooming and personal hygiene are appropriate. TRAVEL OUTSIDE OF THE [place] IN LAST 30 DAYS: No - Related Data Allergies/Adverse Reactions: mushroom Allergy (Severe, Verified 01/12/20 13:28) Anaphylaxis alcohol [Alcohol] Allergy (Unknown, Verified 01/12/20 13:28) Hives gabapentin Allergy (Unknown, Verified 01/12/20 13:28) Hives morphine [Morphine] Allergy (Unknown, Verified 01/12/20 13:28) Penicillins Allergy (Unknown, Verified 01/12/20 13:28) Sulfa (Sulfonamide Antibiotics) Allergy (Unknown, Verified 01/12/20 13:28) adhesive [Adhesive] Allergy (Verified 01/12/20 13:28) chlorpromazine [From Thorazine] Allergy (Verified 01/12/20 13:28) tomato [Tomato] Adverse Reaction (Severe, Verified 01/12/20 13:28) Anaphylaxis Past Medical History - Social History Smoking Status: Unknown if Ever Smoked Family History: Arthritis, CAD, DM, Malignancy, Thyroid Disfunction - Past Medical History Cardiac Medical History: Reports: Hx Coronary Artery Disease, Hx Hypercholest erolemia Denies: Hx DVT, Hx Heart Attack, Hx Pulmonary Embolism Pulmonary Medical History: Reports: Hx Asthma Denies: Hx COPD, Hx Respiratory Failure, Hx Tuberculosis Neurological Medical History: Reports: Hx Seizures - 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 Denies: Hx Diabetes Mellitus Type 2, Hx Hyperthyroidism Renal/ Medical History: Denies: Hx Peritoneal Dialysis GI Medical History: Reports: Hx Gastroesophageal Reflux Disease. Denies: Hx Cirrhosis, Hx Crohn's Disease, Hx Hiatal Hernia, Hx Ulcer, Hx Ulcerative Colitis Musculoskeletal Medical History: Denies Hx Arthritis, Denies Hx Gout, Reports Hx Musculoskeletal Deformity, Reports Hx Musculoskeletal Trauma Skin Medical History: Denies Hx Eczema, Denies Hx Psoriasis Psychiatric Medical History: Reports: Hx Anxiety, Hx Bipolar Disorder, Hx Depression, Hx Post Traumatic Stress Disorder Traumatic Medical History: Reports: Hx Fractures - Wrist hand and toe Infectious Medical History: Past Surgical History: Reports: Hx Cardiac Catheterization, Hx Cardiac Surgery - 06/14/2019 bypass, Hx Coronary Artery Bypass Graft - 06/14/2019, Hx Oral Surgery, Hx Orthopedic Surgery - Ankle surgery, Other - [place] teeth excisions bilaterally, bilateral ingrown toenail removals. Denies: Hx Mastectomy, Hx Open Heart Surgery - Immunizations Hx Diphtheria, Pertussis, Tetanus Vaccination: Yes Hx Pneumococcal Vaccination: 03/10/13 Physical Exam - Vital signs Vitals: Pulse Resp BP Pulse Ox 94 20 154/86 H 100 01/12/20 12:39 01/12/20 12:39 01/12/20 12:39 01/12/20 12:39 Course - Re-evaluation Re-evalutation: Given the above history and physical examination we will obtain an x-ray of the chest, cardiac panel, EKG, place the patient on the monitor, and reassess. Given the exquisite tenderness of the left anterior chest wall bringing the patient to tears, I do believe ACS, PE, dissection to be much less likely than chest wall pain at this time. EKG shows heart of 87, normal sinus rhythm, normal axis, no ST elevation or depression. 01/12/20 14:54 X-ray of the chest as recorded. Vital signs are stable. Chemistry hemolyzed and is currently redrawn and pending. 01/12/20 18:08 Imaging and glucose as recorded. Troponin as recorded. Given the length of symptoms, with reproducible palpation tenderness, I do not believe any further imaging or laboratory work is necessary or appropriate at this moment. Patient will be discharged home with strict return precautions and follow-up with [facility] care physician and specialist. - Vital Signs Vital signs: Temp Pulse Resp BP Pulse Ox 97.9 F 94 20 154/86 H 100 01/12/20 13:53 01/12/20 12:39 01/12/20 12:39 01/12/20 12:39 01/12/20 12:39 - Laboratory Result Diagrams: 01/12/20 13:40 01/12/20 17:15 Laboratory results interpreted by me: 01/12/20 01/12/20 13:40 17:15 WBC 11.7 H RBC 3.50 L Hgb 10.9 L Hct 30.0 L MCHC 36.3 H RDW 20.3 H Plt Count 764 H Absolute Neuts (auto) 8.6 H BUN 27 H Discharge - Discharge Clinical Impression: Left-sided chest wall pain Condition: Good Disposition: HOME, SELF-CARE Additional Instructions: Come back immediately for any increased pain, change in location or quality of pain, fevers or vomiting, shortness of breath, or any other acute problems. Please make sure that you follow-up with your specialist as we have discussed. Referrals: CARROLL PEPPER PA-C [Primary Care Provider] - Follow up as needed
--- NOTE | 2020-01-12 13:44 | RADIOLOGY REPORT (SQ) ---
EXAM DESCRIPTION: CHEST SINGLE VIEW IMAGES COMPLETED DATE/TIME: 01/12/2020 12:25 pm REASON FOR STUDY: chest pain COMPARISON: 09/11/2019 EXAM PARAMETERS: NUMBER OF VIEWS: One view. TECHNIQUE: Single frontal radiographic view of the chest acquired. RADIATION DOSE: NA LIMITATIONS: None. FINDINGS: LUNGS AND PLEURA: No opacities, masses or pneumothorax. No pleural effusion. MEDIASTINUM AND HILAR STRUCTURES: No masses. Contour normal. HEART AND VASCULAR STRUCTURES: Heart normal in size. Normal vasculature. BONES: No acute findings. HARDWARE: None in the chest. OTHER: No other significant finding. IMPRESSION: NO ACUTE RADIOGRAPHIC FINDING IN THE CHEST. TECHNICAL DOCUMENTATION: JOB ID: [id number] 2010 [employer]- All Rights Reserved Reading location - IP/workstation name: [email or web address]
[2020-01-12] MEDS ORDERED: ASPIRIN 325 MG TABLET PO ONE (13:49)
[2020-01-12 14:21] LABS: ABSOLUTE BASOPHILS # (AUTO) 0.1 10^3/uL (0.0-0.2); ABSOLUTE EOSINOPHILS # (AUTO) 0.2 10^3/uL (0.0-0.6); ABSOLUTE LYMPHOCYTES (AUTO) 2.2 10^3/uL (0.5-4.7); ABSOLUTE MONOCYTES (AUTO) 0.6 10^3/uL (0.1-1.4); ABSOLUTE NEUT (AUTO) 8.6 10^3/uL (1.7-8.2); BASOPHILS % (AUTO) 0.6 % (0-2); EOSINOPHILS % (AUTO) 1.3 % (0-6); HEMOGLOBIN 10.9 g/dL (12.0-15.5); LYMPHOCYTES % (AUTO) 19.1 % (13-45); MEAN CORPUSCULAR HEMOGLOBIN 31.2 pg (27.0-33.4); MEAN CORPUSCULAR HGB CONC 36.3 g/dL (32.0-36.0); MEAN CORPUSCULAR VOLUME 86 fl (80-97); MONOCYTES % (AUTO) 5.2 % (3-13); PLATELET COUNT 764 10^3/uL (150-450); RED CELL DISTRIBUTION WIDTH 20.3 % (11.5-14.0); SEGMENTED NEUTROPHILS % (AUTO) 73.8 % (42-78); TOTAL CELLS COUNTED % (AUTO) 100 %; WHITE BLOOD COUNT 11.7 10^3/uL (4.0-10.5)
[2020-01-12] MEDS ORDERED: HYDROCODONE/ACETAMINOPHEN 5-325 MG TABLET PO ONE (14:59)
[2020-01-12 18:06] LABS: ANION GAP 7 (5-19); BLOOD UREA NITROGEN 27 mg/dL (7-20); CALCIUM 9.1 mg/dL (8.4-10.2); CARBON DIOXIDE 27 mmol/L (22-30); CHLORIDE 107 mmol/L (98-107); GLUCOSE 101 mg/dL (75-110); POTASSIUM 4.6 mmol/L (3.6-5.0)
[2020-01-12] MEDS ORDERED: HYDROCODONE/ACETAMINOPHEN 5-325 MG (6 TAB/ER DISP) PO PRN (18:19)
[2020-01-12 18:54] VITALS: BP 124/86
== END 2020-01-12 18:43 | disposition home or self-care (01) ==
LOC: ER 12:26
DX: R07.89 Other chest pain (principal); R07.1 Chest pain on breathing; G89.29 Other chronic pain; I25.10 Atherosclerotic heart disease of native coronary artery without angina pectoris; J45.909 Unspecified asthma, uncomplicated; E11.9 Type 2 diabetes mellitus without complications; Z95.1 Presence of aortocoronary bypass graft; Z95.5 Presence of coronary angioplasty implant and graft; Z87.892 Personal history of anaphylaxis; Z91.018 Allergy to other foods; Z88.6 Allergy status to analgesic agent; Z88.5 Allergy status to narcotic agent; Z88.0 Allergy status to penicillin; Z88.2 Allergy status to sulfonamides; Z91.048 Other nonmedicinal substance allergy status; Z88.8 Allergy status to other drugs, medicaments and biological substances; Z82.49 Family history of ischemic heart disease and other diseases of the circulatory system
CPT/HCPCS: 99283; 36415; 85025; 80048; 84484; 71045; A9270 ×3